=== PATIENT | male | born 1965 | race Caucasian/White ===

== ENCOUNTER 2017-07-23 13:00 | Outpatient (RCR) | payer MEDICAID, SELFPAY ==
--- NOTE | 2017-06-25 14:21 | HP.PTEVAL_ITS ---
Patient's Visit Information TED FONTANEZ is a 52 year old M referred to Physical Therapy by Out of Town Doctor ELIANA BOYD with a diagnosis of Neck Pain. Date of Evaluation: 06/25/17 Physical Therapist: Bruna Chavira - Visit Plan Frequency: 2x /Week Duration: 4 Weeks Plan: Postural correction, distraction/traction, manual and pain managment (US/E -stim) - Subjective Subjective: Patient reports neck pain for a long time- reports signifcant pain from the muscles in the neck and back. Insidious onset- about a couple of years - doesn't feel like its getting worse but not getting better. Pain comes and goes. 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 Best: 0 /10 Eases: heating pad with massage. Pain is along the middle of the cervical spine- and sometimes makes the shoulders ache. No radiating pain past the shoulders. Describes the pain as dull and achy. No N/t in the fingers. No BILLINGSLEY , blurred vision is from his DM, and no dizziness. 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 Sleep: disturbed hard to get comfortable- sleeps in all directions- side mostly- 1 pillow. Has not had x-rays done on his neck but had some on his back. PMHx: DM, HTN, high iron, heart is skipping a beat (going to see a gas torch brazier). Meds: see list. - Objective Posture: FH, RS, Increased kyphosis- severe guarding of the cervical spine. Gait: no deviation of the LE- poor trunk rotation. Palpation: tender along upper traps, cervical paraspinals from occiput to CT junction. ROM: Shoulder/ Elbow: WNL Cervical: flexion: decreased by 50%, extn: decreased by 75%, SB: decreased by 25% left and 50% right Rot: decreased by 75% bilaterally- pain with all cervical motions. Strength: Shoulder: 5/5 throughout, Elbow: 5/5, Director Clinical Applications : equal and strong. Cervical: 3/5. Special Test: Compression: positive, Distraction: decreases s/s. - Goals Goal 1:: Patient will be I with HEP and progression Goal Time Frame: 4-6 Weeks Goal 2:: Patient will demo only a 25% defecit in ROM in the cervical spine Goal Time Frame: 4-6 Weeks Goal 3:: Patient will maintain proper posture t/o tx session to demo increased scap s/s Goal Time Frame: 4-6 Weeks Goal 4:: Patient will report sleeping through the night for 1 week Goal Time Frame: 4-6 Weeks - Rehabilitation Potential Physical Therapy Diagnosis: Patient presents with hypomobility- he has decreased ROM, strength and muscular endurance leading to poor posture and increased pain with ADL's. Rehabilitation Potential: Fair - Anticipated Interventions Patient/Client Instruction: Educate patient on: Benefits of Fitness Program For the Purpose of:: To increase tolerance to activity/condition/position Therapeutic Exercise to Include: Strength training, Endurance training, Body mechanics, Postural training, Passive ROM, Active ROM, Scapular Strength/ Stabilization For the Purpose of:: To improve muscle performance and motor function TENS: Yes Cryotherapy (ice pack, ice massage): Yes Thermo therapy (hot pack): Yes Ultrasound (thermal/non thermal): Yes Intermittent cervical traction: Yes For the Purpose of:: To decrease pain Thank you for the opportunity to evaluate your patient. For Medicare and Medicare HMO plans, please review the plan of care and approve it. It will need to be FAXED BACK to us at [phone] for Medicare purposes. Please let me know if there are questions or concerns regarding this plan of care. Physician Signature: Date:
--- NOTE | 2017-07-23 13:19 | HP.PTDCSUM_ITS ---
HP - PT D/C Summary It has been my pleasure to treat TED FONTANEZ under orders from Out of Town Doctor, for the diagnosis of Neck Pain for a total of 9 visit(s). Discharge Date: Please see the following information for a summary of their discharge status. - Subjective Subjective: His neck his a lot better- he has no pain in his neck. Patient feels that he is 99% better. 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 Sleep is not disturbed. Goes back to the MD in July. - Overall Improvement % Improvement: 99 - Objective Objective/Function: Posture: FH, RS, Increased kyphosis Gait: no deviation of the LE- poor trunk rotation. Palpation: not tender ROM: Shoulder/Elbow: WNL Cervical: WFL- no pain Strength: Shoulder: 5/5 throughout, Elbow: 5/5, Brooch And Bracelet Maker: equal and strong. Cervical: 5/5. Special Test: Compression: positive, Distraction: decreases s/s. - Goals Goal 1:: Patient will be I with HEP and progression Goal Progress: Goal Met Goal 2:: Patient will demo only a 25% defecit in ROM in the cervical spine Goal Progress: Goal Met Goal 3:: Patient will maintain proper posture t/o tx session to demo increased scap s/s Goal Progress: Progressing Goal 4:: Patient will report sleeping through the night for 1 week Goal Progress: Goal Met - Plan Plan: Discharge - D/C Information If there are questions or concerns regarding this patient's physical therapy, please feel free to call me at [phone]. Thank you for the referral of this patient. Sincerely, Bruna Chavira
== END 2017-07-23 19:00 | disposition home or self-care (01) ==
LOC: PT 13:00
PROVIDERS: Family Provider Family Medicine; PCP Family Medicine
DX: M54.2 Cervicalgia (principal); M79.1 Myalgia
CPT/HCPCS: 97012; 97035; 97110; 97140; 97162; 97530

== ENCOUNTER 2017-08-31 11:00 | Outpatient (RCR) | payer MEDICAID, SELFPAY ==
--- NOTE | 2017-08-06 09:44 | HP.PTEVAL ---
Patient's Visit Information TED FONTANEZ is a 52 year old M referred to Physical Therapy by TRACIE DIEGO with a diagnosis of LBP AND LUMBAR DDD. Date of Evaluation: 08/06/17 Physical Therapist: Patty Palencia Visit Plan Frequency: 2-3x /Week Duration: 4-6 Weeks Plan: LUMBAR US AND E-STIM WITH . POSTURE CORRECTION/STRENGTHENING, INSTRUCTION IN APPROPRIATE BODY MECHANICS AND ACTIVITY MODIFICATIONS. DLS STARTING WITH A NEUTRAL SPINE PROGRESSING ROM TOLERATED. MARY LE ROM, STRETCHING AND STRENGTHENING. HEP INSTRUCTION. - Subjective Subjective: Diagnosis: LBP AND LUMBAR DDD. 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 Disability: NO. Present symptoms: LOW BACK PAIN. STATES HE WAS HAVING NECK AND SHOULDER PAIN RECENTLY BUT THAT IS GONE. ONE EPISODE OF PAIN IN THE LEGS ABOUT 6 MONTHS AGO. NO RECENT PAIN, NUMBNESS OR TINGLING IN ARMS OR LEGS. Present since: YEARS. Pain Scale: WORST 7/10, LEAST 1/10. Currently: 2/10. Commenced as a result of: 1984 WAS CARRYING LONG TABLES AND BACK WENT OUT. Symptoms at onset: LOW BACK. Worse: PROLONGED SITTING, PROLONGED STANDING. PROLONGED WALKING. TOO MUCH BENDING. SOMETIMES LIFTING. Better: HEATING PAD. Disturbed sleep: YES. Previous history/Previous treatment: WATER PT IN THE PAST MADE IT WORSE - HE HAD IT HERE. MEDICINE. HEATING PAD. NO INJECTIONS. Coughing/sneezing/straining: NEGATIVE. Gait: INDEP WITHOUT AD. DISTANCE/TIME LIMITED DUE TO PAIN WITH PROLONGED WALKING. Difficulty initiating urinatin: NO. Accidents: NO. Unexplained weight loss: NO. Imaging: Normal vertebral bodies and endplates. There is mild degenerative disc. change at L4-5 and L5-S1. There is bilateral facet hypertrophy at L4-5 and. L5-S1 with bilateral foraminal narrowing at L5-S1. Sacrum and sacroiliac. joints are intact. NO MRI. PMH: ANXIETY/DEPRESSION, MYALGIA, LONGTERM USE OF OPIATE ANALGESIC. NIDDM, HTN, HIGH IRON, SPECIALIST APPOINTMENT PENDING FOR HEART SKIPPING A BEAT WHICH WAS JUST DISCOVERED ABOUT A MONTH AGO. HAS HAD RECENT STRESS TEST. Recent major surgery: RIGHT KNEE - 3 SURGERIES FROM ACCIDENT WITH A COW A COUPLE YEARS AGO. OTHER: PATIENT REPORTS WATER THERAPY MADE HIM WORSE LAST TIME AND HE DOES NOT WANT TO TRY IT AGAIN. - Objective Sitting Posture: POOR. Standing Posture: POOR. RIGHT ILIAC CREST HIGHER THAN LEFT. MARY SCAPULAR WINGING. Lordosis: DECREASED. Lateral shift: NO. Relevant shift: N/A. Active Correction of posture: WORSE. Other Observations: INDEP GAIT INTO PT WITHOUT ASSISTIVE DEVICE WITH INCREASED TRUNK FLEX AND DECREASED TRUNK ROTATION. INDEP SIT TO STAND WITHOUT UE ASSIST. PATIENT IS PLEASANT AND COOPERATIVE TO WORK WITH. Motor deficit: 5/5 MARY LE'S WITH MMT'ING BUT UNABLE TO COMPLETELY GET RIGHT KNEE EXTENDED IN SITTING AND LYING (-15 DEG). Sensory deficit: MARY LE LIGHT TOUCH SENSATION IS INTACT AND SYMMETRICAL. ROM deficit: TIGHT MARY HS'S AND GASTROC SOLEUS COMPLEX'S. Reflexes: 3/3 MARY LE'S. Dural Signs: POSITIVE MARY LE DURAL SIGNS. Lumbar mvmt loss: flex - MOD TO AFSHAN. ext - AFSHAN IN STANDING AND IN LYING. R SG - AFSHAN. L SG - MOD. Core strength: POOR. Palpation: NO ACURE THORACIC OR LUMBAR TENDERNESS BUT VERY TIGHT MARY PARASPINALS. OTHER: DECREASED LOW BACK PAIN SITTING WITH SUPPORT IN LOW BACK. - Goals Goal 1:: DECREASE C/O LBP Goal Time Frame: 4-6 Weeks Goal 2:: IMPROVE BENDING, LIFTING, SITTING, STANDING, WALKING, WORK AND SLEEP FUNCTION Goal Time Frame: 4-6 Weeks Goal 3:: INSTRUCT IN PROPHYLAXIS Goal Time Frame: 4-6 Weeks - Rehabilitation Potential Rehabilitation Potential: Fair - Anticipated Interventions Patient/Client Instruction: Educate patient on: Condition, Plan of Care, Risk Factors, Benefits of Fitness Program For the Purpose of:: To improve self management Therapeutic Exercise to Include: Strength training, Body mechanics, Postural training, Flexibilty training, Passive ROM, Active ROM, Dynamic Lumbar Stabilization, Ke Exercises For the Purpose of:: To decrease pain, To improve muscle performance and motor function, To increase tolerance to activity/condition/position, To improve ability of physical actions for home/community/work/leisure Manual Therapy Techniques to Include: Mobilization, Soft tissue mobilization Comment: TOLERATED AND/OR INDICATED FROM KE APPROACH For the Purpose of:: To decrease pain, To increase ROM TENS: Yes IF ES: Yes Cryotherapy (ice pack, ice massage): Yes Thermo therapy (hot pack): Yes Ultrasound (thermal/non thermal): Yes For the Purpose of:: To decrease pain, To increase ROM Thank you for the opportunity to evaluate your patient. For Medicare and Medicare HMO plans, please review the plan of care and approve it. It will need to be FAXED BACK to us at [phone] for Medicare purposes. Please let me know if there are questions or concerns regarding this plan of care. Physician Signature: Date:
--- NOTE | 2017-09-03 11:00 | DT_ITS ---
This patient was seen during an EMR downtime August 27, 2017 - September 03, 2017. This patient may have a combination of paper and electronic documentation or all paper documentation. All documentation is viewable within the e-chart portion of [employer] for each patient visit.
--- NOTE | 2017-09-22 17:47 | HP.PTDCSUM_ITS ---
HP - PT D/C Summary It has been my pleasure to treat TED FONTANEZ under orders from TRACIE DIEGO, for the diagnosis of LBP AND LUMBAR DDD for a total of 4 visit(s). Discharge Date: Please see the following information for a summary of their discharge status. - Subjective Subjective: REPORTING STIFFNESS TODAY. DENIES PAIN CURRENTLY. OVERALL REPORTS PAIN IS IMPROVING. AFTER 8 HR WORK DAY BACK IS STIFF. - Objective Objective/Function: ADDED TO HEP- SEE BELOW. CONTINUED WITH STRETCHING AND DLS/ POSTURAL EX. PT FEELS THE HEAT REALLY HELPS WITH THE STIFFNESS. LEFT FEELING GOOD. - Goals Goal 1:: DECREASE C/O LBP Goal 2:: IMPROVE BENDING, LIFTING, SITTING, STANDING, WALKING, WORK AND SLEEP FUNCTION Goal 3:: INSTRUCT IN PROPHYLAXIS - Plan Plan: LUMBAR US AND E-STIM WITH MH. POSTURE CORRECTION/STRENGTHENING, INSTRUCTION IN APPROPRIATE BODY MECHANICS AND ACTIVITY MODIFICATIONS. DLS STARTING WITH A NEUTRAL SPINE PROGRESSING ROM TOLERATED. MARY LE ROM, STRETCHING AND STRENGTHENING. HEP INSTRUCTION. - D/C Information If there are questions or concerns regarding this patient's physical therapy, please feel free to call me at [phone]. Thank you for the referral of this patient. Sincerely, Patty Cherry
== END 2017-08-31 19:00 | disposition home or self-care (01) ==
LOC: PT 11:00
PROVIDERS: Family Provider Family Medicine; PCP Family Medicine
DX: M51.36 Other intervertebral disc degeneration, lumbar region (principal); M54.5 Low back pain
CPT/HCPCS: 97014; 97110; 97162; 97530; G0283

== ENCOUNTER → 2017-10-29 12:29 | Outpatient (CLI) | payer MEDICAID, SELFPAY ==
--- NOTE | 2017-10-29 12:39 | MRI_ITS ---
STUDY: MRI LUMBAR SPINE WITHOUT CONTRAST REASON FOR EXAM: Male, 52 years old. LOW BACK PAIN -- pain low back x 30 years. TECHNIQUE: Standardized fat and water weighted pulse sequences were obtained in the sagittal and axial planes. COMPARISON: None FINDINGS: T12-L1: There is mild disc space narrowing and endplate spondylosis. There is no significant disc herniation, spinal canal or foramina stenosis. There is Normal lumbar lordosis. There is no substantial scoliosis. Normal conus medullaris that terminates at the L1 L1-2: There is mild disc space narrowing and endplate spondylosis. There is no significant disc herniation, spinal canal or foramina stenosis. There is L2-3: Normal endplates. Normal disc height, hydration and morphology. Normal bilateral facet joints. Normal central canal and bilateral lateral recesses. Normal bilateral intervertebral neural foramina. L3-4: There is minimal disc space narrowing and endplate spondylosis along with moderate facet arthropathy. There is no significant disc herniation, spinal canal or foramina stenosis.. L4-5: There is mild disc space narrowing and endplate spondylosis. There is a mild disc bulge and minimal facet arthropathy without significant central canal or foraminal stenosis. L5-S1: There is mild disc space narrowing and anterior spondylosis. There is a moderate circumferential osteophyte complex and mild facet arthropathy without significant central canal stenosis. There is mild right and moderate left foraminal stenosis. Normal visualized sacral ala. Normal visualized paraspinous soft tissue structures. MRI/Spine Lumbar (Routine) IMPRESSION: L5/S1: Moderate left foraminal stenosis. Mild multilevel degenerative changes. Electronically Signed: Rosa Hernandez MD at 13:07 EDT Tel , Service support ,
== END ==
PROVIDERS: Family Provider Family Medicine; PCP Family Medicine
DX: M54.5 Low back pain (principal)
CPT/HCPCS: 72148

== ENCOUNTER 2019-03-16 20:52 | Emergency (ER) | payer SELFPAY ==
[2019-03-16 20:53] VITALS: BP 152/103; PULSE 132; RESP 16; TEMP 36.8; O2SAT 98; BMI 27.1
--- NOTE | 2019-03-16 22:14 | EKG12_ITS ---
Test Reason : GEN ILL Blood Pressure : / mmHG Vent. Rate : 085 BPM Atrial Rate : 085 BPM P-R Int : 176 ms QRS Dur : 088 ms QT Int : 366 ms P-R-T Axes : 006 005 -04 degrees QTc Int : 435 ms Sinus rhythm with Premature atrial complexes Minimal voltage criteria for LVH, may be normal variant T wave abnormality, consider inferior ischemia Abnormal ECG Confirmed by GONZALEZ LOVE, RADHA ([id number]), pictures editor WILLARD FAM ([id number]) on 03/20/2019 8:51:14 AM Referred By: JESÚS Confirmed By:RADHA ROTH MD
--- NOTE | 2019-03-16 22:19 | RAD_ITS ---
STUDY: X-RAY CHEST REASON FOR EXAM: Male, 53 years old. PT ARRIVES TO ED WITH A SORE THROAT. HAS BEEN OUT OF HOME MEDS FOR A MONTH. HX OF DIABETES. METER AT HOME READING HIGH. TECHNIQUE: Single frontal view of the chest. COMPARISON: None. FINDINGS: The lungs are clear and expanded. There is no demonstrated pleural abnormality. Normal size heart. Normal mediastinum and chelita. Normal visualized pulmonary arteries. Normal visualized aortic arch and descending thoracic aorta. Normal visualized thoracic spine. Normal visualized ribs, clavicles, and shoulders. There is no demonstrated abnormality of the visualized soft tissue structures of the upper abdomen. RAD/Chest 1 View (Portable) IMPRESSION: Normal x-ray examination of the chest. Electronically Signed: Poncho Sorenson MD at 22:45 EST , Service support ,
[2019-03-16] MEDS: 0.9% Normal Saline 1,000 ML 1000 ML IV ×2 (22:21→23:28)
[2019-03-16 22:28] LABS: Absolute Lymphocyte Count 1.45 X10^3/uL (0.83-4.51); Absolute Neutrophil Count 4.8 X10^3/uL (2.0-7.7); Basophil# 0.06 X10^3/uL; Basophil% 0.8 % (0-1); Eosinophil# 0.12 X10^3/uL; Eosinophils% 1.7 % (0-5); Hematocrit 43.3 % (40-54); Hemoglobin 15.3 g/dL (13.0-16.5); Lymphocyte # 1.45 X10^3/ul (4.0); Lymphocyte % 20.1 % (19-41); Mean Corp Hgb Conc 35.3 g/dL (32-36); Mean Corpuscular Hgb 30.1 pg (27.0-32.0); Mean Corpuscular Volume 85.1 fL (80-94); Mean Platelet Vol. 10.6 fl (6.2-12.0); Monocyte# 0.81 X10^3/uL; Monocyte% 11.2 % (0-10); NRBC Flagged by Analyzer 0 % (0-5); Neutrophil # 4.75 X10^3/uL (2.7-7.7); Neutrophil % 65.9 % (47-70); Platelet Count 340 K/mm3 (150-450); RBC Distribution Width CV 11.5 % (11.6-14.6); RBC Distribution Width SD 35.4 fl (35.1-43.9); Red Blood Count 5.09 M/mm3 (4.6-6.2); White Blood Count 7.2 K/mm3 (4.4-11.0)
[2019-03-16 22:48] LABS: ALB/GLOB Ratio 0.9 RATIO (0.9-2.4); AST(SGOT) 27 U/L (15-37); Alanine Aminotransfer ALT/SGPT 42 U/L (16-61); Albumin, Serum 4.1 g/dL (3.2-5.0); Alkaline Phosphatase 164 U/L (45-117); Anion Gap 9 (5-15); BUN 23 mg/dL (7-18); BUN/Creat Ratio 12.5 RATIO (10-20); Calcium,Total 9.1 mg/dL (8.5-10.1); Chloride 97 mmol/L (98-107); Creatinine, Serum 1.84 mg/dL (0.70-1.30); EST Glomerular Filtration Rate 41 mL/min (>60); Est Glom Filt Rate - Afr Amer 49 mL/min (>60); Estimated Creatinine Clearance 51.87 ml/min; Globulin 4.6 g/dL (2.2-4.2); Glucose 618 mg/dL (74-106); Protein, Total 8.7 g/dL (6.4-8.2); Sodium Level 129 mmol/L (136-145)
[2019-03-16 23:00] VITALS: PULSE 89; RESP 20; O2SAT 98
[2019-03-16] MEDS: 0.9% Normal Saline 1,000 ML 999 ML IV (23:28)
--- NOTE | 2019-03-16 23:32 | ED.VISSUMM ---
- ER Visit Summary Date of Service: 03/16/19 Chief Complaint: High blood sugar History of Present Illness: The patient is a [address] Isabel and is in the process of getting into the [facility]. Reports that he had a change in insurance and because of this he ran out of his medications approximately 1 month ago. He was on multiple medications for his blood pressure as well as diabetes. Patient reports that he has had polyuria, polydipsia, blurred vision. He also reports that he has a slight headache. He denies any fever or chills. No chest pain. Reports he has a little bit of a cough. He has mild shortness of breath. He denies any abdominal pain. He reports he was nauseated vomited 2 days ago. Has not vomited since then. He said 3-4 episodes of diarrhea today. He denies any other complaints. Physical Examination: Vitals: 98.3, 152/103, 132, 16, 90% on room air which is not hypoxic. General: Well-nourished and well-developed. Head: Normocephalic atraumatic. HEENT: Dry mucous membranes. No tonsillar enlargement or exudate. Neck: Supple, no lymphadenopathy. No JVD. Nontender. Cardiovascular: Tachycardic regular rhythm. No murmurs. Respiratory: No respiratory distress. Clear to auscultation bilaterally. Abdominal: Soft, nontender, nondistended, normal bowel sounds. No guarding, rebound, or peritoneal signs. Back: Nontender. Extremities: Nontender, no edema. Skin: Normal color, no rash. Neurologic: Alert and oriented ?3. Cranial nerves II through XII are intact. Normal strength and sensation. Psych: Normal affect. Test Results: EKG is sinus with PACs and nonspecific ST changes. He has T wave inversions in lead III and aVF. There is LVH. His troponin is negative. LFTs show an alk phos 164, total protein of 8.7, globulin 4.6. Chem-7 shows a sodium 129 which is 137 when corrected for his sugar of 618. BUN 23, creatinine is 1.84. Serum ketones are negative. CBC shows monocytes of 11. Emergency Department Course and Treatment: Patient was given 2 L normal saline and metformin p.o. Treatment Plan: I reviewed the patient's medication list. He was given prescriptions for his home medications. All of these are on the $4 list at [facility]. He understands it will cost $28 a month for his medications. He be discharged instructed to follow-up with his primary care physician over the [facility] within the next 1 to 2 weeks for another exam. Return to the emergency department for any worsening symptoms. Disposition: To home in improved and stable condition. Impression: 1. Ntj-ustmshn-dubrpcyjg diabetes mellitus. 2. Hyperglycemia. This note was generated with [employer] dictation software. It may contain incorrect words, spelling, and punctuation that were not noted in review of the chart prior to signing ED Disposition - Plan for ED Patient: Disposition: Home or Assisted Living Instructions: Hyperglycemia (High Blood Sugar) Prescriptions: Pioglitazone [Actos] 15 mg PO DAILY #30 tab Prescription Printed Atorvastatin Calcium 20 mg PO DAILY #30 tab Prescription Printed Glimepiride 4 mg PO BREAKFAST #30 tab Prescription Printed Hydrochlorothiazide 12.5 mg PO DAILY #30 cap Prescription Printed Isosorbide Mononitrate [Isosorbide Mononitrate ER] 30 mg PO DAILY #30 tab.er.24h Prescription Printed Lisinopril 30 mg PO DAILY #30 tab Prescription Printed Metformin HCl 1,000 mg PO BID #60 tab Prescription Printed Referrals: Clovis Isabel MD [Primary Care Provider] - [facility] soon as possible [facility] [NON-STAFF] - As soon as possible
[2019-03-16] MEDS: metFORMIN (XR) 500 MG Tablet 1000 MG PO (23:46)
[2019-03-17 00:52] VITALS: BP 156/96; PULSE 79; RESP 18; O2SAT 98
== END 2019-03-17 01:06 | disposition home or self-care (01) ==
LOC: ED 22:44
PROVIDERS: Emergency Provider Emergency Medicine; Family Provider Family Medicine; PCP Family Medicine
DX: E11.65 Type 2 diabetes mellitus with hyperglycemia (principal); I10 Essential (primary) hypertension; Z79.84 Long term (current) use of oral hypoglycemic drugs; Z79.82 Long term (current) use of aspirin; Z79.899 Other long term (current) drug therapy
CPT/HCPCS: 71045; 80053; 82009; 84484; 85025; 93005; 96360; 96361; 99285; J7030; A4216

== ENCOUNTER 2019-07-02 20:12 | Inpatient (IN) | payer SELFPAY ==
[2019-07-02] VITALS (10 sets, daily range): BP systolic 155–170; BP diastolic 82–96; PULSE 105–127; RESP 15–25; TEMP 37.4–38.3; O2SAT 96–100; BMI 27.9
--- NOTE | 2019-07-02 20:27 | EKG12_ITS ---
Test Reason : CP Blood Pressure : / mmHG Vent. Rate : 121 BPM Atrial Rate : 121 BPM P-R Int : 172 ms QRS Dur : 082 ms QT Int : 306 ms P-R-T Axes : 026 024 -13 degrees QTc Int : 434 ms Sinus tachycardia Otherwise normal ECG Confirmed by ELIDA LOVE, JOEL ([id number]), primer expeditor and drier WILLARD FAM ([id number]) on 07/04/2019 9:37:39 AM Referred By: BAKARI Confirmed By:MAXIM MARRERO MD
--- NOTE | 2019-07-02 20:28 | ED.DCSUM_ITS ---
- ER Visit Summary Date of Service: 07/02/19 Chief Complaint: Chest pain History of Present Illness: The patient is a 54 M who presents with chest pain that began today. Patient states it is gradually gotten worse. Patient states it began while he was at work. Patient describes it as a tightness. Patient states nothing makes it better or worse. Patient does admit to some shortness of breath and cough with this. Patient states he occasionally coughs up a white sputum but most of the time it is a dry cough. Patient admits to subjective fevers. Patient denies any nausea or vomiting. Patient denies any diaphoresis. Patient does admit to some lightheadedness and palpitations. Physical Examination: Vital signs are stable except for a tachycardia of 127. Patient does have a temperature of 100.9 here. Patient is in no acute distress. Oral mucosa is pink and moist. Neck is supple. Trachea is midline. There is no JVD. Heart was regular and tachycardic. Lungs are clear but diminished bilaterally. Abdomen is soft. Bowel sounds are normal. There is no tenderness . Cranial nerves II through XII are intact. There are no focal motor or sensory deficits. Test Results: EKG shows sinus tachycardia with a rate of 121. There are no acute ST or T wave changes. CBC shows a mild leukocytosis of 13.2. Creatinine was 1.56 and glucose was elevated at 398. INR is normal. PTT is normal. Rapid strep was positive. RSV and influenza swabs were negative. Troponin was normal. D-dimer was elevated at 0.72. Lactate was normal at 1.1. Portable chest x-ray was obtained. There is no acute cardiopulmonary process. Because of the elevated d-dimer a CTA of the chest was obtained. There is nonspecific groundglass spiculated lesions in the left perihilar region. This could be infectious, inflammatory, or neoplastic etiologies including early covid 19. This was interpreted by the radiologist and reviewed by myself. Emergency Department Course and Treatment: Patient was ordered Tylenol. Patient declined this initially. Patient was started on Rocephin and Zithromax here. Case was discussed with the hospitalist. She will admit the patient to her service. Patient understands and is agreeable with the plan. All questions were answered. Disposition: Admit to hospital Impression: 1. Pneumonia 2. Sepsis 3. Strep pharyngitis This note was generated with [employer] dictation software. It may contain incorrect words, spelling, and punctuation that were not noted in review of the chart prior to signing ED Disposition - Plan for ED Patient: Disposition: Acute Care Hospital [facility] Diagnosis: Pneumonia, Sepsis, Strep pharyngitis Referrals: NOT,DEFINED [NON-STAFF] -
[2019-07-02 21:00] LABS: Absolute Lymphocyte Count 0.49 X10^3/uL (0.83-4.51); Absolute Neutrophil Count 11.8 X10^3/uL (2.0-7.7); Basophil# 0.05 X10^3/uL; Basophil% 0.4 % (0-1); Eosinophil# 0.03 X10^3/uL; Eosinophils% 0.2 % (0-5); Hematocrit 39.4 % (40-54); Lymphocyte # 0.49 X10^3/ul (4.0); Lymphocyte % 3.7 % (19-41); Mean Corp Hgb Conc 35.5 g/dL (32-36); Mean Corpuscular Hgb 30.5 pg (27.0-32.0); Mean Corpuscular Volume 85.8 fL (80-94); Mean Platelet Vol. 9.6 fl (6.2-12.0); Monocyte# 0.79 X10^3/uL; NRBC Flagged by Analyzer 0 % (0-5); Neutrophil # 11.75 X10^3/uL (2.7-7.7); Neutrophil % 89.1 % (47-70); POSITIVE DIFFERENTIAL YES; Platelet Count 296 K/mm3 (150-450); RBC Distribution Width CV 11.5 % (11.6-14.6); Red Blood Count 4.59 M/mm3 (4.6-6.2); White Blood Count 13.2 K/mm3 (4.4-11.0)
[2019-07-02 21:02] LABS: Differential Indicated SCAN CRITERIA MET
[2019-07-02 21:18] LABS: ALB/GLOB Ratio 0.9 RATIO (0.9-2.4); AST(SGOT) 20 U/L (15-37); Alanine Aminotransfer ALT/SGPT 32 U/L (16-61); Albumin, Serum 3.9 g/dL (3.2-5.0); Alkaline Phosphatase 138 U/L (45-117); Anion Gap 9 (5-15); BUN 17 mg/dL (7-18); BUN/Creat Ratio 10.9 RATIO (10-20); Calcium,Total 9.1 mg/dL (8.5-10.1); Chloride 98 mmol/L (98-107); Creatinine, Serum 1.56 mg/dL (0.70-1.30); EST Glomerular Filtration Rate 49 mL/min (>60); Est Glom Filt Rate - Afr Amer 60 mL/min (>60); Estimated Creatinine Clearance 60.47 ml/min; Globulin 4.3 g/dL (2.2-4.2); Glucose 398 mg/dL (74-106); Potassium 3.8 mmol/L (3.5-5.1); Protein, Total 8.2 g/dL (6.4-8.2); Sodium Level 131 mmol/L (136-145)
[2019-07-02 21:19] LABS: D-Dimer Quantitative (DVT/PE) 0.72 FEU/ug/m (0.27-0.49)
--- NOTE | 2019-07-02 21:21 | ED.RN ---
d-dimer of 0.72 reported to . verbalizes understanding
--- NOTE | 2019-07-02 21:22 | RAD_ITS ---
STUDY: X-RAY CHEST REASON FOR EXAM: Male, 54 years old. sob with fever TECHNIQUE: Single frontal view of the chest. COMPARISON: March 16, 2019 FINDINGS: The lungs are clear and expanded. There is no demonstrated pleural abnormality. Normal size heart. Normal mediastinum and chelita. Normal visualized pulmonary arteries. Normal visualized aortic arch and descending thoracic aorta. Normal visualized thoracic spine. Normal visualized ribs, clavicles, and shoulders. There is no demonstrated abnormality of the visualized soft tissue structures of the upper abdomen. RAD/Chest 1 View (Portable) IMPRESSION: Normal x-ray examination of the chest. Electronically Signed: Poncho Sorenson MD at 21:46 EDT , Service support ,
[2019-07-02 21:28] LABS: Differential Comment SCANNED
--- NOTE | 2019-07-02 21:30 | CT_ITS ---
STUDY: CTA CHEST REASON FOR EXAM: Male, 54 years old. COUGH/ELEV DDIMER/CHEST PRESSURE RADIATION DOSAGE (If Supplied By Facility): CTDIvol = ( 10.91 ) mGy, DLP = ( 564.41 ) mGycm TECHNIQUE: The examination was performed with the intravenous administration of 100ML ISOVUE 300. Post-processing of the angiographic images was performed, with multiplanar reformation and 3D reconstruction. Individualized dose optimization techniques were used for this CT. COMPARISON: Chest x-ray July 02, 2019 FINDINGS: Normal enhancement of the main pulmonary artery and right and left pulmonary arteries. Normal enhancement of the bilateral peripheral pulmonary arteries. There is no demonstrated pulmonary embolism. Normal thoracic aorta and visualized great vessels. There is no demonstrated aortic dissection. Normal heart and pericardium. Calcific coronary artery disease. Normal mediastinum. Normal hilar regions. Normal visualized trachea and bronchi. 6 x 13 mm spiculated lesion left perihilar region image #171. Multiple smaller satellite lesions are noted in this region. Another 12 x 12 mm lesion is noted more superiorly on image #190. Normal pulmonary parenchyma. Normal pleura. Normal chest wall structures. Normal osseous structures. Normal visualized upper abdomen. CT/CTA Chest W/WO Contrast IMPRESSION: Nonspecific groundglass spiculated lesions left perihilar region. Differential considerations include infectious, inflammatory, and neoplastic etiologies including early covid 19. Follow-up recommended. Electronically Signed: Poncho Sorenson MD at 23:00 EDT , Service support ,
--- NOTE | 2019-07-02 21:39 | ED.RN ---
positive nguyễn Parisi reported to dr. gonzales. verbalizes understanding
[2019-07-02 21:52] LABS: Partial Thromboplast Time 24.9 Seconds (24.1-36.2); Prothrombin Time (Protime)PT. 12.8 SECONDS (11.7-14.9)
[2019-07-02] MEDS: 0.9% Normal Saline 1,000 ML 1000 ML IV (21:55)
[2019-07-02 22:36] LABS: Bacteria 0 SEEN /hpf (None Seen); Mucous, Urine 0 SEEN /hpf (<or=2+); White Blood Cells 0 SEEN /hpf (0-5)
[2019-07-02 22:42] LABS: Color, Urine Yellow (Yellow); Glucose, Dipstick 1000 mg/dl (Normal); Ketone-Dipstick 15 mg/dl (Negative); Leukocyte Esterase-Dipstick Negative /ul (Negative); Nitrite-Dipstick Negative (Negative); Occult Blood-Urine 150 /ul (Negative); Protein-Dipstick 30 mg/dl (Negative); Urine Bilirubin Dipstick Negative (Negative); Urine Clarity Clear (Clear); Urine Urobilinogen Normal (Normal)
[2019-07-02 22:54] LABS: Amorphous Sediment 1+ URATE; Red Blood Cells-Urine 10-25 SEEN /hpf (0-5); Squamous Epithelial Cells - UA 0-5 SEEN /hpf (0-5)
[2019-07-02 22:58] LABS: Lactic Acid 1.1 mmol/L (0.4-1.9)
--- NOTE | 2019-07-02 23:00 | ED.RN ---
PATIENT DOES NOT WANT THE TYLENOL AT THIS TIME SINCE HIS TEMPERATURE IS GETTING BETTER AND HE ISN'T THAT UNCOMFORTABLE.
--- NOTE | 2019-07-02 23:44 | PCM.HP.STD ---
Problem List (1) Sepsis Status: Acute Qualifiers: Sepsis type: sepsis due to unspecified organism Sepsis acute organ dysfunction status: unspecified Qualified Code(s): A41.9 - Sepsis, unspecified organism (2) Pneumonia Status: Acute Qualifiers: Pneumonia type: due to unspecified organism Laterality: unspecified laterality Lung location: unspecified part of lung Qualified Code(s): J18.9 - Pneumonia, unspecified organism (3) Suspected 2019 novel coronavirus infection Status: Acute (4) HTN (hypertension) Status: Chronic Qualifiers: Hypertension type: essential hypertension Qualified Code(s): I10 - Essential (primary) hypertension (5) HLD (hyperlipidemia) Status: Chronic Qualifiers: Hyperlipidemia type: unspecified Qualified Code(s): E78.5 - Hyperlipidemia, unspecified (6) Diabetes mellitus, type II Status: Chronic Qualifiers: Diabetes mellitus senior living insulin use: without senior living use Diabetes mellitus complication status: with other specified complication Qualified Code(s): E11.69 - Type 2 diabetes mellitus with other specified complication History of Present Illness Date of Admission: 07/02/19 Chief Complaint: Cough, dyspnea, headache, myalgia. The patient is a 54 y/o M w/ PMHx: CKD stage III, HTN, HLD, Diabetes mellitus type II, Anxiety and Depression who presents to the [facility] ED on 07/02/19 with history of chest discomfort, dyspnea, mildly productive cough not markedly productive sputum, subjective fevers, myalgias as well as frontal ongoing throbbing headache prompting eventual ED presentation. He denies any recent nausea, emesis, abdominal pain or diarrhea. Also denies any specific loss of sense of smell or alteration work-up in the ED included T1 100.9, heart rate initially 127, BP 170/82, respiratory rate 23, 99% on room air, CBC with WBC 13.2, hemoglobin 14, platelet 296 with left shift but also noted lymphopenia, unremarkable PT, INR and PTT, d-dimer 0.72, CMP with sodium 131, BUN/creatinine 17/1.56, glucose 398, lactic acid 1.1, alk phos 138, troponin less than 0.015, urinalysis with specific gravity 1.010, protein 30, glucose 1000, ketone 15, occult blood 150, negative nitrite, negative leukocyte esterase, RBC 10-25, 0 urine WBCs, 0 urine bacteria, blood culture x2 pending per ED, urine culture pending per ED, rapid RSV and influenza negative, positive group A strep on rapid screen, respiratory viral panel pending, rest x-ray unremarkable, CTPA with nonspecific groundglass Spiculated lesions in the left perihilar region. In the ED patient ministered normal saline, Tylenol, Rocephin, azithromycin. Past Medical History Past Medical History (Chronic Problems): Chronic Problems HTN (hypertension) (Chronic) HLD (hyperlipidemia) (Chronic) Diabetes mellitus, type II (Chronic) Allergies acetaminophen [From Vicodin] Adverse Reaction (Verified 07/02/19 20:12) Other hydrocodone [From Vicodin] Adverse Reaction (Verified 07/02/19 20:12) Other Home Medications: Ambulatory Orders Medication Instructions Recorded Aspirin [Aspir 81] 81 mg PO DAILY 03/16/19 Glimepiride 4 mg PO BREAKFAST #30 tab 03/16/19 Hydrochlorothiazide 12.5 mg PO DAILY 03/16/19 Isosorbide Mononitrate [Isosorbide 30 mg PO DAILY 03/16/19 Mononitrate ER] Lisinopril 30 mg PO DAILY #30 tab 03/16/19 Metformin HCl 1,000 mg PO BID #60 tab 03/16/19 Nitroglycerin 0.4 mg SUBLINGUAL PRN PRN 03/16/19 Pioglitazone HCl 15 mg PO DAILY 03/16/19 Pioglitazone [Actos] 15 mg PO DAILY #30 tab 03/16/19 Simvastatin [Flolipid] 20 mg PO DAILY 03/16/19 Surgical History: - - Left knee surgery x3 following trauma. Psychiatric History: Anxiety, Depression Lives: Roommate Smoking Status: Never smoker Tobacco Use: Non-smoker Alcohol: None Drugs: None - *Family History Maternal History Items: - - Patient notes a maternal family history of heart disease, hypertension, diabetes mellitus type 2. Paternal History Items: Heart Disease Review of Systems Constitutional: Reports: Anorexia, Chills, Fever, Malaise, Weakness, Fatigue. Denies: Weight Change HEENT: Reports: Head Aches, Sore Throat. Denies: Sinus Congestion, Sinus Drainage Cardiovascular: Denies: Chest Pain, Palpitations Respiratory: Reports: Cough, Shortness of Breath, Shortness of breath at rest, Shortness of breath upon exertion. Denies: Sputum production, Wheezing Gastrointestinal: Denies: Abdominal Pain, Nausea, Vomiting Genitourinary: Denies: Dysuria Musculoskeletal: Reports: Back Pain, Joint Pain. Denies: Joint Tenderness Skin: Denies: Rash, Wounds Neurological: Denies: Numbness, Tingling, Focal weakness Psychiatric: Reports: Anxiety, Depression. Denies: Homicidal Ideations, Suicidal Ideations Hematologic/ Lymphatic: Denies: Easy Bruising, Easy Bleeding VTE Information - Inpt Only VTE Present on Admission: No VTE Mechan Device Prophylaxis: SCD's VTE Pharm Prophylaxis ordered?: Yes Patient Problems: Active and Suspected Problems Pneumonia (Acute) Sepsis (Acute) Strep pharyngitis (Acute) Suspected 2019 novel coronavirus infection (Acute) Subjective: Patient seated upright in ED bed, fatigued and ill-appearing. Objective: Physical Examination: General: awake, alert, oriented x 3 and cooperative, but upright in the ED bed, fatigued and ill-appearing. Skin: Flushed skin color, turgor, no icterus, cyanosis. HEENT: AT/NC, EOMI, PERRLA, mask in place, no carotid bruits or JVD noted. Lungs: Decreased breath sounds throughout, greater bases, moderate effort, no rales, ronchi or wheezing. Heart: Tachycardic with regular rhythm; no gallop, rub audible. Abdomen: soft, overweight, NTTP, ND, normal BS, no HSM. Extremities: no cyanosis, clubbing, or edema. Neurological: patient awake, alert, oriented x 3; cognitive function appears baseline intact; pupils equally reactive to light and accomodation; cranial nerves II-XII grossly normal, moving all 4 extremities, no focal deficits, strength moderately global decrease secondary to acute presentation. Psychiatric: affect appears fatigued, ill-appearing, no acute evidence of depressive or anxiety feelings. - Physical Exam Vitals/I&O's: Vital Signs Temp Pulse Resp BP Pulse Ox 100.0 F H 106 H 23 H 170/82 H 99 07/02/19 23:05 07/02/19 22:55 07/02/19 22:55 07/02/19 22:55 07/02/19 22:55 Oxygen Delivery Method Room Air Weight: 212 lb 1.355 oz Body Mass Index (BMI) 27.9 Microbiology Past 72 Hours 07/02/19 20:40 Mucosa - Nose Influenza Types A,B Direct FA (MENG) - Final 07/02/19 20:40 Mucosa - Nose Rapid RSV (DFA) - Final 07/02/19 20:42 Mucosa - Throat Group A Streptococcus Rapid Screen - Preliminary Streptococcus Group A Laboratory Results 07/02/19 20:46: WBC 13.2 H, RBC 4.59 L, Hgb 14.0, Hct 39.4 L, MCV 85.8, MCH 30.5, MCHC 35.5, RDW Std Deviation 36.0, RDW Coeff of Gustavo 11.5 L, Plt Count 296, MPV 9.6, Immature Gran % (Auto) 0.600, Neut % (Auto) 89.1 H, Lymph % (Auto) 3.7 L, [place] % (Auto) 6.0, Eos % (Auto) 0.2, Baso % (Auto) 0.4, Absolute Neuts (auto) 11.8 H, Absolute Lymphs (auto) 0.49 L, Nucleated RBC % 0, Differential Comment SCANNED 07/02/19 20:46: D-Dimer Quant (PE/DVT) 0.72 H* 07/02/19 20:46: Sodium 131 L, Potassium 3.8, Chloride 98, Carbon Dioxide 24.0, Anion Gap 9, BUN 17, Creatinine 1.56 H, Estim Creat Clear Calc 60.47, Est GFR (MDRD) Af Amer 60, Est GFR (MDRD) Non-Af 49 L, BUN/Creatinine Ratio 10.9, Glucose 398 H, Calcium 9.1, Total Bilirubin 0.60, AST 20, ALT 32, Alkaline Phosphatase 138 H, Troponin I < 0.015, Total Protein 8.2, Albumin 3.9, Globulin 4.3 H, Albumin/Globulin Ratio 0.9 07/02/19 20:46: PT 12.8, INR 1.0, APTT 24.9 07/02/19 22:25: Lactic Acid 1.1 07/02/19 22:25: Urine Color Yellow, Urine Clarity Clear, Urine pH 5.0, Ur Specific [place] 1.010, Urine Protein 30 H, Urine Glucose (UA) 1000 H, Urine Ketones 15 H, Urine Occult Blood 150 H, Urine Nitrite Negative, Urine Bilirubin Negative, Urine Urobilinogen Normal, Ur Leukocyte Esterase Negative, Urine RBC 10-25 SEEN, Urine WBC 0 SEEN, Ur Squamous Epith Cells 0-5 SEEN, Amorphous Sediment 1+ URATE, Urine Bacteria 0 SEEN, Urine Mucus 0 SEEN Current Medications Ceftriaxone Sodium 2 gm/ (Sodium Chloride) 50 mls @ 100 mls/hr IV X1 ONE Stop: 07/02/19 23:54 Azithromycin 500 mg/ Dextrose 255 mls @ 250 mls/hr IV X1 ONE Stop: 07/03/19 00:26 Assessment/Plan All Active Problems Pneumonia (Acute) Sepsis (Acute) Strep pharyngitis (Acute) Suspected 2019 novel coronavirus infection (Acute) The patient is a 54 y/o M w/ PMHx: CKD stage III, HTN, HLD, Diabetes mellitus type II, Anxiety and Depression who presents to the [facility] ED on 07/02/19 with history of chest discomfort, dyspnea, mildly productive cough not markedly productive sputum, subjective fevers, myalgias as well as frontal ongoing throbbing headache prompting eventual ED presentation. 1. Acute Sepsis secondary to Acute Dyspnea, Cough, Fever with Suspected Acute Viral Syndrome, COVID-19 with ? Colonization versus Acute Streptococcal Pharyngitis: Will admit to the COVID unit, maintain on telemetry given significant tachycardia upon presentation, will maintain on oxygen with wean as tolerated to room air, continue MDI inhaler PRN albuterol, maintain on IV Rocephin and Azithromycin, group A rapid screen positive but could be colonized, HOB, IS parameters w/ pending sputum cultures and urine antigens, will obtain procalcitonin, CRP, CPK, Ferritin, LDH, continue supportive care including q 2 hour turning including prone given no prone bed availability and judicious hydration, closely monitor for worsening status for ARDS and multiorgan failure, pending these labs and pending respiratory viral panel if appropriate would consider COVID-19 testing and if worsening status would consider initiation of hydroxychloroquine with close EKG monitoring for QT prolongation with trending of the liver functions. If patient worsens with need for oxygen >6 L would plan intubation with ICU physician continued care. Bld cx x 2 obtained in the ED. 2. Hypertension: Continue home regimen including hydrochlorothiazide, isosorbide, lisinopril with hold parameters as needed, PRN hydralazine. 3. Hyperlipidemia: Continue home statin regimen. 4. Chronic Kidney Disease Stage III: Admission BUN/Cr 17/1.56, baseline renal function 1.8, repeat BMP in AM. 5. Diabetes mellitus type II: Hold oral home regimen, HgbA1c requested, given BS 400s upon presentation will initiate low-dose twice daily Lantus pending hemoglobin A1c level, ADA diet, accu checks w/ ISS. 6. Anxiety and depression: Not on regimen, encourage continued outpatient follow-up. 7. DVT prophylaxis: SCDs, Lovenox. Inpatient E&M: 21104 Init Hosp L3
[2019-07-03] VITALS (11 sets, daily range): BP systolic 101–165; BP diastolic 63–89; PULSE 60–105; RESP 16–25; TEMP 36.6–38.1; O2SAT 96–98; BMI 26.9; BMI 27.0
[2019-07-03] MEDS: 0.9% Normal Saline 1,000 ML 100 ML IV ×3 (01:17→21:52)
[2019-07-03 03:10] LABS: Hemoglobin A1c 12.2 % (4.2-6.3)
[2019-07-03 03:16] LABS: Ferritin 129 ng/mL (26-388); LDH 202 U/L (87-241); Magnesium 1.9 mg/dL (1.6-2.6)
[2019-07-03] MEDS: Insulin Lispro 100 UNIT/ML INSULN.PEN SC ×4 (06:42→22:06)
[2019-07-03 07:04] LABS: Absolute Lymphocyte Count 0.87 X10^3/uL (0.83-4.51); Absolute Neutrophil Count 9.1 X10^3/uL (2.0-7.7); Basophil# 0.05 X10^3/uL; Basophil% 0.5 % (0-1); Eosinophil# 0.08 X10^3/uL; Eosinophils% 0.7 % (0-5); Hematocrit 38.2 % (40-54); Hemoglobin 13.4 g/dL (13.0-16.5); Lymphocyte # 0.87 X10^3/ul (4.0); Mean Corp Hgb Conc 35.1 g/dL (32-36); Mean Corpuscular Hgb 30.7 pg (27.0-32.0); Mean Corpuscular Volume 87.6 fL (80-94); Mean Platelet Vol. 9.6 fl (6.2-12.0); Monocyte# 0.69 X10^3/uL; Monocyte% 6.3 % (0-10); NRBC Flagged by Analyzer 0 % (0-5); Neutrophil # 9.14 X10^3/uL (2.7-7.7); Platelet Count 297 K/mm3 (150-450); RBC Distribution Width CV 11.7 % (11.6-14.6); RBC Distribution Width SD 37.3 fl (35.1-43.9); Red Blood Count 4.36 M/mm3 (4.6-6.2); White Blood Count 10.9 K/mm3 (4.4-11.0)
[2019-07-03 07:44] LABS: ALB/GLOB Ratio 0.8 RATIO (0.9-2.4); AST(SGOT) 17 U/L (15-37); Alanine Aminotransfer ALT/SGPT 27 U/L (16-61); Albumin, Serum 3.2 g/dL (3.2-5.0); Alkaline Phosphatase 113 U/L (45-117); Anion Gap 9 (5-15); BUN 12 mg/dL (7-18); BUN/Creat Ratio 9.8 RATIO (10-20); Calcium,Total 8.6 mg/dL (8.5-10.1); Chloride 100 mmol/L (98-107); Creatinine, Serum 1.22 mg/dL (0.70-1.30); EST Glomerular Filtration Rate 66 mL/min (>60); Est Glom Filt Rate - Afr Amer 79 mL/min (>60); Estimated Creatinine Clearance 77.32 ml/min; Globulin 3.9 g/dL (2.2-4.2); Glucose 288 mg/dL (74-106); Potassium 3.5 mmol/L (3.5-5.1); Protein, Total 7.1 g/dL (6.4-8.2); Sodium Level 132 mmol/L (136-145)
[2019-07-03 08:46] LABS: Procalcitonin 0.88 ng/mL (0.00-0.09)
--- NOTE | 2019-07-03 09:09 | PN_ITS ---
Patient Problems: Active and Suspected Problems Pneumonia (Acute) Sepsis (Acute) Strep pharyngitis (Acute) Suspected 2019 novel coronavirus infection (Acute) Subjective: Feels better than when he came in. No issues overnight Vitals/I&O's: Vital Signs Temp Pulse Resp BP Pulse Ox 100.1 F H 84 20 H 137/82 H 97 07/03/19 06:30 07/03/19 07:00 07/03/19 06:30 07/03/19 06:30 07/03/19 06:30 Oxygen Delivery Method Room Air Weight: 204 lb 9.423 oz Body Mass Index (BMI) 26.9 Intake and Output for Last 24 Hours 07/01/19 07/02/19 07/03/19 23:59 23:59 23:59 Intake Total 1000 / 1000 546.67 / 546.67 Balance 1000 / 1000 546.67 / 546.67 General: Alert, Oriented x3, Cooperative, No apparent distress HEENT: Atraumatic, PERRLA, EOMI, Normocephalic Oral: Moist Mucosa Neck: Supple, No JVD Lungs: Clear to auscultation, Normal air movement, No rhonchi, No wheeze, No rales, Diminished Cardiovascular: Regular rate, Regular Rhythm, Normal S1, Normal S2, No murmurs Abdomen: Soft, Non Tender, Non-Distended, No Hepato-splenomegaly Extremities: No edema, Capillary Refill Less than 3 Seconds Skin: No rashes, No breakdown Neurological: Neuro grossly intact, Sensory exam intact to light touch and pain Psych/Mental Status: Normal Affect, Appropriate Microbiology Past 72 Hours 07/02/19 20:42 Mucosa - Throat Group A Streptococcus Rapid Screen - Final Streptococcus Group A 07/03/19 04:40 Urine, Clean Catch Streptococcus pneumoniae Antigen (M - Final 07/03/19 04:40 Urine, Clean Catch Legionella Antigen - Final 07/02/19 23:30 Mucosa - Nasopharyngeal Respiratory Panel (PCR) - Final 07/02/19 20:40 Mucosa - Nose Influenza Types A,B Direct FA (MENG) - Final 07/02/19 20:40 Mucosa - Nose Rapid RSV (DFA) - Final Laboratory Results 07/02/19 20:46: WBC 13.2 H, RBC 4.59 L, Hgb 14.0, Hct 39.4 L, MCV 85.8, MCH 30.5, MCHC 35.5, RDW Std Deviation 36.0, RDW Coeff of Gustavo 11.5 L, Plt Count 296, MPV 9.6, Immature Gran % (Auto) 0.600, Neut % (Auto) 89.1 H, Lymph % (Auto) 3.7 L, [place] % (Auto) 6.0, Eos % (Auto) 0.2, Baso % (Auto) 0.4, Absolute Neuts (auto) 11.8 H, Absolute Lymphs (auto) 0.49 L, Nucleated RBC % 0, Differential Comment SCANNED 07/02/19 20:46: D-Dimer Quant (PE/DVT) 0.72 H* 07/02/19 20:46: Sodium 131 L, Potassium 3.8, Chloride 98, Carbon Dioxide 24.0, Anion Gap 9, BUN 17, Creatinine 1.56 H, Estim Creat Clear Calc 60.47, Est GFR (MDRD) Af Amer 60, Est GFR (MDRD) Non-Af 49 L, BUN/Creatinine Ratio 10.9, Glucose 398 H, Calcium 9.1, Total Bilirubin 0.60, AST 20, ALT 32, Alkaline Phosphatase 138 H, Troponin I < 0.015, Total Protein 8.2, Albumin 3.9, Globulin 4.3 H, Albumin/Globulin Ratio 0.9 07/02/19 20:46: PT 12.8, INR 1.0, APTT 24.9 07/02/19 20:46: Magnesium 1.9, Ferritin 129, Lactate Dehydrogenase 202, C-React Prot Ext Range 46.00 H 07/02/19 20:46: Hemoglobin A1c 12.2 H 07/02/19 22:25: Lactic Acid 1.1 07/02/19 22:25: Urine Color Yellow, Urine Clarity Clear, Urine pH 5.0, Ur Specific [place] 1.010, Urine Protein 30 H, Urine Glucose (UA) 1000 H, Urine Ketones 15 H, Urine Occult Blood 150 H, Urine Nitrite Negative, Urine Bilirubin Negative, Urine Urobilinogen Normal, Ur Leukocyte Esterase Negative, Urine RBC 10-25 SEEN, Urine WBC 0 SEEN, Ur Squamous Epith Cells 0-5 SEEN, Amorphous Sediment 1+ URATE, Urine Bacteria 0 SEEN, Urine Mucus 0 SEEN 07/03/19 03:20: COVID-19 (MADELINE) Pending 07/03/19 06:25: WBC 10.9, RBC 4.36 L, Hgb 13.4, Hct 38.2 L, MCV 87.6, MCH 30.7, MCHC 35.1, RDW Std Deviation 37.3, RDW Coeff of Gustavo 11.7, Plt Count 297, MPV 9.6, Immature Gran % (Auto) 0.500, Neut % (Auto) 84.0 H, Lymph % (Auto) 8.0 L, [place] % (Auto) 6.3, Eos % (Auto) 0.7, Baso % (Auto) 0.5, Absolute Neuts (auto) 9.1 H, Absolute Lymphs (auto) 0.87, Nucleated RBC % 0 07/03/19 06:25: Sodium 132 L, Potassium 3.5, Chloride 100, Carbon Dioxide 23.0, Anion Gap 9, BUN 12, Creatinine 1.22, Estim Creat Clear Calc 77.32, Est GFR (MDRD) Af Amer 79, Est GFR (MDRD) Non-Af 66, BUN/Creatinine Ratio 9.8 L, Glucose 288 H, Calcium 8.6, Total Bilirubin 0.60, AST 17, ALT 27, Alkaline Phosphatase 113, Total Protein 7.1, Albumin 3.2, Globulin 3.9, Albumin/Globulin Ratio 0.8 L 07/03/19 06:25: Procalcitonin 0.88 H Current Medications Acetaminophen (Tylenol) 650 mg PO Q6H PRN PRN PRN Reason: Pain Score 1-10/Temp > 100.7 F Al Hydroxide/Mg Hydroxide (Mylanta Ii) 30 ml PO Q6H PRN PRN PRN Reason: Gastric Burning Albuterol Sulfate (Ventolin Aerosols) 2.5 mg INHALATION Q4H PRN PRN Aspirin (Ecotrin) 81 mg PO DAILY [facility] Atorvastatin Calcium (Lipitor) 10 mg PO QHS [facility] Azithromycin (Zithromax) 500 mg PO Q24H [facility] Dextrose (D50w Syringe) 0 gm IV X1 PRN; Protocol PRN Reason: Hypoglycemia Enoxaparin Sodium (Lovenox) 40 mg SC DAILY [facility] Famotidine (Pepcid) 20 mg PO BID [facility] Glucagon () 1 mg IM .X1 PRN PRN Reason: Hypoglycemia Guaifenesin (Robitussin) 20 ml PO Q4H PRN PRN PRN Reason: COUGH Hydralazine HCl (Apresoline Iv) 10 mg IV Q4H PRN PRN PRN Reason: SBP > 160 Hydrochlorothiazide () 12.5 mg PO DAILY [facility] Sodium Chloride () 1,000 mls @ 100 mls/hr IV .Q10H [facility] Last Infusion: 07/03/19 02:19 Dose: 100 mls/hr Documented by: Ceftriaxone Sodium 2 gm/ (Sodium Chloride) 50 mls @ 100 mls/hr IV Q24H [facility] Sodium Chloride () 250 mls @ 15 mls/hr IV .[id number] PRN PRN Reason: Saline Flush Sodium Chloride () 250 mls @ 15 mls/hr IV .[id number] PRN PRN Reason: Additional IVPB Infusion Insulin Glargine (Lantus (Bk)) 10 units SC BID [facility] Last Admin: 07/03/19 01:49 Dose: 10 u Documented by: Insulin Human Lispro (Humalog Kwikpen ([facility])) 0 unit SC [facility]; Protocol Last Admin: 07/03/19 06:42 Dose: 5 units Documented by: Isosorbide Mononitrate (Imdur) 30 mg PO DAILY [facility] Lisinopril (Zestril) 30 mg PO DAILY [facility] Magnesium Hydroxide (Milk Of Magnesia) 30 ml PO DAILY PRN PRN PRN Reason: Constipation Melatonin (Melatonin) 3 mg PO QHS PRN PRN PRN Reason: INSOMNIA Morphine Sulfate () 2 mg IV Q3H PRN PRN PRN Reason: Pain Score 6-10/10 Ondansetron HCl (Zofran) 4 mg IV Q8H PRN PRN PRN Reason: NAUSEA/VOMITING Oxycodone HCl (Oxyir) 5 mg PO Q4H PRN PRN PRN Reason: Pain Score 4-5/10 Prochlorperazine Edisylate (Compazine Iv) 5 mg IV Q4H PRN PRN PRN Reason: Breakthrough Nausea/Vomiting Psyllium Hydrophilic Mucilloid (Metamucil) 1 packet PO DAILY PRN PRN PRN Reason: Constipation Senna/Docusate Sodium (Senokot-S, Lona-Colace) 2 tablet PO BID PRN PRN PRN Reason: Constipation Sodium Chloride () 10 - 40 ml IV UD PRN PRN Reason: SALINE FLUSH Throat Lozenges (Cepacol Sore Throat Lozenge) 1 lozenge MUCOUS MEM Q2H PRN PRN PRN Reason: SORE THROAT STROKE Vital Signs/Narrative: Vital Signs Temp Pulse Resp BP Pulse Ox 07/03/19 07:00 84 07/03/19 06:30 100.1 F H 87 20 H 137/82 H 97 Medical Necessity - Tobacco Use Smoking Status: Never smoker Tobacco Use: Non-smoker Assessment/Plan All Active Problems Pneumonia (Acute) Sepsis (Acute) Strep pharyngitis (Acute) Suspected 2018 novel coronavirus infection (Acute) 1. Sepsis secondary to acute viral syndrome versus acute streptococcal pharyngitis -He does have a sore throat and did test positive for group A strep -He also has lung nodules that are spiculated that could either be inflammatory versus infectious versus neoplastic. He denies any smoking. Will need repeat CT scan as outpatient follow-up to evaluate the spiculated lesions -Continue with azithromycin and Rocephin pending cultures -Coronavirus test is also pending 2. HTN/HLD -Blood pressure stable -We will continue with his home blood pressure medication -Continue with statin 3. DM 2/CKD 3 -A1c is 12.2 he says that he is run out of his medications because are too expensive -Currently on insulin, will make adjustments as necessary -On discharge can get him $4 prescriptions for glimepiride as well as metformin as an outpatient -Creatinine is at baseline 4. Anxiety/depression -Does not take any medications -Encourage outpatient follow-up DVT: Lovenox Inpatient E&M: 15044 Subs Hosp L2
[2019-07-03 10:56] LABS: Bedside Glucose 349 mg/dL (70-110)
[2019-07-03] MEDS: Famotidine 20 MG Tablet PO ×2 (11:11→21:52)
[2019-07-03] MEDS: Aspirin E.C. 81 MG Tablet PO (11:11)
[2019-07-03] MEDS: hydroCHLOROthiazide 12.5mg 12.5 MG PO (11:22)
[2019-07-03] MEDS: Isosorbide Mononitrate 30 MG Tablet PO (11:23)
[2019-07-03] MEDS: Lisinopril 10 MG Tablet 30 MG PO (11:23)
[2019-07-03] MEDS: Enoxaparin 40 MG/0.4 ML Syringe SC (11:23)
[2019-07-03 11:41] LABS: Bedside Glucose 331 mg/dL (70-110)
--- NOTE | 2019-07-03 11:41 | NURSING ---
Pt verbalized consent to speak to sister Malka about care.
--- NOTE | 2019-07-03 11:47 | CASEMGMT ---
Social Work Note CESAR spoke with Dr. Marie who states pt reports pt is not able to afford medications and will also be going home on new insulin. [facility] CESAR looked up pt home medications on [employer] $4 list. All medications with the exception of aspirin and nitroglycerin are on list totaling $43 per month for prescriptions. Glucometer and test strips can also be obtained if needed from [employer] for approximatly $9 each. Pt does not currently have a PCP. Brochure for [facility] provided to pt nurse to give to pt. Information regarding medications provided to OLESYA Turner who plans to speak with pt regarding accessibility of medications. SW will remain available should further needs arise. SONIA Nunez
--- NOTE | 2019-07-03 11:58 | PCA ---
schedlued apt for patient for the free [facility] douglas hilario for next july 09 844. we need to fax his discharge summary and medlist to the clinic when discharged to [phone]
--- NOTE | 2019-07-03 12:00 | CASEMGMT ---
RN CM ASSESSMENT COVID-19 suspected. Test has been sent/results pending. Call placed to pt's room and assessment completed via phone. PCP: No PCP. [facility] aware of [facility] and information to be provided to him by nurse. Specialists: None Preferred Pharmacy: Was going to [facility], but states he ran out of medication and cost of medication has been too high so he has not had prescriptions refilled. Pt made aware that all of his home meds (excluding Nitro) cost @ [facility] is $43. Pt states this is affordable and that he would like to get all of his meds @ [facility] in [place]. Call placed to [facility] and they were made aware. They stated they will call [facility] and have his current prescriptions transferred to them. Insurance: No insurance Prescription Benefit: None Living Will/HPOA: Pt does not currently have LW/HCPOA and declines info at this time. Pt made aware that he can contact as an out-pt and make appt in the future if he decides he would like to talk with someone about this or would like to utilize [facility] social work for advanced directive completion. [employer] card given to pt's RN to give to pt when she goes into his room. Living Arrangements: Lives with 2 nephews and one of the nephews girlfriend. Pt states he has his own bedroom but all 4 of them share a bathroom. Nephews girlfriend does all the grocery shopping, meals, and cleaning. He states, as far as he is aware, none of his roommates have had any respiratory/COVID symptoms. Independent. States was working 37 hrs/week prior to hospitalization. Transportation: Pt states drives self and states no transportation concerns at this time. States one of his nephews will be able to take him home @ discharge. DME: States has a glucometer that is working properly and he has all the needed supplies. Also has a BP machine. Pt states no need for further DME at this time. HHC/SNF: No history of either. No needs identified. Pt wishes to return home and states has no concerns with going home at time of discharge. CM to follow for home oxygen needs and any further discharge planning/needs. Pt voices no further concerns/needs at this time. Advised pt to ask for CM if any further questions/concerns/needs arise. Voices understanding. PLAN: Home. If COVID results positive, capability to quarantine in the home will need to be discussed. Pt to go home on Insulin, which is new for pt. RN, Christina, made aware of need of Insulin/injection teaching. CM to follow re: cost of insulin prescribed at discharge to ensure is affordable for pt. Az BSN RN CM
[2019-07-03 17:16] LABS: Bedside Glucose 307 mg/dL (70-110)
[2019-07-03] MEDS: Azithromycin 250 MG Tablet 500 MG PO (21:52)
[2019-07-03] MEDS: Atorvastatin Calcium 10 MG Tablet PO (21:52)
[2019-07-03 23:21] LABS: Bedside Glucose 328 mg/dL (70-110)
[2019-07-04] MEDS: Insulin Lispro 100 UNIT/ML INSULN.PEN SC ×6 (06:15→21:59)
[2019-07-04 06:17] VITALS: BP 123/83; PULSE 46; RESP 16; TEMP 36.9; O2SAT 96
[2019-07-04 06:30] LABS: Bedside Glucose 240 mg/dL (70-110)
[2019-07-04 07:10] LABS: Absolute Lymphocyte Count 1.27 X10^3/uL (0.83-4.51); Basophil# 0.06 X10^3/uL; Basophil% 0.7 % (0-1); Eosinophil# 0.22 X10^3/uL; Eosinophils% 2.6 % (0-5); Hematocrit 37.1 % (40-54); Hemoglobin 12.7 g/dL (13.0-16.5); Lymphocyte # 1.27 X10^3/ul (4.0); Lymphocyte % 14.9 % (19-41); Mean Corp Hgb Conc 34.2 g/dL (32-36); Mean Corpuscular Hgb 29.7 pg (27.0-32.0); Mean Corpuscular Volume 86.9 fL (80-94); Mean Platelet Vol. 9.4 fl (6.2-12.0); Monocyte# 0.95 X10^3/uL; Monocyte% 11.1 % (0-10); NRBC Flagged by Analyzer 0 % (0-5); Neutrophil # 5.99 X10^3/uL (2.7-7.7); Neutrophil % 70.2 % (47-70); Platelet Count 270 K/mm3 (150-450); RBC Distribution Width CV 11.8 % (11.6-14.6); RBC Distribution Width SD 37.3 fl (35.1-43.9); Red Blood Count 4.27 M/mm3 (4.6-6.2); White Blood Count 8.5 K/mm3 (4.4-11.0)
[2019-07-04 07:35] LABS: Anion Gap 8 (5-15); BUN 13 mg/dL (7-18); BUN/Creat Ratio 11.4 RATIO (10-20); Calcium,Total 8.3 mg/dL (8.5-10.1); Chloride 105 mmol/L (98-107); Creatinine, Serum 1.14 mg/dL (0.70-1.30); EST Glomerular Filtration Rate 71 mL/min (>60); Est Glom Filt Rate - Afr Amer 86 mL/min (>60); Estimated Creatinine Clearance 82.74 ml/min; Glucose 242 mg/dL (74-106); Potassium 3.6 mmol/L (3.5-5.1); Sodium Level 136 mmol/L (136-145)
--- NOTE | 2019-07-04 08:49 | PCM.PN.HOSP ---
Patient Problems: Active and Suspected Problems Pneumonia (Acute) Sepsis (Acute) Strep pharyngitis (Acute) Suspected 2019 novel coronavirus infection (Acute) Subjective: Feeling much better today. Denies any shortness of breath Vitals/I&O's: Vital Signs Temp Pulse Resp BP Pulse Ox 98.5 F 46 L 16 123/83 H 96 07/04/19 06:17 07/04/19 06:17 07/04/19 06:17 07/04/19 06:17 07/04/19 06:17 Oxygen Delivery Method Room Air Weight: 204 lb 9.423 oz Body Mass Index (BMI) 26.9 Intake and Output for Last 24 Hours 07/02/19 07/03/19 07/04/19 23:59 23:59 23:59 Intake Total 1000 / 1000 3566.67 / 3566.67 400 / 400 Output Total 1950 / 1950 800 / 800 Balance 1000 / 1000 1616.67 / 1616.67 -400 / -400 General: Alert, Oriented x3, Cooperative, No apparent distress HEENT: Atraumatic, PERRLA, EOMI, Normocephalic Oral: Moist Mucosa Neck: Supple, No JVD Lungs: Clear to auscultation, Normal air movement, No rhonchi, No wheeze, No rales, Diminished Cardiovascular: Regular rate, Regular Rhythm, Normal S1, Normal S2, No murmurs Abdomen: Soft, Non Tender, Non-Distended, No Hepato-splenomegaly Extremities: No edema, Capillary Refill Less than 3 Seconds Skin: No rashes, No breakdown Neurological: Neuro grossly intact, Sensory exam intact to light touch and pain Psych/Mental Status: Normal Affect, Appropriate Microbiology Past 72 Hours 07/02/19 22:25 Urine, Clean Catch Urine Culture - Final Mixed Gram Positive Organisms 07/02/19 20:42 Mucosa - Throat Group A Streptococcus Rapid Screen - Final Streptococcus Group A 07/03/19 04:40 Urine, Clean Catch Streptococcus pneumoniae Antigen (M - Final 07/03/19 04:40 Urine, Clean Catch Legionella Antigen - Final 07/02/19 23:30 Mucosa - Nasopharyngeal Respiratory Panel (PCR) - Final 07/02/19 20:40 Mucosa - Nose Influenza Types A,B Direct FA (MENG) - Final 07/02/19 20:40 Mucosa - Nose Rapid RSV (DFA) - Final Laboratory Results 07/03/19 03:20: COVID-19 (MADELINE) Pending 07/03/19 06:41: POC Glucose 349 H 07/03/19 11:04: POC Glucose 331 H 07/03/19 16:56: POC Glucose 307 H 07/03/19 22:04: POC Glucose 328 H 07/04/19 06:13: POC Glucose 240 H 07/04/19 06:40: WBC 8.5, RBC 4.27 L, Hgb 12.7 L, Hct 37.1 L, MCV 86.9, MCH 29.7, MCHC 34.2, RDW Std Deviation 37.3, RDW Coeff of Gustavo 11.8, Plt Count 270, MPV 9.4, Immature Gran % (Auto) 0.500, Neut % (Auto) 70.2 H, Lymph % (Auto) 14.9 L, Glascock % (Auto) 11.1 H, Eos % (Auto) 2.6, Baso % (Auto) 0.7, Absolute Neuts (auto) 6.0, Absolute Lymphs (auto) 1.27, Nucleated RBC % 0 07/04/19 06:40: Sodium 136, Potassium 3.6, Chloride 105, Carbon Dioxide 23.0, Anion Gap 8, BUN 13, Creatinine 1.14, Estim Creat Clear Calc 82.74, Est GFR (MDRD) Af Amer 86, Est GFR (MDRD) Non-Af 71, BUN/Creatinine Ratio 11.4, Glucose 242 H, Calcium 8.3 L Current Medications Acetaminophen (Tylenol) 650 mg PO Q6H PRN PRN PRN Reason: Pain Score 1-10/Temp > 100.7 F Al Hydroxide/Mg Hydroxide (Mylanta Ii) 30 ml PO Q6H PRN PRN PRN Reason: Gastric Burning Albuterol Sulfate (Ventolin Aerosols) 2.5 mg INHALATION Q4H PRN PRN PRN Reason: dyspnea, wheezing Aspirin (Ecotrin) 81 mg PO DAILY COUNT INCLUDES THE [facility] Last Admin: 07/03/19 11:11 Dose: 81 mg Documented by: Atorvastatin Calcium (Lipitor) 10 mg PO QHS COUNT INCLUDES THE [facility] Last Admin: 07/03/19 21:52 Dose: 10 mg Documented by: Azithromycin (Zithromax) 500 mg PO Q24H COUNT INCLUDES THE [facility] Last Admin: 07/03/19 21:52 Dose: 500 mg Documented by: Dextrose (D50w Syringe) 0 gm IV X1 PRN; Protocol PRN Reason: Hypoglycemia Enoxaparin Sodium (Lovenox) 40 mg SC DAILY COUNT INCLUDES THE [facility] Last Admin: 07/03/19 11:23 Dose: 40 mg Documented by: Famotidine (Pepcid) 20 mg PO BID COUNT INCLUDES THE [facility] Last Admin: 07/03/19 21:52 Dose: 20 mg Documented by: Glucagon () 1 mg IM .X1 PRN PRN Reason: Hypoglycemia Guaifenesin (Robitussin) 20 ml PO Q4H PRN PRN PRN Reason: COUGH Hydralazine HCl (Apresoline Iv) 10 mg IV Q4H PRN PRN PRN Reason: SBP > 160 Hydrochlorothiazide () 12.5 mg PO DAILY COUNT INCLUDES THE [facility] Last Admin: 07/03/19 11:22 Dose: 12.5 mg Documented by: Sodium Chloride () 1,000 mls @ 100 mls/hr IV .Q10H COUNT INCLUDES THE [facility] Last Infusion: 07/03/19 22:22 Dose: 100 mls/hr Documented by: Ceftriaxone Sodium 2 gm/ (Sodium Chloride) 50 mls @ 100 mls/hr IV Q24H COUNT INCLUDES THE [facility] Last Infusion: 07/03/19 22:22 Dose: Infused Documented by: Sodium Chloride () 250 mls @ 15 mls/hr IV .[id number] PRN PRN Reason: Saline Flush Sodium Chloride () 250 mls @ 15 mls/hr IV .[id number] PRN PRN Reason: Additional IVPB Infusion Insulin Glargine (Lantus (Bk)) 10 units SC BID COUNT INCLUDES THE [facility] Last Admin: 07/03/19 22:06 Dose: 10 u Documented by: Insulin Human Lispro (Humalog Kwikpen (Bk)) 0 unit SC ACHS COUNT INCLUDES THE [facility]; Protocol Last Admin: 07/04/19 06:15 Dose: 3 units Documented by: Isosorbide Mononitrate (Imdur) 30 mg PO DAILY COUNT INCLUDES THE [facility] Last Admin: 07/03/19 11:23 Dose: 30 mg Documented by: Lisinopril (Zestril) 30 mg PO DAILY COUNT INCLUDES THE [facility] Last Admin: 07/03/19 11:23 Dose: 30 mg Documented by: Magnesium Hydroxide (Milk Of Magnesia) 30 ml PO DAILY PRN PRN PRN Reason: Constipation Melatonin (Melatonin) 3 mg PO QHS PRN PRN PRN Reason: INSOMNIA Morphine Sulfate () 2 mg IV Q3H PRN PRN PRN Reason: Pain Score 6-10/10 Ondansetron HCl (Zofran) 4 mg IV Q8H PRN PRN PRN Reason: NAUSEA/VOMITING Oxycodone HCl (Oxyir) 5 mg PO Q4H PRN PRN PRN Reason: Pain Score 4-5/10 Prochlorperazine Edisylate (Compazine Iv) 5 mg IV Q4H PRN PRN PRN Reason: Breakthrough Nausea/Vomiting Psyllium Hydrophilic Mucilloid (Metamucil) 1 packet PO DAILY PRN PRN PRN Reason: Constipation Senna/Docusate Sodium (Senokot-S, Lona-Colace) 2 tablet PO BID PRN PRN PRN Reason: Constipation Sodium Chloride () 10 - 40 ml IV UD PRN PRN Reason: SALINE FLUSH Throat Lozenges (Cepacol Sore Throat Lozenge) 1 lozenge MUCOUS MEM Q2H PRN PRN PRN Reason: SORE THROAT STROKE Vital Signs/Narrative: Vital Signs Temp Pulse Resp BP Pulse Ox 07/04/19 06:17 98.5 F 46 L 16 123/83 H 96 Medical Necessity - Tobacco Use Smoking Status: Never smoker Tobacco Use: Non-smoker Assessment/Plan All Active Problems Pneumonia (Acute) Sepsis (Acute) Strep pharyngitis (Acute) Suspected 2019 novel coronavirus infection (Acute) 1. Sepsis secondary to acute viral syndrome versus acute streptococcal pharyngitis -He does have a sore throat and did test positive for group A strep -He also has lung nodules that are spiculated that could either be inflammatory versus infectious versus neoplastic. He denies any smoking. Will need repeat CT scan as outpatient follow-up to evaluate the spiculated lesions -Continue with azithromycin and Rocephin pending cultures -Coronavirus test is also pending 2. HTN/HLD -Blood pressure stable -We will continue with his home blood pressure medication -Continue with statin 3. DM 2/CKD 3 -A1c is 12.2 he says that he is run out of his medications because are too expensive -Currently on insulin, will make adjustments as necessary -On discharge can get him $4 prescriptions for glimepiride as well as metformin as an outpatient -Creatinine is at baseline 4. Anxiety/depression -Does not take any medications -Encourage outpatient follow-up DVT: Lovenox Inpatient E&M: 94238 Subs Hosp L2
[2019-07-04] MEDS: 0.9% Normal Saline 1,000 ML 100 ML IV ×2 (09:04→18:58)
[2019-07-04] MEDS: Aspirin E.C. 81 MG Tablet PO (09:05)
[2019-07-04] MEDS: Famotidine 20 MG Tablet PO ×2 (09:05→21:58)
[2019-07-04] MEDS: hydroCHLOROthiazide 12.5mg 12.5 MG PO (09:07)
[2019-07-04] MEDS: Isosorbide Mononitrate 30 MG Tablet PO (09:07)
[2019-07-04] MEDS: Enoxaparin 40 MG/0.4 ML Syringe SC (09:07)
[2019-07-04] MEDS: Lisinopril 10 MG Tablet 30 MG PO (09:07)
[2019-07-04 09:10] VITALS: BP 118/77; PULSE 68
[2019-07-04 11:35] LABS: Bedside Glucose 349 mg/dL (70-110)
[2019-07-04 12:20] VITALS: BP 109/65; PULSE 89; RESP 16; TEMP 36.9; O2SAT 97
--- NOTE | 2019-07-04 15:58 | CASEMGMT ---
RN CM Note: Pt may need to have insulin on dc. As pt is self pay, this may be cost prohibitive for long acting insulin. SW updated that pt may need [facility] pharmacy assist for free 30 day supply on dc as he does not have pharmacy coverage. Pt could then f[facility] for continued medication needs. COVID results are pending. Bernice SNYDER RN ACM
[2019-07-04 17:55] LABS: Bedside Glucose 237 mg/dL (70-110)
[2019-07-04 18:20] VITALS: BP 121/71; PULSE 78; RESP 16; TEMP 36.6; O2SAT 97
[2019-07-04 21:56] VITALS: BP 129/79; PULSE 74; RESP 16; TEMP 36.8; O2SAT 99
[2019-07-04] MEDS: Azithromycin 250 MG Tablet 500 MG PO (21:58)
[2019-07-04] MEDS: Atorvastatin Calcium 10 MG Tablet PO (21:58)
[2019-07-05 04:33] VITALS: BP 135/96; PULSE 63; RESP 16; TEMP 36.5; O2SAT 100
[2019-07-05] MEDS: 0.9% Normal Saline 1,000 ML 100 ML IV (04:34)
[2019-07-05 05:45] LABS: Bedside Glucose 290 mg/dL (70-110)
[2019-07-05 06:58] VITALS: O2SAT 97
[2019-07-05] MEDS: Insulin Lispro 100 UNIT/ML INSULN.PEN SC ×4 (08:15→12:32)
[2019-07-05 08:30] LABS: Bedside Glucose 205 mg/dL (70-110)
--- NOTE | 2019-07-05 09:17 | PCM.DC ---
- Discharge Diagnoses Current Active Problems: Current Active and Chronic Problems Pneumonia (Acute) Sepsis (Acute) Strep pharyngitis (Acute) Suspected 2019 novel coronavirus infection (Acute) HTN (hypertension) (Chronic) HLD (hyperlipidemia) (Chronic) Diabetes mellitus, type II (Chronic) You will use the following diet at home:: Calorie/Carbohydrate Controlled (specify 1200, 1400, etc) Your food should be the consistency of: Regular Your liquids should be the consistency of: Regular/Thin Discharge Activity: Return to Normal Activity Call your doctor if you observe: Fever of 101 or Higher, Shortness of breath, Dizziness, Fainting spells, Swelling in the ankles, Chest pain, Increased palpitations (irregular heartbeat) Allergies/Adverse Reactions: Allergies acetaminophen [From Vicodin] Adverse Reaction (Verified 07/02/19 20:12) Other hydrocodone [From Vicodin] Adverse Reaction (Verified 07/02/19 20:12) Other Medications to take at Discharge Aspirin [Aspir 81] 81 mg PO DAILY 03/16/19 Hydrochlorothiazide 12.5 mg PO DAILY 03/16/19 Isosorbide Mononitrate [Isosorbide Mononitrate ER] 30 mg PO DAILY 03/16/19 Lisinopril 30 mg PO DAILY #30 tab 03/16/19 Nitroglycerin 0.4 mg SUBLINGUAL PRN PRN 03/16/19 Simvastatin [Flolipid] 20 mg PO DAILY 03/16/19 Cefdinir [Omnicef [equiv]] 300 mg PO Q12H #10 cap 07/05/19 Insulin Glargine [Lantus SoloStar Pen] 15 units SUBCUT QHS #1 pen 07/05/19 Metformin HCl 1,000 mg PO BID #60 tab 07/05/19 The following prescriptions were given: Insulin Glargine [Lantus SoloStar Pen] 15 units SUBCUT QHS #1 pen Transmission Status: Pending to [facility] Metformin HCl 1,000 mg PO BID #60 tab Transmission Status: Pending to [facility] Cefdinir [Omnicef [equiv]] 300 mg PO Q12H #10 cap Transmission Status: Pending to [facility] Primary Care Physician: NOT,DEFINED [NON-STAFF] - Test Results: Test results from this visit will be discussed in further detail at your follow-up appointment, if applicable. Please Follow Up With: douglas hilario When: Tele-health 1-2 weeks
--- NOTE | 2019-07-05 09:17 | CM.UR ---
Was alerted by MANOJ Morton that vet will need insulin and would need RX assist on discharge. Called down to pharmacy and explained. Gave them all his information. Instructed MANOJ Morton to alert Dr. Marie to enter for retail pharmacy. Patrick Persaud RN, CCM.
--- NOTE | 2019-07-05 09:30 | DS.PCM_ITS ---
Discharge Date and Diagnosis - Problem List Patient Problems: Active and Suspected Problems Pneumonia (Acute) Sepsis (Acute) Strep pharyngitis (Acute) Suspected 2019 novel coronavirus infection (Acute) Date of Admission: 07/02/19 Date of Discharge: 07/05/19 - Primary Discharge Diagnosis Active and Suspected Problems Pneumonia (Acute) Sepsis (Acute) Strep pharyngitis (Acute) Suspected 2019 novel coronavirus infection (Acute) - Secondary Discharge Diagnosis Chronic Problems HTN (hypertension) (Chronic) HLD (hyperlipidemia) (Chronic) Diabetes mellitus, type II (Chronic) Hospital Course and Treatment Imaging Results: CXR: IMPRESSION: Normal x-ray examination of the chest. CTA Chest:IMPRESSION: Nonspecific groundglass spiculated lesions left perihilar region. Differential considerations include infectious, inflammatory, and neoplastic etiologies including early covid 19. Follow-up recommended. Consults: None Operations: None Procedures: None Summary of Care Provided: Per HPI: The patient is a 54 y/o M w/ PMHx: CKD stage III, HTN, HLD, Diabetes mellitus type II, Anxiety and Depression who presents to the [facility] ED on 07/02/19 with history of chest discomfort, dyspnea, mildly productive cough not markedly productive sputum, subjective fevers, myalgias as well as frontal ongoing throbbing headache prompting eventual ED presentation. He denies any recent nausea, emesis, abdominal pain or diarrhea. Also denies any specific loss of sense of smell or alteration work-up in the ED included T1 100.9, heart rate initially 127, BP 170/82, respiratory rate 23, 99% on room air, CBC with WBC 13.2, hemoglobin 14, platelet 296 with left shift but also noted lymphopenia, unremarkable PT, INR and PTT, d-dimer 0.72, CMP with sodium 131, BUN/creatinine 17/1.56, glucose 398, lactic acid 1.1, alk phos 138, troponin less than 0.015, urinalysis with specific gravity 1.010, protein 30, glucose 1000, ketone 15, occult blood 150, negative nitrite, negative leukocyte esterase, RBC 10-25, 0 urine WBCs, 0 urine bacteria, blood culture x2 pending per ED, urine culture pending per ED, rapid RSV and influenza negative, positive group A strep on ra pid screen, respiratory viral panel pending, rest x-ray unremarkable, CTPA with nonspecific groundglass Spiculated lesions in the left perihilar region. In the ED patient ministered normal saline, Tylenol, Rocephin, azithromycin. Hospital Course: 1. Sepsis secondary to acute streptococcal [id number] male presented to the hospital with a mildly productive cough, dyspnea, and a sore throat. There was initially some concern for acute viral syndrome and a COVID test was sent which did ultimately come back negative. He was discharged on 5 more days of Omnicef for his group A strep. He had a CTA of his chest done for an elevated d-dimer which did not show PE but did show 2 spiculated lesions or could have been either inflammatory or infectious or even possibly malignant, he does deny any tobacco use. He will need a follow-up CT scan as an outpatient in a few months to monitor progress of these lesions. I discussed the risks and benefits of discharge today and he did express understanding. He would like to go home and have outpatient follow-up. 2. DM 2-he states that he stopped taking all of his diabetic medications because he is unable to afford it I explained to him that all of the medications that he takes are on the $4 list at [facility] however currently his A1c was 12.2 therefore he was also started on insulin. He will need 15 units at night of Lantus to help control his blood sugar and will continue with his metformin 1000 mg p.o. twice daily. The first month will be free from our pharmacy and then he will need to follow-up with his primary care doctor I explained to him repeatedly about the $4 list and that he should be able to afford the oral medications fairly easily. 3. His other medical diagnoses were evaluated and his home medications were continued where appropriate Patient Problems: Active and Suspected Problems Pneumonia (Acute) Sepsis (Acute) Strep pharyngitis (Acute) Suspected 2019 novel coronavirus infection (Acute) - Physical Exam Vitals/I&O's: Vital Signs Temp Pulse Resp BP Pulse Ox 97.7 F L 63 16 135/96 H 97 07/05/19 04:33 07/05/19 04:33 07/05/19 04:33 07/05/19 04:33 07/05/19 06:58 Oxygen Delivery Method Room Air Weight: 204 lb 9.423 oz Body Mass Index (BMI) 26.9 Intake and Output for Last 24 Hours 07/03/19 07/04/19 07/05/19 23:59 23:59 23:59 Intake Total 3566.67 / 3566.67 3500 / 3850 211 / 0 Output Total 1949 / 1949 2450 / 3050 1700 / 1700 Balance 1616.67 / 1616.67 1050 / 800 410 / 410 General: Alert, Oriented x3, Cooperative, No apparent distress HEENT: Atraumatic, PERRLA, EOMI, Normocephalic Oral: Moist Mucosa Neck: Supple, No JVD Lungs: Clear to auscultation, Normal air movement, No rhonchi, No wheeze, No ra les, Diminished Cardiovascular: Regular rate, Regular Rhythm, Normal S1, Normal S2, No murmurs Abdomen: Soft, Non Tender, Non-Distended, No Hepato-splenomegaly Extremities: No edema, Capillary Refill Less than 3 Seconds Skin: No rashes, No breakdown Neurological: Neuro grossly intact, Sensory exam intact to light touch and pain Psych/Mental Status: Normal Affect, Appropriate Microbiology Past 72 Hours 07/02/19 22:25 Urine, Clean Catch Urine Culture - Final Mixed Gram Positive Organisms 07/02/19 20:42 Mucosa - Throat Group A Streptococcus Rapid Screen - Final Streptococcus Group A 07/03/19 04:40 Urine, Clean Catch Streptococcus pneumoniae Antigen (M - Final 07/03/19 04:40 Urine, Clean Catch Legionella Antigen - Final 07/02/19 23:30 Mucosa - Nasopharyngeal Respiratory Panel (PCR) - Final 07/02/19 20:40 Mucosa - Nose Influenza Types A,B Direct FA (MENG) - Final 07/02/19 20:40 Mucosa - Nose Rapid RSV (DFA) - Final Laboratory Results 07/03/19 03:20: COVID-19 (MADELINE) SEE COMMENT 07/04/19 11:06: POC Glucose 349 H 07/04/19 17:41: POC Glucose 237 H 07/04/19 21:53: POC Glucose 290 H 07/05/19 08:13: POC Glucose 205 H Current Medications Acetaminophen (Tylenol) 650 mg PO Q6H PRN PRN PRN Reason: Pain Score 1-10/Temp > 100.7 F Al Hydroxide/Mg Hydroxide (Mylanta Ii) 30 ml PO Q6H PRN PRN PRN Reason: Gastric Burning Albuterol Sulfate (Ventolin Aerosols) 2.5 mg INHALATION Q4H PRN PRN PRN Reason: dyspnea, wheezing Aspirin (Ecotrin) 81 mg PO DAILY [facility] Last Admin: 07/04/19 09:05 Dose: 81 mg Documented by: Atorvastatin Calcium (Lipitor) 10 mg PO QHS [facility] Last Admin: 07/04/19 21:58 Dose: 10 mg Documented by: Azithromycin (Zithromax) 500 mg PO Q24H [facility] Stop: 07/05/19 22:01 Last Admin: 07/04/19 21:58 Dose: 500 mg Documented by: Dextrose (D50w Syringe) 0 gm IV X1 PRN; Protocol PRN Reason: Hypoglycemia Enoxaparin Sodium (Lovenox) 40 mg SC DAILY [facility] Last Admin: 07/04/19 09:07 Dose: 40 mg Documented by: Famotidine (Pepcid) 20 mg PO BID [facility] Last Admin: 07/04/19 21:58 Dose: 20 mg Documented by: Glucagon () 1 mg IM .X1 PRN PRN Reason: Hypoglycemia Guaifenesin (Robitussin) 20 ml PO Q4H PRN PRN PRN Reason: COUGH Hydralazine HCl (Apresoline Iv) 10 mg IV Q4H PRN PRN PRN Reason: SBP > 160 Hydrochlorothiazide () 12.5 mg PO DAILY [facility] Last Admin: 07/04/19 09:07 Dose: 12.5 mg Documented by: Sodium Chloride () 1,000 mls @ 100 mls/hr IV .Q10H [facility] Last Admin: 07/05/19 04:34 Dose: 100 mls/hr Documented by: Ceftriaxone Sodium 2 gm/ (Sodium Chloride) 50 mls @ 100 mls/hr IV Q24H [facility] Last Infusion: 07/04/19 22:28 Dose: Infused Documented by: Sodium Chloride () 250 mls @ 15 mls/hr IV .[id number] PRN PRN Reason: Saline Flush Sodium Chloride () 250 mls @ 15 mls/hr IV .[id number] PRN PRN Reason: Additional IVPB Infusion Insulin Glargine (Lantus ([facility])) 15 units SC BID [facility] Last Admin: 07/05/19 08:15 Dose: 15 u Documented by: Insulin Human Lispro (Humalog Kwikpen ([facility])) 0 unit SC ACHS [facility]; Protocol Last Admin: 07/05/19 08:15 Dose: 2 units Documented by: Insulin Human Lispro (Humalog Kwikpen ([facility])) 5 unit SC TIDAC [facility] Last Admin: 07/05/19 08:15 Dose: 5 u Documented by: Isosorbide Mononitrate (Imdur) 30 mg PO DAILY [facility] Last Admin: 07/04/19 09:07 Dose: 30 mg Documented by: Lisinopril (Zestril) 30 mg PO DAILY [facility] Last Admin: 07/04/19 09:07 Dose: 30 mg Documented by: Magnesium Hydroxide (Milk Of Magnesia) 30 ml PO DAILY PRN PRN PRN Reason: Constipation Melatonin (Melatonin) 3 mg PO QHS PRN PRN PRN Reason: INSOMNIA Morphine Sulfate () 2 mg IV Q3H PRN PRN PRN Reason: Pain Score 6-10/10 Ondansetron HCl (Zofran) 4 mg IV Q8H PRN PRN PRN Reason: NAUSEA/VOMITING Oxycodone HCl (Oxyir) 5 mg PO Q4H PRN PRN PRN Reason: Pain Score 4-5/10 Prochlorperazine Edisylate (Compazine Iv) 5 mg IV Q4H PRN PRN PRN Reason: Breakthrough Nausea/Vomiting Psyllium Hydrophilic Mucilloid (Metamucil) 1 packet PO DAILY PRN PRN PRN Reason: Constipation Senna/Docusate Sodium (Senokot-S, Lona-Colace) 2 tablet PO BID PRN PRN PRN Reason: Constipation Sodium Chloride () 10 - 40 ml IV UD PRN PRN Reason: SALINE FLUSH Throat Lozenges (Cepacol Sore Throat Lozenge) 1 lozenge MUCOUS MEM Q2H PRN PRN PRN Reason: SORE THROAT Discharge Activity: Return to Normal Activity Call your doctor if you observe: Fever of 101 or Higher, Shortness of breath, Dizziness, Fainting spells, Swelling in the ankles, Chest pain, Increased palpitations (irregular heartbeat) Home Medications: Medications to take at Discharge Aspirin [Aspir 81] 81 mg PO DAILY 03/16/19 Hydrochlorothiazide 12.5 mg PO DAILY 03/16/19 Isosorbide Mononitrate [Isosorbide Mononitrate ER] 30 mg PO DAILY 03/16/19 Lisinopril 30 mg PO DAILY #30 tab 03/16/19 Nitroglycerin 0.4 mg SUBLINGUAL PRN PRN 03/16/19 Simvastatin [Flolipid] 20 mg PO DAILY 03/16/19 Cefdinir [Omnicef [equiv]] 300 mg PO Q12H #10 cap 07/05/19 Insulin Glargine [Lantus SoloStar Pen] 15 units SUBCUT QHS #1 pen 07/05/19 Metformin HCl 1,000 mg PO BID #60 tab 07/05/19 Following Prescrptions Were Given to Patient: Insulin Glargine [Lantus SoloStar Pen] 15 units SUBCUT QHS #1 pen Transmission Status: Pending to [facility] Metformin HCl 1,000 mg PO BID #60 tab Transmission Status: Pending to [facility] Cefdinir [Omnicef [equiv]] 300 mg PO Q12H #10 cap Transmission Status: Pending to [facility] Primary Care Physician: NOT,DEFINED [NON-STAFF] - Please Follow Up With: douglas hilario When: Tele-health 1-2 weeks Disposition: Home Minutes spent on discharge:: 35 Patient Condition:: Stable Medical Necessity - Tobacco Use Smoking Status: Never smoker Tobacco Use: Non-smoker Meaningful Use Info Meaningful Use Diagnoses (Choose all that apply): None applicable Inpatient E&M: 13387 Disch Hosp
[2019-07-05] MEDS: Isosorbide Mononitrate 30 MG Tablet PO (09:31)
[2019-07-05] MEDS: Aspirin E.C. 81 MG Tablet PO (09:31)
[2019-07-05] MEDS: Enoxaparin 40 MG/0.4 ML Syringe SC (09:31)
[2019-07-05] MEDS: Famotidine 20 MG Tablet PO (09:31)
[2019-07-05] MEDS: Lisinopril 10 MG Tablet 30 MG PO (09:31)
[2019-07-05] MEDS: hydroCHLOROthiazide 12.5mg 12.5 MG PO (09:31)
[2019-07-05 09:33] VITALS: BP 122/68; PULSE 80; RESP 18; TEMP 36.6; O2SAT 98
[2019-07-05 12:40] LABS: Bedside Glucose 253 mg/dL (70-110)
--- NOTE | 2019-07-07 14:35 | CASEMGMT ---
MANOJ MONSIVAIS DC PHONE CALL DC DATE: 07.05.2019 DC DISPOSITION: Home DC DIAGNOSIS: Acute Strep Pharyngitis. R/O SARS COVID 2- negative Intro role of CM to patient via phone. Pt states he does not have questions re: medications (new to insulin), f/u or instructions. Pt will need to f/u with Nhung Kali on discharge. No concerns voiced, and no care improvement instructions given. Breezy CHRISTIANSONN RN ACM
== END 2019-07-05 13:30 | disposition home or self-care (01) | DRG 871 ==
LOC: ED 23:59 → MS2 07-03 00:07
PROVIDERS: Admitting Provider Family Medicine; Emergency Provider Emergency Medicine; Visit Provider Family Medicine
DX: A41.9 Sepsis, unspecified organism (principal); J02.0 Streptococcal pharyngitis; J18.9 Pneumonia, unspecified organism; E11.22 Type 2 diabetes mellitus with diabetic chronic kidney disease; I12.9 Hypertensive chronic kidney disease with stage 1 through stage 4 chronic kidney disease, or unspecified chronic kidney disease; N18.3 Chronic kidney disease, stage 3 (moderate); E78.5 Hyperlipidemia, unspecified; F32.9 Major depressive disorder, single episode, unspecified; F41.9 Anxiety disorder, unspecified; Z79.4 Long term (current) use of insulin; Z79.82 Long term (current) use of aspirin; Z79.899 Other long term (current) drug therapy
CPT/HCPCS: 36415; 71045; 71275; 80048; 80053; 81001; 82728; 82962; 83036; 83605; 83615; 83735; 84145; 84484; 85025; 85379; 85610; 85730; 86140; 87040; 87070; 87077; 87086; 87088; 87205; 87449; 87633; 87635; 87804; 87807; 87880; 93005; 99251; 99285; J7030; J7050; G0463; J0696; U0004

== ENCOUNTER → 2019-11-10 08:19 | Outpatient (CLI) | payer SELFPAY ==
[2019-10-27 09:32] VITALS: BMI 26.9
--- NOTE | 2019-11-10 08:20 | CT_ITS ---
STUDY: CT CHEST WITHOUT CONTRAST REASON FOR EXAM: Male, [address], pneumonia follow up. Hx diabetes, hypertension. RADIATION DOSAGE (If Supplied By Facility): CTDIvol = ( 15.20 ) mGy, DLP = ( 596.19 ) mGycm TECHNIQUE: Transaxial imaging was performed without the administration of intravenous contrast material. Multiplanar coronal and sagittal images were reformatted. Individualized dose optimization techniques were used for this CT. COMPARISON: 07/02/2019 FINDINGS: Lung windows show the lungs to be normally expanded. A previously noted left perihilar opacification is no longer identified suggesting was likely an infiltrate or atelectasis. There is a stable 3 mm nodule in the left lower lobe on axial image 66. No organized infiltrate or suspicious groundglass opacifications. Soft tissue windows show normal-appearing thyroid gland. There are scattered subcentimeter and fatty hilum axillary lymph nodes. There are subcentimeter AP AP window lymph nodes. No suspicious perihilar mass or adenopathy. There are calcified coronary vessels. Normal unenhanced pulmonary arteries. Normal aorta arch and descending thoracic aorta. There are multi-level degenerative changes of the thoracic spine. There is no demonstrated abnormality of the visualized upper abdomen. CT/Chest without Contrast IMPRESSION: Previously noted 1.3 cm spiculated opacification in the left perihilar region is no longer identified suggesting was likely inflammatory. There is a stable 3 mm noncalcified nodule in the left lower lobe on axial image 66. Stable scattered subcentimeter axillary and mediastinal lymph nodes Calcified coronary vessels No organized infiltrate or effusion Degenerative bony changes Electronically Signed: Amol Pollock MD at 10:28 EDT , Service support ,
== END ==
LOC: CT 08:20
PROVIDERS: Referring Provider Internal Medicine Critical Care Medicine; Visit Provider Internal Medicine Critical Care Medicine
DX: R93.89 Abnormal findings on diagnostic imaging of other specified body structures (principal)
CPT/HCPCS: 71250

== ENCOUNTER → 2019-11-10 09:00 | Outpatient (CLI) | payer SELFPAY ==
[2019-10-27 09:32] VITALS: BMI 26.9
--- NOTE | 2019-10-27 11:44 | HP_ITS ---
Intake Vital Signs 10/27/19 BMI 26.9 10/27/19 Height 6 ft 10/27/19 Weight: 205 lb 6 oz 10/27/19 BMI 27.8 10/27/19 BP 153/79 H 10/27/19 Blood Pressure Location Rt brachial 10/27/19 Position Sitting 10/27/19 Respiration 18 10/27/19 Pulse 95 10/27/19 Temp 98.7 F 10/27/19 Temp Source Temporal 10/27/19 Pulse Oximetry (%) 97 10/27/19 Oxygen Delivery Method room air Intake Visit Reasons: EGD, CSCOPE Chief Complaint: melena Sports Reporter Required: No Is patient in pain?: No Allergies acetaminophen [From Vicodin] Adverse Reaction (Verified 10/27/19 09:29) Other hydrocodone [From Vicodin] Adverse Reaction (Verified 10/27/19 09:29) Other Medications Aspirin [Aspir 81] 81 mg PO DAILY 03/16/19 [History Confirmed 10/27/19] Hydrochlorothiazide 12.5 mg PO DAILY 03/16/19 [History Confirmed 10/27/19] Isosorbide Mononitrate [Isosorbide Mononitrate ER] 30 mg PO DAILY 03/16/19 [History Confirmed 10/27/19] Lisinopril 30 mg PO DAILY #30 tab 03/16/19 [Rx Confirmed 10/27/19] Nitroglycerin 0.4 mg SUBLINGUAL PRN PRN 03/16/19 [History Confirmed 10/27/19] Simvastatin [Flolipid] 20 mg PO DAILY 03/16/19 [History Confirmed 10/27/19] Metformin HCl 1,000 mg PO BID #60 tab 07/05/19 [Rx Confirmed 10/27/19] glipizide 5 mg tablet 5 mg PO BID 10/27/19 [History Confirmed 10/27/19] insulin glargine 100 unit/mL (3 mL) subcutaneous pen 20 unit SUBCUT QHS ml 10/27/19 [History] [facility] Medical History Pneumonia (Acute) Sepsis (Acute) Strep pharyngitis (Acute) Suspected 2018 novel coronavirus infection (Acute) HTN (hypertension) (Chronic) HLD (hyperlipidemia) (Chronic) Diabetes mellitus, type II (Chronic) Surgical History History of colonoscopy (Acute) H/O knee surgery (Resolved) Family History Mother Heart disease Diabetes Alzheimer disease Father Heart disease Sister Diabetes Heart disease Myocardial infarction Social History (Updated 10/27/19 @ 11:[address] Abraham Beard MD) Smoking Status: Never smoker HPI HPI HPI: TED FONTANEZ, is a 54 M who presents to the office today for HPI HPI Surgical H&P: Yes HPI: TED FONTANEZ, is a 54 M who presents to the office today for Evaluation of rectal bleeding. Patient states about 3 to 4 weeks ago he was starting to develop rectal bleeding that was around the stool as well as in the stool. He states that he has had a colonoscopy at the [facility] but he is unsure of exactly when it was. He is not complaining of any abdominal pain he is not having any anal pain when he has a bowel movement. Patient is also noted to be anemic with a hemoglobin of 12.7. ROS General General: No weight change, appetite, fatigue, colon cancer, breast cancer or weakness HEENT HEENT: No difficulty swallowing, eye injury, eye surgery, swollen glands or hoarseness Endo Endocrine: No thyroid disease, diabetes mellitus, thyroid cancer, Hair loss, heat intolerance or cold intolerance Musc Musculoskeletal: Yes arthritis; no back problems, rheumatoid arthritis, gout or joint pain Cardio Cardiovascular: Yes atrial fibrillation and high blood pressure; no murmur, pacemaker, heart disease, heart attack, heart stent, palpitations, shortness of breat with exertion or chest pain Psych Psychiatric: No depression, anxiety or hearing voices Resp Respiratory: No shortness of breath, No sleep apnea, No cough, No COPD, No asthma, No emphysema, No wheezing Gastro Gastrointestinal: No abdominal pain, No nausea or vomiting, No diarrhea, No constipation, No blood in stool, No acid reflux, No hemorrhoids, No ulcers, No gallbladder problem, No black,tarry stools Nathaniel Hematologic: No blood thinners, No blood disorders, No bleeding, No anemia, No blood clots Neuro Neurologic: No weakness Exam Const General: no acute distress, well developed, well hydrated Orientation: oriented to person, oriented to place, oriented to time [facility] Head: normocephalic, atraumatic Ears: external ears normal Mouth: moist mucous membranes Eyes Sclera: sclerae normal Pupils: normal by confrontation Neck Neck: no lymphadenopathy noted Neck mass: No Thyroid: thyroid normal, symmetrical Chest Chest palpation & inspection: normal inspection of the chest Resp Effort & Inspection: normal respiratory effort Auscultation: clear to auscultation bilaterally Percussion: percussion normal Cardio Rate: regular rate Rhythm: regular rhythm Heart Sounds: no murmurs GI Palpation: soft, no hepatosplenomegaly, no masses, nontender Rectal Exam: other Other: Rectal exam deferred. Extrem General: normal to inspection, no clubbing, cyanosis or edema Assessment & Plan Problems 1. Rectal hemorrhage K62.5 2. Anemia, unspecified type D64.9 Plan I have discussed the above with the patient. I have offered the patient colonoscopy As well as an EGD for evaluation. I have explained the risks/benefits of the procedure and described the procedure. I have discussed the risks with the patient, including but not limited to: infection, bleeding, perforation of the GI tract requiring emergency surgery, inability to complete the procedure, injury to any internal organs, complications of anesthesia, etc. - the patient understands and agrees to proceed. I have answered all the patient's questions to the patient's satisfaction and the patient has no further questions. The patient has been given instructions for the colon cleansing preparation. Coding Level of Care Code Off vis,new,level 3 Diagnoses Rectal hemorrhage K62.5 Anemia, unspecified type D64.9 ??Anemia type: unspecified type COVID (Procedure Consent) Procedure Criteria Procedure Criteria: Yes Elective The surgeon/proceduralist and patient have discussed in detail the risk of exposure to and/or potential harm posed by the COVID-19 virus with having a surgery/procedure at this time versus the risk of? delaying the surgery/procedure. It is not possible to know either the risk of delaying the surgery or procedure or chance of getting an infection with perfect accuracy, but a joint decision was made between the patient and the surgeon/proceduralist ?to proceed at this time with the scheduled surgery/procedure as indicated on the consent form. 10/27/19 1159 <Electronically signed by Abraham robertson MD> Date _ [facility]
== END ==
LOC: PAT 12-10 11:56
PROVIDERS: Anesthesiology; Visit Provider Surgery
DX: Z11.59 Encounter for screening for other viral diseases (principal)
CPT/HCPCS: 87635; 94799; U0003

== ENCOUNTER → 2019-12-15 06:06 | Outpatient (CLI) | payer SELFPAY ==
[2019-11-26 11:18] VITALS: BMI 28.0
--- NOTE | 2019-12-15 06:08 | ECHOD_ITS ---
Reason For Study: CAD Procedure This was a 2D Doppler, Color Flow transthoracic echocardiogram. Exam performed in department. Left Ventricle Normal LV size. Left ventricular systolic function is normal. The estimated ejection fraction is 55 %. Stage 1 diastolic dysfunction. No regional wall motion abnormalities noted. Right Ventricle Normal RV size. Normal systolic function. Atria Normal left atrium. Normal right atrium. Probable patent foramen ovale. Mitral Valve Normal mitral valve. Tricuspid Valve Normal tricuspid valve. Mild tricuspid valve insufficiency. Pulmonary artery systolic pressure is 18 mmHg. Aortic Valve Normal aortic valve. Trisinus/trileaflet aortic valve. Pulmonic Valve Normal pulmonic valve. Great Vessels Normal aortic root. The pulmonary artery is normal size. Normal inferior vena cava. Pericardium/Pleural No pericardial effusion. Medication Performed a rapid injection of agitated mix of 9 cc saline and 1cc air to assess for atrial septal defect. MMode/2D Measurements & Calculations LVIDd: 4.2 cm IVSd: 1.6 cm Ao root diam: 3.9 cm LVIDs: 3.2 cm LVPWd: 1.4 cm RVDd: 3.9 cm FS: 22.4 % LAV(MOD-bp): 48.5 ml EDV(MOD-sp4): 104.1 ml EDV(MOD-sp2): 96.8 ml LAV(MOD-bp) Indexed: 21.8 ml/m2 ESV(MOD-sp4): 48.9 ml EF(MOD-sp2): 45.5 % LAV(MOD-sp2): 45.9 ml EF(MOD-sp4): 53.0 % LAV(MOD-sp4): 50.8 ml SV(MOD-sp4): 55.1 ml SV(MOD-sp2): 44.0 ml LA A4 area: 18.8 cm2 LA dimension(2D): 3.4 cm RA A4 area: 12.7 cm2 Doppler Measurements & Calculations MV E max santos: 41.6 cm/sec Lat Peak E' Santos: 6.4 cm/sec Med Peak E' Santos: 3.2 cm/sec MV A max santos: 75.9 cm/sec E/E' lat: 6.5 E/E' med: 13.1 MV E/A: 0.55 Ao V2 max: 109.9 cm/sec LV V1 max: 89.4 cm/sec PA V2 max: 85.3 cm/sec Ao max P.8 mmHg LV V1 max P.2 mmHg TR max santos: 196.3 cm/sec TR max P.4 mmHg Interpretation Summary Normal LV size. Left ventricular systolic function is normal. The estimated ejection fraction is 55 %. Stage 1 diastolic dysfunction. Pulmonary artery systolic pressure is 18 mmHg. Probable patent foramen ovale. Ordering Physician: Uriel Dailey Referring Physician: Uriel Dailey Performed By: Rebeca Cormier RDCS
--- NOTE | 2019-12-15 08:16 | STRESSREP_ITS ---
Stress Test Report Exercise myocardial perfusion stress test. 54-year-old man with a history of coronary artery risk factors. Stress protocol: Resting EKG demonstrates normal sinus rhythm with a rate of 81 bpm normal intervals are noted resting blood pressure is 122/84 mmHg. The patient exercised according to the regular Herbert protocol for a total duration of 6 minutes the maximum heart rate attained was 157 bpm which was 95% of maximum predicted heart rate the maximum workload was 7 metabolic equivalents. At rest there were no ST or T wave changes noted to suggest ischemia at peak exercise there was approximately 1.[address] depression noted in leads II, III and aVF and 1 mm noted in lead V4 through V6. The above was suggestive of ischemia. The patient was noted to be short of breath but no obvious chest pain was noted. The resting blood pressure was 122/84 with a peak blood pressure 170/82 mmHg. Myocardial perfusion protocol. 14.1 mCi of technetium 99m sestamibi was injected at rest. The patient exercised for 6 minutes and at peak exercise 43.8 mCi of technetium 99m sestamibi was injected stress images were obtained stress and rest images were reconstructed and compared in the short axis vertical long horizontal long axis. Gated images were also obtained per Perfusion SPECT analysis: Review of the images demonstrated normal perfusion in all areas of the myocardium the resting images similar demonstrated normal perfusion in all areas of the myocardium no obvious areas of perfusion abnormality were noted to peace ggest ischemia. The gated ejection fraction was noted to be 49%. Conclusion: Exercise myocardial perfusion stress test with no perfusion abnormalities suggestive of ischemia. EKG changes suggestive of ischemia. Low normal ejection fraction.
== END ==
LOC: CVS 06:08
PROVIDERS: Referring Provider Internal Medicine Cardiovascular Disease; Visit Provider Internal Medicine Cardiovascular Disease
DX: I25.10 Atherosclerotic heart disease of native coronary artery without angina pectoris (principal); I10 Essential (primary) hypertension; R93.89 Abnormal findings on diagnostic imaging of other specified body structures
CPT/HCPCS: 78452; 93017; 93306; A9500; A4216

== ENCOUNTER 2019-12-22 09:48 | Day surgery (SDC) | payer SELFPAY ==
[2019-11-26 11:18] VITALS: BMI 28.0
[2019-12-19 09:15] VITALS: BMI 28.0
[2019-12-22] VITALS (15 sets, daily range): BP systolic 126–177; BP diastolic 74–105; PULSE 63–94; RESP 14–20; TEMP 36.7–36.8; O2SAT 96–99
[2019-12-22 10:08] LABS: Absolute Lymphocyte Count 1.62 X10^3/uL (0.83-4.51); Absolute Neutrophil Count 4.9 X10^3/uL (2.0-7.7); Basophil# 0.05 X10^3/uL; Basophil% 0.7 % (0-1); Eosinophil# 0.36 X10^3/uL; Eosinophils% 4.8 % (0-5); Hematocrit 43.5 % (40-54); Lymphocyte # 1.62 X10^3/ul (4.0); Lymphocyte % 21.6 % (19-41); Mean Corp Hgb Conc 34.5 g/dL (32-36); Mean Corpuscular Hgb 30.5 pg (27.0-32.0); Mean Corpuscular Volume 88.6 fL (80-94); Mean Platelet Vol. 9.2 fl (6.2-12.0); Monocyte# 0.57 X10^3/uL; Monocyte% 7.6 % (0-10); NRBC Flagged by Analyzer 0 % (0-5); Neutrophil # 4.87 X10^3/uL (2.7-7.7); Neutrophil % 64.9 % (47-70); Platelet Count 300 K/mm3 (150-450); RBC Distribution Width CV 11.9 % (11.6-14.6); RBC Distribution Width SD 38.3 fl (35.1-43.9); Red Blood Count 4.91 M/mm3 (4.6-6.2); White Blood Count 7.5 K/mm3 (4.4-11.0)
[2019-12-22 10:22] LABS: Anion Gap 4 (5-15); BUN 15 mg/dL (7-18); BUN/Creat Ratio 13.3 RATIO (10-20); Calcium,Total 9.1 mg/dL (8.5-10.1); Chloride 108 mmol/L (98-107); Creatinine, Serum 1.13 mg/dL (0.70-1.30); EST Glomerular Filtration Rate 71 mL/min (>60); Est Glom Filt Rate - Afr Amer 86 mL/min (>60); Estimated Creatinine Clearance 83.47 ml/min; Glucose 221 mg/dL (74-106); Potassium 3.9 mmol/L (3.5-5.1); Sodium Level 138 mmol/L (136-145)
--- NOTE | 2019-12-22 11:59 | CL.D_ITS ---
Patient Name: TED FONTANEZ Study Date: 12/22/2019 Performing: Uriel Dailey MD Ht: 72.83 inches 185 cm : 1965 Wt: 213.85 lbs 97 kg Age: 54 Gender: male BSA: 2.21 PROCEDURE(S) PERFORMED SY33-GMO/COR/LV CLINICAL PROFILE AND INDICATIONS Indications: Suspected CAD Heart Failure: None Stress/Imaging Date: 12/15/2019Stress Test with SPECT MPI: Positive Intermediate Risk CAD Presentations: No Sxs, no angina. CONCLUSIONS High-grade distal posterior descending artery lesion with a 95% stenosis RECOMMENDATIONS Referred for immediate PCI DESCRIPTION OF PROCEDURE The patient arrived to the procedure lab. The risks and benefits of the procedure as well as a full d escription of our services here and current unavailability of surgical backup were fully explained to the patient and/or their significant other prior to the catheterization. The Timeout was completed, verifying the correct patient and procedure. The patient's procedural site was prepped and draped in the usual fashion. Local anesthetic was given subcutaneously to right radial region with Lidocaine 2% . Using a modified Seldinger technique, arterial access was obtained via the right radial artery, a 6 Fr sheath was inserted. Left Coronary Artery selective angiography was performed in multiple views u sing a 5 Fr. 4.0 [place] catheter. Right Coronary Artery selective angiography was then performed in mu ltiple views using a 5 Fr. 4.0 [place] catheter. Left Ventriculography was performed in BOYD projection using a 5 Fr. Pigtail catheter. LV to AO pullback pressures were then recorded. CORONARY ANGIOGRAPHY DOMINANCE: Right Dominant LEFT HEART ASSESSMENT Normal LV wall motion Normal Left Ventricular systolic function LEFT MAIN: Angiographically normal LEFT ANTERIOR DESCENDING ARTERY: No significant disease noted, The vessel rapidly tapers after the mi d segment. MID LAD: Moderate calcification CIRCUMFLEX ARTERY: Mild luminal irregularities less than 30% RIGHT CORONARY ARTERY: RT PDA: Distal - 95 % Stenosis COMPLICATIONS PROCEDURE MEDICATIONS Versed 1 mg IV Fentanyl 50 mcg IV Oxygen: 2 L/min via nasal cannula Baby Aspirin (81mg) 1 Tabs PO @ 12/22/2019 10:30:22 Heparin 6000 unit(s) IV 12/22/2019 11:57:20 Heparin given IA 12/22/2019 11:57:42 Plavix 75 mg PO 12/22/2019 10:30:28 Verapamil 2.5mg, Ntg 100mcgs, 2000 units of Heparin given IA 12/22/2019 11:57:42 SUMMARY OF HEMODYNAMIC DATA Time AIR REST ECG 10:25:52 AO 128/78 (99) SA 11:36:16 LV 133/5, 19 11:46:09 LV 140/7, 10 11:46:15 LV 131/13, 16 11:46:46 LV 131/14, 28 11:46:53 LVp 138/16, 26 11:47:03 AOp 139/78 (105) 11:47:08 Signed By Uriel Dailey MD On 12/22/2019 11:58:30 Uriel Dailey MD
--- NOTE | 2019-12-22 12:45 | EKG12_ITS ---
Test Reason : POST PCI Blood Pressure : / mmHG Vent. Rate : 073 BPM Atrial Rate : 073 BPM P-R Int : 202 ms QRS Dur : 082 ms QT Int : 382 ms P-R-T Axes : 019 020 015 degrees QTc Int : 420 ms Sinus rhythm with Premature atrial complexes Otherwise normal ECG When compared with ECG of 02-JUL-2019 20:27, Premature atrial complexes are now Present Vent. rate has decreased BY 48 BPM Confirmed by ELIDA LOVE, JOEL ([id number]), social media editor KAILA JI ([id number]) on 12/30/2019 9:20:58 AM Referred By: Uriel Dailey Confirmed By:MAXIM MARRERO MD
[2019-12-22] MEDS: 0.9% Normal Saline 1,000 ML 60 ML IV (13:36)
--- NOTE | 2019-12-22 14:43 | CRPHASE1 ---
Patient Communication Former Patient:: Phase I PHII Cardiac Rehab Discussed with Patient:: Yes Guide to Cardiac Rehab Given to Patient:: Yes Cardiac Rehab Facility Choice List Given to Patient:: Yes Choice Program [facility] CR PHII:: Communication Given to CR Choice Program Other:: Communication Given to CR Refer Phase II Cardiac Rehab:: Yes Sessions:: 36 sessions - 3 days/wk, 12 weeks Choice Letter Given to Patient:: Yes Guide to Cardiac Rehab Given by ICU Staff Prior to Discharge: Yes Risk Factors/Lifestyle Smoking Status: Never smoker Hx Hypertension: Yes Hx Diabetes Mellitus Type 1: No Hx Diabetes Mellitus Type 2: Yes Hx Dyslipidemia: Yes Hx Obesity: No Post-Menopausal: No ETOH: No Caffeine: Yes Substance Abuse: No Family History: Family History (Last Reviewed 11/26/19 @ 11:[address] Uriel Dailey MD) Mother Heart disease Diabetes Alzheimer disease Father Heart disease Sister Diabetes Heart disease Myocardial infarction Cardiac Rehabilitation Info Cardiac Rehabilitation Program Information: Cardiac Rehabilitation is important for patients like you who are recovering from a heart problem. Cardiac rehabilitation programs are recognized as integral to the continued care of the patient with coronary heart disease. The cardiac rehabilitation program is designed to optimize a patient's physical, psychological, and social functioning. Health rn critical care work in cardiac rehabilitation programs and assist you with getting the treatments you need to get stronger and healthier - like exercise, healthy eating habits, and medications. Cardiac rehabilitation has been show to help people with heart problems live longer and have better life enjoyment than people who do not go to cardiac rehabilitation. Please contact the Cardiac Rehabilitation Program at [facility] [place] at in two weeks if you have not heard from them.
--- NOTE | 2019-12-22 14:45 | CRPH1.INSTRU ---
General Education CAD and cardiac anatomy and function:: Patient communicates acknowledgment Explanation of diagnoses and procedures:: Patient communicates acknowledgment Sign/Symptoms of FL:: Patient communicates acknowledgment Antiplatelet therapy: Patient communicates acknowledgment Smoking Patient Nicotine/Smoking Risk Factors Are:: Never smoked Dyslipidemia Patient Dyslipidemia Risk Factors Are:: Total Cholesterol, Triglycerides, HDL, LDL Recommendations Include:: Lipid profile not available, Reviewed NCEP/ATP guidelines, Therapeutic Lifestyle Change dietary guidelines Dyslipidemia Response Code:: Patient communicates acknowledgment Overweight/Obesity Patient Overweight/Obesity Risk Factors Are:: Overweight = 26-29 Recommendations Include:: Weight loss of 5-10%, Reduced calorie diet, Exercise 5-7 times/week Overweight/Obesity:: Patient communicates acknowledgment Hypertension Recommendations Include:: Maintain BP <130/85, BP <130/80 if diabetic, DASH dietary guidelines, Decrease/maintain normal body weight, Moderation of ETOH Hypertension:: Patient communicates acknowledgment Diabetes Patient Diabetes Risk Factors Are:: Elevated blood sugars, Post-op hyperglycemia Recommendations Include:: Maintain fasting blood sugars 70-110 md/dL, Maintain HgbA1c of 6% or less, Monitor blood sugar as prescribed, Diabetic dietary guidelines, Decrease/maintain body weight Diabetes:: Patient communicates acknowledgment Metabolic Syndrome Patient Metabolic Syndrome Risk Factors Are [3 of 5]:: Fasting blood sugar > 100 mg/dL, Waist circumference > 35 [female] or 40 [male], High triglyceride >150, Hypertension, Low HDL <40 [male] or < 50 [female] Recommendations Include:: Patient is diabetic Metabolic Syndrome Response Code:: Patient communicates acknowledgment Sedentary Patient Sedentary Risk Factors Are:: Lack of regular exercise Recommendations Include:: Aerobic exercise 5-7 times/week for 20-30 minutes continuously, Benefits of regular exercise, Discussed home walking program, Monitored Outpatient Cardiac Rehab Sedentary Response Code:: Patient communicates acknowledgment Stress Recommendations Include:: Identification of stressors, and assessment of coping skills, Stress management techniques Stress Response Code:: Patient communicates acknowledgment
[2019-12-22] MEDS: Lisinopril 40 MG Tablet PO (16:11)
--- NOTE | 2019-12-22 16:42 | CL.I_ITS ---
Patient Name: TED FONTANEZ Study Date: 12/22/2019 Performing: Janice Pablo MD Ht: 73 inches 185 cm : 1965 Wt: 214.1 lbs 97 kg Age: 54 Gender: male BSA: 2.21 PROCEDURE(S) PERFORMED [id number] W OR WO PTCA, SINGLE CORONARY ARTERY CLINICAL PROFILE AND CO-MORBIDITIES Indications: Suspected CAD Heart Failure: None Stress/Imaging Date: 12/15/2019 Stress Test with SPECT MPI: Positive Intermediate Risk CAD Presentations: No Sxs, no angina. CONCLUSIONS Successful NADEGE to dRPDA RECOMMENDATIONS DESCRIPTION OF PROCEDURE The patient arrived to the procedure lab. The risks and benefits of the procedure as well as a full d escription of our services here and current unavailability of surgical backup were fully explained to the patient and/or their significant other prior to the catheterization. The Timeout was completed, verifying the correct patient and procedure. The patient's procedural site was prepped and draped in the usual fashion. Local anesthetic was given subcutaneously to right radial region with Lidocaine 2% Using a modified Seldinger technique,arterial access was obtained via the right radial artery, a 6Fr sheath was inserted. Left Coronary Artery selective angiography was performed in multiple views usin g a 5 Fr. 4.0 [place] catheter. Right Coronary Artery selective angiography was then performed in multi ple views using a 5 Fr. 4.0 Union catheter. Left Ventriculography was performed in BOYD projection usi ng a 5 Fr. Pigtail catheter. LV to AO pullback pressures were then recorded.The images were reviewed and options discussed. A decision was then made to proceed with an Intervention, IVUS o r other adjunct procedure. cordis jr 4 Guide catheter was inserted and engaged into the RCA. bmw Guide wire was advanced to the Right PDA. emerge 2.00 x 8 Balloon catheter was advanced across lesion in the posterior descendin g, distal. PTCA balloon inflated at 6 atms for 9 secs. Angiogram performed post balloon dilatation. s ynergy 2.25 x 12 Drug Eluting stent was advanced across the lesion in the posterior descending, dista l. Angiogram performed post stent deployment. The arterial sheath was pulled and a TR Band was appl ied for hemostasis 10 cc's of air in band INTERVENTION INFORMATION LESION SITE: RT PDA (Distal) Lesion Complexity: High/C, chronic total occlusion: No, lesion at bifurcation: No, thrombus present: No, lesion length: 10 mm, culprit lesion: Yes, Previously treated lesion: No, In-stent restenosis: No Pre Stenosis: 95 % Pre intervention KARTHIKEYAN flow: 3 PROCEDURE: Drug Eluting Stent with pre dilatation. Post Stenosis: 0 % Post intervention KARTHIKEYAN flow: 3 Lesion Devices: Cardinal 6 Fr JR4 100cm Guide Catheter [place] .014 BMW Curtiss Straight 190cm Antoine Sci EMERGE MR 2.00x08 BALLOON Antoine Sci Synergy MR NADEGE 2.25x12 COMPLICATIONS No Complications PROCEDURE MEDICATIONS Versed 1 mg IV Fentanyl 50 mcg IV Oxygen: 2 L/min via nasal cannula Baby Aspirin (81mg) 1 Tabs PO @ 12/22/2019 10:30:22 Heparin given IA 12/22/2019 11:36:42 Heparin 6000 unit(s) IV 12/22/2019 11:57:20 Plavix 75 mg PO 12/22/2019 10:30:28 Verapamil 2.5mg, Ntg 100mcgs, 2000 units of Heparin given IA 12/22/2019 11:36:42 SUMMARY OF HEMODYNAMIC DATA Time AIR REST ECG 10:25:52 AO 128/78 (99) SA 11:36:16 LV 133/5, 19 11:46:09 LV 140/7, 10 11:46:15 LV 131/13, 16 11:46:46 LV 131/14, 28 11:46:53 LVp 138/16, 26 11:47:03 AOp 139/78 (105) 11:47:08 Signed By Janice Pablo MD On 12/22/2019 16:41:49 Janice Pablo MD
[2019-12-22 19:01] LABS: Bedside Glucose 317 mg/dL (70-110)
[2019-12-22] MEDS: Atorvastatin Calcium 20 MG Tablet PO (22:51)
[2019-12-22 23:00] LABS: Bedside Glucose 185 mg/dL (70-110)
[2019-12-23 04:22] VITALS: PULSE 78
[2019-12-23 04:30] VITALS: BP 127/74; PULSE 86; RESP 14; TEMP 36.6; O2SAT 96
[2019-12-23 05:54] LABS: Hematocrit 43.9 % (40-54); Mean Corp Hgb Conc 34.2 g/dL (32-36); Mean Corpuscular Hgb 30.2 pg (27.0-32.0); Mean Corpuscular Volume 88.5 fL (80-94); Mean Platelet Vol. 9.4 fl (6.2-12.0); Platelet Count 296 K/mm3 (150-450); RBC Distribution Width CV 11.9 % (11.6-14.6); RBC Distribution Width SD 38.6 fl (35.1-43.9); Red Blood Count 4.96 M/mm3 (4.6-6.2); White Blood Count 8.8 K/mm3 (4.4-11.0)
[2019-12-23 06:18] LABS: ALB/GLOB Ratio 0.9 RATIO (0.9-2.4); AST(SGOT) 21 U/L (15-37); Alanine Aminotransfer ALT/SGPT 35 U/L (16-61); Albumin, Serum 3.4 g/dL (3.2-5.0); Alkaline Phosphatase 85 U/L (45-117); Anion Gap 5 (5-15); BUN 15 mg/dL (7-18); BUN/Creat Ratio 12.6 RATIO (10-20); Calcium,Total 8.7 mg/dL (8.5-10.1); Chloride 104 mmol/L (98-107); Creatinine, Serum 1.19 mg/dL (0.70-1.30); EST Glomerular Filtration Rate 67 mL/min (>60); Est Glom Filt Rate - Afr Amer 81 mL/min (>60); Estimated Creatinine Clearance 79.27 ml/min; Globulin 3.9 g/dL (2.2-4.2); Glucose 204 mg/dL (74-106); Potassium 4.1 mmol/L (3.5-5.1); Protein, Total 7.3 g/dL (6.4-8.2); Sodium Level 135 mmol/L (136-145)
[2019-12-23 07:00] VITALS: PULSE 72
--- NOTE | 2019-12-23 07:00 | PN.CARD_ITS ---
Subjectve: Patient seen and evaluated. Objective: Vital Signs Temp Pulse Resp BP Pulse Ox 97.9 F 86 14 127/74 H 96 12/23/19 04:30 12/23/19 04:30 12/23/19 04:30 12/23/19 04:30 12/23/19 04:30 Oxygen Delivery Method Room Air Weight: 213 lb Body Mass Index (BMI) 28.0 Intake and Output for Last 24 Hours 12/21/19 12/22/19 12/23/19 23:59 23:59 23:59 Intake Total 360 / 480 220 / 220 Balance 360 / 480 220 / 220 General: Awake, Alert, Oriented x 3 HEENT: PERRL, EOMI, Sclera Non Icteric Neck: Supple, Good ROM, No Lymph Node Enlargement Lungs: Clear to auscultation Cardiovascular: Regular Rhythm, Normal S1, Normal S2, No Murmurs, No Rubs, No Gallops Vascular: No Carotid Bruits, Normal Femoral Pulses, Normal Radial Pulses, Normal Dorsalis Pedal Pulse, Normal Posterior Tibial Pulses Abdomen: Bowel Sounds Present, Soft, Non Tender, No HSM, No Organomegaly Extremities: No Cyanosis, No Clubbing, No edema Neurological: No Focal Motor or Sensory Deficit 12/22/19 09:58: WBC 7.5, RBC 4.91, Hgb 15.0, Hct 43.5, MCV 88.6, MCH 30.5, MCHC 34.5, Plt Count 300, MPV 9.2, Immature Gran % (Auto) 0.400, Neut % (Auto) 64.9, Lymph % (Auto) 21.6, Waldo % (Auto) 7.6, Eos % (Auto) 4.8, Baso % (Auto) 0.7, Absolute Neuts (auto) 4.9, Nucleated RBC % 0 12/22/19 09:58: Sodium 138, Potassium 3.9, Chloride 108 H, Carbon Dioxide 26.0, Anion Gap 4 L, BUN 15, Creatinine 1.13, Est GFR (MDRD) Af Amer 86, Est GFR (M DRD) Non-Af 71, BUN/Creatinine Ratio 13.3, Glucose 221 H, Calcium 9.1 12/23/19 05:36: WBC 8.8, RBC 4.96, Hgb 15.0, Hct 43.9, MCV 88.5, MCH 30.2, MCHC 34.2, Plt Count 296, MPV 9.4 12/23/19 05:36: Sodium 135 L, Potassium 4.1, Chloride 104, Carbon Dioxide 26.0, Anion Gap 5, BUN 15, Creatinine 1.19, Est GFR (MDRD) Af Amer 81, Est GFR (MDRD) Non-Af 67, BUN/Creatinine Ratio 12.6, Glucose 204 H, Calcium 8.7, Total Bilirubin 0.50 Rhythm: EKG: ECHO: Stress Test: Cardiac Cath: PCI: CT Surgery: Holter monitor: EPS: PPM: CXR: Chest CT Scan: Medical Necessity - Tobacco Use Smoking Status: Never smoker Assessment/Plan 1. Status post angioplasty and stenting of the distal right coronary artery. Patient appears to be doing well. No complaints this morning. Patient can be discharged for outpatient follow-up.
--- NOTE | 2019-12-23 07:02 | DCINST_ITS ---
Discharge Diet: Low fat/ Low Cholesterol Lifting Restrictions: 10 pounds and also avoid any pushing or pulling for 3 days after your test. Additional Activity Instructions:: You must have someone drive you home. Do not drive until instructed by your doctor. You must have someone stay with you all night after your test. Rest in bed or on the couch until the next morning. Limit the number of times you go up and down stairs the day of your test. Apply pressure to the puncture site if you sneeze or cough. Call your doctor if your incision/area has: Increased Pain/ Swelling, Increased Redness, Foul Smelling Discharge, Swelling at the incision site Call your doctor if you observe: Fever of 101 or Higher Additional Dressing/Incision Instructions:: Keep the dressing (bandage) on until the next morning. You may then shower, but do not take a tub bath for 5 days after your test. It is normal to have some tenderness and discomfort at the puncture site. Sometimes bruising also occurs. However, if pain, numbness, or coldness occurs below the puncture site (in your leg, toes, arms or fingers) call your doctor at once. You may have a small, marble sized knot at the puncture site. This is normal. Do not rub it. It will go away in 4-6 weeks. Bleeding can occur from the area where the puncture was done. Blood may spurt or drip from the site. If blood spurts, apply pressure right away to stop bleeding and call 911. Although rare, bleeding into the tissue (hematoma) can also occur. If this happens, a large, firm area goose egg under the skin will appear. If any of these occur, lie down as flat as you can and have someone apply firm pressure to the cath site with a gauze pad or a clean washcloth for 10-15 minutes. Call 911 or go to the Emergency Department. Allergies/Adverse Reactions: Allergies acetaminophen [From Vicodin] Adverse Reaction (Verified 11/10/19 11:42) Other hydrocodone [From Vicodin] Adverse Reaction (Verified 11/10/19 11:42) Other Medications to take at Discharge Aspirin [Aspir 81] 81 mg PO DAILY 03/16/19 Hydrochlorothiazide 12.5 mg PO DAILY 03/16/19 Isosorbide Mononitrate [Isosorbide Mononitrate ER] 30 mg PO DAILY 03/16/19 Nitroglycerin 0.4 mg SUBLINGUAL PRN PRN 03/16/19 Metformin HCl 1,000 mg PO BID #60 tab 07/05/19 insulin glargine 100 unit/mL (3 mL) subcutaneous pen 20 unit SUBCUT QHS ml 10/27/19 atorvastatin 20 mg tablet 20 mg PO QHS 11/26/19 glimepiride 4 mg tablet 4 mg PO DAILY 11/26/19 lisinopril 40 mg tablet 40 mg PO DAILY #90 tab 11/26/19 pioglitazone 15 mg tablet 15 mg PO DAILY 11/26/19 clopidogrel 75 mg tablet 75 mg PO DAILY #30 tab 12/15/19 Orders to be completed after discharge: Phase II, Outpatient Cardiac Rehab Location: None Selected Primary Care Physician: [facility] Nhung Galan [Primary Care Provider] - Test Results: Test results from this visit will be discussed in further detail at your follow- up appointment, if applicable. When: cardaic rehab-- office will call Proposed Discharge Date: 12/23/19 Cardiac Rehabilitation Info Cardiac Rehabilitation Program Information: Cardiac Rehabilitation is important for patients like you who are recovering from a heart problem. Cardiac rehabilitation programs are recognized as integral to the continued care of the patient with coronary heart disease. The cardiac rehabilitation program is designed to optimize a patient's physical, psychological, and social functioning. Health managed care analyst work in cardiac rehabilitation programs and assist you with getting the treatments you need to get stronger and healthier - like exercise, healthy eating habits, and medicat ions. Cardiac rehabilitation has been show to help people with heart problems live longer and have better life enjoyment than people who do not go to cardiac rehabilitation. Please contact the Cardiac Rehabilitation Program at [facility] at in two weeks if you have not heard from them.
[2019-12-23 07:55] VITALS: O2SAT 96
[2019-12-23 09:15] VITALS: BP 125/76; PULSE 88; RESP 16; TEMP 36.6; O2SAT 93
[2019-12-23] MEDS: Clopidogrel Bisulfate 75 MG Tablet PO (09:15)
[2019-12-23] MEDS: Isosorbide Mononitrate 30 MG Tablet PO (09:15)
[2019-12-23] MEDS: Lisinopril 40 MG Tablet PO (09:15)
[2019-12-23] MEDS: hydroCHLOROthiazide 12.5mg 12.5 MG PO (09:16)
[2019-12-23] MEDS: Pioglitazone Hydrochloride 15 MG Tablet PO (09:16)
[2019-12-23] MEDS: Aspirin E.C. 81 MG Tablet PO (09:16)
[2019-12-23] MEDS: Glimepiride 4 MG Tablet PO (09:16)
[2019-12-23 09:21] LABS: Bedside Glucose 327 mg/dL (70-110)
--- NOTE | 2019-12-23 10:00 | EKG12_ITS ---
Test Reason : AM EKG Blood Pressure : / mmHG Vent. Rate : 071 BPM Atrial Rate : 071 BPM P-R Int : 192 ms QRS Dur : 092 ms QT Int : 404 ms P-R-T Axes : 021 011 017 degrees QTc Int : 439 ms Normal sinus rhythm Normal ECG When compared with ECG of 22-DEC-2019 14:25, MANUAL COMPARISON REQUIRED, DATA IS UNCONFIRMED Confirmed by GONZALEZ LOVE, URIEL ([id number]), video news editor KAILA JI ([id number]) on 01/26/2020 1:48:05 PM Referred By: Uriel Dailey Confirmed By:URIEL DAILEY MD
--- NOTE | 2019-12-23 10:11 | PHA.DC.MR ---
Pharmacy Service has performed discharge medication reconciliation for this patient. No new medications at time of discharge. Medications reviewed are from previously reported home medications. Home Medications Aspirin [Aspir 81] 81 mg PO DAILY 03/16/19 Hydrochlorothiazide 12.5 mg PO DAILY 03/16/19 Isosorbide Mononitrate [Isosorbide Mononitrate ER] 30 mg PO DAILY 03/16/19 Nitroglycerin 0.4 mg SUBLINGUAL PRN PRN 03/16/19 Metformin HCl 1,000 mg PO BID #60 tab 07/05/19 insulin glargine 100 unit/mL (3 mL) subcutaneous pen 20 unit SUBCUT QHS ml 10/27/19 atorvastatin 20 mg tablet 20 mg PO QHS 11/26/19 glimepiride 4 mg tablet 4 mg PO DAILY 11/26/19 lisinopril 40 mg tablet 40 mg PO DAILY #90 tab 11/26/19 pioglitazone 15 mg tablet 15 mg PO DAILY 11/26/19 clopidogrel 75 mg tablet 75 mg PO DAILY #30 tab 12/15/19 The patient's discharge medication list was reviewed for discrepancies and discrepancies were resolved.
== END 2019-12-23 07:05 | disposition home or self-care (01) ==
LOC: CLSP 09:56 → PCU 12-23 10:33
PROVIDERS: Specialist; Referring Provider Internal Medicine Cardiovascular Disease; Visit Provider Internal Medicine Cardiovascular Disease
DX: I25.10 Atherosclerotic heart disease of native coronary artery without angina pectoris (principal); I13.10 Hypertensive heart and chronic kidney disease without heart failure, with stage 1 through stage 4 chronic kidney disease, or unspecified chronic kidney disease; E11.22 Type 2 diabetes mellitus with diabetic chronic kidney disease; N18.3 Chronic kidney disease, stage 3 (moderate); E78.5 Hyperlipidemia, unspecified; D64.9 Anemia, unspecified; F32.9 Major depressive disorder, single episode, unspecified; F41.9 Anxiety disorder, unspecified; Z79.899 Other long term (current) drug therapy; Z79.84 Long term (current) use of oral hypoglycemic drugs; Z79.02 Long term (current) use of antithrombotics/antiplatelets; Z79.82 Long term (current) use of aspirin; Z79.4 Long term (current) use of insulin
CPT/HCPCS: 36415; 80048; 80053; 82962; 85025; 85027; 92928; 93005; 93458; 99152; 99153; J7030; J7040; Q9967; C1725; C1769; C1874; C1887; C1894; C9600

== ENCOUNTER 2019-12-26 17:56 | Emergency (ER) | payer SELFPAY ==
[2019-12-19 09:15] VITALS: BMI 28.0
[2019-12-26 17:58] VITALS: BP 161/96; PULSE 106; RESP 22; TEMP 36.9; O2SAT 95; BMI 30.7
--- NOTE | 2019-12-26 18:03 | ED.DCSUM_ITS ---
History of Present Illness Chief Complaint: Chest Pain Informant: Patient Narrative: 54-year-old male presenting with chest pain. He states that started just a short while ago. He started to get a headache and shortness of breath he felt. Patient states he does had a cardiac cath and stent placed last week. All he knows it was in the posterior aspect of his heart. He is not had chest pain since. No history of DVT/PE. His gave him a nitroglycerin prior to arrival and this did help his chest pain. - Past Medical History (1) History of coronary artery stent placement Status: Chronic Comment: [id number]-[id number] w/ 2.25 x 12 mm Synergy Stent 12/22/2019 (2) Atherosclerotic heart disease of [place] coronary artery with other forms of angina pectoris Status: Chronic (3) Essential (primary) hypertension Status: Chronic (4) HLD (hyperlipidemia) Status: Chronic Past Medical History - Allergies and Home Meds Allergies/Adverse Reactions: Allergies acetaminophen [From Vicodin] Adverse Reaction (Verified 12/26/19 18:04) Other hydrocodone [From Vicodin] Adverse Reaction (Verified 12/26/19 18:04) Other Primary Care Physician: Indigo Pablo MD [STAFF PHYSICIAN] - [facility],Nhung Bass [Primary Care Provider] - Prior records reviewed: Yes Past Medical History: - - Reviewed in clinic thank Surgical History: - - Left knee surgery x3 following trauma. Cardiac accident Smoking Status: Never smoker - Family History Maternal Family History: Family History (Last Reviewed 11/26/19 @ 11:[address] Uriel Dailey MD) Mother Heart disease Diabetes Alzheimer disease Father Heart disease Sister Diabetes Heart disease Myocardial infarction Family History: Reports: - - Patient notes a maternal family history of heart disease, hypertension, diabetes mellitus type 2. Paternal Family History: Family History (Last Reviewed 11/26/19 @ 11:[address] Uriel Dailey MD) Mother Heart disease Diabetes Alzheimer disease Father Heart disease Sister Diabetes Heart disease Myocardial infarction Family History: Reports: Heart Disease Review of Systems General: Denies: Chills, Fever, Sweats Eyes: Denies: Visual changes - bilaterally, Diplopia ENT: Denies: Rhinorrhea, Sore throat Cardiovascular: Reports: Chest pain Respiratory: Reports: Dyspnea Gastrointestinal: Reports: Nausea. Denies: Abdominal pain, Vomiting, Diarrhea Genitourinary: Denies: Dysuria, Hematuria Musculoskeletal: Denies: Myalgias, Arthralgias Skin: Denies: Rash, Abscess Neurological: Reports: Headache. Denies: Parasthesia, Numbness Physical Exam Vital Signs/Narrative: Vital Signs Temp Pulse Resp BP Pulse Ox 12/26/19 17:58 98.4 F 106 H 22 H 161/96 H 95 Inital Vital Signs reviewed: Yes General: Well nourished, No Acute Distress Head: Normocephalic, Atraumatic Eyes: Perrl, EOMI ENT: Moist mucous membranes, No rhinorrhea Cardiovascular: Regular rate, Regular rhythm Respiratory: No distress, CTA bilaterally Abdomen: Soft, Nontender Extremities: Nontender, No edema Skin: Normal color, No rash Neurological: Alert, Oriented x3 Psychological: Normal affect, Normal Mood Diagnostic/Tx/Re-eval - Rhythm Strip Rhythm Strip: Sinus Rhythm Rate: 101 - EKG Initial EKG Interpretation: No Acute Injury Pattern, Sinus Tachycardia Follow-up EKG Interpretation: Sinus Rhythm, - - pac's - Medical Decision Making Patient presents with an episode of chest pain with his chief concern that he just had a cardiac stent placed a week ago. Initially he was slightly tachycardic at 101 but otherwise his vital signs are stable. He states that he feels improved at this time. Initial EKG is sinus tachycardia at 100 bpm but otherwise no ischemic changes. Troponin is negative. D-dimer is negative. Lab work otherwise within normal limits. I spoke with Sonia who did not recall there being other blockages on his cardiac catheterization. He recommends if the delta troponin is negative that he can go home. Delta troponin and delta EKG are performed and there is no significant interval change in the EKG. Troponin is negative. Patient will be discharged home in stable condition. He is given return precautions. Impression: 1. Chest pain ED Disposition - Plan for ED Patient: Disposition: Home or Assisted Living Instructions: ED Chest Pain Atypical Unkn Cause Referrals: [facility],Nhung Bass [Primary Care Provider] - Indigo Pablo MD [STAFF PHYSICIAN] -
--- NOTE | 2019-12-26 18:14 | EKG12_ITS ---
Test Reason : CP Blood Pressure : / mmHG Vent. Rate : 101 BPM Atrial Rate : 101 BPM P-R Int : 190 ms QRS Dur : 092 ms QT Int : 352 ms P-R-T Axes : 021 010 003 degrees QTc Int : 456 ms Sinus tachycardia Otherwise normal ECG Confirmed by ELIDA LOVE, JOEL ([id number]), mapping editor KAILA JI ([id number]) on 12/29/2019 2:50:31 PM Referred By: Uriel Dailey Confirmed By:MAXIM MARRERO MD
[2019-12-26 18:24] LABS: Absolute Lymphocyte Count 1.84 X10^3/uL (0.83-4.51); Absolute Neutrophil Count 6.8 X10^3/uL (2.0-7.7); Basophil# 0.07 X10^3/uL; Basophil% 0.7 % (0-1); Eosinophils% 4.1 % (0-5); Hematocrit 42.6 % (40-54); Hemoglobin 14.5 g/dL (13.0-16.5); Lymphocyte # 1.84 X10^3/ul (4.0); Lymphocyte % 18.7 % (19-41); Mean Corpuscular Hgb 30.5 pg (27.0-32.0); Mean Corpuscular Volume 89.5 fL (80-94); Mean Platelet Vol. 9.4 fl (6.2-12.0); Monocyte# 0.72 X10^3/uL; Monocyte% 7.3 % (0-10); NRBC Flagged by Analyzer 0 % (0-5); Neutrophil # 6.77 X10^3/uL (2.7-7.7); Neutrophil % 68.9 % (47-70); Platelet Count 320 K/mm3 (150-450); RBC Distribution Width CV 11.9 % (11.6-14.6); RBC Distribution Width SD 38.7 fl (35.1-43.9); Red Blood Count 4.76 M/mm3 (4.6-6.2); White Blood Count 9.8 K/mm3 (4.4-11.0)
[2019-12-26 18:27] VITALS: BP 155/92; PULSE 100; RESP 20; O2SAT 96
[2019-12-26] MEDS: Aspirin 81 MG TAB.CHEW 324 MG PO (18:32)
[2019-12-26 18:37] LABS: Anion Gap 7 (5-15); BUN 17 mg/dL (7-18); BUN/Creat Ratio 12.7 RATIO (10-20); Calcium,Total 9.2 mg/dL (8.5-10.1); Chloride 104 mmol/L (98-107); Creatinine, Serum 1.34 mg/dL (0.70-1.30); EST Glomerular Filtration Rate 59 mL/min (>60); Est Glom Filt Rate - Afr Amer 71 mL/min (>60); Estimated Creatinine Clearance 70.39 ml/min; Glucose 222 mg/dL (74-106); Potassium 3.7 mmol/L (3.5-5.1); Sodium Level 138 mmol/L (136-145)
[2019-12-26 18:40] LABS: D-Dimer Quantitative (DVT/PE) 0.36 FEU/ug/m (0.27-0.49)
--- NOTE | 2019-12-26 18:40 | RAD_ITS ---
STUDY: X-RAY CHEST REASON FOR EXAM: Male, 54 years old. chest pain. heart cath on with stent placement TECHNIQUE: Single AP portable view of the chest. COMPARISON: JULY 02, 2019 FINDINGS: The lungs are clear and expanded. There is no demonstrated pleural abnormality. Normal size heart. Left coronary artery stents reidentified. The remaining structures are stable. RAD/Chest 1 View (Portable) IMPRESSION: No acute process Electronically Signed: Janak Coronado MD at 19:28 EDT , Service support ,
[2019-12-26 19:12] VITALS: BP 155/83; PULSE 97; RESP 16; O2SAT 98
[2019-12-26 20:00] VITALS: BP 150/71; PULSE 92; RESP 19; O2SAT 95
--- NOTE | 2019-12-26 20:49 | EKG12_ITS ---
Test Reason : REPEAT CP Blood Pressure : / mmHG Vent. Rate : 090 BPM Atrial Rate : 090 BPM P-R Int : 192 ms QRS Dur : 092 ms QT Int : 354 ms P-R-T Axes : 006 005 -02 degrees QTc Int : 433 ms Sinus rhythm with Premature atrial complexes Minimal voltage criteria for LVH, may be normal variant Borderline ECG Confirmed by ELIDA LOVE, JOEL ([id number]), clinical editor KAILA JI ([id number]) on 12/29/2019 2:50:20 PM Referred By: BROCK Confirmed By:MAXIM MARRERO MD
[2019-12-26 21:13] VITALS: BP 155/71; PULSE 86; RESP 15; O2SAT 95
[2019-12-26 22:45] VITALS: BP 154/78; PULSE 78; RESP 16; O2SAT 98
== END 2019-12-26 22:15 | disposition home or self-care (01) ==
PROVIDERS: Emergency Provider Student in an Organized Health Care Education/Training Program
DX: R07.9 Chest pain, unspecified (principal); R06.02 Shortness of breath; I25.118 Atherosclerotic heart disease of native coronary artery with other forms of angina pectoris; I10 Essential (primary) hypertension; E78.5 Hyperlipidemia, unspecified; R51.9 Headache, unspecified; Z79.02 Long term (current) use of antithrombotics/antiplatelets; Z79.82 Long term (current) use of aspirin; Z79.4 Long term (current) use of insulin; Z79.899 Other long term (current) drug therapy; Z95.5 Presence of coronary angioplasty implant and graft
CPT/HCPCS: 71045; 80048; 84484; 85025; 85379; 93005; 99285; A4216

== ENCOUNTER → 2020-01-20 09:46 | Outpatient (CLI) | payer SELFPAY ==
[2020-01-20 09:00] VITALS: BMI 28.0
[2020-01-20 11:48] LABS: BNP,B-Type NATRIURETIC PEPTIDE 8.1 pg/mL (0-100)
== END ==
PROVIDERS: Visit Provider Physician Assistant Medical
DX: R06.00 Dyspnea, unspecified (principal)
CPT/HCPCS: 36415; 83880

== ENCOUNTER → 2020-02-09 07:50 | Outpatient (CLI) | payer SELFPAY ==
[2020-01-20 09:00] VITALS: BMI 28.0
--- NOTE | 2020-02-10 12:43 | PFT ---
INTRODUCTION: The patient is a 54-year-old male that presents for pulmonary function studies secondary to a diagnosis of dyspnea. Respiratory therapy reports good patient effort. Bronchodilators were used during testing. INTERPRETATION: Forced expiration spirometry demonstrates no evidence of a large airways obstructive ventilatory defect. There was no significant response to aerosolized bronchodilators. Spirograms are of good quality and plateau normally. Body plethysmography was performed and reveals lung volumes to be within normal limits. Diffusing capacity by single breath CO is similarly within normal limits. IMPRESSION: Grossly normal pulmonary function studies.
--- OUTSIDE RECORDS SUMMARY | 2020-03-17 05:39 | XMS RPT_ITS | CCD ---
:1965 External Reference #:[id number] Author Organization [facility] Care Team Providers Name Role Phone REGINALDO Unavailable Unavailable REGINALDO Unavailable Unavailable Ailin De La Garza Unavailable Unavailable Patrick MCNEAL Unavailable Unavailable Ailin DE LA GARZA Unavailable Unavailable Allergies Reported Allergen Reaction(s) Severity Date of Onset Location acetaminophen / HYDROcodone [facility] Translations: [ System Repos itory HYDROCODONE-ACETAMINOPHEN] Results Result Name Value Range Unit Interpretation Flag Date Location cnpn on 2019-08-07 CNPN Telephone (FAMPWS) Normal 08-07-2019 [facility] TED MORENO ([id number]) 1965 [facility] Date Time Provider Department ([id number]) 08/07/19 CLOVIS DE LA GARZA [facility] During your visit today, we recorded the following informati on about you: Be Go RN 08/07/2019 3:54 PM Signed [facility] rep called, verified pt b y name and date of . Rep is faxing release to office for records they are requesting Be Crow Ma 08/07/2019 4:18 PM Signed Med rec release for Received and given to med rec department Left message for ina @ [facility] an advising form received and given to med recs [facility] Spoke to patient who is transferring care pcp removed Georgina Crow Ma Allergies As of Date: 08/07/2019 Noted Allergy Reaction HYDROCODONE-ACETAMINOPHEN 06/08/2014 2 - Rash Date Reviewed: 12/30/2018 Reviewed by: Marianne Melton (Rn) MANOJ Logan - Fully Assessed Reason for Visit: Continuity Of Care [906] Prescriptions as of 08/07/2019 Sig: GLIMEPIRIDE 4 MG TABLET TAKE (1) TABLET BY MOUTH HUI* BLOOD SUGAR DIAGNOSTIC STRIPS Test blood sugar once a day, * HYDROCHLOROTHIAZIDE 12.5 MG T* Take 1 tablet by mouth once d * METFORMIN 1,000 MG TABLET TAKE ONE (1) TABLET BY MOUTH * LISINOPRIL 40 MG TABLET Take 0.5 tablets by mouth onc* METOPROLOL SUCCINATE ER 25 MG* Take 1 tablet by mouth once d * ISOSORBIDE MONONITRATE ER 30 * Take 1 tablet by mouth once d * NITROGLYCERIN 0.4 MG SUBLINGU* Dissolve 1 tablet under the t * PIOGLITAZONE 15 MG TABLET Take 1 tablet by mouth once d* MONTELUKAST 10 MG TABLET Take 1 tablet by mouth daily * SIMVASTATIN 20 MG TABLET TAKE (1) TABLET BY MOUTH AT B* FREESTYLE LANCETS 28 GAUGE USE TO TEST BLOOD SUGAR ONCE * ASPIRIN 81 MG TABLET,DELAYED * Take 1 tablet by mouth once d * TIZANIDINE 4 MG TABLET Take 4 mg by mouth daily at b* ALCOHOL SWABS Use as directed. E11.9 Problem List As Of Date 08/07/2019 Noted Resolved Sprain and strain of unspecified site of knee a*09/23/2012 Tear of medial cartilage or meniscus of knee, c*09/23/2012 Hypertriglyceridemia [E78.1] More... Back pain [M54.9] Knee pain, left [M25.562] Hereditary hemochromatosis (HCC) [E83.110] More... Essential hypertension [I10] 12/24/2014 Prostate cancer screening [Z12.5] 12/24/2014 Well adult exam [Z00.00] 12/24/2014 More... Symptomatic varicose veins [I83.899] 12/24/2014 Hematuria [R31.9] 12/27/2014 More... Albuminuria [R80.9] 12/27/2014 Vascular lesion [I99.9] 04/26/2015 Insomnia [G47.00] 04/26/2015 Chronic low back pain without sciatica [M54.5, *04/12/2016 More... Type 2 diabetes mellitus without complication, *06/15/2016 PVC (premature ventricular contraction) [I49.3] 07/04/2017 Diabetic eye exam (HCC) [Z01.00, E11.9] 07/17/2017 More... Renal insufficiency [N28.9] 10/12/2017 Enlarged thoracic aorta (HCC) [I77.89] 12/12/2017 More... Abnormal stress test [R94.39] 10/18/2018 Encounter Status:Closed by GEORGINA CROW MA on 08/07/19 cnpn on 2019-06-16 CNPN Telephone (HEMAWS) Normal 06-16-2019 [facility] TED MORENO ([id number]) 1965 [facility] Time Provider Department ([id number]) 06/16/19 REYMUNDO WEIR During your visit today, we recorded the following informati on about you: Malka Licea RN, RN 06/16/2019 8:23 AM Signed Please sign Phlebotomy orders for today Thank you Allergies As of Date: 06/16/2019 Noted Allergy Reaction HYDROCODONE-ACETAMINOPHEN 06/08/2014 2 - Rash Date Reviewed: 12/30/2018 Reviewed by: Marianne Melton (Rn) MANOJ Logan - Fully Assessed Reason for Visit: Orders [681] Prescriptions as of 06/16/2019 Sig: GLIMEPIRIDE 4 MG TABLET TAKE (1) TABLET BY MOUTH HUI* BLOOD SUGAR DIAGNOSTIC STRIPS Test blood sugar once a day, * HYDROCHLOROTHIAZIDE 12.5 MG T* Take 1 tablet by mouth once d * METFORMIN 1,000 MG TABLET TAKE ONE (1) TABLET BY MOUTH * LISINOPRIL 40 MG TABLET Take 0.5 tablets by mouth onc* METOPROLOL SUCCINATE ER 25 MG* Take 1 tablet by mouth once d * ISOSORBIDE MONONITRATE ER 30 * Take 1 tablet by mouth once d * NITROGLYCERIN 0.4 MG SUBLINGU* Dissolve 1 tablet under the t * PIOGLITAZONE 15 MG TABLET Take 1 tablet by mouth once d* MONTELUKAST 10 MG TABLET Take 1 tablet by mouth daily * SIMVASTATIN 20 MG TABLET TAKE (1) TABLET BY MOUTH AT B* FREESTYLE LANCETS 28 GAUGE USE TO TEST BLOOD SUGAR ONCE * ASPIRIN 81 MG TABLET,DELAYED * Take 1 tablet by mouth once d * TIZANIDINE 4 MG TABLET Take 4 mg by mouth daily at b* ALCOHOL SWABS Use as directed. E11.9 Problem List As Of Date 06/16/2019 Noted Resolved Sprain and strain of unspecified site of knee a*09/23/2012 Tear of medial cartilage or meniscus of knee, c*09/23/2012 Hypertriglyceridemia [E78.1] More... Back pain [M54.9] Knee pain, left [M25.562] Hereditary hemochromatosis (HCC) [E83.110] More... Essential hypertension [I10] 12/24/2014 Prostate cancer screening [Z12.5] 12/24/2014 Well adult exam [Z00.00] 12/24/2014 More... Symptomatic varicose veins [I83.899] 12/24/2014 Hematuria [R31.9] 12/27/2014 More... Albuminuria [R80.9] 12/27/2014 Vascular lesion [I99.9] 04/26/2015 Insomnia [G47.00] 04/26/2015 Chronic low back pain without sciatica [M54.5, *04/12/2016 More... Type 2 diabetes mellitus without complication, *06/15/2016 PVC (premature ventricular contraction) [I49.3] 07/04/2017 Diabetic eye exam (HCC) [Z01.00, E11.9] 07/17/2017 More... Renal insufficiency [N28.9] 10/12/2017 Enlarged thoracic aorta (HCC) [I77.89] 12/12/2017 More... Abnormal stress test [R94.39] 10/18/2018 Encounter Status:Closed by MALKA LICEA on 06/16/19 obsolete on 2018-12 OBSOLETE Refill (FAMPWS) Normal 12-31-2018 Pasquale veland [facility] TED MORENO ([id number]) 1965 M [facility] Time Provider Department ([id number]) 12/31/18 CLOVIS DE LA GARZA During your visit today, we recorded the following informati on about you: Georgina Crow Ma 12/31/2018 10:34 AM Signed Fax from pharmacy requesting refill. Please E-Scribe Last OV: 04/22/2018with IRAM Lange future appointment canceled 12/09 and no showed 12/16 Pending Prescriptions Disp Refills GLIMEPIRIDE 4 MG TABLET 90 tablet 1 Sig: TAKE (1) TABLET BY MOUTH DAILY WITH BREAKFAST MIRIAN: No Georgina CORMIER PA-C 12/31/2018 11:47 AM Signed Patient needs to get rescheduled. Won't be continuing refill s if he keeps cancelling or no-showing. GOLD Dominguez Ma 12/31/2018 2:19 PM Signed Patient notified an appointment made Georgina Crow Ma Allergies As of Date: 12/31/2018 Noted Allergy Reaction HYDROCODONE-ACETAMINOPHEN 06/08/2014 2 - Rash Date Reviewed: 12/30/2018 Reviewed by: Marianne Melton (Rn) MANOJ Logan - Fully Assessed Reason for Visit: Refill Request [94] Order(s):glimepiride (AMARYL) 4 mg tabletTAKE (1) TABL ET BY MOUTH DAILY WITH BREAKFASTDisp: 90 tabletRfl: 0 Prescriptions as of 12/31/2018 Sig: GLIMEPIRIDE 4 MG TABLET TAKE (1) TABLET BY MOUTH HUI* BLOOD SUGAR DIAGNOSTIC STRIPS Test blood sugar once a day, * HYDROCHLOROTHIAZIDE 12.5 MG T* Take 1 tablet by mouth once d * METFORMIN 1,000 MG TABLET TAKE ONE (1) TABLET BY MOUTH * LISINOPRIL 40 MG TABLET Take 0.5 tablets by mouth onc* METOPROLOL SUCCINATE ER 25 MG* Take 1 tablet by mouth once d * ISOSORBIDE MONONITRATE ER 30 * Take 1 tablet by mouth once d * NITROGLYCERIN 0.4 MG SUBLINGU* Dissolve 1 tablet under the t * PIOGLITAZONE 15 MG TABLET Take 1 tablet by mouth once d* MONTELUKAST 10 MG TABLET Take 1 tablet by mouth daily * SIMVASTATIN 20 MG TABLET TAKE (1) TABLET BY MOUTH AT B* FREESTYLE LANCETS 28 GAUGE USE TO TEST BLOOD SUGAR ONCE * ASPIRIN 81 MG TABLET,DELAYED * Take 1 tablet by mouth once d * TIZANIDINE 4 MG TABLET Take 4 mg by mouth daily at b* ALCOHOL SWABS Use as directed. E11.9 Problem List As Of Date 12/31/2018 Noted Resolved Sprain and strain of unspecified site of knee a*INVALID FOR* Tear of medial cartilage or meniscus of knee, c*INVALID FOR* Hypertriglyceridemia [E78.1] More... Back pain [M54.9] Knee pain, left [M25.562] Hereditary hemochromatosis (HCC) [E83.110] More... Essential hypertension [I10] INVALID FOR* Prostate cancer screening [Z12.5] INVALID FOR* Well adult exam [Z00.00] INVALID FOR* More... Symptomatic varicose veins [I83.899] INVALID FOR* Hematuria [R31.9] INVALID FOR* More... Albuminuria [R80.9] INVALID FOR* Vascular lesion [I99.9] INVALID FOR* Insomnia [G47.00] INVALID FOR* Chronic low back pain without sciatica [M54.5, *INVALID FOR* More... Type 2 diabetes mellitus without complication, *INVALID FOR* PVC (premature ventricular contraction) [I49.3] INVALID FOR* Diabetic eye exam (HCC) [Z01.00, E11.9] INVALID FOR* More... Renal insufficiency [N28.9] INVALID FOR* Enlarged thoracic aorta (HCC) [I77.89] INVALID FOR* More... Abnormal stress test [R94.39] INVALID FOR* Prescriptions ordered this encounter Disp Refills Start End GLIMEPIRIDE 4 MG TABLET 90 t* 0 12/31/2018 Sig: TAKE (1) TABLET BY MOUTH DAILY WITH BREAKFAST Medications Discontinued During This Encounter glimepiride (AMARYL) 4 mg tablet 90 t* 1 07/09/2018 12/31/2018 Sig: TAKE (1) TABLET BY MOUTH DAILY WITH BREAKFAST Disc: Reason for discontinue is not on file. Encounter Status:Closed by GEORGINA CROW MA on 12/31/18 ramo abs gr + cbc on 2018-12-30 Absol Gran Count 5.58 1.45-7.50 k/uL Normal 12-30-2018 [facility] ([id number]) Erythrocyte distribution 12.5 11.5-15.0 % Normal 12-30 [facility] width (RBC) [Ratio] [facility] ([id number]) Hematocrit (Bld) [Volume 42.1 39.0-51.0 % Normal 12-30 [facility] fraction] [facility] ([id number]) Hemoglobin (Bld) 14.8 13.0-17.0 g/dL Normal 12-30-2018 [facility] [Mass/Vol] [facility] ([id number]) MCH (RBC) [Entitic mass] 31.1 26.0-34.0 pg Normal 12-30 [facility] ([id number]) MCHC (RBC) [Mass/Vol] 35.2 30.5-36.0 g/dL Normal 12-31-19 19 [facility] ([id number]) MCV (RBC) [Entitic vol] 88.4 80.0-100.0 fL Normal 12-30 [facility] ([id number]) Platelet mean volume 9.4 9.0-12.7 fL Normal 9 [facility] (Bld) [Entitic vol] [place] ([id number]) Comment: Result Comment: Test perform ed by: [facility] [place], [address] [place] [address]. RBC (Bld) [#/Vol] 4.76 4.20-6.00 m/uL Normal 12-30-2018 [facility] ([id number]) WBC (Bld) [#/Vol] 7.78 3.70-11.00 k/uL Normal 12-30-2018 [facility] ([id number]) [place] Platelet Cnt 280 150-400 k/uL Normal 9 [facility] ([id number]) ferritin on 2018-12 Ferritin [Mass/Vol] 100.0 30.3-565.7 ng/mL Normal 9 [facility] ([id number]) Comment: Performed By: #### FERR #### [facility] [address] [place], [place] [id number] [phone] cnco on 2018-12-09 CNCO Letter Text Normal 12-09-2018 [facility] ([id number]) progress on 2018-11 PROGRESS HNO ID: [id number] Normal 12-02-2018 [facility] Author: Tde Baez, DO [place] ([id number]) Service: ? Author Type: Physician Type: Progress Notes Filed: 12/02/2018 4:26 PM Note Text: [facility] SECTION OF [facility] CARDIOLOGY [facility] OUTPATIENT VISIT DATE December 02, 2018 PRIMARY CARE PHYSICIAN: Clovis De La Garza MD [address] [place] [address] HISTORY OF PRESENT ILLNESS: Mr. Moreno is a 53 year old male. The patient is file due to history of chest discomfort and dyspnea exertion which resulted and [place] admill stress test. He underwent stress echocardiography which did not nicole w ischemia. The patient however did continue to have symptoms of dyspnea and abnormal EKG response. He notes improvement in his symptoms with only dyspnea with more extremes of exertion. Additional history is included hy perlipidemia hypertension, PVCs and a mildly enlarged thoracic aorta. He denies orthopnea, paroxysmal nocturnal dyspnea, palpations, near-sy ncope or syncope. PLAN AND RECOMMENDATIONS: The patient appears stable without apparent symptoms of sugg est angina or cardiac decompensation on his current guideline directed opt imal medical therapy. He may resume continuance of his job [employer] for a living. Heart rate and blood pressure appear stable. Most re cent cholesterol profile was apparently favorable. We discussed t he importance of good blood sugar control. We will follow-up with him in 3 -4 months time for reevaluation. Vitals: BP 138/68 Pulse 98 Ht 182.9 cm (6') Wt 102.8 k g (226 lb 9.6 oz) SpO2 98% BMI 30.73 kg/m? Physical Exam Constitutional: He is oriented to person, place, and time. H e appears well-developed and well-nourished. No distress. HENT: Head: Normocephalic and atraumatic. Right Ear: External ear normal. Left Ear: External ear normal. Nose: Nose normal. Eyes: Pupils are equal, round, and reactive to light. EOM ar e normal. Right eye exhibits no discharge. Left eye exhibits no discha rge. No scleral icterus. Neck: Neck supple. No JVD present. No thyromegaly present. Cardiovascular: Normal rate, regular rhythm and intact dista l pulses. Exam reveals no gallop and no friction rub. No murmur heard. Pulmonary/Chest: Effort normal and breath sounds normal. No respiratory distress. He has no wheezes. He has no rales. Abdominal: Soft. Bowel sounds are normal. Musculoskeletal: Normal range of motion. He exhibits no jessica a. Neurological: He is alert and oriented to person, place, and time. No cranial nerve deficit. Skin: Skin is warm and dry. He is not diaphoretic. No pallor . Psychiatric: He has a normal mood and affect. His behavior i s normal. Judgment and thought content normal. His mood appears not an xious. He does not exhibit a depressed mood. Nursing note and vitals reviewed. Review of Systems Constitutional: Negative for activity change, appetite herrera e, fatigue and unexpected weight change. HENT: Negative for ear pain and trouble swallowing. Eyes: Negative for pain and visual disturbance. Respiratory: Positive for shortness of breath. Negative for chest tightness. Cardiovascular: Positive for chest pain. Negative for palpit ations and leg swelling. Gastrointestinal: Negative for abdominal pain and blood in s tool. Endocrine: Negative for cold intolerance and heat intoleranc e. Genitourinary: Negative for dysuria, hematuria and scrotal s welling. Musculoskeletal: Negative for arthralgias and myalgias. Skin: Negative for pallor and rash. Allergic/Immunologic: Negative for immunocompromised state. Neurological: Negative for dizziness, syncope and light-head edness. Hematological: Negative for adenopathy. Does not bruise/blee d easily. Psychiatric/Behavioral: Negative for sleep disturbance. The patient is not nervous/anxious. PAST MEDICAL HISTORY Diagnosis Date - Back pain - Diabetes mellitus, type 2 (HCC) 2012 - Enlarged thoracic aorta (HCC) 12/12/2017 ECHO: 10/29/2017, Needs repeated 1 yr. - Essential hypertension 12/24/2014 - Hereditary hemochromatosis (HCC) 2014 homozygous [id number] - Hypertension - Hypertriglyceridemia 2012 1437 at diagnosis - Knee pain, left - Loose body in knee 09/23/2012 - Renal insufficiency 10/12/2017 - Snoring - Sprain and strain of unspecified site of knee and leg 2012 - Tear of medial cartilage or meniscus of knee, current 2012 PAST SURGICAL HISTORY Procedure Laterality Date - COLONOSCOP W/ OR W/O [facility] SPEC 06/01/2014 negative but repeat in 2y for poor prep - COLONOSCOP W/ OR W/O [facility] SPEC 08/24/14 Colonoscopy, repeat 10 yrs - CT LIVER BIOPSY 05/25/14 Moderate periportal hepatocellular iron and steatohepatitis - PAST SURGICAL HISTORY OF 2007 right knee arthroscopy - PAST SURGICAL HISTORY OF 2012 left knee arthroscopy Social History Tobacco Use - Smoking status: Never Smoker - Smokeless tobacco: Never Used Substance Use Topics - Alcohol use: No - Drug use: No FAMILY HISTORY Problem Relation Age of Onset - COPD Mother - Diabetes Mother - Coronary Artery Disease Mother [place]/CABG - Breast Cancer Mother - Hypertension Mother - Hyperlipidemia Mother - Seizures Father - Coronary Artery Disease Father [place]/CABG - Glaucoma Father - Hyperlipidemia Father - Stroke Father blood clot in brain - other (Neuropathy) Father - Heart Brother hole in heart - Hypertension Brother - Hyperlipidemia Brother - Diabetes Sister - Hypertension Sister - Hyperlipidemia Sister - Asthma Sister - Colon Cancer Maternal Uncle - Prostate Cancer Other - Ovarian cancer Other ALLERGIES Allergen Reactions - Hydrocodone-Acetami* Rash CURRENT MEDICATIONS: blood sugar diagnostic (FREESTYLE LITE STRIPS) test strip Te st blood sugar once a day, Dx: E11.9 no insulin hydroCHLOROthiazide (HYDRODIURIL, ESIDRIX) 12.5 mg tablet Ta ke 1 tablet by mouth once daily. metFORMIN (GLUCOPHAGE) 1,000 mg tablet TAKE ONE (1) TABLET B Y MOUTH TWICE DAILY WITH MEALS lisinopril (ZESTRIL, PRINIVIL) 40 mg tablet Take 0.5 tablets by mouth once daily. metoprolol succinate ER (TOPROL XL) 25 mg 24 hr tablet Take 1 tablet by mouth once daily. isosorbide mononitrate ER (IMDUR) 30 mg 24 hr tablet Take 1 tablet by mouth once daily. nitroglycerin sublingual (NITROQUICK) 0.4 mg SL tablet Disso lve 1 tablet under the tongue as needed. for chest pain,every 5 min x3 pioglitazone (ACTOS) 15 mg tablet Take 1 tablet by mouth onc e daily. glimepiride (AMARYL) 4 mg tablet TAKE (1) TABLET BY MOUTH DA AMINTA WITH BREAKFAST montelukast (SINGULAIR) 10 mg tablet Take 1 tablet by mouth daily at bedtime. simvastatin (ZOCOR) 20 mg tablet TAKE (1) TABLET BY MOUTH AT BEDTIME FREESTYLE LANCETS 28 gauge mis USE TO TEST BLOOD SUGAR ONCE DAILY aspirin, enteric coated (ECOTRIN LOW STRENGTH) 81 mg EC tabl et Take 1 tablet by mouth once daily. Alcohol Swabs (ALCOHOL PREP SWABS) padm Use as directed. E11 .9 benzonatate (TESSALON PERLES) 100 mg capsule Take 1 capsule by mouth three times daily as needed for Cough. loratadine (CLARITIN) 10 mg tablet Take 1 tablet by mouth on ce daily. For cough/sinus tiZANidine (ZANAFLEX) 4 mg tablet Take 4 mg by mouth daily a t bedtime. as needed for muscle spasm-using this a couple times per week Ted Baez DO, [facility] Clinical and Preventive Cardiology [facility] cn on 2018-12-02 CNADAM Office Visit (CARLA) Normal 12-03-19 [place] [facility] ([id number]) 1965 M [place] Date Time Provider Department ([id number]) 12/02/18 2:00 PM TED BAEZ During your visit today, we recorded the following informati on about you: Pulse Blood pressure Weight Height 98/minute 138/68 102.8 kg 1.829 m Ted Baez DO, DO 12/02/2018 4:26 PM Signed [facility] OUTPATIENT VISIT DATE December 02, 2018 PRIMARY CARE PHYSICIAN: Clovis De La Garza MD [address] [place] [address] HISTORY OF PRESENT ILLNESS: Mr. Moreno is a 53 year old male. The patient is file d ue to history of chest discomfort and dyspnea exertion which resulted and [place] admill stress test. He underwent stress echocardiography which did not show ischemi a. The patient however did continue to have symptoms of dyspnea and abnormal EKG response. He notes improvement in his symptoms with only dyspnea with mor e extremes of exertion. Additional history is included hyperlipidemia hypertension, PVCs and a mildly enlarged thoracic aorta. He denies orthopnea, par oxysmal nocturnal dyspnea, palpations, near-syncope or syncope. PLAN AND RECOMMENDATIONS: The patient appears stable without apparent symptoms of sugg est angina or cardiac decompensation on his current guideline directed opt imal medical therapy. He may resume continuance of his job [employer] for a living. Heart rate and blood pressure appear stable. Most rece nt cholesterol profile was apparently favorable. We discussed the importance of goo d blood sugar control. We will follow-up with him in 3-4 months time for r eevaluation. Vitals: BP 138/68 Pulse 98 Ht 182.9 cm (6') Wt 102.8 k g (226 lb 9.6 oz) SpO2 98% BMI 30.73 kg/m? Physical Exam Constitutional: He is oriented to person, place, and time. H e appears well-developed and well-nourished. No distress. HENT: Head: Normocephalic and atraumatic. Right Ear: External ear normal. Left Ear: External ear normal. Nose: Nose normal. Eyes: Pupils are equal, roun d, and reactive to light. EOM are normal. Right eye exhibits no discharge. Left eye exhibits no discharge. No sc leral icterus. Neck: Neck supple. No JVD present. No thyromegaly present. Cardiovascular: Normal rate, regular rhythm and intact dista l pulses. Exam reveals no gallop and no friction rub. No murmur heard. Pulmonary/Chest: Effort normal and breath sounds normal. No respiratory distress. He has no wheezes. He has no rales. Abdominal: Soft. Bowel sounds are normal. Musculoskeletal: Normal range of motion. He exhibits no jessica a. Neurological: He is alert and oriented to person , place, and time. No cranial nerve deficit. Skin: Skin is warm and dry. He is not diaphoretic. No pallor . Psychiatric: He has a normal mood and af fect. His behavior is normal. Judgment and thought content normal. His mood appears not anxious. He does not exhibit a depressed mood. Nursing note and vitals reviewed. Review of Systems Constitutional: Negative for activity change, appetite herrera e, fatigue and unexpected weight change. HENT: Negative for ear pain and trouble swallowing. Eyes: Negative for pain and visual disturbance. Respiratory: Positive for shortness of breath. Negativ e for chest tightness. Cardiovascular: Positive for chest pain. Negative for palpit ations and leg swelling. Gastrointestinal: Negative for abdominal pain and blood in s tool. Endocrine: Negative for cold intolerance and heat intoleranc e. Genitourinary: Negative for dysuria, hematuria and scrotal s welling. Musculoskeletal: Negative for arthralgias and myalgias. Skin: Negative for pallor and rash. Allergic/Immunologic: Negative for immunocompromised state. Neurological: Negative for dizziness, syncope and light-head edness. Hematological: Negative for adenopathy. Does not bruise/blee d easily. Psychiatric/Behavioral: Negative for sleep disturbance. The patient is not nervous/anxious. PAST MEDICAL HISTORY Diagnosis Date - Back pain - Diabetes mellitus, type 2 (HCC) 2012 - Enlarged thoracic aorta (HCC) 12/12/2017 ECHO: 10/29/2017, Needs repeated 1 yr. - Essential hypertension 12/24/2014 - Hereditary hemochromatosis (HCC) 2013 homozygous C282Y - Hypertension - Hypertriglyceridemia 2012 1437 at diagnosis - Knee pain, left - Loose body in knee 09/23/2012 - Renal insufficiency 10/12/2017 - Snoring - Sprain and strain of unspecified site of knee and leg 2012 - Tear of medial cartilage or meniscus of knee, current 2012 PAST SURGICAL HISTORY Procedure Laterality Date - COLONOSCOP W/ OR W/O [facility] SPEC 06/01/2014 negative but repeat in 2y for poor prep - COLONOSCOP W/ OR W/O [facility] SPEC 08/24/14 Colonoscopy, repeat 10 yrs - CT LIVER BIOPSY 05/25/14 Moderate periportal hepatocellular iron and steatohepatitis - PAST SURGICAL HISTORY OF 2007 right knee arthroscopy - PAST SURGICAL HISTORY OF 2013 left knee arthroscopy Social History Tobacco Use - Smoking status: Never Smoker - Smokeless tobacco: Never Used Substance Use Topics - Alcohol use: No - Drug use: No FAMILY HISTORY Problem Relation Age of Onset - COPD Mother - Diabetes Mother - Coronary Artery Disease Mother [place]/CABG - Breast Cancer Mother - Hypertension Mother - Hyperlipidemia Mother - Seizures Father - Coronary Artery Disease Father [place]/CABG - Glaucoma Father - Hyperlipidemia Father - Stroke Father blood clot in brain - other (Neuropathy) Father - Heart Brother hole in heart - Hypertension Brother - Hyperlipidemia Brother - Diabetes Sister - Hypertension Sister - Hyperlipidemia Sister - Asthma Sister - Colon Cancer Maternal Uncle - Prostate Cancer Other - Ovarian cancer Other ALLERGIES Allergen Reactions - Hydrocodone-Acetami* Rash CURRENT MEDICATIONS: blood sugar diagnostic (FREE STYLE LITE STRIPS) test strip Test blood sugar once a day, Dx: E11.9 no insulin hydroCHLOROthiazide (HYDRODIURIL, ESIDRIX) 12.5 mg tablet Ta ke 1 tablet by mouth once daily. metFORMIN (GLUCOPHAGE) 1,000 mg tablet TAKE ONE (1) TABLET BY MOUTH TWICE DAILY WITH MEALS lisinopril (ZESTRIL, PRINIVIL) 40 mg tablet Take 0.5 tablets by mouth once daily. metoprolol succinate ER (TOPROL XL) 25 mg 24 hr tablet Take 1 tablet by mouth once daily. isosorbide mononitrate ER (IMDUR) 30 mg 24 hr tablet Take 1 tablet by mouth once daily. nitroglycerin sublingual (NITROQUICK) 0. 4 mg SL tablet Dissolve 1 tablet under the tongue as needed. for chest pain,every 5 min x3 pioglitazone (ACTOS) 15 mg tablet Take 1 tablet by mouth onc e daily. glimepiride (AMARYL) 4 mg tablet TAKE (1 ) TABLET BY MOUTH DAILY WITH BREAKFAST montelukast (SINGULAIR) 10 mg tablet Take 1 tabl et by mouth daily at bedtime. simvastatin (ZOCOR) 20 mg tablet TAKE (1) TABLET BY MOUTH AT BEDTIME FREESTYLE LANCETS 28 gauge misc USE TO TEST BLOOD SUGAR ONCE DAILY aspirin, enteric coated (ECO ZOE LOW STRENGTH) 81 mg EC tablet Take 1 tablet by mouth once daily. Alcohol Swabs (ALCOHOL PREP SWABS) padm Use as directed. E11 .9 benzonatate (TESSALON PERLES) 100 mg capsule Take 1 capsule by mouth three times daily as needed for Cough. loratadine (CLARITIN) 10 mg tablet Take 1 tablet by mouth on ce daily. For cough/sinus tiZANidine (ZANAFLEX) 4 mg tablet Take 4 mg by mouth daily a t bedtime. as needed for muscle spasm-using this a couple times per week Ted Baez DO, FACC, FACOI Clinical and Preventive Cardiology [facility] Referring Provider: TED BAEZ [[id number]] Allergies As of Date: 12/02/2018 Noted Allergy Reaction HYDROCODONE-ACETAMINOPHEN 06/08/2014 2 - Rash Date Reviewed: 12/02/2018 Reviewed by: Ted Baez DO - Fully Assessed Reason for Visit: Cardiology Follow Up [1732] Cmt: test result Primary Visit Diagnosis:Abnormal stress test [R94.39] Other Visit Diagnoses:Essential hypertension [I10] Hypertriglyceridemia [E78.1] Enlarged thoracic aorta (HCC) [I77.89] PVC (premature ventricular contraction) [I49.3] Prescriptions as of 12/02/2018 Sig: BLOOD SUGAR DIAGNOSTIC STRIPS Test blood sugar once a day, * HYDROCHLOROTHIAZIDE 12.5 MG T* Take 1 tablet by mouth once d * METFORMIN 1,000 MG TABLET TAKE ONE (1) TABLET BY MOUTH * LISINOPRIL 40 MG TABLET Take 0.5 tablets by mouth onc* METOPROLOL SUCCINATE ER 25 MG* Take 1 tablet by mouth once d * ISOSORBIDE MONONITRATE ER 30 * Take 1 tablet by mouth once d * NITROGLYCERIN 0.4 MG SUBLINGU* Dissolve 1 tablet under the t * PIOGLITAZONE 15 MG TABLET Take 1 tablet by mouth once d* GLIMEPIRIDE 4 MG TABLET TAKE (1) TABLET BY MOUTH HUI* MONTELUKAST 10 MG TABLET Take 1 tablet by mouth daily * SIMVASTATIN 20 MG TABLET TAKE (1) TABLET BY MOUTH AT B* FREESTYLE LANCETS 28 GAUGE USE TO TEST BLOOD SUGAR ONCE * ASPIRIN 81 MG TABLET,DELAYED * Take 1 tablet by mouth once d * ALCOHOL SWABS Use as directed. E11.9 TIZANIDINE 4 MG TABLET Take 4 mg by mouth daily at b* Problem List As Of Date 12/02/2018 Noted Resolved Sprain and strain of unspecified site of knee a*INVALID FOR* Tear of medial cartilage or meniscus of knee, c*INVALID FOR* Hypertriglyceridemia [E78.1] More... Back pain [M54.9] Knee pain, left [M25.562] Hereditary hemochromatosis (HCC) [E83.110] More... Essential hypertension [I10] INVALID FOR* Prostate cancer screening [Z12.5] INVALID FOR* Well adult exam [Z00.00] INVALID FOR* More... Symptomatic varicose veins [I83.899] INVALID FOR* Hematuria [R31.9] INVALID FOR* More... Albuminuria [R80.9] INVALID FOR* Vascular lesion [I99.9] INVALID FOR* Insomnia [G47.00] INVALID FOR* Chronic low back pain without sciatica [M54.5, *INVALID FOR* More... Type 2 diabetes mellitus without complication, *INVALID FOR* PVC (premature ventricular contraction) [I49.3] INVALID FOR* Diabetic eye exam (HCC) [Z01.00, E11.9] INVALID FOR* More... Renal insufficiency [N28.9] INVALID FOR* Enlarged thoracic aorta (HCC) [I77.89] INVALID FOR* More... Abnormal stress test [R94.39] INVALID FOR* Medications Discontinued During This Encounter loratadine (CLARITIN) 10 mg tablet 30 t* 0 04/22/2018 9 Route: ORAL Sig: Take 1 tablet by mouth once daily. For cough/sinus Patient not taking: Reported on 10/18/2018 Disc: Reason for discontinue is not on file. benzonatate (TESSALON PERLES) 100 mg* 30 c* 0 05/14/20182018 Route: ORAL Sig: Take 1 capsule by mouth three times daily as needed for Cough. Patient not taking: Reported on 10/18/2018 Disc: Reason for discontinue is not on file. Disposition: Return in about 4 months (around 04/03/2019), or if symptoms worsen or fail to improve, for Follow-up. Follow-up and Disposition History Recorded Letter Text Encounter Status:Closed by TED BAEZ on 12/02/18 nathanael on 12-02-02 CNPTOUTREA Patient Outreach ([facility]) Normal 0 11-26-2018 [facility] TED MORENO ([id number]) 1965 [facility] Date Time Provider Department ([id number]) 11/26/18 [place] GAR[place] During your visit today, we recorded the following informati on about you: Allergies As of Date: 11/26/2018 Noted Allergy Reaction HYDROCODONE-ACETAMINOPHEN 06/08/2014 2 - Rash Date Reviewed: 11/18/2018 Reviewed by: Sarah (Rn) MANOJ Mena - Fully Assessed Visit Diagnosis:Type 2 diabetes mellitus without complicatio n, without long-term current use of insulin (HCC) [E11.9] Order(s):[facility] [[facility]] Order #: [id number] FUTURE Prescriptions as of 11/26/2018 Sig: BLOOD SUGAR DIAGNOSTIC STRIPS Test blood sugar once a day, * HYDROCHLOROTHIAZIDE 12.5 MG T* Take 1 tablet by mouth once d * METFORMIN 1,000 MG TABLET TAKE ONE (1) TABLET BY MOUTH * LISINOPRIL 40 MG TABLET Take 0.5 tablets by mouth onc* METOPROLOL SUCCINATE ER 25 MG* Take 1 tablet by mouth once d * ISOSORBIDE MONONITRATE ER 30 * Take 1 tablet by mouth once d * NITROGLYCERIN 0.4 MG SUBLINGU* Dissolve 1 tablet under the t * PIOGLITAZONE 15 MG TABLET Take 1 tablet by mouth once d* GLIMEPIRIDE 4 MG TABLET TAKE (1) TABLET BY MOUTH HUI* MONTELUKAST 10 MG TABLET Take 1 tablet by mouth daily * X BENZONATATE 100 MG CAPSULE Take 1 capsule by mouth three* Patient not taking: Reported on 10/18/2018 SIMVASTATIN 20 MG TABLET TAKE (1) TABLET BY MOUTH AT B* X LORATADINE 10 MG TABLET Take 1 tablet by mouth once d* Patient not taking: Reported on 10/18/2018 FREESTYLE LANCETS 28 GAUGE USE TO TEST BLOOD SUGAR ONCE * ASPIRIN 81 MG TABLET,DELAYED * Take 1 tablet by mouth once d * TIZANIDINE 4 MG TABLET Take 4 mg by mouth daily at b* ALCOHOL SWABS Use as directed. E11.9 Problem List As Of Date 11/26/2018 Noted Resolved Sprain and strain of unspecified site of knee a*INVALID FOR* Tear of medial cartilage or meniscus of knee, c*INVALID FOR* Hypertriglyceridemia [E78.1] More... Back pain [M54.9] Knee pain, left [M25.562] Hereditary hemochromatosis (HCC) [E83.110] More... Essential hypertension [I10] INVALID FOR* Prostate cancer screening [Z12.5] INVALID FOR* Well adult exam [Z00.00] INVALID FOR* More... Symptomatic varicose veins [I83.899] INVALID FOR* Hematuria [R31.9] INVALID FOR* More... Albuminuria [R80.9] INVALID FOR* Vascular lesion [I99.9] INVALID FOR* Insomnia [G47.00] INVALID FOR* Chronic low back pain without sciatica [M54.5, *INVALID FOR* More... Type 2 diabetes mellitus without complication, *INVALID FOR* PVC (premature ventricular contraction) [I49.3] INVALID FOR* Diabetic eye exam (HCC) [Z01.00, E11.9] INVALID FOR* More... Renal insufficiency [N28.9] INVALID FOR* Enlarged thoracic aorta (HCC) [I77.89] INVALID FOR* More... Abnormal stress test [R94.39] INVALID FOR* Encounter Status:Closed by EPIC PRODUSER on 12/11/18 stress test exercise on 2018-11-18 STRESS TEST EXERCISE NAME : HUSEYINTED Normal 11-18-2018 [facility] PID : [id number] ([id number]) : 1965 Gender : Male Race : ORD : [id number] Procedure Date : Nov 18 2018 15:05:10 Edit Date : Nov 19 2018 09:58:43 Protocol Name : JARED Time In Exercise Phase : 00:05:30 Max. Systolic BP : 186 mmHg Max Diastolic BP : 74 mmHg Max Heart Rate : 173 BPM Max Predicted Heart Rate : 166 BPM Recovery ECG Response (OLD) : Reason For Termination : Target Heart Rate Achieved Test Reason : Abnormal Treadmill Test Location :[place] Overread By : MD BAEZ GREGORY Edited By : Lindsey Villanueva Referred By : TED BAEZ Acquired by : NORMAN SARMIENTO obsolete on 2019-08 -26 OBSOLETE Refill (FAMPWS) Normal 11-18-2018 [facility] TED MORENO ([id number]) 1965 [facility] Date Time Provider Department ([id number]) 11/18/18 CLOVIS DE [place] GARZA FAMPWS During your visit today, we recorded the following informati on about you: Juany Jose MA 11/18/2018 1:22 PM Signed Patient has been identified by name and date of : Yes Pending Prescriptions Disp Refills BLOOD SUGAR DIAGNOSTIC STRIPS 2 Bottle 3 Sig: Test blood sugar once a day, Dx: E11.9 no insulin MIRIAN: No RX INSTRUCTIONS: Pharmacy initiated this request. No need to notify patient. JULIET: 04/22/2018 NOV: 12/09/2018 Last Refill: 10/09/2017 2 bottles with 3 refills Juany Jose MA Allergies As of Date: 11/18/2018 Noted Allergy Reaction HYDROCODONE-ACETAMINOPHEN 06/08/2014 2 - Rash Date Reviewed: 11/18/2018 Reviewed by: Sarah (Rn) MANOJ Mena - Fully Assessed Reason for Visit: Refill Request [94] Order(s):blood sugar diagnostic (FREESTYLE LITE STRIPS ) test stripTest blood sugar once a day, Dx: E11.9 no insulinDisp: 2 BottleRfl: 3 Prescriptions as of 11/18/2018 Sig: BLOOD SUGAR DIAGNOSTIC STRIPS Test blood sugar once a day, * HYDROCHLOROTHIAZIDE 12.5 MG T* Take 1 tablet by mouth once d * METFORMIN 1,000 MG TABLET TAKE ONE (1) TABLET BY MOUTH * LISINOPRIL 40 MG TABLET Take 0.5 tablets by mouth onc* METOPROLOL SUCCINATE ER 25 MG* Take 1 tablet by mouth once d * ISOSORBIDE MONONITRATE ER 30 * Take 1 tablet by mouth once d * NITROGLYCERIN 0.4 MG SUBLINGU* Dissolve 1 tablet under the t * PIOGLITAZONE 15 MG TABLET Take 1 tablet by mouth once d* GLIMEPIRIDE 4 MG TABLET TAKE (1) TABLET BY MOUTH HUI* MONTELUKAST 10 MG TABLET Take 1 tablet by mouth daily * BENZONATATE 100 MG CAPSULE Take 1 capsule by mouth three* Patient not taking: Reported on 10/18/2018 SIMVASTATIN 20 MG TABLET TAKE (1) TABLET BY MOUTH AT B* LORATADINE 10 MG TABLET Take 1 tablet by mouth once d* Patient not taking: Reported on 10/18/2018 FREESTYLE LANCETS 28 GAUGE USE TO TEST BLOOD SUGAR ONCE * ASPIRIN 81 MG TABLET,DELAYED * Take 1 tablet by mouth once d * TIZANIDINE 4 MG TABLET Take 4 mg by mouth daily at b* ALCOHOL SWABS Use as directed. E11.9 Problem List As Of Date 11/18/2018 Noted Resolved Sprain and strain of unspecified site of knee a*INVALID FOR* Tear of medial cartilage or meniscus of knee, c*INVALID FOR* Hypertriglyceridemia [E78.1] More... Back pain [M54.9] Knee pain, left [M25.562] Hereditary hemochromatosis (HCC) [E83.110] More... Essential hypertension [I10] INVALID FOR* Prostate cancer screening [Z12.5] INVALID FOR* Well adult exam [Z00.00] INVALID FOR* More... Symptomatic varicose veins [I83.899] INVALID FOR* Hematuria [R31.9] INVALID FOR* More... Albuminuria [R80.9] INVALID FOR* Vascular lesion [I99.9] INVALID FOR* Insomnia [G47.00] INVALID FOR* Chronic low back pain without sciatica [M54.5, *INVALID FOR* More... Type 2 diabetes mellitus without complication, *INVALID FOR* PVC (premature ventricular contraction) [I49.3] INVALID FOR* Diabetic eye exam (HCC) [Z01.00, E11.9] INVALID FOR* More... Renal insufficiency [N28.9] INVALID FOR* Enlarged thoracic aorta (HCC) [I77.89] INVALID FOR* More... Abnormal stress test [R94.39] INVALID FOR* Prescriptions ordered this encounter Disp Refills Start End BLOOD SUGAR DIAGNOSTIC STRIPS 2 Ryan* 3 11/18/2018 Sig: Test blood sugar once a day, Dx: E11.9 no insulin Medications Discontinued During This Encounter blood sugar diagnostic (FREESTYLE LI* 2 Ryan* 3 10/09/201711/18 Sig: Test blood sugar once a day, Dx: E11.9 no insulin Disc: Reason for discontinue is not on file. Encounter Status:Closed by DAYSI ARMENDARIZ on 11/18/18 OBSOLETE Refill ([facility]AMP[facility]) Normal 11-18-2018 [facility] TED MORENO ([id number]) 1965 [facility] Date Time Provider Department ([id number]) 11/18/18 CLOV[place] DE [place] GARZA FAMPWS During your visit today, we recorded the following informati on about you: Adelina Soria 11/18/2018 10:04 AM Signed Patient has been identified by name and date of : Yes Pending Prescriptions Disp Refills BLOOD SUGAR DIAGNOSTIC STRIPS 2 Bottle 3 Sig: Test blood sugar once a day, Dx: E11.9 no insulin MIRIAN: No RX INSTRUCTIONS: Patient aware RX will be sent to pharmacy. No need to notify patient. Adelina Jose MA 11/18/2018 1:23 PM Signed Handled in separate TE. Juany Jose MA Allergies As of Date: 11/18/2018 Noted Allergy Reaction HYDROCODONE-ACETAMINOPHEN 06/08/2014 2 - Rash Date Reviewed: 10/18/2018 Reviewed by: Ted Baez DO - Fully Assessed Reason for Visit: Refill Request [94] Prescriptions as of 11/18/2018 Sig: HYDROCHLOROTHIAZIDE 12.5 MG T* Take 1 tablet by mouth once d * METFORMIN 1,000 MG TABLET TAKE ONE (1) TABLET BY MOUTH * LISINOPRIL 40 MG TABLET Take 0.5 tablets by mouth onc* METOPROLOL SUCCINATE ER 25 MG* Take 1 tablet by mouth once d * ISOSORBIDE MONONITRATE ER 30 * Take 1 tablet by mouth once d * NITROGLYCERIN 0.4 MG SUBLINGU* Dissolve 1 tablet under the t * PIOGLITAZONE 15 MG TABLET Take 1 tablet by mouth once d* GLIMEPIRIDE 4 MG TABLET TAKE (1) TABLET BY MOUTH HUI* MONTELUKAST 10 MG TABLET Take 1 tablet by mouth daily * BENZONATATE 100 MG CAPSULE Take 1 capsule by mouth three* Patient not taking: Reported on 10/18/2018 SIMVASTATIN 20 MG TABLET TAKE (1) TABLET BY MOUTH AT B* LORATADINE 10 MG TABLET Take 1 tablet by mouth once d* Patient not taking: Reported on 10/18/2018 FREESTYLE LANCETS 28 GAUGE USE TO TEST BLOOD SUGAR ONCE * ASPIRIN 81 MG TABLET,DELAYED * Take 1 tablet by mouth once d * BLOOD SUGAR DIAGNOSTIC STRIPS Test blood sugar once a day, * TIZANIDINE 4 MG TABLET Take 4 mg by mouth daily at b* ALCOHOL SWABS Use as directed. E11.9 Problem List As Of Date 11/18/2018 Noted Resolved Sprain and strain of unspecified site of knee a*INVALID FOR* Tear of medial cartilage or meniscus of knee, c*INVALID FOR* Hypertriglyceridemia [E78.1] More... Back pain [M54.9] Knee pain, left [M25.562] Hereditary hemochromatosis (HCC) [E83.110] More... Essential hypertension [I10] INVALID FOR* Prostate cancer screening [Z12.5] INVALID FOR* Well adult exam [Z00.00] INVALID FOR* More... Symptomatic varicose veins [I83.899] INVALID FOR* Hematuria [R31.9] INVALID FOR* More... Albuminuria [R80.9] INVALID FOR* Vascular lesion [I99.9] INVALID FOR* Insomnia [G47.00] INVALID FOR* Chronic low back pain without sciatica [M54.5, *INVALID FOR* More... Type 2 diabetes mellitus without complication, *INVALID FOR* PVC (premature ventricular contraction) [I49.3] INVALID FOR* Diabetic eye exam (HCC) [Z01.00, E11.9] INVALID FOR* More... Renal insufficiency [N28.9] INVALID FOR* Enlarged thoracic aorta (HCC) [I77.89] INVALID FOR* More... Abnormal stress test [R94.39] INVALID FOR* Encounter Status:Closed by JUANY JOSE MA on 11/18/18 cnpn on 2018-11-15 CNPN Telephone ([facility]) Normal 11-15-2018 [facility] TED MORENO ([id number]) 1965 M ([id number]) Date Time Provider Department 11/15/18 SARAH MENA (RN) [facility] During your visit today, we recorded the following informati on about you: Sarah Mena RN, RN 11/15/2018 1:41 PM Signed Spoke with patient regarding reminder for stress test on Sun and given instructions Allergies As of Date: 11/15/2018 Noted Allergy Reaction HYDROCODONE-ACETAMINOPHEN 06/08/2014 2 - Rash Date Reviewed: 10/18/2018 Reviewed by: Ted Baez DO - Fully Assessed Reason for Visit: Reminder Call [[id number]] Prescriptions as of 11/15/2018 Sig: HYDROCHLOROTHIAZIDE 12.5 MG T* Take 1 tablet by mouth once d * METFORMIN 1,000 MG TABLET TAKE ONE (1) TABLET BY MOUTH * LISINOPRIL 40 MG TABLET Take 0.5 tablets by mouth onc* METOPROLOL SUCCINATE ER 25 MG* Take 1 tablet by mouth once d * ISOSORBIDE MONONITRATE ER 30 * Take 1 tablet by mouth once d * NITROGLYCERIN 0.4 MG SUBLINGU* Dissolve 1 tablet under the t * PIOGLITAZONE 15 MG TABLET Take 1 tablet by mouth once d* GLIMEPIRIDE 4 MG TABLET TAKE (1) TABLET BY MOUTH HUI* MONTELUKAST 10 MG TABLET Take 1 tablet by mouth daily * BENZONATATE 100 MG CAPSULE Take 1 capsule by mouth three* Patient not taking: Reported on 10/18/2018 SIMVASTATIN 20 MG TABLET TAKE (1) TABLET BY MOUTH AT B* LORATADINE 10 MG TABLET Take 1 tablet by mouth once d* Patient not taking: Reported on 10/18/2018 FREESTYLE LANCETS 28 GAUGE USE TO TEST BLOOD SUGAR ONCE * ASPIRIN 81 MG TABLET,DELAYED * Take 1 tablet by mouth once d * BLOOD SUGAR DIAGNOSTIC STRIPS Test blood sugar once a day, * TIZANIDINE 4 MG TABLET Take 4 mg by mouth daily at b* ALCOHOL SWABS Use as directed. E11.9 Problem List As Of Date 11/15/2018 Noted Resolved Sprain and strain of unspecified site of knee a*INVALID FOR* Tear of medial cartilage or meniscus of knee, c*INVALID FOR* Hypertriglyceridemia [E78.1] More... Back pain [M54.9] Knee pain, left [M25.562] Hereditary hemochromatosis (HCC) [E83.110] More... Essential hypertension [I10] INVALID FOR* Prostate cancer screening [Z12.5] INVALID FOR* Well adult exam [Z00.00] INVALID FOR* More... Symptomatic varicose veins [I83.899] INVALID FOR* Hematuria [R31.9] INVALID FOR* More... Albuminuria [R80.9] INVALID FOR* Vascular lesion [I99.9] INVALID FOR* Insomnia [G47.00] INVALID FOR* Chronic low back pain without sciatica [M54.5, *INVALID FOR* More... Type 2 diabetes mellitus without complication, *INVALID FOR* PVC (premature ventricular contraction) [I49.3] INVALID FOR* Diabetic eye exam (HCC) [Z01.00, E11.9] INVALID FOR* More... Renal insufficiency [N28.9] INVALID FOR* Enlarged thoracic aorta (HCC) [I77.89] INVALID FOR* More... Abnormal stress test [R94.39] INVALID FOR* Encounter Status:Closed by SARAH MENA on 11/15/18 obsolete on 2018-10 OBSOLETE Refill (FAMFadiWS) Normal 11-08-2018 [facility] TED Conteh ([id number]) 1965 [facility] Time Provider Department ([id number]) 11/08/18 HOLLI, CLOVIS A FAMPWS During your visit today, we recorded the following informati on about you: Georgina Modidai Fernández 11/08/2018 3:53 PM Signed fax from pharmacy requesting refill. Please E-Scribe Last OV: 04/22/2018with PA Future OV: 12/09/2018 with PA Pending Prescriptions Disp Refills HYDROCHLOROTHIAZIDE 12.5 MG TABLET 90 tablet 1 Sig: Take 1 tablet by mouth once daily. MIRIAN: No Georgina Uribeeh Fernández Allergies As of Date: 11/08/2018 Noted Allergy Reaction HYDROCODONE-ACETAMINOPHEN 06/08/2014 2 - Rash Date Reviewed: 10/18/2018 Reviewed by: Ted Baez, DO - Fully Assessed Reason for Visit: Refill Request [94] Order(s):hydroCHLOROthiazide (HYDRODIURIL, ESIDRIX) 12.5 mg tabletTake 1 tablet by mouth once daily.Disp: 90 tabletRfl: 1 Prescriptions as of 11/08/2018 Sig: HYDROCHLOROTHIAZIDE 12.5 MG T* Take 1 tablet by mouth once d * METFORMIN 1,000 MG TABLET TAKE ONE (1) TABLET BY MOUTH * LISINOPRIL 40 MG TABLET Take 0.5 tablets by mouth onc* METOPROLOL SUCCINATE ER 25 MG* Take 1 tablet by mouth once d * ISOSORBIDE MONONITRATE ER 30 * Take 1 tablet by mouth once d * NITROGLYCERIN 0.4 MG SUBLINGU* Dissolve 1 tablet under the t * PIOGLITAZONE 15 MG TABLET Take 1 tablet by mouth once d* GLIMEPIRIDE 4 MG TABLET TAKE (1) TABLET BY MOUTH HUI* MONTELUKAST 10 MG TABLET Take 1 tablet by mouth daily * BENZONATATE 100 MG CAPSULE Take 1 capsule by mouth three* Patient not taking: Reported on 10/18/2018 SIMVASTATIN 20 MG TABLET TAKE (1) TABLET BY MOUTH AT B* LORATADINE 10 MG TABLET Take 1 tablet by mouth once d* Patient not taking: Reported on 10/18/2018 FREESTYLE LANCETS 28 GAUGE USE TO TEST BLOOD SUGAR ONCE * ASPIRIN 81 MG TABLET,DELAYED * Take 1 tablet by mouth once d * BLOOD SUGAR DIAGNOSTIC STRIPS Test blood sugar once a day, * TIZANIDINE 4 MG TABLET Take 4 mg by mouth daily at b* ALCOHOL SWABS Use as directed. E11.9 Problem List As Of Date 11/08/2018 Noted Resolved Sprain and strain of unspecified site of knee a*INVALID FOR* Tear of medial cartilage or meniscus of knee, c*INVALID FOR* Hypertriglyceridemia [E78.1] More... Back pain [M54.9] Knee pain, left [M25.562] Hereditary hemochromatosis (HCC) [E83.110] More... Essential hypertension [I10] INVALID FOR* Prostate cancer screening [Z12.5] INVALID FOR* Well adult exam [Z00.00] INVALID FOR* More... Symptomatic varicose veins [I83.899] INVALID FOR* Hematuria [R31.9] INVALID FOR* More... Albuminuria [R80.9] INVALID FOR* Vascular lesion [I99.9] INVALID FOR* Insomnia [G47.00] INVALID FOR* Chronic low back pain without sciatica [M54.5, *INVALID FOR* More... Type 2 diabetes mellitus without complication, *INVALID FOR* PVC (premature ventricular contraction) [I49.3] INVALID FOR* Diabetic eye exam (HCC) [Z01.00, E11.9] INVALID FOR* More... Renal insufficiency [N28.9] INVALID FOR* Enlarged thoracic aorta (HCC) [I77.89] INVALID FOR* More... Abnormal stress test [R94.39] INVALID FOR* Prescriptions ordered this encounter Disp Refills Start End HYDROCHLOROTHIAZIDE 12.5 MG TABLET 90 t* 1 11/08/2018 Route: ORAL Sig: Take 1 tablet by mouth once daily. Medications Discontinued During This Encounter hydroCHLOROthiazide (HYDRODIURIL, ES* 90 t* 0 08/08/201811/08 Route: ORAL Sig: Take 1 tablet by mouth once daily. Disc: Reason for discontinue is not on file. Encounter Status:Closed by DAYSI ARMENDARIZ on 11/08/18 vikyn on 2018-11-08 CNPN Telephone ([facility]) [id number] 1965 M ([id number]) Date Time Provider Department 11/08/18 SARAH MENA (RN) [facility] During your visit today, we recorded the following informati on about you: Sarah Mena RN, RN 11/08/2018 2:43 PM Signed Left message regarding remin jared for stress test on Sunday and given instructions Allergies As of Date: 11/08/2018 Noted Allergy Reaction HYDROCODONE-ACETAMINOPHEN 06/08/2014 2 - Rash Date Reviewed: 10/18/2018 Reviewed by: Ted Baez, DO - Fully Assessed Reason for Visit: Reminder Call [[id number]] Prescriptions as of 11/08/2018 Sig: METFORMIN 1,000 MG TABLET TAKE ONE (1) TABLET BY MOUTH * LISINOPRIL 40 MG TABLET Take 0.5 tablets by mouth onc* METOPROLOL SUCCINATE ER 25 MG* Take 1 tablet by mouth once d * ISOSORBIDE MONONITRATE ER 30 * Take 1 tablet by mouth once d * NITROGLYCERIN 0.4 MG SUBLINGU* Dissolve 1 tablet under the t * HYDROCHLOROTHIAZIDE 12.5 MG T* Take 1 tablet by mouth once d * PIOGLITAZONE 15 MG TABLET Take 1 tablet by mouth once d* GLIMEPIRIDE 4 MG TABLET TAKE (1) TABLET BY MOUTH HUI* MONTELUKAST 10 MG TABLET Take 1 tablet by mouth daily * BENZONATATE 100 MG CAPSULE Take 1 capsule by mouth three* Patient not taking: Reported on 10/18/2018 SIMVASTATIN 20 MG TABLET TAKE (1) TABLET BY MOUTH AT B* LORATADINE 10 MG TABLET Take 1 tablet by mouth once d* Patient not taking: Reported on 10/18/2018 FREESTYLE LANCETS 28 GAUGE USE TO TEST BLOOD SUGAR ONCE * ASPIRIN 81 MG TABLET,DELAYED * Take 1 tablet by mouth once d * BLOOD SUGAR DIAGNOSTIC STRIPS Test blood sugar once a day, * TIZANIDINE 4 MG TABLET Take 4 mg by mouth daily at b* ALCOHOL SWABS Use as directed. E11.9 Problem List As Of Date 11/08/2018 Noted Resolved Sprain and strain of unspecified site of knee a*INVALID FOR* Tear of medial cartilage or meniscus of knee, c*INVALID FOR* Hypertriglyceridemia [E78.1] More... Back pain [M54.9] Knee pain, left [M25.562] Hereditary hemochromatosis (HCC) [E83.110] More... Essential hypertension [I10] INVALID FOR* Prostate cancer screening [Z12.5] INVALID FOR* Well adult exam [Z00.00] INVALID FOR* More... Symptomatic varicose veins [I83.899] INVALID FOR* Hematuria [R31.9] INVALID FOR* More... Albuminuria [R80.9] INVALID FOR* Vascular lesion [I99.9] INVALID FOR* Insomnia [G47.00] INVALID FOR* Chronic low back pain without sciatica [M54.5, *INVALID FOR* More... Type 2 diabetes mellitus without complication, *INVALID FOR* PVC (premature ventricular contraction) [I49.3] INVALID FOR* Diabetic eye exam (HCC) [Z01.00, E11.9] INVALID FOR* More... Renal insufficiency [N28.9] INVALID FOR* Enlarged thoracic aorta (HCC) [I77.89] INVALID FOR* More... Abnormal stress test [R94.39] INVALID FOR* Encounter Status:Closed by SARAH MENA on 11/08/18 obsolete on 2018-10 OBSOLETE Refill (FAMPWS) Normal 11-04-2018 Pasquale díaz [facility] TED MORENO ([id number]) 1965 [facility] Date Time Provider Department ([id number]) 11/04/18 CLOVIS DE LA GARZA FAMPWS During your visit today, we recorded the following informati on about you: Nery Webber Pss 11/04/2018 10:49 AM Signed Patient has been identified by name and date of : Yes Pending Prescriptions Disp Refills METFORMIN 1,000 MG TABLET 180 tablet 3 MIRIAN: No LISINOPRIL 40 MG TABLET 90 tablet 3 Sig: Take 0.5 tablets by mouth once daily. MIRIAN: No RX INSTRUCTIONS: Patient aware RX will be sent to pharmacy. No need to notify patient. Nery Webber Pss Fatimah Cabrera Ma 11/04/2018 11:02 AM Signed Patient has been identified by name and date of : Yes Pending Prescriptions Disp Refills METFORMIN 1,000 MG TABLET 180 tablet 3 MIRIAN: No LISINOPRIL 40 MG TABLET 90 tablet 3 Sig: Take 0.5 tablets by mouth once daily. MIRIAN: No RX INSTRUCTIONS: Patient aware RX will be sent to pharmacy. No need to notify patient. Fatimah Cabrera Ma Last ov: 03/2018 Last refill: 07/2017 Nov: 11/2018 Allergies As of Date: 11/04/2018 Noted Allergy Reaction HYDROCODONE-ACETAMINOPHEN 06/08/2014 2 - Rash Date Reviewed: 10/18/2018 Reviewed by: Ted Baez, - Fully Assessed Reason for Visit: Refill Request [94] Order(s):metFORMIN (GLUCOPHAGE) 1,000 mg tabletTAKE ONE (1 ) TABLET BY MOUTH TWICE DAILY WITH MEALSDisp: 180 tabletRfl: 3 lisinopril (ZESTRIL, PRINIVIL) 40 mg tabletTake 0.5 tablets by mouth once daily.Disp: 90 tabletRfl: 3 Prescriptions as of 11/04/2018 Sig: METFORMIN 1,000 MG TABLET TAKE ONE (1) TABLET BY MOUTH * LISINOPRIL 40 MG TABLET Take 0.5 tablets by mouth onc* METOPROLOL SUCCINATE ER 25 MG* Take 1 tablet by mouth once d * ISOSORBIDE MONONITRATE ER 30 * Take 1 tablet by mouth once d * NITROGLYCERIN 0.4 MG SUBLINGU* Dissolve 1 tablet under the t * HYDROCHLOROTHIAZIDE 12.5 MG T* Take 1 tablet by mouth once d * PIOGLITAZONE 15 MG TABLET Take 1 tablet by mouth once d* GLIMEPIRIDE 4 MG TABLET TAKE (1) TABLET BY MOUTH HUI* MONTELUKAST 10 MG TABLET Take 1 tablet by mouth daily * BENZONATATE 100 MG CAPSULE Take 1 capsule by mouth three* Patient not taking: Reported on 10/18/2018 SIMVASTATIN 20 MG TABLET TAKE (1) TABLET BY MOUTH AT B* LORATADINE 10 MG TABLET Take 1 tablet by mouth once d* Patient not taking: Reported on 10/18/2018 FREESTYLE LANCETS 28 GAUGE USE TO TEST BLOOD SUGAR ONCE * ASPIRIN 81 MG TABLET,DELAYED * Take 1 tablet by mouth once d * BLOOD SUGAR DIAGNOSTIC STRIPS Test blood sugar once a day, * TIZANIDINE 4 MG TABLET Take 4 mg by mouth daily at b* ALCOHOL SWABS Use as directed. E11.9 Problem List As Of Date 11/04/2018 Noted Resolved Sprain and strain of unspecified site of knee a*INVALID FOR* Tear of medial cartilage or meniscus of knee, c*INVALID FOR* Hypertriglyceridemia [E78.1] More... Back pain [M54.9] Knee pain, left [M25.562] Hereditary hemochromatosis (HCC) [E83.110] More... Essential hypertension [I10] INVALID FOR* Prostate cancer screening [Z12.5] INVALID FOR* Well adult exam [Z00.00] INVALID FOR* More... Symptomatic varicose veins [I83.899] INVALID FOR* Hematuria [R31.9] INVALID FOR* More... Albuminuria [R80.9] INVALID FOR* Vascular lesion [I99.9] INVALID FOR* Insomnia [G47.00] INVALID FOR* Chronic low back pain without sciatica [M54.5, *INVALID FOR* More... Type 2 diabetes mellitus without complication, *INVALID FOR* PVC (premature ventricular contraction) [I49.3] INVALID FOR* Diabetic eye exam (HCC) [Z01.00, E11.9] INVALID FOR* More... Renal insufficiency [N28.9] INVALID FOR* Enlarged thoracic aorta (HCC) [I77.89] INVALID FOR* More... Abnormal stress test [R94.39] INVALID FOR* Prescriptions ordered this encounter Disp Refills Start End METFORMIN 1,000 MG TABLET 180 * 3 11/04/2018 Sig: TAKE ONE (1) TABLET BY MOUTH TWICE DAILY WITH MEALS LISINOPRIL 40 MG TABLET 90 t* 3 11/04/2018 Route: ORAL Sig: Take 0.5 tablets by mouth once daily. Medications Discontinued During This Encounter metFORMIN (GLUCOPHAGE) 1,000 mg tabl* 180 * 3 08/06/201711/04 Sig: TAKE ONE (1) TABLET BY MOUTH TWICE DAILY WITH MEALS Disc: Reason for discontinue is not on file. lisinopril (ZESTRIL, PRINIVIL) 40 mg* 90 t* 3 12/31/201711/04 Class: Med Update Route: ORAL Sig: Take 0.5 tablets by mouth once daily. Disc: Reason for discontinue is not on file. Encounter Status:Closed by DAYSI ARMENDARIZ on 11/04/18 davis on 2018-10-29 CNOV Office Visit (CARLA) Normal 10-30-19 [place] TED Conteh ([id number]) 1965 [facility] Date Time Provider Department ([id number]) 10/29/18 TED BAEZ During your visit today, we recorded the following informati on about you: Allergies As of Date: 10/29/2018 Noted Allergy Reaction HYDROCODONE-ACETAMINOPHEN 06/08/2014 2 - Rash Date Reviewed: 10/18/2018 Reviewed by: Ted Baez, - Fully Assessed Primary Visit Diagnosis:Abnormal stress ECG with treadmill [ R94.39] Other Visit Diagnoses:PIMENTEL (dyspnea on exertion) [R06.09] Chest discomfort [R07.89] Order(s):STRESS ECHO TREADMILL [[id number]] Order #: [id number] 2Qty: 1 FUTURE Prescriptions as of 10/29/2018 Sig: METOPROLOL SUCCINATE ER 25 MG* Take 1 tablet by mouth once d * ISOSORBIDE MONONITRATE ER 30 * Take 1 tablet by mouth once d * NITROGLYCERIN 0.4 MG SUBLINGU* Dissolve 1 tablet under the t * HYDROCHLOROTHIAZIDE 12.5 MG T* Take 1 tablet by mouth once d * PIOGLITAZONE 15 MG TABLET Take 1 tablet by mouth once d* GLIMEPIRIDE 4 MG TABLET TAKE (1) TABLET BY MOUTH HUI* MONTELUKAST 10 MG TABLET Take 1 tablet by mouth daily * BENZONATATE 100 MG CAPSULE Take 1 capsule by mouth three* Patient not taking: Reported on 10/18/2018 SIMVASTATIN 20 MG TABLET TAKE (1) TABLET BY MOUTH AT B* LORATADINE 10 MG TABLET Take 1 tablet by mouth once d* Patient not taking: Reported on 10/18/2018 LISINOPRIL 40 MG TABLET Take 0.5 tablets by mouth onc* FREESTYLE LANCETS 28 GAUGE USE TO TEST BLOOD SUGAR ONCE * ASPIRIN 81 MG TABLET,DELAYED * Take 1 tablet by mouth once d * BLOOD SUGAR DIAGNOSTIC STRIPS Test blood sugar once a day, * METFORMIN 1,000 MG TABLET TAKE ONE (1) TABLET BY MOUTH * TIZANIDINE 4 MG TABLET Take 4 mg by mouth daily at b* ALCOHOL SWABS Use as directed. E11.9 Problem List As Of Date 10/29/2018 Noted Resolved Sprain and strain of unspecified site of knee a*INVALID FOR* Tear of medial cartilage or meniscus of knee, c*INVALID FOR* Hypertriglyceridemia [E78.1] More... Back pain [M54.9] Knee pain, left [M25.562] Hereditary hemochromatosis (HCC) [E83.110] More... Essential hypertension [I10] INVALID FOR* Prostate cancer screening [Z12.5] INVALID FOR* Well adult exam [Z00.00] INVALID FOR* More... Symptomatic varicose veins [I83.899] INVALID FOR* Hematuria [R31.9] INVALID FOR* More... Albuminuria [R80.9] INVALID FOR* Vascular lesion [I99.9] INVALID FOR* Insomnia [G47.00] INVALID FOR* Chronic low back pain without sciatica [M54.5, *INVALID FOR* More... Type 2 diabetes mellitus without complication, *INVALID FOR* PVC (premature ventricular contraction) [I49.3] INVALID FOR* Diabetic eye exam (HCC) [Z01.00, E11.9] INVALID FOR* More... Renal insufficiency [N28.9] INVALID FOR* Enlarged thoracic aorta (HCC) [I77.89] INVALID FOR* More... Abnormal stress test [R94.39] INVALID FOR* Encounter Status:Closed by TED BAEZ on 10/31/18 progress on 2018-09 PROGRESS HNO ID: [id number] Normal 10-21-2018 [facility] Author: Clovis De La Garza ([id number]) Service: ? Author Type: Physician Type: Progress Notes Filed: 10/21/2018 7:07 AM Note Text: done progress on 2018-09 PROGRESS HNO ID: [id number] Normal 10-18-2018 [facility] Author: Ted Baez, [place] ([id number]) Service: ? Author Type: Physician Type: Progress Notes Filed: 10/18/2018 12:21 PM Note Text: [facility] SECTION OF REGIONAL CARDIOLOGY [facility] OUTPATIENT VISIT DATE October 18, 2018 PRIMARY CARE PHYSICIAN: Clovis De La Garza MD [address] [place] [address] HISTORY OF PRESENT ILLNESS: Mr. Moreno is a 53 year old male. The patient returns [facility]-up due to suspected coronary artery disease as a result of an abnormal stress test and symptoms suggestive of angina. The patient has chest dis comfort described as a pressure sensation along with dyspnea on exer tion occurring with each other and abating with rest. This is been responsi ve to nitroglycerin to some degree. He has run out of isosorbide m ononitrate. He denies orthopnea, paroxysmal nocturnal dyspnea, palpation s, near-syncope or syncope. He has additional history of hypert ension, hyperlipidemia, diabetes mellitus and a mildly enlarged thor acic aorta. 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 PLAN AND RECOMMENDATIONS: At this time we will resume the patient's Imdur. We discusse d various further testing. The patient is not interested in invasive t esting at this time. He will additionally be better protected from mor bidity with the addition of a beta niecy. This we'll additionally help lower his blood pressure. We have added Toprol XL 25 mg as well to his medical regimen. After discussion we decided to proceed with repeat stress testing with nuclear imaging. We will follow-up with him in a few weeks time upon completion of such to review as well as review res ponse to therapy. Dietary and lifestyle modification was reemphasized to facilitate risk factor reduction. Vitals: BP 178/90 Pulse 91 Ht 182.9 cm (6') Wt 104.3 k g (230 lb) SpO2 97% BMI 31.19 kg/m? Physical Exam Constitutional: He is oriented to person, place, and time. H e appears well-developed and well-nourished. No distress. HENT: Head: Normocephalic and atraumatic. Right Ear: External ear normal. Left Ear: External ear normal. Nose: Nose normal. Eyes: Pupils are equal, round, and reactive to light. EOM ar e normal. Right eye exhibits no discharge. Left eye exhibits no discha rge. No scleral icterus. Neck: Neck supple. No JVD present. No thyromegaly present. Cardiovascular: Normal rate, regular rhythm and intact dista l pulses. Exam reveals no gallop and no friction rub. No murmur heard. Pulmonary/Chest: Effort normal and breath sounds normal. No respiratory distress. He has no wheezes. He has no rales. Abdominal: Soft. Bowel sounds are normal. Musculoskeletal: Normal range of motion. He exhibits no jessica a. Neurological: He is alert and oriented to person, place, and time. No cranial nerve deficit. Skin: Skin is warm and dry. He is not diaphoretic. No pallor . Psychiatric: He has a normal mood and affect. His behavior i s normal. Judgment and thought content normal. His mood appears not an xious. He does not exhibit a depressed mood. Nursing note and vitals reviewed. Review of Systems Constitutional: Negative for activity change, appetite herrera e, fatigue and unexpected weight change. HENT: Negative for ear pain and trouble swallowing. Eyes: Negative for pain and visual disturbance. Respiratory: Positive for shortness of breath. Negative for chest tightness. Cardiovascular: Positive for chest pain. Negative for palpit ations and leg swelling. Gastrointestinal: Negative for abdominal pain and blood in s tool. Endocrine: Negative for cold intolerance and heat intoleranc e. Genitourinary: Negative for dysuria, hematuria and scrotal s welling. Musculoskeletal: Negative for arthralgias and myalgias. Skin: Negative for pallor and rash. Allergic/Immunologic: Negative for immunocompromised state. Neurological: Negative for dizziness, syncope and light-head edness. Hematological: Negative for adenopathy. Does not bruise/blee d easily. Psychiatric/Behavioral: Negative for sleep disturbance. The patient is not nervous/anxious. PAST MEDICAL HISTORY Diagnosis Date - Back pain - Diabetes mellitus, type 2 (HCC) 2012 - Enlarged thoracic aorta (HCC) 12/12/2017 ECHO: 10/29/2017, Needs repeated 1 yr. - Essential hypertension 12/24/2014 - Hereditary hemochromatosis (HCC) 2013 homozygous [id number] - Hypertension - Hypertriglyceridemia 2012 1437 at diagnosis - Knee pain, left - Loose body in knee 09/23/2012 - Renal insufficiency 10/12/2017 - Snoring - Sprain and strain of unspecified site of knee and leg 2012 - Tear of medial cartilage or meniscus of knee, current 2012 PAST SURGICAL HISTORY Procedure Laterality Date - COLONOSCOP W/ OR W/O [facility] SPEC 06/01/2014 negative but repeat in 2y for poor prep - COLONOSCOP W/ OR W/O [facility] SPEC 08/24/14 Colonoscopy, repeat 10 yrs - CT LIVER BIOPSY 05/25/14 Moderate periportal hepatocellular iron and steatohepatitis - PAST SURGICAL HISTORY OF 2007 right knee arthroscopy - PAST SURGICAL HISTORY OF 2012 left knee arthroscopy Social History Tobacco Use - Smoking status: Never Smoker - Smokeless tobacco: Never Used Substance Use Topics - Alcohol use: No - Drug use: No FAMILY HISTORY Problem Relation Age of Onset - COPD Mother - Diabetes Mother - Coronary Artery Disease Mother [place]/CABG - Breast Cancer Mother - Hypertension Mother - Hyperlipidemia Mother - Seizures Father - Coronary Artery Disease Father [place]/CABG - Glaucoma Father - Hyperlipidemia Father - Stroke Father blood clot in brain - other (Neuropathy) Father - Heart Brother hole in heart - Hypertension Brother - Hyperlipidemia Brother - Diabetes Sister - Hypertension Sister - Hyperlipidemia Sister - Asthma Sister - Colon Cancer Maternal Uncle - Prostate Cancer Other - Ovarian cancer Other ALLERGIES Allergen Reactions - Hydrocodone-Acetami* Rash CURRENT MEDICATIONS: nitroglycerin sublingual (NITROQUICK) 0.4 mg SL tablet Disso lve 1 tablet under the tongue as needed. for chest pain,every 5 min x3 hydroCHLOROthiazide (HYDRODIURIL, ESIDRIX) 12.5 mg tablet Ta ke 1 tablet by mouth once daily. pioglitazone (ACTOS) 15 mg tablet Take 1 tablet by mouth onc e daily. glimepiride (AMARYL) 4 mg tablet TAKE (1) TABLET BY MOUTH DA AMINTA WITH BREAKFAST montelukast (SINGULAIR) 10 mg tablet Take 1 tablet by mouth daily at bedtime. simvastatin (ZOCOR) 20 mg tablet TAKE (1) TABLET BY MOUTH AT BEDTIME lisinopril (ZESTRIL, PRINIVIL) 40 mg tablet Take 0.5 tablets by mouth once daily. isosorbide mononitrate ER (IMDUR) 30 mg 24 hr tablet Take 1 tablet by mouth once daily. FREESTYLE LANCETS 28 gauge [facility] USE TO TEST BLOOD SUGAR ONCE DAILY aspirin, enteric coated (ECOTRIN LOW STRENGTH) 81 mg EC tabl et Take 1 tablet by mouth once daily. blood sugar diagnostic (FREESTYLE LITE STRIPS) test strip Te st blood sugar once a day, Dx: E11.9 no insulin metFORMIN (GLUCOPHAGE) 1,000 mg tablet TAKE ONE (1) TABLET B Y MOUTH TWICE DAILY WITH MEALS tiZANidine (ZANAFLEX) 4 mg tablet Take 4 mg by mouth daily a t bedtime. as needed for muscle spasm-using this a couple times per week Alcohol Swabs (ALCOHOL PREP SWABS) padm Use as directed. E11 .9 benzonatate (TESSALON PERLES) 100 mg capsule Take 1 capsule by mouth three times daily as needed for Cough. loratadine (CLARITIN) 10 mg tablet Take 1 tablet by mouth on ce daily. For cough/sinus ECG performed today demonstrates sinus rhythm with early R-w ave progression. Ted Baez DO, [facility] Clinical and Preventive Cardiology [facility] PROGRESS HNO ID: [id number] Normal 10-18-2018 [facility] Author: Asmita Mireles ([id number]) Service: ? 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 Please file labs and advise if wanting anything add itional. They believe he had an eye exam done last month at the [facility]. I will call for verification and update HM. updated - they're faxing eye report. Patient identified by name and . Asmita Linton CMA PROGRESS HNO ID: [id number] Normal 10-18-2018 [facility] Author: Asmita Mireles ([id number]) Service: ? 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 Patient identified by name and . Asmita Linton CMA ecg complete on 201 11-30-25 ECG COMPLETE NAME : TED MORENO Normal 2018 [facility] PID : [id number] Corby pena ([id number]) : 1965 Gender : Male Race : ORD : [id number] Procedure Date : Oct 18 2018 11:20:29 Edit Date : Oct 24 2018 10:15:11 Diagnosis:NORMAL SINUS RHYTHM NORMAL ECG Confirmed by MD BAEZ GREGORY () on 10/24/2018 10:15:07 AM Ventricular Rate : 91 BPM Atrial Rate : 91 BPM P-R Interval : 180 ms QRS Duration : 90 ms Q-T Interval : 364 ms QTC Calculation(Bazett) : 447 ms P Bayside : 35 degrees R Bayside : 31 degrees T Bayside : 2 degrees Test Reason : Location : 158 : [facility] Overread By : MD BAEZ GREGORY Edited By : MD BAEZ GREGORY Referred By : TED BAEZ Acquired by : davis RECINOS on 2018-10-18 DAVIS Office Visit (CARLA) Adrian 10-19-[address] [place] [address] [facility] TED MORENO ([id number]) 1965 [facility] Time Provider Department ([id number]) 10/18/18 11:00 AM TED BAEZ During your visit today, we recorded the following informati on about you: Pulse Blood pressure Weight Height 91/minute 178/90 104.3 kg 1.829 m Ted Baez DO, DO 10/18/2018 12:21 PM Signed [facility] SECTION OF REGIONAL CARDIOLOGY [facility] OUTPATIENT VISIT DATE October 18, 2018 PRIMARY CARE PHYSICIAN: Clovis De La Garza MD [address] [place] [address] HISTORY OF PRESENT ILLNESS: Mr. Moreno is a 53 year old male. The patient returns a follo w-up due to suspected coronary artery disease as a result of an ab normal stress test and symptoms suggestive of angina. The patie nt has chest discomfort described as a pressure sensation along wit h dyspnea on exertion occurring with each other and abating with rest. This is been responsive to nitroglyceri n to some degree. He has run out of isosorbide mononitrate. He denies orthopne a, paroxysmal nocturnal dyspnea, palpations, near-syncope or syncope. He h as additional history of hypertension, hyperlipidemia, diabetes mellitus a nd a mildly enlarged thoracic aorta. He currently works [email or web address] without difficulty. PLAN AND RECOMMENDATIONS: At this time we will resume the patient's Imdur. We discussed various further testing. The patient is not interested in invasive testing at this time. He will additionally be better protected from morbidity with the addition of a beta niecy. This we'll additionally help lower his b lood pressure. We have added Toprol XL 25 mg as well to his medical regimen. After discussion we decided to proceed with repeat stress testing with nuclear imaging. We will follow-up with him in a few weeks time upon completion of such to review as well as review response to therapy. Dietary and lifestyle mo dification was reemphasized to facilitate risk factor reduction. Vitals: BP 178/90 Pulse 91 Ht 182.9 cm (6') Wt 104.3 k g (230 lb) SpO2 97% BMI 31.19 kg/m? Physical Exam Constitutional: He is oriented to person, place, and time. H e appears well-developed and well-nourished. No distress. HENT: Head: Normocephalic and atraumatic. Right Ear: External ear normal. Left Ear: External ear normal. Nose: Nose normal. Eyes: Pupils are equal, roun d, and reactive to light. EOM are normal. Right eye exhibits no discharge. Left eye exhibits no discharge. No sc leral icterus. Neck: Neck supple. No JVD present. No thyromegaly present. Cardiovascular: Normal rate, regular rhythm and intact dista l pulses. Exam reveals no gallop and no friction rub. No murmur heard. Pulmonary/Chest: Effort normal and breath sounds normal. No respiratory distress. He has no wheezes. He has no rales. Abdominal: Soft. Bowel sounds are normal. Musculoskeletal: Normal range of motion. He exhibits no jessica a. Neurological: He is alert and oriented to person , place, and time. No cranial nerve deficit. Skin: Skin is warm and dry. He is not diaphoretic. No pallor . Psychiatric: He has a normal mood and af fect. His behavior is normal. Judgment and thought content normal. His mood appears not anxious. He does not exhibit a depressed mood. Nursing note and vitals reviewed. Review of Systems Constitutional: Negative for activity change, appetite herrera e, fatigue and unexpected weight change. HENT: Negative for ear pain and trouble swallowing. Eyes: Negative for pain and visual disturbance. Respiratory: Positive for shortness of breath. Negativ e for chest tightness. Cardiovascular: Positive for chest pain. Negative for palpit ations and leg swelling. Gastrointestinal: Negative for abdominal pain and blood in s tool. Endocrine: Negative for cold intolerance and heat intoleranc e. Genitourinary: Negative for dysuria, hematuria and scrotal s welling. Musculoskeletal: Negative for arthralgias and myalgias. Skin: Negative for pallor and rash. Allergic/Immunologic: Negative for immunocompromised state. Neurological: Negative for dizziness, syncope and light-head edness. Hematological: Negative for adenopathy. Does not bruise/blee d easily. Psychiatric/Behavioral: Negative for sleep disturbance. The patient is not nervous/anxious. PAST MEDICAL HISTORY Diagnosis Date - Back pain - Diabetes mellitus, type 2 (HCC) 2012 - Enlarged thoracic aorta (HCC) 12/12/2017 ECHO: 10/29/2017, Needs repeated 1 yr. - Essential hypertension 12/24/2014 - Hereditary hemochromatosis (HCC) 2013 homozygous C282Y - Hypertension - Hypertriglyceridemia 2012 1437 at diagnosis - Knee pain, left - Loose body in knee 09/23/2012 - Renal insufficiency 10/12/2017 - Snoring - Sprain and strain of unspecified site of knee and leg 2012 - Tear of medial cartilage or meniscus of knee, current 2012 PAST SURGICAL HISTORY Procedure Laterality Date - COLONOSCOP W/ OR W/O [facility] SPEC 06/01/2014 negative but repeat in 2y for poor prep - COLONOSCOP W/ OR W/O [facility] SPEC 08/24/14 Colonoscopy, repeat 10 yrs - CT LIVER BIOPSY 05/25/14 Moderate periportal hepatocellular iron and steatohepatitis - PAST SURGICAL HISTORY OF 2007 right knee arthroscopy - PAST SURGICAL HISTORY OF 2012 left knee arthroscopy Social History Tobacco Use - Smoking status: Never Smoker - Smokeless tobacco: Never Used Substance Use Topics - Alcohol use: No - Drug use: No FAMILY HISTORY Problem Relation Age of Onset - COPD Mother - Diabetes Mother - Coronary Artery Disease Mother [place]/CABG - Breast Cancer Mother - Hypertension Mother - Hyperlipidemia Mother - Seizures Father - Coronary Artery Disease Father [place]/CABG - Glaucoma Father - Hyperlipidemia Father - Stroke Father blood clot in brain - other (Neuropathy) Father - Heart Brother hole in heart - Hypertension Brother - Hyperlipidemia Brother - Diabetes Sister - Hypertension Sister - Hyperlipidemia Sister - Asthma Sister - Colon Cancer Maternal Uncle - Prostate Cancer Other - Ovarian cancer Other ALLERGIES Allergen Reactions - Hydrocodone-Acetami* Rash CURRENT MEDICATIONS: nitroglycerin sublingual (NITROQUICK) 0. 4 mg SL tablet Dissolve 1 tablet under the tongue as needed. for chest pain,every 5 min x3 hydroCHLOROthiazide (HYDRODIURIL, ESIDRIX) 12.5 mg tablet Ta ke 1 tablet by mouth once daily. pioglitazone (ACTOS) 15 mg tablet Take 1 tablet by mouth onc e daily. glimepiride (AMARYL) 4 mg tablet TAKE (1 ) TABLET BY MOUTH DAILY WITH BREAKFAST montelukast (SINGULAIR) 10 mg tablet Take 1 tabl et by mouth daily at bedtime. simvastatin (ZOCOR) 20 mg tablet TAKE (1) TABLET BY MOUTH AT BEDTIME lisinopril (ZESTRIL, PRINIVIL) 40 mg tablet Take 0.5 tablets by mouth once daily. isosorbide mononitrate ER (IMDUR) 30 mg 24 hr tablet Take 1 tablet by mouth once daily. FREESTYLE LANCETS 28 gauge misc USE TO TEST BLOOD SUGAR ONCE DAILY aspirin, enteric coated (ECO ZOE LOW STRENGTH) 81 mg EC tablet Take 1 tablet by mouth once daily. blood sugar diagnostic (FREE STYLE LITE STRIPS) test strip Test blood sugar once a day, Dx: E11.9 no insulin metFORMIN (GLUCOPHAGE) 1,000 mg tablet TAKE ONE (1) TABLET BY MOUTH TWICE DAILY WITH MEALS tiZANidine (ZANAFLEX) 4 mg tablet Take 4 mg by mouth daily a t bedtime. as needed for muscle spasm-using this a couple times per week Alcohol Swabs (ALCOHOL PREP SWABS) padm Use as directed. E11 .9 benzonatate (TESSALON PERLES) 100 mg capsule Take 1 capsule by mouth three times daily as needed for Cough. loratadine (CLARITIN) 10 mg tablet Take 1 tablet by mouth on ce daily. For cough/sinus ECG performed today demonstrates sinus rhythm with ear ly R-wave progression. Ted Baez DO, [facility], [facility] Clinical and Preventive Cardiology [facility] Referring Provider: OSITO HAIR ([facility]) [[id number]] Allergies As of Date: 10/18/2018 Noted Allergy Reaction HYDROCODONE-ACETAMINOPHEN 06/08/2014 2 - Rash Date Reviewed: 10/18/2018 Reviewed by: Ted Baez DO - Fully Assessed Reason for Visit: Cardiology Follow Up [1732] Cmt: ASHD Primary Visit Diagnosis:Abnormal stress test [R94.39] Other Visit Diagnoses:Precordial pain [R07.2] Shortness of breath [R06.02] Abnormal ECG [R94.31] Essential hypertension [I10] Order(s):ECG COMPLETE [ECG01] Order #: [id number] FUTURE metoprolol succinate ER (TOPROL XL) 25 mg 24 hr tabletTake 1 tablet by mouth once daily.Disp: 30 tabletRfl: 11 EXERCISE STRESS W/NUC IMAGING [[id number]] Order #: [id number] ty: 1 NM CARDIAC PERF STRESS/EXERCISE [[id number]] Order #: [id number] FUTURE isosorbide mononitrate ER (IMDUR) 30 mg 24 hr tabletTake 1 t ablet by mouth once daily.Disp: 30 tabletRfl: 11 Prescriptions as of 10/18/2018 Sig: ISOSORBIDE MONONITRATE ER 30 * Take 1 tablet by mouth once d * NITROGLYCERIN 0.4 MG SUBLINGU* Dissolve 1 tablet under the t * HYDROCHLOROTHIAZIDE 12.5 MG T* Take 1 tablet by mouth once d * PIOGLITAZONE 15 MG TABLET Take 1 tablet by mouth once d* GLIMEPIRIDE 4 MG TABLET TAKE (1) TABLET BY MOUTH HUI* MONTELUKAST 10 MG TABLET Take 1 tablet by mouth daily * SIMVASTATIN 20 MG TABLET TAKE (1) TABLET BY MOUTH AT B* LISINOPRIL 40 MG TABLET Take 0.5 tablets by mouth onc* FREESTYLE LANCETS 28 GAUGE USE TO TEST BLOOD SUGAR ONCE * ASPIRIN 81 MG TABLET,DELAYED * Take 1 tablet by mouth once d * BLOOD SUGAR DIAGNOSTIC STRIPS Test blood sugar once a day, * METFORMIN 1,000 MG TABLET TAKE ONE (1) TABLET BY MOUTH * TIZANIDINE 4 MG TABLET Take 4 mg by mouth daily at b* ALCOHOL SWABS Use as directed. E11.9 METOPROLOL SUCCINATE ER 25 MG* Take 1 tablet by mouth once d * BENZONATATE 100 MG CAPSULE Take 1 capsule by mouth three* Patient not taking: Reported on 10/18/2018 LORATADINE 10 MG TABLET Take 1 tablet by mouth once d* Patient not taking: Reported on 10/18/2018 Problem List As Of Date 10/18/2018 Noted Resolved Sprain and strain of unspecified site of knee a*INVALID FOR* Tear of medial cartilage or meniscus of knee, c*INVALID FOR* Hypertriglyceridemia [E78.1] More... Back pain [M54.9] Knee pain, left [M25.562] Hereditary hemochromatosis (HCC) [E83.110] More... Essential hypertension [I10] INVALID FOR* Prostate cancer screening [Z12.5] INVALID FOR* Well adult exam [Z00.00] INVALID FOR* More... Symptomatic varicose veins [I83.899] INVALID FOR* Hematuria [R31.9] INVALID FOR* More... Albuminuria [R80.9] INVALID FOR* Vascular lesion [I99.9] INVALID FOR* Insomnia [G47.00] INVALID FOR* Chronic low back pain without sciatica [M54.5, *INVALID FOR* More... Type 2 diabetes mellitus without complication, *INVALID FOR* PVC (premature ventricular contraction) [I49.3] INVALID FOR* Diabetic eye exam ([facility]) [Z01.00, E11.9] INVALID FOR* More... Renal insufficiency [N28.9] INVALID FOR* Enlarged thoracic aorta (HCC) [I77.89] INVALID FOR* More... Abnormal stress test [R94.39] INVALID FOR* Prescriptions ordered this encounter Disp Refills Start End METOPROLOL SUCCINATE ER 25 MG TABLET* 30 t* 11 10/18/2018 Route: ORAL Sig: Take 1 tablet by mouth once daily. ISOSORBIDE MONONITRATE ER 30 MG TABL* 30 t* 11 10/18/2018 Route: ORAL Sig: Take 1 tablet by mouth once daily. Medications Discontinued During This Encounter isosorbide mononitrate ER (IMDUR) 30* 30 t* 6 12/31/201710/18 Route: ORAL Sig: Take 1 tablet by mouth once daily. Disc: Reason for discontinue is not on file. Disposition: Return in about 3 months (around 01/18/2019), o r if symptoms worsen or fail to improve, for Follow-up, Review testing. Follow-up and Disposition History Recorded Letter Text Encounter Status:Closed by TED BAEZ on 10/18/18 progress on 2018-09 PROGRESS HNO ID: [id number] Normal 10-16-2018 [facility] Author: Asmita ([employer]ator Tender) Royer Mireles ([id number]) Service: ? Author Type: Operations Management Trainee Type: Progress Notes Filed: 10/21/2018 7:07 AM Note Text: PHMA TEAMLET DOCUMENTATION Provider Action/FYI: Please file labs and advise if wanting anything additional. PSR Action/FYI: - r/s 4 month/physical Health Maintenance Due: BP CONTROLLED (<130/80) due on 1982 DILATED RETINAL EXAM due on 07/16/2018 Teamlet has identified patient by name and date of . Team: Daysi Cabrera ? Last Office Visit:08/26/2018 ? Next Office Visit: Visit date not found ? Last BP/Labs: Blood Pressure: Last 3 Encounter BP Readings: Date: BP: 09/09/2018 147/69 09/09/2018 123/78 06/17/2018 109/66 Lipids: Cholesterol, Total (mg/dL) Date Value 04/19/2017 142 12/24/2014 158 Total Cholesterol, Nonfasting (mg/dL) Date Value 04/22/2018 120 HDL Cholesterol (mg/dL) Date Value 04/19/2017 45 12/24/2014 51 HDL Cholesterol, Nonfasting (mg/dL) Date Value 04/22/2018 49 LDL Cholesterol (mg/dL) Date Value 04/19/2017 81 12/24/2014 94 LDL Cholesterol, Nonfasting (mg/dL) Date Value 04/22/2018 44 Triglyceride (mg/dL) Date Value 04/19/2017 81 12/24/2014 64 Triglycerides, Nonfasting (mg/dL) Date Value 04/22/2018 133 HGB A1C: Lab Results Component Value Date HBA1C 6.7 04/22/2018 HBA1C 7.0 12/12/2017 HBA1C 8.2 10/08/2017 TSH: TSH (uU/mL) Date Value 10/08/2017 1.010 10/11/2012 0.700 ) Care Gap: HTN DM Plan: ? Confirm PCP / Status - unknown ? Type of appointment needed: Follow-up/physical next availa ble with Provider pcp or manufacturing inspector ? Consultation Appointments: n/a Labs, HM and Immunization: Health Maintenance Due: BP CONTROLLED (<130/80) due on 1982 DILATED RETINAL EXAM due on 07/16/2018 Asmita Linton CMA cnptoutreach on 201 12-01-23 CNPTOUTREACH Patient Outreach (FAMPWS) Normal 0 10-16-2018 [place] [facility] TED MORENO ([id number]) 1965 [facility] Date Time Provider Department ([id number]) 10/16/18 ASMITA LINTON ([facility]) FAMPWS During your visit today, we recorded the following informati on about you: Asmita Linton CMA 10/21/2018 7:07 AM Signed PHMA TEAMLET DOCUMENTATION Provider Action/FYI: Please file labs and advise if wanting anything additional. PSR Action/FYI: - r/s 4 month/physical Health Maintenance Due: BP CONTROLLED (<130/80) due on 1982 DILATED RETINAL EXAM due on 07/16/2018 Teamlet has identified patient by name and date of . Team: Daysi Cabrera ? Last Office Visit:08/26/2018 ? Next Office Visit: Visit date not found ? Last BP/Labs: Blood Pressure: Last 3 Encounter BP Readings: Date: BP: 09/09/2018 147/69 09/09/2018 123/78 06/17/2018 109/66 Lipids: Cholesterol, Total (mg/dL) Date Value 04/19/2017 142 12/24/2014 158 Total Cholesterol, Nonfasting (mg/dL) Date Value 04/22/2018 120 HDL Cholesterol (mg/dL) Date Value 04/19/2017 45 12/24/2014 51 HDL Cholesterol, Nonfasting (mg/dL) Date Value 04/22/2018 49 LDL Cholesterol (mg/dL) Date Value 04/19/2017 81 12/24/2014 94 LDL Cholesterol, Nonfasting (mg/dL) Date Value 04/22/2018 44 Triglyceride (mg/dL) Date Value 04/19/2017 81 12/24/2014 64 Triglycerides, Nonfasting (mg/dL) Date Value 04/22/2018 133 HGB A1C: Lab Results Component Value Date HBA1C 6.7 04/22/2018 HBA1C 7.0 12/12/2017 HBA1C 8.2 10/08/2017 TSH: TSH (uU/mL) Date Value 10/08/2017 1.010 10/11/2012 0.700 ) Care Gap: HTN DM Plan: ? Confirm PCP / Status - unknown ? Type of appointment needed: Follow-up/physical next available with Provider pcp or manufacturing inspector ? Consultation Appointments: n/a Labs, HM and Immunization: Health Maintenance Due: BP CONTROLLED (<130/80) due on 1982 DILATED RETINAL EXAM due on 07/16/2018 LAURENCE French CMA 10/21/2018 7:07 AM Signed [facility] PROFESSOR [employer]IN[employer] JUSTICE QUICKNOTE Provider Action/FYI: 1st attempt - I called Fidel velazquez, sister, and left message for her to return call #[phone]. Patient identified by name and . LAURENCE French CMA 10/21/2018 7:07 AM Signed [facility] PROFESSOR [employer] QUICKNOTE Provider Action/FYI: I spoke with Richa, sister, and she scheduled an appointme nt for Cecil on 12/09/18. Please file labs and advise if wanting anything add itional. They believe he had an eye exam done last month at the [facility]. I will call for verification and update HM. HM updated - they're faxing eye report. Patient identified by name and . LAURENCE French MD 10/21/2018 7:07 AM Signed done Allergies As of Date: 10/16/2018 Noted Allergy Reaction HYDROCODONE-ACETAMINOPHEN 06/08/2014 2 - Rash Date Reviewed: 09/09/2018 Reviewed by: Yeny Llanos, RN, RN - Fully Assessed Reason for Visit: [facility]/Care Gap Outreach [[id number]] Primary Visit Diagnosis:Essential hypertension [I10] Other Visit Diagnoses:Type 2 diabetes mellitus without complication, without long-term current use of insulin (HCC) [E11.9] Hypertriglyceridemia [E78.1] Renal insufficiency [N28.9] Prostate cancer screening [Z12.5] Order(s):HGB A1C [BEPFS9X] Order #: [id number] FUTURE LIPID PANEL, NONFASTING [SQLIPNF] Order #: [id number] FUTURE URINALYSIS WITH MICROSCOPIC [SQUAWMIC] Order #: [id number] F UTURE COMP METABOLIC PANEL [SQCMP] Order #: [id number] FUTURE ALBUMIN/CREAT RATIO RND UR [SQUACR] Order #: [id number] FUTU RE PSA/PROSTSPECAG DIAG [SQPSA] Order #: [id number] FUTURE Prescriptions as of 10/16/2018 Sig: NITROGLYCERIN 0.4 MG SUBLINGU* Dissolve 1 tablet under the t * HYDROCHLOROTHIAZIDE 12.5 MG T* Take 1 tablet by mouth once d * PIOGLITAZONE 15 MG TABLET Take 1 tablet by mouth once d* GLIMEPIRIDE 4 MG TABLET TAKE (1) TABLET BY MOUTH HUI* MONTELUKAST 10 MG TABLET Take 1 tablet by mouth daily * BENZONATATE 100 MG CAPSULE Take 1 capsule by mouth three* Patient not taking: Reported on 10/18/2018 SIMVASTATIN 20 MG TABLET TAKE (1) TABLET BY MOUTH AT B* LORATADINE 10 MG TABLET Take 1 tablet by mouth once d* Patient not taking: Reported on 10/18/2018 LISINOPRIL 40 MG TABLET Take 0.5 tablets by mouth onc* X ISOSORBIDE MONONITRATE ER 30 * Take 1 tablet by mouth once d* FREESTYLE LANCETS 28 GAUGE USE TO TEST BLOOD SUGAR ONCE * ASPIRIN 81 MG TABLET,DELAYED * Take 1 tablet by mouth once d * BLOOD SUGAR DIAGNOSTIC STRIPS Test blood sugar once a day, * METFORMIN 1,000 MG TABLET TAKE ONE (1) TABLET BY MOUTH * TIZANIDINE 4 MG TABLET Take 4 mg by mouth daily at b* ALCOHOL SWABS Use as directed. E11.9 Problem List As Of Date 10/16/2018 Noted Resolved Sprain and strain of unspecified site of knee a*INVALID FOR* Tear of medial cartilage or meniscus of knee, c*INVALID FOR* Hypertriglyceridemia [E78.1] More... Back pain [M54.9] Knee pain, left [M25.562] Hereditary hemochromatosis (HCC) [E83.110] More... Essential hypertension [I10] INVALID FOR* Prostate cancer screening [Z12.5] INVALID FOR* Well adult exam [Z00.00] INVALID FOR* More... Symptomatic varicose veins [I83.899] INVALID FOR* Hematuria [R31.9] INVALID FOR* More... Albuminuria [R80.9] INVALID FOR* Vascular lesion [I99.9] INVALID FOR* Insomnia [G47.00] INVALID FOR* Chronic low back pain without sciatica [M54.5, *INVALID FOR* More... Type 2 diabetes mellitus without complication, *INVALID FOR* PVC (premature ventricular contraction) [I49.3] INVALID FOR* Diabetic eye exam (HCC) [Z01.00, E11.9] INVALID FOR* More... Renal insufficiency [N28.9] INVALID FOR* Enlarged thoracic aorta (HCC) [I77.89] INVALID FOR* More... Encounter Status:Closed by ASMITA LINTON CMA on 10/21/18 progress on 2018-08 PROGRESS HNO ID: [id number] Normal 09-09-2018 [place] Author: Reymundo Weir [facility] Service: ? [place] Author Type: Physician ([id number]) Type: Progress Notes Filed: 09/09/2018 9:30 AM Note Text: Diagnosis: 1 Hereditary hemochromatosis. HPI: The patient is a 53 yo male who was noted to have an in crease in hepatocellular enzymes. This led to iron testing that reveal ed significant elevation of serum ferritin and serum iron/saturation. 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 Had liver biopsy demonstrating: FINAL DIAGNOSIS Liver, right lobe, biopsy - Moderate periportal hepatocellul ar iron accumulation consistent with clinical history of hereditary hemochromatosis, with superimposed steatohepatitis. - No fibrosis. See comment. COMMENT ERVIN and special stains are examined. The normal lobular he patic architecture is overall preserved and there is no fibrosis e vident on the trichrome stain. The biopsy demonstrates moderate (2+ of 4+) hepatocyte iron accumulation in a predominantly periportal distribution and also in scattered Kupffer cell nodules. The iron stain is confirmato ry. There is also mild, predominantly macrovesicular steatosis involving approximately 20% of the biopsy. There is focal ballooning hepatocyte dege neration. Leida bodies are not identified. There is are scattered fo ci of lobular inflammation and mild, patchy portal inflammatory cell infil trates. The bile ducts appear normal with no duct damage or duct loss. T he portal vasculature is unremarkable. The PAS after diastase is negat paulino for alpha-1 antitrypsin inclusions. The findings are consistent with the clinical history of hereditary hemochromatosis with features of super imposed steatohepatitis. NAFLD Activity Score (ROSLYN): Steatosis: 1 (5-33%) Lobular inflammation (foci per 20x field): 2 (2-4) Hepatocyte balloonin (few) Total Score: _4/8. Stage: 0 (none) Other features: Leida hyaline: Negative Diagnosed with DM about 8 yrs ago. Has two sisters ages 55 and 40s both diagnosed with DM. Current therapy: 1) Phlebotomy. Presents for ongoing hematolotic management. Interim history: He offers no complaints today. No acute illnesses in the las t year. His appetite is normal. No abdominal pain. No right upper quadra nt pain. No episodes of jaundice. Energy level is normal. 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 He has no symptoms of arthr itis. Most recent chemistry panel was in March of this year. Mild inc rease in serum creatinine but otherwise no significant abnormality. PMH, medications and allergies personally reviewed by me petra pollard. Any changes documented in appropriate section. ROS: Constitutional: Denies episodes of fever and night sweats. Neuro: Denies BILLINGSLEY, vertigo and imbalance. No symptoms of neur opathy. HEENT: No recent change in voice, vision or hearing. Resp: Denies cough, wheeze and hemoptysis. No shortness of b reath at rest. No PIMENTEL. CVS: Denies exertional chest pain, PND, orthopnea and LE car ma. GI: Denies reflux, n/v and change in bowel habits. No sympto ms of stomatitis. : No dysuria or gross hematuria. No symptoms of bladder ou tlet obstruction. Endo: No hot flashes. Musculoskeletal: Denies bone, back and muscular pain. Derm: No rash. Heme: See above.. Psych: Normal mood. PHYSICAL EXAM: Vitals: Blood pressure 147/69, pulse 75, temperature 36.6 ?C (97.9 ?F), temperature source Oral, weight 105 kg (231 lb 8 oz). Well-appearing and in no acute distress. EYES: Sclerae are anicteric bilaterally. NECK: Supple. LYMPHATIC: There is no palpable cervical or supraclavicular adenopathy. RESPIRATORY: Inspiratory breath sounds are of normal intensi ty in all smith. No rales, wheezes or rhonchi. Expiratory phase is no rmal. CARDIOVASCULAR: Rhythm is regular. Normal intensity S1/S2. T here is no gallop or murmur. ABDOMEN: The abdomen is nondistended. There is no organomega ly. No tenderness. Extremities: Free of edema. SKIN: No jaundice or rash. No petechiae. NEUROLOGIC: barrel lathe operator inside II-XII are grossly intact. No focal motor we akness. MUSCULOSKELETAL: No joint swelling or tenderness. ASSESSMENT/PLAN: (E83.110) Hereditary hemochromatosis (HCC) (primary encounte r diagnosis) Assessment: -Tolerating phlebotomy very well with no change in energy le tamika. -Has had decrease in ferritin level but still not at goal fo r under 50. Discussed with him we'll increase phlebotomy to every other month. Plan: -Increase frequency of phlebotomy to every other month. -Annual OV with chemistry panel and AFP. Reymundo Weir DO cnovsp on 2018-08-24 7 CNOVSP Visit (SP) [facility] ([facility]MAWS) [facility] [id number] 1965 M [place] Date Time Provider Department ([id number]) 09/09/18 9:10 AM REYMUNDO WEIR During your visit today, we recorded the following informati on about you: Temperature Pulse Blood pressure Weight 97.9 degrees 75/minute 147/69 105 kg Sarah Edgar CHAZ 09/09/2018 9:22 AM Signed Est patient. Discuss recent labs. Sarah Weir DO 09/09/2018 9:30 AM Signed Diagnosis: 1 Hereditary hemochromatosis. HPI: The patient is a 53 yo male who was noted to have an in crease in hepatocellular enzymes. This led to iron testing that reveal ed significant elevation of serum ferritin and serum iron/saturation. Genetic testing revealed homozygous mutation of C282Y. Had liver biopsy demonstrating: FINAL DIAGNOSIS Liver, right lobe, biopsy - Moderate periportal hepatocellul ar iron accumulation consistent with clinical history of hereditary hemochromatosis, with superimposed steatohepatitis. - No fibrosis. See comment. COMMENT ERVIN and special stains are examined. The normal lobular he patic architecture is overall preserved and there is no fibrosis e vident on the trichrome stain. The biopsy demonstrates moderate (2+ of 4+) hepatocyte iron accumulation in a predominantly periportal distribution and also in scattered Kupffer cell nodules. The iron stain is confirmato ry. There is also mild, predominantly macrovesicular steatosis involving approximately 20% of the biopsy. There is focal ballooning hepatocyte dege neration. Leida bodies are not identified. There is are scattered fo ci of lobular inflammation and mild, patchy portal inflammatory cell infil trates. The bile ducts appear normal with no duct damage or duct loss. T he portal vasculature is unremarkable. The PAS after diastase is neg ative for alpha-1 antitrypsin inclusions. The findings are consistent with the clinical history of hereditary hemochromatosis with features of super imposed steatohepatitis. NAFLD Activity Score (ROSLYN): Steatosis: 1 (5-33%) Lobular inflammation (foci per 20x field): 2 (2-4) Hepatocyte balloonin (few) Total Score: _4/8. Stage: 0 (none) Other features: Leida hyaline: Negative Diagnosed with DM about 8 yrs ago. Has two sisters ages 55 and 40s both diagnosed with DM. Current therapy: 1) Phlebotomy. Presents for ongoing hematolotic management. Interim history: He offers no complaints today. No acute illnesses in the t year. His appetite is normal. No abdominal pain. No right upper quadra nt pain. No episodes of jaundice. Energy level is normal. 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 He has no symptoms of art hritis. Most recent chemistry panel was in March of this year. Mild increase in serum cr eatinine but otherwise no significant abnormality. PMH, medications and allergies personally reviewed by me eh contreras. Any changes documented in appropriate section. ROS: Constitutional: Denies episodes of fever and night sweats. Neuro: Denies BILLINGSLEY, vertigo and imbalance. No symptoms of neur opathy. HEENT: No recent change in voice, vision or hearing. Resp: Denies cough, wheeze and hemoptysis. No sh ortness of breath at rest. No PIMENTEL. CVS: Denies exertional chest pain, PND, orthopnea and LE car ma. GI: Denies reflux, n/v and change in bowel habit s. No symptoms of stomatitis. : No dysuria or gross hematuria. No symptoms o f bladder outlet obstruction. Endo: No hot flashes. Musculoskeletal: Denies bone, back and muscular pain. Derm: No rash. Heme: See above.. Psych: Normal mood. PHYSICAL EXAM: Vitals: Blood pressure 147/69, pulse 75, temperature 36.6 ?C (97.9 ?F), temperature source Oral, weight 105 kg (231 lb 8 oz). Well-appearing and in no acute distress. EYES: Sclerae are anicteric bilaterally. NECK: Supple. LYMPHATIC: There is no palpable cervical or supraclavicular adenopathy. RESPIRATORY: Inspiratory breath sounds are of no rmal intensity in all smith. No rales, wheezes or rhonchi. Expiratory phase is normal. CARDIOVASCULAR: Rhythm is regular. Normal intens ity S1/S2. There is no gallop or murmur. ABDOMEN: The abdomen is nondistended. Th ere is no organomegaly. No tenderness. Extremities: Free of edema. SKIN: No jaundice or rash. No petechiae. NEUROLOGIC: barrel lathe operator inside II-XII are grossly intact. No focal motor we akness. MUSCULOSKELETAL: No joint swelling or tenderness. ASSESSMENT/PLAN: (E83.110) Hereditary hemochromatosis (HCC) (primary encounte r diagnosis) Assessment: -Tolerating phlebotomy very well with no change in energy le tamika. -Has had decrease in ferritin level but still not at goal fo r under 50. Discussed with him we'll increase phlebotomy to every other month. Plan: -Increase frequency of phlebotomy to every other month. -Annual OV with chemistry panel and AFP. Reymundo Weir DO Referring Provider: REYMUNDO WEIR [[id number]] Allergies As of Date: 09/09/2018 Noted Allergy Reaction HYDROCODONE-ACETAMINOPHEN 06/08/2014 2 - Rash Date Reviewed: 09/09/2018 Reviewed by: Sarah Edgar LPN - Fully Assessed Reason for Visit: Established Patient [[id number]] Primary Visit Diagnosis:Hereditary hemochromatosis (HCC) [E8 3.110] Follow-up and Disposition History Recorded Prescriptions as of 09/09/2018 Sig: NITROGLYCERIN 0.4 MG SUBLINGU* Dissolve 1 tablet under the t * HYDROCHLOROTHIAZIDE 12.5 MG T* Take 1 tablet by mouth once d * PIOGLITAZONE 15 MG TABLET Take 1 tablet by mouth once d* GLIMEPIRIDE 4 MG TABLET TAKE (1) TABLET BY MOUTH HUI* MONTELUKAST 10 MG TABLET Take 1 tablet by mouth daily * BENZONATATE 100 MG CAPSULE Take 1 capsule by mouth three* SIMVASTATIN 20 MG TABLET TAKE (1) TABLET BY MOUTH AT B* LORATADINE 10 MG TABLET Take 1 tablet by mouth once d* LISINOPRIL 40 MG TABLET Take 0.5 tablets by mouth onc* ISOSORBIDE MONONITRATE ER 30 * Take 1 tablet by mouth once d * ASPIRIN 81 MG TABLET,DELAYED * Take 1 tablet by mouth once d * METFORMIN 1,000 MG TABLET TAKE ONE (1) TABLET BY MOUTH * TIZANIDINE 4 MG TABLET Take 4 mg by mouth daily at b* FREESTYLE LANCETS 28 GAUGE USE TO TEST BLOOD SUGAR ONCE * BLOOD SUGAR DIAGNOSTIC STRIPS Test blood sugar once a day, * ALCOHOL SWABS Use as directed. E11.9 Problem List As Of Date 09/09/2018 Noted Resolved Sprain and strain of unspecified site of knee a*INVALID FOR* Tear of medial cartilage or meniscus of knee, c*INVALID FOR* Hypertriglyceridemia [E78.1] More... Back pain [M54.9] Knee pain, left [M25.562] Hereditary hemochromatosis (HCC) [E83.110] More... Essential hypertension [I10] INVALID FOR* Prostate cancer screening [Z12.5] INVALID FOR* Well adult exam [Z00.00] INVALID FOR* More... Symptomatic varicose veins [I83.899] INVALID FOR* Hematuria [R31.9] INVALID FOR* More... Albuminuria [R80.9] INVALID FOR* Vascular lesion [I99.9] INVALID FOR* Insomnia [G47.00] INVALID FOR* Chronic low back pain without sciatica [M54.5, *INVALID FOR* More... Type 2 diabetes mellitus without complication, *INVALID FOR* PVC (premature ventricular contraction) [I49.3] INVALID FOR* Diabetic eye exam (HCC) [Z01.00, E11.9] INVALID FOR* More... Renal insufficiency [N28.9] INVALID FOR* Enlarged thoracic aorta (HCC) [I77.89] INVALID FOR* More... Visit Notes: >> Sarah Edgar LPN Mon Sep 09, 2018 9:16 AM Status: Victorina d Est patient. Discuss recent labs. Sarah Edgar LPN Encounter Status:Closed by REYMUNDO WEIR DO on 09/09/18 afp on 2018-09-09 AFP <3.0 <11.0 Normal 09-09-2018 [facility] ([id number]) Comment: Result Comment: AFP levels < 11 ng/ml can be found in a variety of conditions, Hepatocellular Carcinoma and Non-seminomatous testicular cancer among others. Correlation with clinical picture and other test results including hist opathology and radiology, where applicable, is recommended. Result rechecked. Performed By: #### AFP #### [facility] Donal de leon [address] [place], [place] [address] cnco on 2018-08-26 CNCO Letter Text [facility] [place] ([id number]) obsolete on 2018-07 OBSOLETE Refill (PULMWS) Normal 08-13-2018 [facility] veland [facility] TED MORENO ([id number]) 1965 [facility] Date Time Provider Department ([id number]) 08/13/18 [facility] During your visit today, we recorded the following informati on about you: Chrissy Palacios LPN 08/13/2018 10:23 AM Signed Patient phones requesting refills as follows: Pending Prescriptions Disp Refills NITROGLYCERIN 0.4 MG SUBLINGUAL TABLET 1 Bottle of 25 3 Sig: Dissolve 1 tablet under the tongue as needed. for chest pain,every 5 min x3 MIRIAN: No Please review and advise. Chrissy Go RN 08/13/2018 10:55 AM Signed The following approved medic ation requests have been transmitted electronically. Signed Prescriptions Disp Refills nitroglycerin sublingual (NITROQUICK) 0.4 mg SL tablet 1 Bot tle of 25 3 Sig: Dissolve 1 tablet under the tongue as needed. for chest pain,every 5 min x3 MIRIAN: No Authorizing Provider: [facility] RN Allergies As of Date: 08/13/2018 Noted Allergy Reaction HYDROCODONE-ACETAMINOPHEN 06/08/2014 2 - Rash Date Reviewed: 06/17/2018 Reviewed by: Yeny Llanos, MANOJ, RN - Fully Assessed Reason for Visit: Refill Request [94] Order(s):nitroglycerin sublingual (NITROQUICK) 0.4 mg SL tab letDissolve 1 tablet under the tongue as needed. for chest pain,every 5 mi n x3Disp: 1 Bottle of 25Rfl: 3 Prescriptions as of 08/13/2018 Sig: NITROGLYCERIN 0.4 MG SUBLINGU* Dissolve 1 tablet under the t * HYDROCHLOROTHIAZIDE 12.5 MG T* Take 1 tablet by mouth once d * PIOGLITAZONE 15 MG TABLET Take 1 tablet by mouth once d* GLIMEPIRIDE 4 MG TABLET TAKE (1) TABLET BY MOUTH HUI* MONTELUKAST 10 MG TABLET Take 1 tablet by mouth daily * BENZONATATE 100 MG CAPSULE Take 1 capsule by mouth three* SIMVASTATIN 20 MG TABLET TAKE (1) TABLET BY MOUTH AT B* LORATADINE 10 MG TABLET Take 1 tablet by mouth once d* LISINOPRIL 40 MG TABLET Take 0.5 tablets by mouth onc* ISOSORBIDE MONONITRATE ER 30 * Take 1 tablet by mouth once d * FREESTYLE LANCETS 28 GAUGE USE TO TEST BLOOD SUGAR ONCE * ASPIRIN 81 MG TABLET,DELAYED * Take 1 tablet by mouth once d * BLOOD SUGAR DIAGNOSTIC STRIPS Test blood sugar once a day, * METFORMIN 1,000 MG TABLET TAKE ONE (1) TABLET BY MOUTH * TIZANIDINE 4 MG TABLET Take 4 mg by mouth daily at b* ALCOHOL SWABS Use as directed. E11.9 Problem List As Of Date 08/13/2018 Noted Resolved Sprain and strain of unspecified site of knee a*INVALID FOR* Tear of medial cartilage or meniscus of knee, c*INVALID FOR* Hypertriglyceridemia [E78.1] More... Back pain [M54.9] Knee pain, left [M25.562] Hereditary hemochromatosis (HCC) [E83.110] More... Essential hypertension [I10] INVALID FOR* Prostate cancer screening [Z12.5] INVALID FOR* Well adult exam [Z00.00] INVALID FOR* More... Symptomatic varicose veins [I83.899] INVALID FOR* Hematuria [R31.9] INVALID FOR* More... Albuminuria [R80.9] INVALID FOR* Vascular lesion [I99.9] INVALID FOR* Insomnia [G47.00] INVALID FOR* Chronic low back pain without sciatica [M54.5, *INVALID FOR* More... Type 2 diabetes mellitus without complication, *INVALID FOR* PVC (premature ventricular contraction) [I49.3] INVALID FOR* Diabetic eye exam (HCC) [Z01.00, E11.9] INVALID FOR* More... Renal insufficiency [N28.9] INVALID FOR* Enlarged thoracic aorta (HCC) [I77.89] INVALID FOR* More... Prescriptions ordered this encounter Disp Refills Start End NITROGLYCERIN 0.4 MG SUBLINGUAL TABL* 1 Ryan* 3 08/13/2018 Route: SUBLINGUAL Sig: Dissolve 1 tablet under the tongue as neede d. for chest pain,every 5 min x3 Medications Discontinued During This Encounter nitroglycerin sublingual (NITROQUICK* 1 Ryan* 3 10/11/201708/13 Route: SUBLINGUAL Sig: Dissolve 1 tablet under the tongue as needed. for chest pain,every 5 min x3 Disc: Reason for discontinue is not on file. Encounter Status:Closed by BE GO RN on 08/13/18 obsolete on 2018-07 OBSOLETE Refill (FAMPWS) Normal 08-08-[id number] 1965 [facility] Date Time Provider Department ([id number]) 08/08/18 CLOVIS DE LA GARZA FAMPWS During your visit today, we recorded the following informati on about you: Fatimah Cabrera Ma 08/08/2018 1:51 PM Signed Patient has been identified by name and date of : Yes Pending Prescriptions Disp Refills HYDROCHLOROTHIAZIDE 12.5 MG TABLET 90 tablet 3 Sig: Take 1 tablet by mouth once daily. MIRIAN: No RX INSTRUCTIONS: Patient aware RX will be sent to pharmacy. No need to notify patient. Fatimah Cabrera Ma Last ov; 03/2018 Last refill: 07/2017 90 tablets 3 refill Nov: 08/2018 Ina Rosa APRN.[facility] RN 08/08/2018 2:08 PM Signed The following approved medic ation requests have been transmitted electronically. Signed Prescriptions Disp Refills hydroCHLOROthiazide (HYDRODIURIL, ESIDRIX) 12.5 mg tablet 90 tablet 0 Sig: Take 1 tablet by mouth once daily. MIRIAN: No Authorizing Provider: CLOVIS DE LA GARZA Ordering User: INA ROSA APRN.CNP Allergies As of Date: 08/08/2018 Noted Allergy Reaction HYDROCODONE-ACETAMINOPHEN 06/08/2014 2 - Rash Date Reviewed: 06/17/2018 Reviewed by: Yeny Llanos, RN, RN - Fully Assessed Reason for Visit: Refill Request [94] Order(s):hydroCHLOROthiazide (HYDRODIURIL, ESIDRIX) 12.5 mg tabletTake 1 tablet by mouth once daily.Disp: 90 tabletRfl: 0 Prescriptions as of 08/08/2018 Sig: HYDROCHLOROTHIAZIDE 12.5 MG T* Take 1 tablet by mouth once d * GLIMEPIRIDE 4 MG TABLET TAKE (1) TABLET BY MOUTH HUI* MONTELUKAST 10 MG TABLET Take 1 tablet by mouth daily * BENZONATATE 100 MG CAPSULE Take 1 capsule by mouth three* SIMVASTATIN 20 MG TABLET TAKE (1) TABLET BY MOUTH AT B* LORATADINE 10 MG TABLET Take 1 tablet by mouth once d* LISINOPRIL 40 MG TABLET Take 0.5 tablets by mouth onc* ISOSORBIDE MONONITRATE ER 30 * Take 1 tablet by mouth once d * FREESTYLE LANCETS 28 GAUGE USE TO TEST BLOOD SUGAR ONCE * ASPIRIN 81 MG TABLET,DELAYED * Take 1 tablet by mouth once d * NITROGLYCERIN 0.4 MG SUBLINGU* Dissolve 1 tablet under the t * BLOOD SUGAR DIAGNOSTIC STRIPS Test blood sugar once a day, * PIOGLITAZONE 15 MG TABLET TAKE 1 TABLET BY MOUTH ONCE D* METFORMIN 1,000 MG TABLET TAKE ONE (1) TABLET BY MOUTH * TIZANIDINE 4 MG TABLET Take 4 mg by mouth daily at b* ALCOHOL SWABS Use as directed. E11.9 Problem List As Of Date 08/08/2018 Noted Resolved Sprain and strain of unspecified site of knee a*INVALID FOR* Tear of medial cartilage or meniscus of knee, c*INVALID FOR* Hypertriglyceridemia [E78.1] More... Back pain [M54.9] Knee pain, left [M25.562] Hereditary hemochromatosis (HCC) [E83.110] More... Essential hypertension [I10] INVALID FOR* Prostate cancer screening [Z12.5] INVALID FOR* Well adult exam [Z00.00] INVALID FOR* More... Symptomatic varicose veins [I83.899] INVALID FOR* Hematuria [R31.9] INVALID FOR* More... Albuminuria [R80.9] INVALID FOR* Vascular lesion [I99.9] INVALID FOR* Insomnia [G47.00] INVALID FOR* Chronic low back pain without sciatica [M54.5, *INVALID FOR* More... Type 2 diabetes mellitus without complication, *INVALID FOR* PVC (premature ventricular contraction) [I49.3] INVALID FOR* Diabetic eye exam (HCC) [Z01.00, E11.9] INVALID FOR* More... Renal insufficiency [N28.9] INVALID FOR* Enlarged thoracic aorta (HCC) [I77.89] INVALID FOR* More... Prescriptions ordered this encounter Disp Refills Start End HYDROCHLOROTHIAZIDE 12.5 MG TABLET 90 t* 0 08/08/2018 Route: ORAL Sig: Take 1 tablet by mouth once daily. Medications Discontinued During This Encounter hydroCHLOROthiazide (HYDRODIURIL, ES* 90 t* 3 08/06/201708/08 Sig: TAKE 1 TABLET BY MOUTH ONCE DAILY Disc: Reason for discontinue is not on file. Encounter Status:Closed by MARY CABRERA LPN on 08/08/18 OBSOLETE Refill (FAMPWS) Normal 08-08-2018 [facility] TED Conteh ([id number]) 1965 [facility] Date Time Provider Department ([id number]) 08/08/18 CLOVIS DE LA GARZA FAMPNATALIE During your visit today, we recorded the following informati on about you: Fatimah Cabrera Ma 08/08/2018 2:47 PM Signed Patient has been identified by name and date of : Yes Pending Prescriptions Disp Refills PIOGLITAZONE 15 MG TABLET 90 tablet 3 Sig: Take 1 tablet by mouth once daily. MIRIAN: No RX INSTRUCTIONS: Patient aware RX will be sent to pharmacy. No need to notify patient. Fatimah Cabrera Ma Last ov: 03/2018 Last refill: 07/2017 Nov: 08/2018 Clovis De La Garza MD 08/08/2018 4:31 PM Signed The following approved medic ation requests have been transmitted electronically. Signed Prescriptions Disp Refills pioglitazone (ACTOS) 15 mg tablet 90 tablet 1 Sig: Take 1 tablet by mouth once daily. MIRIAN: No Authorizing Provider: CLOVIS DE LA GARZA MD Allergies As of Date: 08/08/2018 Noted Allergy Reaction HYDROCODONE-ACETAMINOPHEN 06/08/2014 2 - Rash Date Reviewed: 06/17/2018 Reviewed by: Yeny Llanos, RN, RN - Fully Assessed Reason for Visit: Refill Request [94] Order(s):pioglitazone (ACTOS) 15 mg tabletTake 1 tablet by [facility] once daily.Disp: 90 tabletRfl: 1 Prescriptions as of 08/08/2018 Sig: HYDROCHLOROTHIAZIDE 12.5 MG T* Take 1 tablet by mouth once d * PIOGLITAZONE 15 MG TABLET Take 1 tablet by mouth once d* GLIMEPIRIDE 4 MG TABLET TAKE (1) TABLET BY MOUTH HUI* MONTELUKAST 10 MG TABLET Take 1 tablet by mouth daily * BENZONATATE 100 MG CAPSULE Take 1 capsule by mouth three* SIMVASTATIN 20 MG TABLET TAKE (1) TABLET BY MOUTH AT B* LORATADINE 10 MG TABLET Take 1 tablet by mouth once d* LISINOPRIL 40 MG TABLET Take 0.5 tablets by mouth onc* ISOSORBIDE MONONITRATE ER 30 * Take 1 tablet by mouth once d * FREESTYLE LANCETS 28 GAUGE USE TO TEST BLOOD SUGAR ONCE * ASPIRIN 81 MG TABLET,DELAYED * Take 1 tablet by mouth once d * NITROGLYCERIN 0.4 MG SUBLINGU* Dissolve 1 tablet under the t * BLOOD SUGAR DIAGNOSTIC STRIPS Test blood sugar once a day, * METFORMIN 1,000 MG TABLET TAKE ONE (1) TABLET BY MOUTH * TIZANIDINE 4 MG TABLET Take 4 mg by mouth daily at b* ALCOHOL SWABS Use as directed. E11.9 Problem List As Of Date 08/08/2018 Noted Resolved Sprain and strain of unspecified site of knee a*INVALID FOR* Tear of medial cartilage or meniscus of knee, c*INVALID FOR* Hypertriglyceridemia [E78.1] More... Back pain [M54.9] Knee pain, left [M25.562] Hereditary hemochromatosis (HCC) [E83.110] More... Essential hypertension [I10] INVALID FOR* Prostate cancer screening [Z12.5] INVALID FOR* Well adult exam [Z00.00] INVALID FOR* More... Symptomatic varicose veins [I83.899] INVALID FOR* Hematuria [R31.9] INVALID FOR* More... Albuminuria [R80.9] INVALID FOR* Vascular lesion [I99.9] INVALID FOR* Insomnia [G47.00] INVALID FOR* Chronic low back pain without sciatica [M54.5, *INVALID FOR* More... Type 2 diabetes mellitus without complication, *INVALID FOR* PVC (premature ventricular contraction) [I49.3] INVALID FOR* Diabetic eye exam (HCC) [Z01.00, E11.9] INVALID FOR* More... Renal insufficiency [N28.9] INVALID FOR* Enlarged thoracic aorta (HCC) [I77.89] INVALID FOR* More... Prescriptions ordered this encounter Disp Refills Start End PIOGLITAZONE 15 MG TABLET 90 t* 1 08/08/2018 Route: ORAL Sig: Take 1 tablet by mouth once daily. Medications Discontinued During This Encounter pioglitazone (ACTOS) 15 mg tablet 90 t* 3 08/06/2017 9 Sig: TAKE 1 TABLET BY MOUTH ONCE DAILY Disc: Reason for discontinue is not on file. Encounter Status:Closed by CLOVIS DE LA GARZA on 08/08/18 patient summary documents on 2017-04-22 Patient Summary Documents Normal 03-27 [facility] ([place]) ([id number]) [place] [facility] note on 2017-04-22 [place] [facility] Note Normal 0 04-22-2017 [facility] ([place]) ([id number]) Encounters Date Type Reason Provider Location 08-27-2017 Ambulatory [facility] Cl[facility] Paris[facility] 04-22-2017 - Emergency department [facility] Patrick Kessler ty:B 04-22-2017 patient visit CLOVIS DE LA GARZA Payers Payer Name Policy Number Location [employer] [id number] [facility] ([id number]) The following information is from the original human readable contentNo Payer Records FoundNo Payer Records FoundNo Payer Records Found Summary Purpose Family History No Family History Records FoundNo Family History Records FoundNo Family History Records FoundNo Family History Records Found Advance Directives No Advanced Directives Records FoundNo Advanced Directives Records FoundNo Advanced Directives Records FoundNo Advanced Directives Records Found Additional Source Comments FOR RECORDS PERTAINING TO PATIENTS WHO ARE OR HAVE BEEN ENROLLED IN A CHEMICAL DEPENDENCY/SUBSTANCE ABUSE PROGRAM, SOME INFORMATION MAY BE OMITTED. This clinical summary was aggregated from multiple sources. Caution should be exercised in using it in the provision of clinical care. This summary normalizes information from multiple sources, and as a consequence, information in this document may materially changethe coding, format and clinical context of patient data. In addition, data may be omittedin some cases. CLINICAL DECISIONS SHOULD BE BASED ON THE PRIMARY CLINICAL RECORDS. [employer] [facility] provides no warranty or guarantee of the accuracy or completeness of information in this document. UNRECOGNIZED CONTENT PROVIDED BELOW FOR UNRECOGNIZED SECTION No Status Records FoundNo Status Records FoundNo Status Records FoundNo Status Records Found UNRECOGNIZED CONTENT PROVIDED BELOW FOR UNRECOGNIZED SECTION INFORMATION SOURCE DATE CREATED AUTHOR AUTHOR'S ORGANIZATIO N 09/13/2017 [facility] DATE CREATED AUTHOR AUTHOR'S ORGANIZATIO N 09/17/2017 [facility] DATE CREATED AUTHOR AUTHOR'S ORGANIZATIO N 11/21/2018 [facility] DATE CREATED AUTHOR AUTHOR'S ORGANIZATIO N 08/08/2019 [facility]
== END ==
LOC: PSN 07:50
PROVIDERS: Referring Provider Internal Medicine Critical Care Medicine; Visit Provider Internal Medicine Critical Care Medicine
DX: R06.00 Dyspnea, unspecified (principal)
CPT/HCPCS: 94060; 94726; 94729

== ENCOUNTER 2020-05-02 04:57 | Inpatient (IN) | payer OTHER, SELFPAY ==
[2020-01-20 09:00] VITALS: BMI 28.0
[2020-05-02] VITALS (15 sets, daily range): BP systolic 103–201; BP diastolic 65–98; PULSE 57–99; RESP 14–23; TEMP 36.3–36.9; O2SAT 95–100; BMI 25.0
--- NOTE | 2020-05-02 05:03 | ED.DCSUM_ITS ---
- ER Visit Summary Date of Service: 05/02/20 Chief Complaint: Nausea, fatigue History of Present Illness: The patient is a 55 M who presents with nausea as well as fatigue. She has been nauseous for the past few days. He has been to the bathroom and had some dry heaves and vomited some mucus. He denies any abdominal pain with this. No diarrhea, constipation. Denies any urinary symptoms. No fevers. He woke up this morning with a bad taste in his mouth. He states it feels dry. She had a decreased appetite secondary to the above symptoms. He has never had any abdominal surgeries before. He denies any burning in his chest. No other chest pains. He states he just feels fatigued. Physical Examination: Vital signs reviewed. HEENT exam unremarkable. Heart is regular rate and rhythm without murmurs. Lungs are clear to auscultation. Abdomen is soft and nontender. Extremities reveal no edema. Skin exam normal. Neurologic exam normal. Test Results: CBC unremarkable. Chemistry shows a sodium of 118, potassium of 5.6, chloride of 86. His blood sodium is 918, BUN of 35 creatinine 2.77. EKG is sinus rhythm with no acute changes. Emergency Department Course and Treatment: Patient was given IV fluids as well as IV Zofran. Once his laboratory studies returned I elected to place him on insulin drip due to his electrolyte abnormalities and hyperglycemia. Patient will be admitted to the ICU for HHS. Treatment Plan: [] Disposition: Admit Impression: HHS, JAROD, hyponatremia This note was generated with [employer] dictation software. It may contain incorrect words, spelling, and punctuation that were not noted in review of the chart prior to signing ED Disposition - Plan for ED Patient: [facility] -
--- NOTE | 2020-05-02 05:03 | EKG12_ITS ---
Test Reason : ABD PAIN Blood Pressure : / mmHG Vent. Rate : 087 BPM Atrial Rate : 087 BPM P-R Int : 194 ms QRS Dur : 080 ms QT Int : 338 ms P-R-T Axes : 023 043 019 degrees QTc Int : 406 ms Normal sinus rhythm Normal ECG Confirmed by GONZALEZ LOVE, RADHA ([id number]), editorial project manager KAILA JI ([id number]) on 05/04/2020 8:21:50 AM Referred By: SARAY Confirmed By:RADHA ROTH MD
[2020-05-02] MEDS: 0.9% Normal Saline 1,000 ML 1000 ML IV (05:10)
[2020-05-02] MEDS: Ondansetron 4 MG/2 ML Vial IV (05:11)
[2020-05-02 05:16] LABS: Absolute Lymphocyte Count 1.03 X10^3/uL (0.83-4.51); Absolute Neutrophil Count 6.6 X10^3/uL (2.0-7.7); Basophil# 0.06 X10^3/uL; Basophil% 0.7 % (0-1); Eosinophil# 0.13 X10^3/uL; Eosinophils% 1.5 % (0-5); Hematocrit 38.7 % (40-54); Hemoglobin 13.4 g/dL (13.0-16.5); Lymphocyte # 1.03 X10^3/ul (4.0); Lymphocyte % 12.1 % (19-41); Mean Corp Hgb Conc 34.6 g/dL (32-36); Mean Corpuscular Hgb 29.6 pg (27.0-32.0); Mean Corpuscular Volume 85.4 fL (80-94); Monocyte# 0.68 X10^3/uL; NRBC Flagged by Analyzer 0 % (0-5); Neutrophil % 77.5 % (47-70); Platelet Count 333 K/mm3 (150-450); RBC Distribution Width CV 11.2 % (11.6-14.6); RBC Distribution Width SD 34.6 fl (35.1-43.9); Red Blood Count 4.53 M/mm3 (4.6-6.2); White Blood Count 8.5 K/mm3 (4.4-11.0)
[2020-05-02 05:52] LABS: AST(SGOT) 13 U/L (15-37); Alanine Aminotransfer ALT/SGPT 29 U/L (16-61); Albumin, Serum 4.1 g/dL (3.2-5.0); Alkaline Phosphatase 185 U/L (45-117); Anion Gap 7 (5-15); BUN 35 mg/dL (7-18); BUN/Creat Ratio 12.6 RATIO (10-20); Bilirubin, Direct 0.11 mg/dL (0.00-0.30); Calcium,Total 9.2 mg/dL (8.5-10.1); Chloride 86 mmol/L (98-107); Creatinine, Serum 2.77 mg/dL (0.70-1.30); EST Glomerular Filtration Rate 25 mL/min (>60); Est Glom Filt Rate - Afr Amer 31 mL/min (>60); Estimated Creatinine Clearance 33.65 ml/min; Globulin 4.5 g/dL (2.2-4.2); Glucose 918 mg/dL (74-106); Lipase 580 U/L (73-393); Potassium 5.6 mmol/L (3.5-5.1); Protein, Total 8.6 g/dL (6.4-8.2); Sodium Level 118 mmol/L (136-145)
[2020-05-02 06:06] LABS: Bedside Glucose > 500 mg/dL (70-110)
[2020-05-02 06:11] LABS: Bacteria 0 SEEN /hpf (None Seen); Mucous, Urine 0 SEEN /hpf (<or=2+); Red Blood Cells-Urine 0 SEEN /hpf (0-5); Squamous Epithelial Cells - UA 0 SEEN /hpf (0-5); White Blood Cells 0 SEEN /hpf (0-5)
[2020-05-02 06:19] LABS: Color, Urine Straw (Yellow); Glucose, Dipstick 1000 mg/dl (Normal); Ketone-Dipstick Negative (Negative); Leukocyte Esterase-Dipstick Negative /ul (Negative); Nitrite-Dipstick Negative (Negative); Occult Blood-Urine 50 /ul (Negative); Protein-Dipstick 15 mg/dl (Negative); Urine Bilirubin Dipstick Negative (Negative); Urine Clarity Clear (Clear); Urine Urobilinogen Normal (Normal)
[2020-05-02] MEDS: 0.9% Normal Saline 1,000 ML 999 ML IV (06:35)
--- NOTE | 2020-05-02 06:36 | HP.PCM_ITS ---
Problem List (1) Hyperosmolar hyperglycemic state (HHS) Status: Acute (2) History of coronary artery stent placement Status: Chronic Comment: LLV-[id number] w/ 2.25 x 12 mm Synergy Stent 12/22/2019 (3) Atherosclerotic heart disease of [place] coronary artery with other forms of angina pectoris Status: Chronic (4) Essential (primary) hypertension Status: Chronic (5) HLD (hyperlipidemia) Status: Chronic Qualifiers: Hyperlipidemia type: unspecified Qualified Code(s): E78.5 - Hyperlipidemia, unspecified (6) Abnormal Screening Computed Tomography (CT) of Chest Status: Chronic (7) Lung nodule Status: Chronic (8) Rectal bleeding Status: Inactive History of Present Illness Date of Admission: 05/02/20 Chief Complaint: Fatigue. The patient is a 55 year old M with a significant history of hypertension diabetes mellitus; CAD status post stent who presents emergency department with a 3 to 4-day history of fatigue. Patient was so fatigued that his colleagues at work thought he was going to pass out. 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 Associated with symptom is dysgeusia; anorexia; and nausea. He has had some vomiting but not profuse. Further, he reports polyuria and polydipsia. He is on home insulin as well as oral hypoglycemic medication. He report at times he forgets to take his medication. Last time he took his insulin was about 4 days ago. However he has taking his other oral hypoglycemic medication within the last 24 hours. At the Emergency department found to have severely elevated creatinine and severe elevated blood glucose. Past Medical History Past Medical History (Chronic Problems): Chronic Problems (Last Reviewed 05/02/20 @ 06:[address] Jimmie Malave MD) History of coronary artery stent placement (Chronic 12/22/19) [id number] w/ 2.25 x 12 mm Synergy Stent 12/22/2019 Atherosclerotic heart disease of [place] coronary artery with other forms of angina pectoris (Chronic) Essential (primary) hypertension (Chronic) HLD (hyperlipidemia) (Chronic) Abnormal Screening Computed Tomography (CT) of Chest (Chronic) Lung nodule (Chronic) Medical History: Medical History (Last Reviewed 05/02/20 @ 06:[address] Jimmie Malave MD) Atherosclerotic heart disease of [place] coronary artery with other forms of angina pectoris (Chronic) I25.118 Essential (primary) hypertension (Chronic) I10 HLD (hyperlipidemia) (Chronic) E78.5 Abnormal Screening Computed Tomography (CT) of Chest (Chronic) R93.89 Lung nodule (Chronic) R91.1 Rectal bleeding (Inactive) K62.5 Anemia, unspecified D64.9 Diabetes mellitus, type II E11.9 Sepsis A41.9 Strep pharyngitis J02.0 Pneumonia (Ruled-out) J18.9 Suspected 2019 novel coronavirus infection R68.89 Allergies acetaminophen [From Vicodin] Adverse Reaction (Verified 05/02/20 05:01) Other hydrocodone [From Vicodin] Adverse Reaction (Verified 05/02/20 05:01) Other Home Medications: Ambulatory Orders Medication Instructions Recorded Aspirin [Aspir 81] 81 mg PO DAILY 03/16/19 Hydrochlorothiazide 12.5 mg PO DAILY 03/16/19 Isosorbide Mononitrate [Isosorbide 30 mg PO DAILY 03/16/19 Mononitrate ER] Nitroglycerin 0.4 mg SUBLINGUAL PRN PRN 03/16/19 Metformin HCl 1,000 mg PO BID #60 tab 07/05/19 insulin glargine 100 unit/mL (3 20 unit SC QHS ml 10/27/19 mL) subcutaneous pen atorvastatin 20 mg tablet 20 mg PO QHS 11/26/19 glimepiride 4 mg tablet 4 mg PO DAILY 11/26/19 lisinopril 40 mg tablet 40 mg PO DAILY #90 tab 11/26/19 carvedilol 3.125 mg tablet 3.125 mg PO BID #60 tab 01/20/20 clopidogrel 75 mg tablet 75 mg PO DAILY #90 tab 03/09/20 Surgical History: Surgical History (Last Reviewed 05/02/20 @ 06:[address] Jimmie Malave MD) History of coronary artery stent placement (Chronic) Onset Date: 12/22/19 Z95.5 QNC-HLH-NPPV w/ 2.25 x 12 mm Synergy Stent 12/22/2019 H/O knee surgery Z98.890 History of colonoscopy Z98.890 Surgical History: - - Left knee surgery x3 following trauma. Cardiac accident Psychiatric History: Anxiety, Depression Smoking Status: Never smoker - *Family History Maternal Family History: Family History (Last Reviewed 05/02/20 @ 06:[address] Jimmie Malave MD) Mother Heart disease Diabetes Alzheimer disease Father Heart disease Sister Diabetes Heart disease Myocardial infarction History Items: - - Patient notes a maternal family history of heart disease, hypertension, diabetes mellitus type 2. Paternal Family History: Family History (Last Reviewed 05/02/20 @ 06:[address] Jimmie Malave MD) Mother Heart disease Diabetes Alzheimer disease Father Heart disease Sister Diabetes Heart disease Myocardial infarction History Items: Heart Disease Review of Systems Constitutional: Reports: Anorexia, Malaise, Weakness, Weight Change - Report weight loss, Fatigue. Denies: Chills, Fever HEENT: Denies: Head Aches, Sinus Congestion, Sinus Drainage Cardiovascular: Denies: Chest Pain, Palpitations Respiratory: Denies: Cough, Shortness of breath at rest, Sputum production Gastrointestinal: Reports: Nausea, Vomiting. Denies: Abdominal Pain Genitourinary: Denies: Dysuria Musculoskeletal: Denies: Joint Pain, Joint Tenderness Skin: Denies: Rash, Wounds Neurological: Denies: Numbness, Tingling, Focal weakness Psychiatric: Denies: Anxiety, Depression, Homicidal Ideations, Suicidal Ideations Endocrine: Reports: Polydipsia, Polyuria Hematologic/ Lymphatic: Denies: Easy Bruising, Easy Bleeding VTE Information - Inpt Only VTE Present on Admission: No VTE Mechan Device Prophylaxis: None VTE Pharm Prophylaxis ordered?: Yes Patient Problems: Active and Suspected Problems (Last Reviewed 05/02/20 @ 06:[address] Jimmie Malave MD) Hyperosmolar hyperglycemic state (HHS) (Acute) - Physical Exam Vitals/I&O's: Vital Signs Temp Pulse Resp BP Pulse Ox 98.0 F 87 20 H 168/91 H 98 05/02/20 06:18 05/02/20 06:18 05/02/20 06:18 05/02/20 06:18 05/02/20 06:18 Oxygen Delivery Method Room Air Weight: 86 kg Body Mass Index (BMI) 25.0 Intake and Output for Last 24 Hours 04/30/20 05/01/20 05/02/20 23:59 23:59 23:59 Intake Total 1000 / 1000 Balance 1000 / 1000 General: Alert, Oriented x3, Cooperative HEENT: Atraumatic, PERRLA, EOMI, Normocephalic Neck: Supple, No JVD, Negative Carotid Bruits Lungs: Clear to auscultation, Normal air movement Cardiovascular: Regular rate, Normal S1, Normal S2, No murmurs Abdomen: Bowel Sounds Present, Soft, Non Tender Extremities: No edema, Capillary Refill Less than 3 Seconds Skin: No rashes, No breakdown Musculoskeletal: No Tenderness to Palpation of Joints or Extremities Neurological: Cranial nerves II-XII grossly intact Psych/Mental Status: Normal Affect, Appropriate Laboratory Results 05/02/20 05:08: WBC 8.5, RBC 4.53 L, Hgb 13.4, Hct 38.7 L, MCV 85.4, MCH 29.6, MCHC 34.6, RDW Std Deviation 34.6 L, RDW Coeff of Gustavo 11.2 L, Plt Count 333, MPV 10.0, Immature Gran % (Auto) 0.200, Neut % (Auto) 77.5 H, Lymph % (Auto) 12.1 L, [place] % (Auto) 8.0, Eos % (Auto) 1.5, Baso % (Auto) 0.7, Absolute Neuts (auto) 6.6, Absolute Lymphs (auto) 1.03, Nucleated RBC % 0 05/02/20 05:08: Sodium 118 L*, Potassium 5.6 H, Chloride 86 L, Carbon Dioxide 25.0, Anion Gap 7, BUN 35 H, Creatinine 2.77 H, Estim Creat Clear Calc 33.65, Est GFR (MDRD) Af Amer 31 L, Est GFR (MDRD) Non-Af 25 L, BUN/Creatinine Ratio 12.6, Glucose 918 H*, Calcium 9.2, Total Bilirubin 0.30, Direct Bilirubin 0.11, AST 13 L, ALT 29, Alkaline Phosphatase 185 H, Total Protein 8.6 H, Albumin 4.1, Globulin 4.5 H, Lipase 580 H 05/02/20 05:08: Acetone Level NEGATIVE 05/02/20 05:08: Troponin I Pending 05/02/20 05:58: POC Glucose > 500 H* 05/02/20 06:05: Urine Color Straw, Urine Clarity Clear, Urine pH 6.0, Ur Specific [place] 1.010, Urine Protein 15 H, Urine Glucose (UA) 1000 H, Urine Ketones Negative, Urine Occult Blood 50 H, Urine Nitrite Negative, Urine Bilirubin Negative, Urine Urobilinogen Normal, Ur Leukocyte Esterase Negative, Urine RBC 0 SEEN, Urine WBC 0 SEEN, Ur Squamous Epith Cells 0 SEEN, Urine Bacteria 0 SEEN, Urine Mucus 0 SEEN Current Medications Dextrose (Dextrose 50%-Water 25 Gm/50 Ml Disp.Syrin) 0 gm IV X1 PRN; Protocol PRN Reason: Hypoglycemia Protocol Insulin Human Lispro 100 unit/ (Sodium Chloride) 100 mls @ 8.6 mls/hr CONT INF .[id number] [facility]; Protocol Last Admin: 05/02/20 06:22 Dose: 0.1 units/kg/hr, 8.6 mls/hr Documented by: Sodium Chloride () 1,000 mls @ 999 mls/hr IV .Q1H1M ONE Stop: 05/02/20 07:34 Last Admin: 05/02/20 06:35 Dose: 999 mls/hr Documented by: Assessment/Plan All Active Problems (Last Reviewed 05/02/20 @ 06:[address] Jimmie Malave MD) Hyperosmolar hyperglycemic state (HHS) (Acute) Dyspnea (Resolved) Pneumonia (Ruled-out) The patient is a 55 year old M with a significant history of hypertension diabetes mellitus; CAD status post stent who presents emergency department with a 3 to 4-day history of fatigue; dysgeusia; anorexia; nausea; vomiting; polyuria; polydipsia; with severe elevated blood glucose; severe elevated creatinine and tall peaked T waves in the setting of hyperkalemia. Hyperosmolar hyperglycemic state There is barrier to care in terms of patient occasionally forgetting his medications with last time taking insulin about 4 days ago. Serum glucose 918 acetone level: Negative Acute bicarbonate of 25. Anion gap of 7. Sodium 118, Corrected sodium 131 Insulin drip started from emergency department; continue Normal saline bolus ordered at emergency department. After bolus is completed continue patient on normal saline to 50 mL/h. Because of potassium of 5.6 will not start any protein supplementation at this time. ICU electrolyte protocol with potassium ordered. BMP every 4 hours ordered N.p.o. for now except meds of sips. Admitted to ICU Hold home oral hypoglycemic regimen and Lantus insulin A1c ordered JAROD Creatinine presentation was 2.77 Review of old record shows a creatinine baseline around 1.18. BUN is 35 days the highest BUN on file so far. BUN over creatinine is 12.6. Likely prerenal entry into intrinsic renal. Like secondary to dehydration from osmotic diuresis. Avoid nephrotoxic's. Hold home lisinopril and hydrochlorothiazide. Hyperkalemia Likely secondary to extracellular shift of potassium. With insulin drip anticipate potassium level will correct. Indeed placed on letter protocol with potassium supplementation if necessary. CAD status post stent Aspirin and Plavix continued Carvedilol continued Statin continued Hypertension Blood pressure is now within goal Isosorbide mononitrate continued Carvedilol continued Hydrochlorothiazide and lisinopril held secondary to JAROD. DVT prophylaxis Subcutaneous Lovenox Inpatient E&M: 06236 Init Hosp L3
[2020-05-02 08:01] LABS: Osmolality, Serum 318 mOsm/KG (275-295)
[2020-05-02 08:04] LABS: Hemoglobin A1c 13.8 % (3.8-5.6)
[2020-05-02 08:06] LABS: Bedside Glucose > 500 mg/dL (70-110)
[2020-05-02] MEDS: 0.9% Normal Saline 1,000 ML 250 ML IV (08:47)
[2020-05-02 08:50] LABS: Bedside Glucose 372 mg/dL (70-110)
[2020-05-02 09:56] LABS: Bedside Glucose 330 mg/dL (70-110)
[2020-05-02] MEDS: 0.9% Saline Lock 10 ML Syringe IV ×2 (10:57→14:04)
[2020-05-02] MEDS: Carvedilol 3.125 MG TABLET PO ×2 (10:58→17:25)
[2020-05-02] MEDS: Aspirin E.C. 81 MG Tablet PO (10:58)
[2020-05-02] MEDS: Isosorbide Mononitrate 30 MG Tablet PO (10:59)
[2020-05-02] MEDS: Clopidogrel Bisulfate 75 MG Tablet PO (10:59)
[2020-05-02] MEDS: Enoxaparin 40 MG/0.4 ML Syringe SC (10:59)
[2020-05-02 11:11] LABS: Bedside Glucose 306 mg/dL (70-110)
[2020-05-02 11:19] LABS: Anion Gap 5 (5-15); BUN 29 mg/dL (7-18); Chloride 102 mmol/L (98-107); Creatinine, Serum 2.07 mg/dL (0.70-1.30); EST Glomerular Filtration Rate 36 mL/min (>60); Est Glom Filt Rate - Afr Amer 43 mL/min (>60); Estimated Creatinine Clearance 45.03 ml/min; Glucose 287 mg/dL (74-106); Potassium 4.1 mmol/L (3.5-5.1); Sodium Level 133 mmol/L (136-145)
--- NOTE | 2020-05-02 12:04 | PCM.HOSP.N ---
Hospitalist Note Patient feeling much better at this time. Blood sugars have steadily improved with insulin drip. Patient does endorse that he occasionally misses his insulin until the nurse that he thinks he remembers take his Metformin but cannot member if he takes his insulin. Physical exam, patient is no acute distress and afebrile. Heart rate regular rate and rhythm plus S1-S2 without murmurs Or rubs. Lungs are clear to auscultation bilaterally. Abdomen is soft nontender nondistended normal bowel sounds with no hepatomegaly. Assessment and plan 1. Hyperosmolar hyperglycemic state: Secondary to noncompliance with diabetes medications. Patient's hemoglobin A1c is 13.8 is the patient is obviously very poorly controlled. Patient blood sugars have improved nicely with insulin drip. We will transition the patient over to scheduled insulin. Since patient takes insulin glargine at night will give the patient a dose of NPH this afternoon. Additionally, placed patient on prandial insulin at 6 units with meals and sliding scale. Patient will be transferred out of the ICU. Patient can start diet. 2. Acute kidney injury: Likely prerenal due to dehydration from above. Improving with IV fluids. We will continue with IV fluids. 3. Hyponatremia: Pseudohyponatremia due to uncontrolled blood sugars. Improving. Procedures: Other Procedure - See Report - Nonbillable rounding as patient was admitted after midnight.
[2020-05-02 12:21] LABS: Bedside Glucose 233 mg/dL (70-110)
[2020-05-02 13:05] LABS: Bedside Glucose 249 mg/dL (70-110)
[2020-05-02 14:01] LABS: Bedside Glucose 226 mg/dL (70-110)
[2020-05-02] MEDS: Insulin NPH Human 100 UNITS/ML PEN 15 UNITS SC (14:04)
[2020-05-02] MEDS: Glucerna Shake 120 ML LIQUID PO ×2 (16:35→21:36)
[2020-05-02 16:36] LABS: Bedside Glucose 322 mg/dL (70-110)
[2020-05-02] MEDS: Insulin Lispro 100 UNIT/ML INSULN.PEN 6 UNIT SC (16:36)
[2020-05-02] MEDS: Insulin Lispro 100 UNIT/ML INSULN.PEN SC (16:36)
[2020-05-02] MEDS: Atorvastatin Calcium 20 MG Tablet PO (21:36)
[2020-05-02 22:11] LABS: Bedside Glucose 334 mg/dL (70-110)
[2020-05-03] VITALS (8 sets, daily range): BP systolic 99–129; BP diastolic 44–84; PULSE 57–82; RESP 16–18; TEMP 36.6–37; O2SAT 96–97
[2020-05-03 06:17] LABS: Anion Gap 5 (5-15); BUN 28 mg/dL (7-18); BUN/Creat Ratio 15.1 RATIO (10-20); Calcium,Total 8.7 mg/dL (8.5-10.1); Chloride 104 mmol/L (98-107); Creatinine, Serum 1.86 mg/dL (0.70-1.30); EST Glomerular Filtration Rate 40 mL/min (>60); Est Glom Filt Rate - Afr Amer 49 mL/min (>60); Estimated Creatinine Clearance 50.12 ml/min; Glucose 268 mg/dL (74-106); Potassium 4.2 mmol/L (3.5-5.1); Sodium Level 135 mmol/L (136-145)
[2020-05-03] MEDS: Insulin Lispro 100 UNIT/ML INSULN.PEN SC ×3 (06:18→16:52)
[2020-05-03 06:35] LABS: Bedside Glucose 274 mg/dL (70-110)
[2020-05-03] MEDS: Insulin Lispro 100 UNIT/ML INSULN.PEN 6 UNIT SC ×3 (07:48→16:51)
[2020-05-03] MEDS: Aspirin E.C. 81 MG Tablet PO (07:48)
[2020-05-03] MEDS: Carvedilol 3.125 MG TABLET PO ×2 (07:48→16:51)
--- NOTE | 2020-05-03 07:51 | PCM.PN.HOSP ---
Patient Problems: Active and Suspected Problems (Last Reviewed 05/02/20 @ 06:[address] Jimmie Malave MD) Hyperosmolar hyperglycemic state (HHS) (Acute) Subjective: Patient today feels improved since initial ED presentation with less nausea, less fatigue, no recent sensation of near syncope. Discussed strongly patient's presentation with significant hyperglycemia and elevated hemoglobin A1c. He notes that his family has been encouraging him to do more of his own self-care including insulin administration and they have been less aggressive with intervention over the last 3 months and honestly he states he has had difficulty remembering to even give himself his insulin. From discussions do suspect he also has poor oral diet choices and intake. Discussed current plan of continued judicious hydration given acute kidney injury although improving with planned aggressive education with possible discharge 05/04/2020 to which patient is amenable. Patient denies fevers, chills, emesis, abdominal pain, chest pain or dyspnea. Objective: Physical Examination: General: awake, alert, oriented x 3 and cooperative, [facility] no apparent distress. Skin: normal color, turgor, no icterus, cyanosis. HEENT: AT/NC, EOMI, PERRLA, improved MMM. Lungs: Diminished breath sounds bases, moderate effort, no rales, ronchi or wheezing. Heart: Regular rate and rhythm; no gallop, rub audible. Abdomen: soft, NTTP, ND, normal BS. Extremities: no cyanosis, clubbing, or edema. Neurological: patient awake, alert, oriented as noted; cognitive function suspect at his baseline but do suspect this is likely decreased at his baseline; pupils equally reactive to light and accomodation; cranial nerves II-XII grossly normal, moving all 4 extremities, no focal deficits, strength improved, mildly globally decreased. Psychiatric: affect appears normal, from discussions do suspect that patient understanding of healthcare and his status is decreased, no acute evidence of depressive or anxiety feelings. Vitals/I&O's: Vital Signs Temp Pulse Resp BP Pulse Ox 97.8 F 71 18 99/64 97 05/03/20 07:42 05/03/20 07:42 05/03/20 07:42 05/03/20 07:42 05/03/20 07:42 Oxygen Delivery Method Room Air Weight: 186 lb 4.65 oz Body Mass Index (BMI) 25.0 Finger Stick Blood Glucose 226 Intake and Output for Last 24 Hours 05/01/20 05/02/20 05/03/20 23:59 23:59 23:59 Intake Total 3025.57 / 3625.57 1000 / 1000 Output Total 500 / 500 Balance 2525.57 / 3125.57 1000 / 1000 Laboratory Results 05/02/20 05:08: Hemoglobin A1c 13.8 H 05/02/20 06:30: Serum Osmolality 318 H 05/02/20 07:40: POC Glucose > 500 H* 05/02/20 08:45: POC Glucose 372 H 05/02/20 09:49: POC Glucose 330 H 05/02/20 10:55: Sodium 133 L, Potassium 4.1, Chloride 102, Carbon Dioxide 26.0, Anion Gap 5, BUN 29 H, Creatinine 2.07 H, Estim Creat Clear Calc 45.03, Est GFR (MDRD) Af Amer 43 L, Est GFR (MDRD) Non-Af 36 L, BUN/Creatinine Ratio 14.0, Glucose 287 H, Calcium 9.0 05/02/20 10:55: POC Glucose 306 H 05/02/20 11:54: POC Glucose 233 H 05/02/20 13:00: POC Glucose 249 H 05/02/20 13:55: POC Glucose 226 H 05/02/20 16:31: POC Glucose 322 H 05/02/20 21:33: POC Glucose 334 H 05/03/20 05:40: Sodium 135 L, Potassium 4.2, Chloride 104, Carbon Dioxide 26.0, Anion Gap 5, BUN 28 H, Creatinine 1.86 H, Estim Creat Clear Calc 50.12, Est GFR (MDRD) Af Amer 49 L, Est GFR (MDRD) Non-Af 40 L, BUN/Creatinine Ratio 15.1, Glucose 268 H, Calcium 8.7 05/03/20 05:40: Phosphorus Pending, Magnesium Pending 05/03/20 06:17: POC Glucose 274 H Current Medications Aspirin (Aspirin E.C. 81 Mg Tablet) [facility] Last Admin: 05/03/20 07:48 Dose: 81 mg Documented by: Atorvastatin Calcium (Atorvastatin Calcium 20 Mg Tablet) 20 mg PO QHS [facility] Last Admin: 05/02/20 21:36 Dose: 20 mg Documented by: Carvedilol (Carvedilol 3.125 Mg Tablet) 3.125 mg PO BIDCM [facility] Last Admin: 05/03/20 07:48 Dose: 3.125 mg Documented by: Clopidogrel Bisulfate (Clopidogrel Bisulfate 75 Mg Tablet) 75 mg PO DAILY [facility] Last Admin: 05/02/20 10:59 Dose: 75 mg Documented by: Dextrose (Dextrose 50%-Water 25 Gm/50 Ml Disp.Syrin) 0 gm IV X1 PRN; Protocol PRN Reason: Hypoglycemia Enoxaparin Sodium (Enoxaparin 40 Mg/0.4 Ml Syringe) 40 mg SC DAILY [facility] Last Admin: 05/02/20 10:59 Dose: 40 mg Documented by: Glucagon (Glucagon 1 Mg/Ml Syringe) 1 mg IM .X1 PRN PRN Reason: Hypoglycemia Sodium Chloride () 250 mls @ 15 mls/hr IV .[id number] PRN PRN Reason: Saline Flush Sodium Chloride () 250 mls @ 15 mls/hr IV .[id number] PRN PRN Reason: Additional IVPB Infusion Insulin Glargine (Insulin Glargine 100 Units/Ml Pen) 30 units SC QHS [facility] Last Admin: 05/02/20 21:36 Dose: 30 u Documented by: Insulin Human Lispro (Insulin Lispro 100 Unit/Ml Insuln.Pen) 0 unit SC TIDAC [facility]; Protocol Last Admin: 05/03/20 06:18 Dose: 2 u Documented by: Insulin Human Lispro (Insulin Lispro 100 Unit/Ml Insuln.Pen) 6 unit SC [facility] Last Admin: 05/03/20 07:48 Dose: 6 units Documented by: Insulin Human Lispro (Insulin Lispro 100 Unit/Ml Insuln.Pen) 6 unit SC [facility] Last Admin: 05/02/20 16:36 Dose: 6 units Documented by: Insulin Human Lispro (Insulin Lispro 100 Unit/Ml Insuln.Pen) 6 unit SC [facility] [facility] Isosorbide Mononitrate (Isosorbide Mononitrate 30 Mg Tablet) 30 mg PO DAILY [facility] Last Admin: 05/02/20 10:59 Dose: 30 mg Documented by: Nutritional Formula (Lactose Free) (Glucerna Shake 120 Ml Liquid) 120 ml PO 4X/DAY [facility] Last Admin: 05/02/20 21:36 Dose: 120 ml Documented by: Ondansetron HCl (Ondansetron 4 Mg/2 Ml Vial) 4 mg IV Q8H PRN PRN PRN Reason: NAUSEA/VOMITING Sodium Chloride (0.9% Saline Lock 10 Ml Syringe) 10 - 40 ml IV UD PRN PRN Reason: SALINE FLUSH Last Admin: 05/02/20 14:04 Dose: 10 ml Documented by: STROKE Vital Signs/Narrative: Vital Signs Temp Pulse Resp BP Pulse Ox 05/03/20 07:42 97.8 F 71 18 99/64 97 Medical Necessity - Tobacco Use Smoking Status: Never smoker Assessment/Plan All Active Problems (Last Reviewed 05/02/20 @ 06:[address] Jimmie Malave MD) Hyperosmolar hyperglycemic state (HHS) (Acute) Dyspnea (Resolved) Pneumonia (Ruled-out) The patient is a 55 y/o M w/ PMHx: HTN, HLD, CAD s/p PCI NADEGE RPDA 11/2019, Chronic anemia, Diabetes mellitus type II who presents to the [facility] ED on 05/02/20 with history of increasing fatigue, malaise, poor oral intake, nausea and near syncopal sensation over the last 3 to 4 days, not improving with admitted significantly elevated blood sugars and failure to give himself his long-acting insulin. 1. Hyperosmolar hyperglycemic state with underlying diabetes mellitus type II: Admission CBC not marked appearing, admission CMP with sodium 118, potassium 5.6, BUN/creatinine 35/2.77, glucose 918, hemoglobin A1c 13.8, serum osmolality 318, acetone negative, negative ketones on urine analysis. Patient administered aggressive hydration in the ED and started on an insulin drip. Patient initially admitted to the ICU on insulin drip with serial BMPs however once patient blood sugars and symptoms clinically improved patient was transitioned to medical surgical status with discontinuation of insulin drip and initiation of home insulin regimen. Nutrition consulted for education and teaching. Given patient appearance of difficulty understanding self-care also requested pharmacy consultation to advise and educate on blood sugar self check as well as insulin administration. Discussed strongly with case management patient involvement in the community care network which will be set up prior to his discharge. Patient renal function improving however still JAROD, plan continuation of IV fluids with likely discharge 05/04/2020. 2. Acute kidney injury: Secondary to acute presentation as noted #1 with HHS. Admission BUN/Cr 35/2.77, prior baseline creatinine noted to be 1.3, 05/03/2020 BUN/creatinine 28/1.86, significantly improving, will continue to juices hydration and plan repeat function testing in the a.m. we will continue to hold nephrotoxic regimen and consider resumption of patient lisinopril, hydrochlorothiazide and oral diabetic regimen if clinically improved level. 3. Hyponatremia secondary to #1: Patient initial sodium 118 secondary to #1, significantly improved following hyperglycemic resolution, 05/03/2020 sodium 135, judiciously hydrating given JAROD, will repeat level in AM. 4. Hypertension: Continue home regimen including Coreg, isosorbide, temporarily holding patient lisinopril and hydrochlorothiazide given JAROD, resume once appropriate, PRN hydralazine. 5. Hyperlipidemia: We will continue patient statin therapy. 6. CAD: Status post PCI NADEGE RPDA 11/2019, continue aspirin, Plavix, statin, Coreg, holding patient lisinopril given JAROD, resume once appropriate. 7. Chronic anemia: Unclear type, admission hemoglobin 13.4, MCV normal, encourage continued outpatient follow-up. 8. DVT prophylaxis: SCDs, Lovenox. Inpatient E&M: 45669 Subs Hosp L2
[2020-05-03 07:55] LABS: Magnesium 2.2 mg/dL (1.6-2.6)
[2020-05-03] MEDS: Clopidogrel Bisulfate 75 MG Tablet PO (09:41)
[2020-05-03] MEDS: Glucerna Shake 120 ML LIQUID PO ×4 (09:41→21:21)
[2020-05-03] MEDS: Enoxaparin 40 MG/0.4 ML Syringe SC (09:41)
[2020-05-03] MEDS: Isosorbide Mononitrate 30 MG Tablet PO (09:41)
--- NOTE | 2020-05-03 09:50 | NURSING ---
talked with rn cardiology from [facility] and gave update
[2020-05-03] MEDS: 0.9% Normal Saline 1,000 ML 100 ML IV (10:34)
[2020-05-03] MEDS: 0.9% Saline Lock 10 ML Syringe IV (10:34)
--- NOTE | 2020-05-03 10:50 | CASEMGMT ---
MANOJ MONSIVAIS Face to Face with patient for initial transition planning/care coordination assessment. MANOJ MONSIVAIS introduced self and role at [facility]. Patient lying in bed, alert and oriented, sister at [facility]. Patient willing to participate in assessment and is able to answer all questions appropriately. Care providers, pharmacy, and demographics verified. Patient wishes to discharge home, denies need for home health at this time. Patient states he has no further needs or concerns at this time. CM to follow for discharge planning needs that may arise. PCP: Nhung Bass Specialists: Asim, blade filer; Kole plastic bubble packer Preferred Pharmacy: [facility] Insurance: none Prescription Benefit: none Living Will/HPOA: yes, sister Malka Elizondo HPOA LNOK: sisters, nephew Living Arrangements: Patient lives with nephew in a house. Patient is independent and able to ambulate stairs. Transportation: self, sisters, nephew DME/HHC: Patient states he has BP cuff, cane, and glucometer at home. Patient states that he forgets to check his blood sugar and take medications. MANOJ MONSIVAIS suggested maybe investing in a pill environmental planner and setting reminders on phone. MANOJ MONSIVAIS inquired if patient would be interested in CCN. Patient and sister both interested in CCN referral. MANOJ MONSIVAIS made CCN referral for diabetes management teaching. MANOJ CM updated patient and sister regarding acceptance with CCN. MANOJ MONSIVAIS also updated patient with over the counter insulin at [facility] to help reduce costs. Disposition Plan: Patient to discharge home with CCN, family support, and follow-up plans in place. Alaina SNYDER, RN, CM
[2020-05-03 11:10] LABS: Bedside Glucose 354 mg/dL (70-110)
--- NOTE | 2020-05-03 11:53 | CASEMGMT ---
Social Work Note Pt is listed as self-pay. PFS has been in contact with pt. Per PFS HE SAID ONCE HIS SISTER COMES BACK TODAY HE WILL CALL IN TO PAY THE $250 ER DEPOSIT, AND GO OVER ASSISTANCE. SW to remain available if financial concerns arise. Alaina Parr LETTUCE TRIMMER, PEDIATRIC ONCOLOGY NURSE
--- NOTE | 2020-05-03 14:18 | CHAPLAIN ---
Type of Pastoral Visit _x__ Initial Visit ___ Follow-up Visit ___ On-call Visit ___ General Patient Visit ___ Spiritual Assessment ___ Family Conference ___ Bereavement ___ Rapid Response ___ Code Blue ___ Other (describe below) Pastoral Care Referral From ___ Patient ___ Family ___ Nurse ___ Physician ___ Bill Of Lading Clerk _x__ Air Brush Operator ___ Other (describe below) Sacrament/Intervention _x__ Active listening ___ Anointing ___ Anglican ___ Bereavement ___ Communion _x__ [place] exploration ___ _x__ Life review _x__ Prayer ___ Reconciliation ___ Sacrament of Sick _x__ Supportive presence ___ Wedding ___ Other (describe below) Pastoral Comments patient is seeking spiritual support; offer of a Bible and pt was eager to receive; pt welcomed presence and prayer
[2020-05-03 18:20] LABS: Bedside Glucose 242 mg/dL (70-110)
[2020-05-03] MEDS: Atorvastatin Calcium 20 MG Tablet PO (21:18)
[2020-05-03 21:36] LABS: Bedside Glucose 290 mg/dL (70-110)
[2020-05-04 02:53] VITALS: BP 90/62; PULSE 75; RESP 16; TEMP 36.5; O2SAT 99
--- NOTE | 2020-05-04 02:58 | PCS.PANDOC ---
PANDEMIC DOCUMENTATION INITIATED: Date: 05/03/20 Time: 1899
[2020-05-04 05:16] VITALS: BP 128/83; PULSE 61; RESP 16; TEMP 36.4; O2SAT 100
[2020-05-04 06:39] LABS: Absolute Lymphocyte Count 1.47 X10^3/uL (0.83-4.51); Absolute Neutrophil Count 4.1 X10^3/uL (2.0-7.7); Basophil# 0.06 X10^3/uL; Basophil% 0.9 % (0-1); Eosinophil# 0.27 X10^3/uL; Eosinophils% 4.2 % (0-5); Hematocrit 35.3 % (40-54); Hemoglobin 12.3 g/dL (13.0-16.5); Lymphocyte # 1.47 X10^3/ul (4.0); Lymphocyte % 22.7 % (19-41); Mean Corp Hgb Conc 34.8 g/dL (32-36); Mean Corpuscular Hgb 30.4 pg (27.0-32.0); Mean Corpuscular Volume 87.2 fL (80-94); Mean Platelet Vol. 9.6 fl (6.2-12.0); Monocyte# 0.54 X10^3/uL; Monocyte% 8.3 % (0-10); NRBC Flagged by Analyzer 0 % (0-5); Neutrophil # 4.12 X10^3/uL (2.7-7.7); Neutrophil % 63.4 % (47-70); Platelet Count 299 K/mm3 (150-450); RBC Distribution Width CV 11.2 % (11.6-14.6); RBC Distribution Width SD 35.8 fl (35.1-43.9); Red Blood Count 4.05 M/mm3 (4.6-6.2); White Blood Count 6.5 K/mm3 (4.4-11.0)
[2020-05-04 07:03] LABS: ALB/GLOB Ratio 0.8 RATIO (0.9-2.4); AST(SGOT) 16 U/L (15-37); Alanine Aminotransfer ALT/SGPT 20 U/L (16-61); Albumin, Serum 3.1 g/dL (3.2-5.0); Alkaline Phosphatase 107 U/L (45-117); Anion Gap 2 (5-15); BUN 23 mg/dL (7-18); BUN/Creat Ratio 13.5 RATIO (10-20); Calcium,Total 8.7 mg/dL (8.5-10.1); Chloride 106 mmol/L (98-107); Creatinine, Serum 1.71 mg/dL (0.70-1.30); EST Glomerular Filtration Rate 44 mL/min (>60); Est Glom Filt Rate - Afr Amer 54 mL/min (>60); Estimated Creatinine Clearance 54.51 ml/min; Globulin 3.7 g/dL (2.2-4.2); Glucose 207 mg/dL (74-106); Potassium 4.4 mmol/L (3.5-5.1); Protein, Total 6.8 g/dL (6.4-8.2); Sodium Level 135 mmol/L (136-145)
[2020-05-04 07:14] VITALS: O2SAT 95
[2020-05-04 08:13] VITALS: BP 127/88; PULSE 64; RESP 16; TEMP 36.3; O2SAT 100
[2020-05-04] MEDS: Insulin Lispro 100 UNIT/ML INSULN.PEN SC ×2 (08:15→11:50)
[2020-05-04] MEDS: Insulin Lispro 100 UNIT/ML INSULN.PEN 6 UNIT SC ×2 (08:16→11:57)
[2020-05-04] MEDS: Aspirin E.C. 81 MG Tablet PO (08:17)
[2020-05-04] MEDS: Carvedilol 3.125 MG TABLET PO (08:17)
[2020-05-04] MEDS: Isosorbide Mononitrate 30 MG Tablet PO (08:18)
[2020-05-04] MEDS: Clopidogrel Bisulfate 75 MG Tablet PO (08:18)
[2020-05-04] MEDS: Enoxaparin 40 MG/0.4 ML Syringe SC (08:18)
[2020-05-04] MEDS: Glucerna Shake 120 ML LIQUID PO (08:23)
[2020-05-04 08:26] LABS: Bedside Glucose 189 mg/dL (70-110)
--- NOTE | 2020-05-04 09:14 | DCINST_ITS ---
- Discharge Diagnoses Current Active Problems: Current Active and Chronic Problems (Last Reviewed 05/02/20 @ 06:[address] Jimmie Malave MD) 1. Hyperosmolar hyperglycemic state with underlying diabetes mellitus type II, Poorly controlled with non-compliance 2. Acute kidney injury, Secondary to acute presentation as noted #1 with HHS 3. Hyponatremia secondary to #1 4. Hypertension 5. Hyperlipidemia 6. CAD, Status post PCI NADEGE RPDA 11/2019 7. Chronic anemia You will use the following diet at home:: Calorie/Carbohydrate Controlled (specify 1200, 1400, etc) - ADA 1800/cardiac diet recommended. Your food should be the consistency of: Regular Your liquids should be the consistency of: Regular/Thin Discharge Activity: - - Encourage routine activity especially aerobic exercise program which may be initiated with your primary care physician. May resume sexual activity in: No Restrictions Weight Bearing Status: Weight bearing as tolerated Call your doctor if you observe: Fever of 101 or Higher, Inability to urinate, Inability to have a bowel movement, Shortness of breath, Dizziness, Fainting spells, Chest pain, Uncontrolled pain, - - Notify your primary care if your blood sugars are noted to be elevated routinely to make medication changes. Instructions: What Is Type 2 Diabetes?, How to Check Your Blood Sugar, Using Injected Insulin, Oral Therapy for Type 2 Diabetes, Types of Insulin, Healthy Meals for Diabetes, Diabetes: Understanding Carbohydrates, Using a Blood Sugar Log Additional Instructions: DURING YOUR ADMISSION: Your home insulin long-acting regimen was increased and a short-acting insulin was added scheduled three times daily with meals and also as needed with a sliding scale. Pharmacy and nursing and reviewed usage of these regimens. Please also discuss usage with your primary care physician if you have ongoing issues or questions. Please keep a log of your blood sugars and bring those with you to your follow-up. Once you are better controlled your checks may be decreased but for now continue as requested. Please continue a strict ADA/cardiac diet with recommended 1800 calories. During the admission you had acute kidney injury associated with your presentation. Please HOLD your metformin, lisinopril, hydrochlorothiazide temporarily for an additional 24-48 hours then may resume with planned repeat metabolic panel to be obtained with your primary care physician and further alterations/adjustments/holds following these results per their discretion. During your admission given your difficulties with self care of your diabetes, we have initiated you in the community [facility] network to assist you in learning better self-care techniques. Allergies/Adverse Reactions: Allergies acetaminophen [From Vicodin] Adverse Reaction (Verified 05/02/20 05:01) Other hydrocodone [From Vicodin] Adverse Reaction (Verified 05/02/20 05:01) Other Medications to take at Discharge Aspirin [Aspir 81] 81 mg PO DAILY 03/16/19 Hydrochlorothiazide 12.5 mg PO DAILY 03/16/19 Isosorbide Mononitrate [Isosorbide Mononitrate ER] 30 mg PO DAILY 03/16/19 Nitroglycerin 0.4 mg SUBLINGUAL PRN PRN 03/16/19 atorvastatin 20 mg tablet 20 mg PO QHS 11/26/19 glimepiride 4 mg tablet 4 mg PO DAILY 11/26/19 lisinopril 40 mg tablet 40 mg PO DAILY #90 tab 11/26/19 carvedilol 3.125 mg tablet 3.125 mg PO BID #60 tab 01/20/20 clopidogrel 75 mg tablet 75 mg PO DAILY #90 tab 03/09/20 Insulin Glargine [Lantus SoloStar Pen] 30 units SC QHS #1 pen 05/04/20 Insulin Lispro [Humalog KwikPen] 6 unit SC TIDCM #1 insuln.pen 05/04/20 Insulin Lispro [Humalog KwikPen] See Protocol SC TIDAC #1 insuln.pen 05/04/20 The following prescriptions were given: Insulin Lispro [Humalog KwikPen] See Protocol SC TIDAC #1 insuln.pen Transmission Status: Pending to [id number] Insulin Lispro [Humalog KwikPen] 6 unit SC TIDCM #1 insuln.pen Transmission Status: Pending to [id number] Insulin Glargine [Lantus SoloStar Pen] 30 units SC QHS #1 pen Transmission Status: Pending to [id number] Primary Care Physician: Nhung Metz [Primary Care Provider] - Please follow up with your Primary Care Physician in: Follow-up within 2-3 days. Test Results: Test results from this visit will be discussed in further detail at your follow- up appointment, if applicable. Proposed Discharge Date: 05/04/20
--- NOTE | 2020-05-04 09:21 | PCM.DC.SUM ---
Discharge Date and Diagnosis - Problem List Patient Problems: Active and Suspected Problems (Last Reviewed 05/02/20 @ 06:[address] Jimmie Malave MD) Hyperosmolar hyperglycemic state (HHS) (Acute) Date of Admission: 05/02/20 Date of Discharge: 05/04/20 - Primary Discharge Diagnosis Acute Problems: Active Problems (Last Reviewed 05/02/20 @ 06:[address] Jimmie Malave MD) 1. Hyperosmolar hyperglycemic state with underlying diabetes mellitus type II, Poorly controlled with non-compliance 2. Acute kidney injury, Secondary to acute presentation as noted #1 with HHS 3. Hyponatremia secondary to #1 4. Hypertension 5. Hyperlipidemia 6. CAD, Status post PCI NADEGE RPDA 11/2019 7. Chronic anemia - Secondary Discharge Diagnosis Chronic Problems: Chronic Problems (Last Reviewed 05/02/20 @ 06:[address] Jimmie Malave MD) History of coronary artery stent placement (Chronic 12/22/19) [id number] w/ 2.25 x 12 mm Synergy Stent 12/22/2019 Atherosclerotic heart disease of [place] coronary artery with other forms of angina pectoris (Chronic) Essential (primary) hypertension (Chronic) HLD (hyperlipidemia) (Chronic) Abnormal Screening Computed Tomography (CT) of Chest (Chronic) Lung nodule (Chronic) Hospital Course and Treatment Dr. Glez ICU Operations: None Procedures: EKG Summary of Care Provided: The patient is a 55 y/o M w/ PMHx: HTN, HLD, CAD s/p PCI NADEGE RPDA 11/2019, Chronic anemia, Diabetes mellitus type II who presented to the [facility] ED on 05/02/20 with history of increasing fatigue, malaise, poor oral intake, nausea and near syncopal sensation over the last 3 to 4 days, not improving with admitted significantly elevated blood sugars and failure to give himself his long-acting insulin. Admission CBC not marked appearing, admission CMP with sodium 118, potassium 5.6, BUN/creatinine 35/2.77, glucose 918, hemoglobin A1c 13.8, serum osmolality 318, acetone negative, negative ketones on urine analysis. Patient administered aggressive hydration in the ED and started on an insulin drip. Patient initially admitted to the ICU on insulin drip with serial BMPs however once patient blood sugars and symptoms clinically improved patient was transitioned to medical surgical status with discontinuation of insulin drip and initiation of home insulin regimen. Nutrition consulted for education and teaching. Pharmacy consulted for education and teaching of his insulin regimen and usage with ISS. Discussed strongly with case management patient involvement in the community care network which was set-up prior to his discharge. Admission BUN/Cr 35/2.77, prior baseline creatinine noted to be 1.3, 05/04/20 BUN/creatinine 23/1.71, significantly improving, encouraged continued temporary hold on nephrotoxic regimen upon discharge with planned PCP BMP at follow-up in 2-3 days with resumption/continuation if continued resolution. Given continued clinical improvement, improved labs, resolve HHS patient discharged to home with aggressive social networking in place and follow-up with his primary care physician. DAY OF DISCHARGE PROGRESS NOTE: Subjective: Patient without acute event overnight per self and nursing report. Patient denies fever, chills, nausea, emesis, abdominal pain, chest pain or dyspnea. Patient agreeable to discharge to home. He understands that if there are any issues when he picks up his rx he is to have the physician called to discuss options. Patient will be discharged with follow-up with primary care physician within 2-3 days and will be followed by the [facility] care network. Discussed at length importance of taking his insulin and medications as rx. Discussed short hold of nephrotoxic regimen with restart and repeat BMP with PCP given JAROD during admission. Objective: T 97.4, heart rate 64, BP 127/88, respiratory rate 16, and a percent room air. Physical Examination: General: awake, alert, oriented x 3 and cooperative, seated upright in the [facility] bed in no apparent distress. Skin: normal color, turgor, no icterus, cyanosis. HEENT: AT/NC, EOMI, PERRLA, MMM. Lungs: Diminished breath sounds bases, moderate effort, no rales, ronchi or wheezing. Heart: Regular rate and rhythm; no gallop, rub audible. Abdomen: soft, NTTP, ND, normal BS. Extremities: no cyanosis, clubbing, or edema. Neurological: patient awake, alert, oriented as noted; cognitive function suspect at his baseline but do suspect this is likely decreased at his baseline; pupils equally reactive to light and accomodation; cranial nerves II-XII grossly normal, moving all 4 extremities, no focal deficits, strength improved, mildly globally decreased. Psychiatric: affect appears normal, no acute evidence of depressive or anxiety feelings. Assessment and Plan: Please see hospital summary above. Patient Problems: Active and Suspected Problems (Last Reviewed 05/02/20 @ 06:[address] Jimmie Malave MD) Hyperosmolar hyperglycemic state (HHS) (Acute) - Physical Exam Vitals/I&O's: Vital Signs Temp Pulse Resp BP Pulse Ox 97.4 F L 64 16 127/88 H 100 05/04/20 08:13 05/04/20 08:13 05/04/20 08:13 05/04/20 08:13 05/04/20 08:13 Oxygen Delivery Method Room Air Weight: 186 lb 4.65 oz Body Mass Index (BMI) 25.0 Finger Stick Blood Glucose 226 Intake and Output for Last 24 Hours 05/02/20 05/03/20 05/04/20 23:59 23:59 23:59 Intake Total 3025.57 / 3625.57 3210 / 3210 500 / 500 Output Total 500 / 500 300 / 300 Balance 2525.57 / 3125.57 2910 / 2910 500 / 500 Laboratory Results 05/03/20 11:00: POC Glucose 354 H 05/03/20 16:10: POC Glucose 242 H 05/03/20 21:16: POC Glucose 290 H 05/04/20 06:10: WBC 6.5, RBC 4.05 L, Hgb 12.3 L, Hct 35.3 L, MCV 87.2, MCH 30.4, MCHC 34.8, RDW Std Deviation 35.8, RDW Coeff of Gustavo 11.2 L, Plt Count 299, MPV 9.6, Immature Gran % (Auto) 0.500, Neut % (Auto) 63.4, Lymph % (Auto) 22.7, [place] % (Auto) 8.3, Eos % (Auto) 4.2, Baso % (Auto) 0.9, Absolute Neuts (auto) 4.1, Absolute Lymphs (auto) 1.47, Nucleated RBC % 0 05/04/20 06:10: Sodium 135 L, Potassium 4.4, Chloride 106, Carbon Dioxide 27.0, Anion Gap 2 L, BUN 23 H, Creatinine 1.71 H, Estim Creat Clear Calc 54.51, Est GFR (MDRD) Af Amer 54 L, Est GFR (MDRD) Non-Af 44 L, BUN/Creatinine Ratio 13.5, Glucose 207 H, Calcium 8.7, Total Bilirubin 0.40, AST 16, ALT 20, Alkaline Phosphatase 107, Total Protein 6.8, Albumin 3.1 L, Globulin 3.7, Albumin/Globulin Ratio 0.8 L 05/04/20 08:12: POC Glucose 189 H Current Medications Aspirin (Aspirin E.C. 81 Mg Tablet) [facility] Last Admin: 05/04/20 08:17 Dose: 81 mg Documented by: Atorvastatin Calcium (Atorvastatin Calcium 20 Mg Tablet) 20 mg PO QHS [facility] Last Admin: 05/03/20 21:18 Dose: 20 mg Documented by: Carvedilol (Carvedilol 3.125 Mg Tablet) 3.[facility] Last Admin: 05/04/20 08:17 Dose: 3.125 mg Documented by: Clopidogrel Bisulfate (Clopidogrel Bisulfate 75 Mg Tablet) 75 mg PO DAILY [facility] Last Admin: 05/04/20 08:18 Dose: 75 mg Documented by: Dextrose (Dextrose 50%-Water 25 Gm/50 Ml Disp.Syrin) 0 gm IV X1 PRN; Protocol PRN Reason: Hypoglycemia Enoxaparin Sodium (Enoxaparin 40 Mg/0.4 Ml Syringe) 40 mg SC DAILY [facility] Last Admin: 05/04/20 08:18 Dose: 40 mg Documented by: Glucagon (Glucagon 1 Mg/Ml Syringe) 1 mg IM .X1 PRN PRN Reason: Hypoglycemia Sodium Chloride () 250 mls @ 15 mls/hr IV .[id number] PRN PRN Reason: Saline Flush Sodium Chloride () 250 mls @ 15 mls/hr IV .[id number] PRN PRN Reason: Additional IVPB Infusion Insulin Glargine (Insulin Glargine 100 Units/Ml Pen) 30 units SC QHS [facility] Last Admin: 05/03/20 21:18 Dose: 30 u Documented by: Insulin Human Lispro (Insulin Lispro 100 Unit/Ml Insuln.Pen) 0 unit SC TIDAC [facility]; Protocol Last Admin: 05/04/20 08:15 Dose: 1 u Documented by: Insulin Human Lispro (Insulin Lispro 100 Unit/Ml Insuln.Pen) 6 unit SC BREAKFAST [facility] Last Admin: 05/04/20 08:16 Dose: 6 units Documented by: Insulin Human Lispro (Insulin Lispro 100 Unit/Ml Insuln.Pen) 6 unit SC DINNER [facility] Last Admin: 05/03/20 16:51 Dose: 6 units Documented by: Insulin Human Lispro (Insulin Lispro 100 Unit/Ml Insuln.Pen) 6 unit SC LUNCH [facility] Last Admin: 05/03/20 12:07 Dose: 6 units Documented by: Isosorbide Mononitrate (Isosorbide Mononitrate 30 Mg Tablet) 30 mg PO DAILY [facility] Last Admin: 05/04/20 08:18 Dose: 30 mg Documented by: Nutritional Formula (Lactose Free) (Glucerna Shake 120 Ml Liquid) 120 ml PO 4X/DAY [facility] Last Admin: 05/04/20 08:23 Dose: 120 ml Documented by: Ondansetron HCl (Ondansetron 4 Mg/2 Ml Vial) 4 mg IV Q8H PRN PRN PRN Reason: NAUSEA/VOMITING Sodium Chloride (0.9% Saline Lock 10 Ml Syringe) 10 - 40 ml IV UD PRN PRN Reason: SALINE FLUSH Last Admin: 05/03/20 10:34 Dose: 10 ml Documented by: Discharge Activity: - - Encourage routine activity especially aerobic exercise program which may be initiated with your primary care physician. May resume sexual activity in: No Restrictions Weight Bearing Status: Weight bearing as tolerated Call your doctor if you observe: Fever of 101 or Higher, Inability to urinate, Inability to have a bowel movement, Shortness of breath, Dizziness, Fainting spells, Chest pain, Uncontrolled pain, - - Notify your primary care if your blood sugars are noted to be elevated routinely to make medication changes. Home Medications: Medications to take at Discharge Aspirin [Aspir 81] 81 mg PO DAILY 03/16/19 Hydrochlorothiazide 12.5 mg PO DAILY 03/16/19 Isosorbide Mononitrate [Isosorbide Mononitrate ER] 30 mg PO DAILY 03/16/19 Nitroglycerin 0.4 mg SUBLINGUAL PRN PRN 03/16/19 atorvastatin 20 mg tablet 20 mg PO QHS 11/26/19 glimepiride 4 mg tablet 4 mg PO DAILY 11/26/19 lisinopril 40 mg tablet 40 mg PO DAILY #90 tab 11/26/19 carvedilol 3.125 mg tablet 3.125 mg PO BID #60 tab 01/20/20 clopidogrel 75 mg tablet 75 mg PO DAILY #90 tab 03/09/20 Insulin Glargine [Lantus SoloStar Pen] 30 units SC QHS #1 pen 05/04/20 Insulin Lispro [Humalog KwikPen] 6 unit SC TIDCM #1 insuln.pen 05/04/20 Insulin Lispro [Humalog KwikPen] See Protocol SC TIDAC #1 insuln.pen 05/04/20 Following Prescriptions Were Given to Patient: Insulin Lispro [Humalog KwikPen] See Protocol SC TIDAC #1 insuln.pen Transmission Status: Pending to [id number] Insulin Lispro [Humalog KwikPen] 6 unit SC TIDCM #1 insuln.pen Transmission Status: Pending to [id number] Insulin Glargine [Lantus SoloStar Pen] 30 units SC QHS #1 pen Transmission Status: Pending to [id number] - Please follow up with your Primary Care Physician in: Follow-up within 2-3 days. Patient Instructions: Using a Blood Sugar Log, What Is Type 2 Diabetes?, How to Check Your Blood Sugar, Using Injected Insulin, Oral Therapy for Type 2 Diabetes, Types of Insulin, Healthy Meals for Diabetes, Diabetes: Understanding Carbohydrates Disposition: Home Minutes spent on discharge:: 35 Patient Condition:: Fair Medical Necessity - Tobacco Use Smoking Status: Never smoker Meaningful Use Info Meaningful Use Diagnoses (Choose all that apply): None applicable Inpatient E&M: [address] [facility]
[2020-05-04 11:45] LABS: Bedside Glucose 372 mg/dL (70-110)
--- NOTE | 2020-05-04 11:55 | PHA.DC.MC ---
Pharmacy Service has performed discharge medication reconciliation and counseling for this patient. The patient was counseled on the following discharge medications and changes in medications for homegoing were reviewed. 1. LANTUS 2. HUMALOG The Reason for Use, instructions for use, and potential side effects were reviewed for all new medications. The patient's questions regarding all of their medications were answered. The patient demonstrated some understanding but would benefit from further education and reinforcement. NOTE: Also discussed with the patient importance of blood glucose monitoring, monitoring of A1c thru PCP follow-up, S/S high and low blood sugar and appropriate management for both. patient also had lunchtime blood glucose taken while counseling, so demonstrated appropriate use of sliding scale with insulin pen while observing patient. Home Medications Aspirin [Aspir 81] 81 mg PO DAILY 03/16/19 Hydrochlorothiazide 12.5 mg PO DAILY 03/16/19 Isosorbide Mononitrate [Isosorbide Mononitrate ER] 30 mg PO DAILY 03/16/19 Nitroglycerin 0.4 mg SUBLINGUAL PRN PRN 03/16/19 atorvastatin 20 mg tablet 20 mg PO QHS 11/26/19 glimepiride 4 mg tablet 4 mg PO DAILY 11/26/19 lisinopril 40 mg tablet 40 mg PO DAILY #90 tab 11/26/19 carvedilol 3.125 mg tablet 3.125 mg PO BID #60 tab 01/20/20 clopidogrel 75 mg tablet 75 mg PO DAILY #90 tab 03/09/20 Insulin Glargine [Lantus SoloStar Pen] 30 units SC QHS #1 pen 05/04/20 Insulin Lispro [Humalog KwikPen] 6 unit SC TIDCM #1 insuln.pen 05/04/20 Insulin Lispro [Humalog KwikPen] See Protocol SC TIDAC #1 insuln.pen 05/04/20
--- NOTE | 2020-05-05 13:35 | CCN.REFER ---
Spoke with patient and patient's sister. Both agree to CCN. Patient has returned to work, and is requesting AM visits. States has not filled any RX that he got at discharge. He also states that he has not checked his blood sugar. T/C to patient's pharmacy to get list of all medications and bush of each. CCN to enroll patient for med management, diabetes education, and VS monitoring.
--- NOTE | 2020-05-05 13:50 | CCN.REFER ---
Patient has hospital follow up w/ Nhung Bass 05/06 @ 4:20. Jessica was made aware that patient has not picked up new RX, and the cost of each med. She states they will give patient 1-2 months of both Lantus and Humalog.
== END 2020-05-04 14:50 | disposition home or self-care (01) | DRG 638 ==
LOC: ED 05:20 → ICU 07:07 → MS3 14:46
PROVIDERS: Admitting Provider Hospitalist; Emergency Provider Emergency Medicine; Visit Provider Family Medicine
DX: E11.00 Type 2 diabetes mellitus with hyperosmolarity without nonketotic hyperglycemic-hyperosmolar coma (NKHHC) (principal); E87.1 Hypo-osmolality and hyponatremia; N17.9 Acute kidney failure, unspecified; E87.5 Hyperkalemia; E86.0 Dehydration; R43.2 Parageusia; Z91.14 Patient's other noncompliance with medication regimen; I25.118 Atherosclerotic heart disease of native coronary artery with other forms of angina pectoris; I10 Essential (primary) hypertension; E78.5 Hyperlipidemia, unspecified; Z79.4 Long term (current) use of insulin; Z79.02 Long term (current) use of antithrombotics/antiplatelets; Z79.82 Long term (current) use of aspirin; Z79.899 Other long term (current) drug therapy; Z95.5 Presence of coronary angioplasty implant and graft
CPT/HCPCS: 36415; 80048; 80053; 80076; 81001; 82009; 82962; 83036; 83690; 83735; 83930; 84100; 84484; 85025; 93005; 97161; 97166; 97802; 99283; J7030; 90686; A4216; J2405

== ENCOUNTER → 2020-06-15 09:02 | Outpatient (CLI) | payer SELFPAY ==
[2020-05-20 11:51] VITALS: BMI 26.5
[2020-06-15 10:42] LABS: Vitamin B12 513 pg/mL (211-911)
[2020-06-15 10:54] LABS: Ferritin 87 ng/mL (26-388); Iron 165 ug/dL (65-175); Iron Binding Capacity,Total 296 ug/dL (250-450)
[2020-06-16 16:50] LABS: PSA, Free 0.36 ng/mL; PSA, Total Ultrasensitive 0.9 ng/mL (0.0-4.0)
== END ==
DX: D64.89 Other specified anemias (principal)
CPT/HCPCS: 36415; 82607; 82728; 82746; 83540; 83550; 84153; 84154

== ENCOUNTER → 2020-06-16 11:44 | Outpatient (CLI) | payer OTHER, SELFPAY ==
[2020-05-20 11:51] VITALS: BMI 26.5
== END ==
LOC: LAB.FUTURE 11:46 → LAB 11:47
PROVIDERS: Referring Provider Nurse Practitioner Adult Health
DX: D64.89 Other specified anemias (principal)
CPT/HCPCS: 82274

== ENCOUNTER 2020-08-04 15:12 | Emergency (ER) | payer OTHER, SELFPAY ==
[2020-07-19 09:55] VITALS: BMI 28.5
[2020-08-04 15:13] VITALS: BP 142/73; PULSE 92; RESP 15; TEMP 36.5; O2SAT 98; BMI 27.6
--- NOTE | 2020-08-04 15:30 | RAD_ITS ---
STUDY: X-RAY - LEFT HUMERUS REASON FOR EXAM: Male, 55 years old. Injury/Pain TECHNIQUE: 2 view(s) of the humerus. COMPARISON: None. FINDINGS: Normal visualized humerus. There is no demonstrated fracture or osseous destructive process. There is no demonstrated soft tissue abnormality. RAD/Humerus min 2 Views IMPRESSION: Normal x-ray examination of the humerus. Electronically Signed: Rubens Medina MD at 15:55 EDT , Service support ,
--- NOTE | 2020-08-04 15:31 | EX.ED.UPPERE ---
HPI History of Present Illness HPI Narrative: Patient presents with injury to his left arm that occurred yesterday. Patient states he was kicked by a cow yesterday. Patient states the pain is worse. Patient states the pain is dull and aching. Patient states the pain is worse with certain movements. Patient denies any paresthesias or weakness. Patient denies any other injuries. Chief Complaint: Upper Extremity Injury Informant: patient Occured/Mechanism Mechanism/Context: Yes blunt trauma and Yes direct blow Comment: Kicked by a cow Onset/Context/Timing Onset: Yesterday Timing: Continuous Quality of Pain: Dull and Aching Location: Left upper arm Worsened by: Certain movements Relieved by: Rest Associated Symptoms Associated Symptoms: Negative for Parasthesia and Weakness [facility] History (Updated 08/04/20 @ 15:[address] Terell Coppola, DO) Abnormal Screening Computed Tomography (CT) of Chest Anemia, unspecified Arthritis Atherosclerotic heart disease of [place] coronary artery with other forms of angina pectoris Essential (primary) hypertension History of pneumonia HLD (hyperlipidemia) Hyperosmolar hyperglycemic state (HHS) Hypertension Lung nodule Pneumonia Rectal bleeding Sepsis Strep pharyngitis Suspected 2019 novel coronavirus infection Type 2 diabetes mellitus without complication Home Medications aspirin 81 mg PO DAILY 03/16/19 [History Last Taken 12/26/19] isosorbide mononitrate 30 mg PO DAILY 03/16/19 [History Last Taken 12/26/19] nitroglycerin 0.4 mg SUBLINGUAL PRN PRN 03/16/19 [History Last Taken 12/26/19] lisinopril 40 mg tablet 40 mg PO DAILY #90 tab 11/26/19 [Rx Last Taken 12/26/19] carvedilol 3.125 mg tablet 3.125 mg PO BID #60 tab 01/20/20 [Rx Last Taken Unknown] clopidogrel 75 mg tablet 75 mg PO DAILY #90 tab 03/09/20 [Rx Last Taken Unknown] insulin lispro See Protocol SC TIDAC #1 insuln.pen 05/04/20 [Rx Last Taken Unknown] needle (disp) 16 G #100 dis.ndl 05/06/20 [Rx Last Taken Unknown] metformin 1,000 mg tablet 1,000 mg PO BID 05/20/20 [History Last Taken Unknown] insulin glargine 48 units SC QHS 05/28/20 [History Last Taken Unknown] dulaglutide 0.75 mg SQ QWEEK 06/14/20 [History Last Taken Unknown] atorvastatin 20 mg tablet 20 mg PO QPM 07/01/20 [History Last Taken Unknown] hydrochlorothiazide 12.5 mg capsule 12.5 mg PO DAILY #90 cap 07/19/20 [Rx Last Taken Unknown] Allergy/AdvReac Type Severity Reaction Status Date / Time hydrocodone [From Vicodin] AdvReac Other Verified 08/04/20 15:13 Family History Mother Heart disease Diabetes Alzheimer disease Hypertension Hyperlipemia Breast cancer Arthritis Father Heart disease Seizures Hypertension Hyperlipemia Sister Diabetes Heart disease Myocardial infarction Kidney disease Asthma Hypertension Uncle Colon cancer Surgical History H/O knee surgery History of colonoscopy History of coronary artery stent placement (12/22/19) Social History Smoking Status: Never smoker alcohol intake: never substance use type: does not use caffeine: Yes Type: coffee Number of servings: 1 what type of physical activity do you participate in: none ROS ROS ED Constitutional Constitutional ED: Denies chills or fever(s) Eyes Eyes: Denies blurry vision or change in vision ENT ENT ED: Denies rhinorrhea or sore throat Cardiovascular Cardiovascular: Denies chest pain or palpitations Respiratory/Chest Respiratory/Chest: Denies cough or dyspnea Gastrointestinal Gastrointestinal: Denies nausea or vomiting Genitourinary Genitourinary ED: Denies dysuria or hematuria Musculoskeletal Musculoskeletal: Denies back pain or neck pain Integumentary Denies abscess or rash Neurologic Neurologic: Denies paresthesias or weakness Allergic/Immunologic Allergic/Immunologic ED: Denies mouth swelling or urticaria EXAM Physical Exam Const Vital Signs: 08/04/20 15:13 Temperature 97.7 F L Temperature Source Temporal Pulse Rate 92 Respiratory Rate 15 Blood Pressure 142/73 H Blood Pressure Mean 96 Pulse Ox 98 Oxygen Delivery Method Room Air Positive well nourished and well developed General Appearance ED: well developed HEENT Reports moist mucous membranes Extremity Extremity Narrative: There is tenderness, edema, and ecchymosis over the left bicep area. There is no bony crepitance or step-off. There is no deformity noted. Range of motion of the left shoulder was somewhat limited in all motion secondary to pain. Sensation was intact to light touch in the radial, median, ulnar, and axillary areas. Strength is 5/5 bilaterally in the radial, median, and ulnar areas. Radial pulses are equal bilaterally. Neuro oriented x3, CN's II-XII intact bilaterally, moves all extremities, no focal motor deficits and no sensory deficits noted Sensorium / Orientation: alert Psych mental status grossly normal MDM MDM MDM Narrative Medical decision making narrative: X-rays of the [left] humerus were obtained. There are 2 views. On my interpretation, there is no acute fracture. There is no dislocation. There is [some mild] soft tissue swelling. Radiologist also interpreted the x-rays and agrees. Patient was advised of his findings. Patient was instructed to take Tylenol and ibuprofen as needed for pain. Patient was instructed use ice to the area. Patient was given some work restrictions. Patient was instructed to follow-up with his primary care physician or Workmen's Comp. physician in 5 to 7 days. Patient understood and was agreeable with the plan. All questions were answered. Discharge Plan Triage Chief Complaint: Upper Extremity Injury ED Provider: Terell Coppola Dx/Rx/DC Orders Clinical Impression: Contusion of arm, left Instructions: ED Contusion, Upper Extremity Prescriptions: No Action lisinopril 40 mg tablet 40 mg PO DAILY Qty: 90 RF: 3 carvedilol [Coreg] 3.125 mg tablet 3.125 mg PO BID Qty: 60 RF: 11 metformin 1,000 mg tablet 1,000 mg PO BID RF: 0 hydrochlorothiazide 12.5 mg capsule 12.5 mg PO DAILY Qty: 90 RF: 1 atorvastatin 20 mg tablet 20 mg PO QPM RF: 0 isosorbide mononitrate 30 MG tablet extended release 24 hr 30 mg PO DAILY RF: 0 aspirin 81 MG tablet,delayed release (DR/EC) 81 mg PO DAILY RF: 0 nitroglycerin 0.4 MG tablet, sublingual 0.4 mg SUBLINGUAL PRN PRN (Reason: Cardiac/Chest Pain) RF: 0 insulin lispro 100 UNIT/ML insulin pen See Protocol unit SC TIDAC Qty: 1 RF: 0 (DME) needle (disp) 16 G 1 EACH needle 1 ea SQ ACHS Qty: 100 RF: 0 insulin glargine 100 UNITS/ML insulin pen 48 units SC QHS RF: 0 dulaglutide 0.75 MG/0.5 ML pen injector 0.75 mg SQ QWEEK RF: 0 clopidogrel [Plavix] 75 mg tablet 75 mg PO DAILY Qty: 90 RF: 3 Stand Alone Forms: Work Status Form Primary Care Provider: Norma Obrien Referrals: [facility] [GROUP OF PHYSICIANS] - 5-7 Days Norma Obrien MD [Primary Care Provider] - 5-7 Days Disposition Disposition: Home, self care
[2020-08-04 16:07] VITALS: RESP 18
== END 2020-08-04 16:07 | disposition home or self-care (01) ==
PROVIDERS: Emergency Provider Emergency Medicine; PCP Internal Medicine
DX: S40.022A Contusion of left upper arm, initial encounter (principal); W55.22XA Struck by cow, initial encounter; Y93.9 Activity, unspecified; Y92.9 Unspecified place or not applicable; Y99.0 Civilian activity done for income or pay; I25.118 Atherosclerotic heart disease of native coronary artery with other forms of angina pectoris; E11.9 Type 2 diabetes mellitus without complications; I10 Essential (primary) hypertension; E78.5 Hyperlipidemia, unspecified; Z79.02 Long term (current) use of antithrombotics/antiplatelets; Z79.82 Long term (current) use of aspirin; Z79.4 Long term (current) use of insulin; Z79.899 Other long term (current) drug therapy
CPT/HCPCS: 73060; 99282

== ENCOUNTER → 2020-08-06 08:42 | Outpatient (CLI) | payer OTHER, SELFPAY ==
[2020-07-19 09:55] VITALS: BMI 28.5
[2020-08-04 15:13] VITALS: BMI 27.6
--- NOTE | 2020-08-06 08:46 | RAD_ITS ---
STUDY: BARIUM ENEMA. REASON FOR EXAM: Male, 55 years old. Hemoccult positive, cannot stop anticoagulation. FLUOROSCOPY TIME (if supplied): ( 52 seconds ) minutes/seconds. 13 images were obtained. TECHNIQUE: A panman film was obtained. Following this, contrast was introduced retrograde through the rectum. The entire colon was opacified. COMPARISON: None. FINDINGS: There is thickening of the haustral pattern in the transverse colon on the panman image. Contrast was introduced retrograde through the rectum. The entire colon was opacified. There are scattered sigmoid diverticula without evidence of diverticulitis. There is diffuse haustral thickening of the transverse colon as well as the right hemicolon suggestive of colitis. There is also evidence of mucosal thickening of the left hemicolon. No obstruction to the antegrade or retrograde flow of contrast. RAD/Barium Enema No Air Cont IMPRESSION: Pancolitis. Electronically Signed: Rubens Medina MD at 11:03 EDT , Service support ,
== END ==
LOC: RAD 08:45
PROVIDERS: PCP Internal Medicine; Referring Provider Internal Medicine; Visit Provider Internal Medicine
DX: R19.5 Other fecal abnormalities (principal)
CPT/HCPCS: 74270

== ENCOUNTER 2020-09-07 08:37 | Day surgery (SDC) | payer OTHER, SELFPAY ==
[2020-08-30 09:01] VITALS: BMI 27.8
[2020-09-07] VITALS (9 sets, daily range): BP systolic 85–110; BP diastolic 59–68; PULSE 70–85; RESP 16–18; TEMP 36.3–36.6; O2SAT 97–100; BMI 27.7
[2020-09-07] MEDS: Lactated Ringers 1,000 ML 100 ML IV (09:17)
[2020-09-07 09:26] LABS: Bedside Glucose 98 mg/dL (70-110)
--- NOTE | 2020-09-07 09:39 | PCM.HP.BLA ---
History and Physical Date of Admission: 09/07/20 Intake Vital Signs 08/30/20 09:01 Height 6 ft 1 in Weight: 211 lb BMI 27.8 BP 109/69 Blood Pressure Location Rt brachial Position Sitting Respiration 18 Pulse 83 Pulse Source Monitor Temp 97.8 F Temp Source Temporal Pulse Oximetry (%) 98 Oxygen Delivery Method room air Intake Visit Reasons: CSCOPE, BLOOD IN STOOL Chief Complaint: positive occult blood/consult colonoscopy Allergies hydrocodone [From Vicodin] Adverse Reaction (Verified 08/30/20 09:32) Other Medications aspirin 81 mg PO DAILY 03/16/19 [History Confirmed 08/30/20] isosorbide mononitrate 30 mg PO DAILY 03/16/19 [History Confirmed 08/30/20] nitroglycerin 0.4 mg SUBLINGUAL PRN PRN 03/16/19 [History Confirmed 08/30/20] lisinopril 40 mg tablet 40 mg PO DAILY #90 tab 11/26/19 [Rx Confirmed 08/30/20] carvedilol 3.125 mg tablet 3.125 mg PO BID #60 tab 01/20/20 [Rx Confirmed 08/30/20] clopidogrel 75 mg tablet 75 mg PO DAILY #90 tab 03/09/20 [Rx Confirmed 08/30/20] insulin lispro See Protocol SC TIDAC #1 insuln.pen 05/04/20 [Rx Confirmed 08/30/20] needle (disp) 16 G #100 dis.ndl 05/06/20 [Rx Confirmed 08/30/20] metformin 1,000 mg tablet 1,000 mg PO BID 05/20/20 [History Confirmed 08/30/20] insulin glargine 48 units SC QHS 05/28/20 [History Confirmed 08/30/20] dulaglutide 0.75 mg SQ QWEEK 06/14/20 [History Confirmed 08/30/20] atorvastatin 20 mg tablet 20 mg PO QPM 07/01/20 [History Confirmed 08/30/20] hydrochlorothiazide 12.5 mg capsule 12.5 mg PO DAILY #90 cap 07/19/20 [Rx Confirmed 08/30/20] [facility] Medical History (Updated 08/30/20 @ 09:[address] Heriberto Aquino MD) Abnormal Screening Computed Tomography (CT) of Chest Anemia, unspecified Arthritis Atherosclerotic heart disease of [place] coronary artery with other forms of angina pectoris Essential (primary) hypertension History of pneumonia HLD (hyperlipidemia) Hyperosmolar hyperglycemic state (HHS) Hypertension Lung nodule Pneumonia Positive occult stool blood test Rectal bleeding Sepsis Strep pharyngitis Suspected 2019 novel coronavirus infection Type 2 diabetes mellitus without complication Surgical History H/O knee surgery History of colonoscopy History of coronary artery stent placement (12/22/19) Family History Mother Heart disease Diabetes Alzheimer disease Hypertension Hyperlipemia Breast cancer Arthritis Father Heart disease Seizures Hypertension Hyperlipemia Sister Diabetes Heart disease Myocardial infarction Kidney disease Asthma Hypertension Uncle Colon cancer Social History Smoking Status: Never smoker alcohol intake: never substance use type: does not use caffeine: Yes Type: coffee Number of servings: 1 what type of physical activity do you participate in: none HPI HPI HPI: TED FONTANEZ, is a 55 M who presents to the office today for positive fecal occult blood test and thickening of the colon on barium enema. The patient does not report any abdominal pain or diarrhea or gross blood in his stool. The patient did have positive fecal occult blood test recently. Patient is not having any nausea or vomiting and does not remember his last colonoscopy. ROS General General: No weight change, appetite, fatigue, colon cancer, breast cancer or weakness HEENT HEENT: No difficulty swallowing Endo Endocrine: No thyroid disease or diabetes mellitus Skin Skin: No rash Musc Musculoskeletal: Yes back problems and arthritis Cardio Cardiovascular: Yes high blood pressure and heart stent; No murmur, pacemaker, heart disease, atrial fibrillation, heart attack, palpitations, shortness of breat with exertion or chest pain Psych Psychiatric: No depression or anxiety Resp Respiratory: No shortness of breath, No sleep apnea, No cough, No COPD, No asthma, No emphysema and No wheezing Gastro Gastrointestinal: No abdominal pain, No nausea or vomiting, No diarrhea, No constipation, Yes blood in stool, No acid reflux, No hemorrhoids, No ulcers, No gallbladder problem and No black,tarry stools Nathaniel Hematologic: Yes blood thinners and No bleeding Neuro Neurologic: Yes system reviewed and no additional complaints, except as documented and No weakness Exam Const General: cooperative Orientation: alert and oriented x3 HENMT Head: normal to inspection Neck Neck: normal visual inspection and full ROM Chest Chest palpation & inspection: normal inspection of the chest Resp Effort & Inspection: normal respiratory effort Auscultation: clear to auscultation bilaterally Cardio Rate: regular rate Rhythm: regular rhythm GI Inspection: non-distended Palpation: soft and nontender Skin General: no rashes or lesions noted Neuro General: patient alert and patient oriented x3 Extrem General: full ROM Psych Appearance: grossly normal Mental Status: mental status grossly normal Assessment and Plan Assessment and Plan (1) Positive occult stool blood test: Status: Acute (2) Pancolitis: Status: Acute Orders: Orders: Colonoscopy Today R19.5, K51.00 EGD Today R19.5, K51.00 Plan - Dr. Heriberto Aquino MD: The patient notes that he is not having any abdominal pain. He had a positive fecal occult blood test and in an effort to keep her from coming off his blood thinners he had a barium enema. The barium enema showed thickening of the entire mucosa of the colon suggesting pancolitis. He is not having any abdominal pain or diarrhea. Patient notes no gross blood in his stool. Recommend EGD and colonoscopy due to the positive fecal occult blood and pancolitis on barium enema. I explained endoscopy in detail to the patient. I explained the risks including but not limited to stroke or heart attack with anesthesia, perforation of the GI tract, bleeding, infection. I explained that any of these could necessitate further emergency surgery. The patient understands and all questions were answered sufficiently. The patient wishes to proceed with procedure. The patient will stop his Plavix 5 days prior to the procedure but continue aspirin for the procedure. Heriberto Aquino MD Pager: [facility] [address] [place] [address], [address] [place] [address] Office: Assessment & Plan Assessment/Plan (1) Pancolitis: (2) Positive occult stool blood test:
--- NOTE | 2020-09-07 09:45 | IMM_PTH ---
PATIENT: TED FONTANEZ LOC: EN U#:[id number] AGE/SX: 55/M ROOM: RE09/07/[address]: Dr. Heriberto Aquino MD : 1965 BED: DIS: 09/07/2020 SPEC #: [id number] RECD: 09/07/20 12:58 STATUS: RICH FRANK #: [id number] MELANI: 09/07/20 09:[address]: Heriberto Aquino DEPT: IMMUNOHISTOCHEMISTRY RECD BY: Blank Rasmussen ENTERED: 09/07/20 12:59 SP TYPE: IMMUNO OTHR DR: Dr. Norma Obrien MD Tissues: A - Stomach, NOS Procedures: H Pylori (initial) PHYSICIAN & INSTITUTION [place] [place] [id number] SPECIMEN INFORMATION: Tissue Source: A ? Antrum biopsy Clinical Info: Positive occult stool blood test, pancolitis Specimen Number: [id number] CPT code: 64157 METHODOLOGY: Deparaffinized sections of prefer/formalin-fixed tissue or PAP/DQ stained slides are incubated with monoclonal/polyclonal antibodies/oligonucleotide probes. Localization is made via biotin free immunoperoxidase method. Appropriate controls are performed and reacted as expected. Results on target cell population are indicated in the following table: RESULTS: ANTIBODY / CLONE RESULT Block A H Pylori (polyclonal) negative These tests were developed and their performance characteristics determined by [facility]. They may not have been cleared or approved by the U.S. Food and Drug Administration. The FDA has determined that such clearance or approval is not necessary. INTERPRETATION: A. Antrum, biopsy: Negative for Helicobacter pylori organisms. AM:john 09/08/2020
--- NOTE | 2020-09-07 09:45 | EGD_PTH ---
PATIENT: TED FONTANEZ LOC: EN U#:[id number] AGE/SX: 55/M ROOM: RE09/07/[address]: Dr. Heriberto Aquino MD : 1965 BED: DIS: 09/07/2020 SPEC #: [id number] RECD: 09/07/20 10:30 STATUS: RICH FRANK #: [id number] MELANI: 09/07/20 09:[address]: Heriberto Aquino DEPT: SURGICAL PATHOLOGY RECD BY: Renetta Nur ENTERED: 09/07/20 11:30 SP TYPE: EGD BIOPSY [facility] DR: Dr. Norma Obrien MD Tissues: A - Gastric mucous membrane B - COLON BIOPSY Procedures: Surgery Specimen Level IV HEADER OPERATION: [place] [place] DIAGNOSIS: Positive occult stool blood test, pancolitis TISSUE SUBMITTED: A ? Antrum biopsy for histo and H. pylori, B ? Random colonic biopsy MICROSCOPIC DIAGNOSIS A. Gastric antrum, biopsy: Chronic gastritis. See comment. B. Colon, random biopsy: Focal acute colitis. See comment. AM:john 09/08/2020 COMMENT A. The results of immunohistochemistry for Helicobacter pylori will be reported separately ([id number]). B. Sections show focal acute colitis with focal crypt abscess formation. Significant glandular distortion is not identified. No transmural inflammation is seen. The features of chronic inflammatory bowel disease are not identified. Clinical correlation is suggested. MICROSCOPIC DESCRIPTION Slides are reviewed. GROSS DESCRIPTION A - Received in fixative is one container labeled with the patient's name and designated antrum biopsy. The specimen consists of two irregular fragments of light dowd soft tissue that in aggregate measure 0.6 x 0.6 x 0.1 cm. The specimen is totally submitted in one cassette. B - Received in fixative is one container labeled with the patient's name and designated random colon biopsy. The specimen consists of multiple irregular fragments of light dowd soft tissue that in aggregate measure 1.5 x 0.8 x 0.1 cm. The specimen is totally submitted in one cassette. / AM:john 09/07/20 TC:2 CPT: 97551 x2
--- NOTE | 2020-09-07 10:19 | OP.CCLET_ITS ---
09/07/2020 Norma Obrien [facility] [address] [place] [address] Re : Colonoscopy procedure for Juan Pablo Moreno Dear Dr. Obrien This procedure was performed on Monday, September 07, 2020. My impressions and recommendations are as follows: Impressions : - The entire examined colon is normal. - Biopsies were taken with a cold forceps for histology in the entire colon. Recommendations : - Discharge patient to home. - Resume previous diet. - Continue present medications. - Resume Plavix (clopidogrel) at prior dose tomorrow. - Await pathology results. - Repeat colonoscopy in 10 years for screening purposes. My findings are described in the full procedure note, which is enclosed. If I can be of further assistance, please feel free to contact me at Doctor phone number(s): , Work: . Sincerely, Heriberto Aquino MD 09/07/2020 10:19:17 AM This report has been signed electronically.
--- NOTE | 2020-09-07 10:19 | OP.COLON_ITS ---
Patient Name: Juan Pablo Moreno Procedure Date: 09/07/2020 10:02 AM Date of : 1965 Age: 55 Procedure: Colonoscopy Indications: Heme positive stool, Abnormal barium enema Providers: Heriberto Aquino MD Referring MD: Norma Obrien Medicines: Monitored Anesthesia Care Patient Profile: This is a 55 year old male. Refer to note in patient chart for documentation of history and physical. Last Colonoscopy: more than 3 years ago. Complications: No immediate complications. Estimated blood loss: Minimal. Procedure: Pre-Anesthesia Assessment: - Prior to the procedure, a History and Physical was performed, and patient medications and allergies were reviewed. The patient's tolerance of previous anesthesia was also reviewed. The risks and benefits of the procedure and the sedation options and risks were discussed with the patient. All questions were answered, and informed consent was obtained. Prior Anticoagulants: The patient has taken Plavix (clopidogrel), last dose was 5 days prior to procedure. After reviewing the risks and benefits, the patient was deemed in satisfactory condition to undergo the procedure. After I obtained informed consent, the scope was passed under direct vision. Throughout the procedure, the patient's blood pressure, pulse, and oxygen saturations were monitored continuously. The pediatric colonoscope was introduced through the anus and advanced to the cecum, identified by appendiceal orifice and ileocecal valve. The colonoscopy was performed without difficulty. The patient tolerated the procedure well. The quality of the bowel preparation was good. Scope In: 10:03:20 AM Scope Withdrawal Time 0 hours 5 minutes 3 seconds Scope Out: 10:16:15 AM Total Procedure Duration Time 0 hours 12 minutes 55 seconds Findings: The entire examined colon appeared normal. Biopsies were taken with a cold forceps in the entire colon for histology. Impression: - The entire examined colon is normal. - Biopsies were taken with a cold forceps for histology in the entire colon. Recommendation: - Discharge patient to home. - Resume previous diet. - Continue present medications. - Resume Plavix (clopidogrel) at prior dose tomorrow. - Await pathology results. - Repeat colonoscopy in 10 years for screening purposes. Procedure Code(s): --- Professional --- 36678, Colonoscopy, flexible; with biopsy, single or multiple Diagnosis Code(s): --- Professional --- R19.5, Other fecal abnormalities R93.3, Abnormal findings on diagnostic imaging of other parts of digestive tract CPT copyright 2017 [employer]. All rights reserved. The codes documented in this report are preliminary and upon precision lens technician review may be revised to meet current compliance requirements. Heriberto Aquino MD 09/07/2020 10:19:17 AM This report has been signed electronically. Number of Addenda: 0 Note Initiated On: 09/07/2020 10:02 AM
--- NOTE | 2020-09-07 10:21 | OP.EGD_ITS ---
Patient Name: Juan Pablo Moreno Procedure Date: 09/07/2020 9:48 AM Date of : 1965 Age: 55 Procedure: Upper GI endoscopy Indications: Heme positive stool Providers: Heriberto Aquino MD Referring MD: Norma Obrien Medicines: Monitored Anesthesia Care Patient Profile: This is a 55 year old male. Refer to note in patient chart for documentation of history and physical. Complications: No immediate complications. Procedure: Pre-Anesthesia Assessment: - Prior to the procedure, a History and Physical was performed, and patient medications and allergies were reviewed. The patient's tolerance of previous anesthesia was also reviewed. The risks and benefits of the procedure and the sedation options and risks were discussed with the patient. All questions were answered, and informed consent was obtained. Prior Anticoagulants: The patient has taken Plavix (clopidogrel), last dose was 5 days prior to procedure. After reviewing the risks and benefits, the patient was deemed in satisfactory condition to undergo the procedure. After obtaining informed consent, the endoscope was passed under direct vision. Throughout the procedure, the patient's blood pressure, pulse, and oxygen saturations were monitored continuously. The gastroscope was introduced through the mouth, and advanced to the second part of duodenum. The upper GI endoscopy was accomplished without difficulty. The patient tolerated the procedure well. Scope In: 9:58:26 AM Scope Out: 10:01:08 AM Total Procedure Duration Time 0 hours 2 minutes 42 seconds Findings: Scattered moderate inflammation with hemorrhage characterized by adherent blood was found in the stomach. Biopsies were taken with a cold forceps for Helicobacter pylori testing. The esophagus was normal. The examined duodenum was normal. Impression: - Gastritis with hemorrhage. Biopsied. - Normal esophagus. - Normal examined duodenum. Recommendation: - Discharge patient to home. - Resume previous diet. - Continue present medications. - Use Prilosec (omeprazole) 40 mg PO daily for 2 months. Procedure Code(s): --- Professional --- 22659, Esophagogastroduodenoscopy, flexible, transoral; with biopsy, single or multiple Diagnosis Code(s): --- Professional --- K29.71, Gastritis, unspecified, with bleeding R19.5, Other fecal abnormalities CPT copyright 2017 [employer]. All rights reserved. The codes documented in this report are preliminary and upon health information coder review may be revised to meet current compliance requirements. Heriberto Aquino MD 09/07/2020 10:21:25 AM This report has been signed electronically. Number of Addenda: 0 Note Initiated On: 09/07/2020 9:48 AM
--- NOTE | 2020-09-07 10:21 | OP.CCLET_ITS ---
09/07/2020 Norma Obrien [facility] [address] [place] [address] Re : Upper GI endoscopy procedure for Juan Pablo Moreno Dear Dr. Obrien This procedure was performed on Monday, September 07, 2020. My impressions and recommendations are as follows: Impressions : - Gastritis with hemorrhage. Biopsied. - Normal esophagus. - Normal examined duodenum. Recommendations : - Discharge patient to home. - Resume previous diet. - Continue present medications. - Use Prilosec (omeprazole) 40 mg PO daily for 2 months. My findings are described in the full procedure note, which is enclosed. If I can be of further assistance, please feel free to contact me at Doctor phone number(s): , Work: . Sincerely, Heriberto Aquino MD 09/07/2020 10:21:25 AM This report has been signed electronically.
== END 2020-09-07 11:15 ==
LOC: EN 08:37 → AC 08:38
PROVIDERS: PCP Internal Medicine; Referring Provider Internal Medicine; Visit Provider Surgery
PROC: 0DJD8ZZ Inspection of Lower Intestinal Tract, Via Natural or Artificial Opening Endoscopic (ICD-10-PCS; CPT 45378; principal; 2020-09-07 09:40)
DX: K29.51 Unspecified chronic gastritis with bleeding (principal); R19.5 Other fecal abnormalities; Z20.822 Contact with and (suspected) exposure to COVID-19; I25.118 Atherosclerotic heart disease of native coronary artery with other forms of angina pectoris; E11.9 Type 2 diabetes mellitus without complications; I10 Essential (primary) hypertension; E78.5 Hyperlipidemia, unspecified; M19.90 Unspecified osteoarthritis, unspecified site; Z79.82 Long term (current) use of aspirin; Z79.02 Long term (current) use of antithrombotics/antiplatelets; Z79.4 Long term (current) use of insulin; Z79.899 Other long term (current) drug therapy; Z87.01 Personal history of pneumonia (recurrent); Z95.5 Presence of coronary angioplasty implant and graft
CPT/HCPCS: 43239; 45380; 82962; 87426; 88305; 88342; C9803; J7120; J2405

== ENCOUNTER → 2020-10-04 08:50 | Outpatient (CLI) | payer OTHER, SELFPAY ==
[2020-09-21 10:48] VITALS: BMI 27.7
[2020-10-04 12:53] LABS: Absolute Lymphocyte Count 1.46 X10^3/uL (0.83-4.51); Absolute Neutrophil Count 5.1 X10^3/uL (2.0-7.7); Basophil# 0.07 X10^3/uL; Basophil% 0.9 % (0-1); Eosinophil# 0.31 X10^3/uL; Hematocrit 40.6 % (40-54); Hemoglobin 13.6 g/dL (13.0-16.5); Lymphocyte # 1.46 X10^3/ul (0.83-4.51); Mean Corp Hgb Conc 33.5 g/dL (32-36); Mean Corpuscular Hgb 31.3 pg (27.0-32.0); Mean Corpuscular Volume 93.3 fL (80-94); Mean Platelet Vol. 9.4 fl (6.2-12.0); Monocyte# 0.74 X10^3/uL; Monocyte% 9.6 % (0-10); NRBC Flagged by Analyzer 0 % (0-5); Neutrophil # 5.09 X10^3/uL (2.7-7.7); Neutrophil % 66.1 % (47-70); Platelet Count 308 K/mm3 (150-450); RBC Distribution Width CV 12.8 % (11.6-14.6); Red Blood Count 4.35 M/mm3 (4.6-6.2); White Blood Count 7.7 K/mm3 (4.4-11.0)
[2020-10-04 13:22] LABS: ALB/GLOB Ratio 1.1 RATIO (0.9-2.4); AST(SGOT) 22 U/L (15-37); Alanine Aminotransfer ALT/SGPT 40 U/L (16-61); Albumin, Serum 4.1 g/dL (3.2-5.0); Alkaline Phosphatase 80 U/L (45-117); Anion Gap 6 (5-15); BUN 40 mg/dL (7-18); Calcium,Total 9.4 mg/dL (8.5-10.1); Chloride 108 mmol/L (98-107); Cholesterol 104 mg/dL (200); Creatinine, Serum 1.67 mg/dL (0.70-1.30); EST Glomerular Filtration Rate 45 mL/min (>60); Est Glom Filt Rate - Afr Amer 55 mL/min (>60); Globulin 3.8 g/dL (2.2-4.2); Glucose 164 mg/dL (74-106); High Density Lipoprotein 52 mg/dL; Magnesium 2.2 mg/dL (1.6-2.6); Potassium 4.8 mmol/L (3.5-5.1); Protein, Total 7.9 g/dL (6.4-8.2); Sodium Level 139 mmol/L (136-145); Thyroid Stim Hormone (TSH) 0.35 uIU/mL (0.358-3.74); Triglycerides 54 mg/dL; Very Low Density Lipoprotein 11 mg/dL (5-40)
[2020-10-04 13:48] LABS: Hemoglobin A1c 6.6 % (3.8-5.6)
[2020-10-04 15:42] LABS: Vitamin D,25 Hydroxy 25.7 ng/mL
== END ==
LOC: BIMLAB 08:51
PROVIDERS: PCP Internal Medicine; Referring Provider Internal Medicine; Visit Provider Internal Medicine
DX: I10 Essential (primary) hypertension (principal); K51.00 Ulcerative (chronic) pancolitis without complications; E55.9 Vitamin D deficiency, unspecified; E78.5 Hyperlipidemia, unspecified; Z95.5 Presence of coronary angioplasty implant and graft
CPT/HCPCS: 36415; 80053; 80061; 82306; 83036; 83735; 84443; 85025

== ENCOUNTER → 2021-02-08 11:20 | Outpatient (CLI) | payer OTHER, SELFPAY ==
[2021-02-08 13:39] LABS: Anion Gap 7 (5-15); BUN 31 mg/dL (7-18); BUN/Creat Ratio 19.4 RATIO (10-20); Calcium,Total 9.3 mg/dL (8.5-10.1); Chloride 106 mmol/L (98-107); EST Glomerular Filtration Rate 48 mL/min (>60); Est Glom Filt Rate - Afr Amer 58 mL/min (>60); Glucose 169 mg/dL (74-106); Magnesium 2.4 mg/dL (1.6-2.6); Potassium 4.5 mmol/L (3.5-5.1); Sodium Level 137 mmol/L (136-145)
== END ==
PROVIDERS: PCP Internal Medicine; Referring Provider Internal Medicine; Visit Provider Internal Medicine
DX: I10 Essential (primary) hypertension (principal)
CPT/HCPCS: 36415; 80048; 83735

== ENCOUNTER → 2021-02-14 13:38 | Outpatient (CLI) | payer OTHER, SELFPAY ==
[2021-02-14 14:50] LABS: Absolute Lymphocyte Count 1.66 X10^3/uL (0.83-4.51); Absolute Neutrophil Count 5.2 X10^3/uL (2.0-7.7); Basophil# 0.12 X10^3/uL; Basophil% 1.4 % (0-1); Eosinophil# 0.63 X10^3/uL; Eosinophils% 7.5 % (0-5); Hematocrit 37.9 % (40-54); Hemoglobin 13.3 g/dL (13.0-16.5); Lymphocyte # 1.66 X10^3/ul (0.83-4.51); Lymphocyte % 19.9 % (19-41); Mean Corp Hgb Conc 35.1 g/dL (32-36); Mean Corpuscular Hgb 32.5 pg (27.0-32.0); Mean Corpuscular Volume 92.7 fL (80-94); Mean Platelet Vol. 9.6 fl (6.2-12.0); Monocyte# 0.72 X10^3/uL; Monocyte% 8.6 % (0-10); NRBC Flagged by Analyzer 0 % (0-5); Neutrophil # 5.21 X10^3/uL (2.7-7.7); Neutrophil % 62.4 % (47-70); Platelet Count 297 K/mm3 (150-450); RBC Distribution Width CV 11.9 % (11.6-14.6); RBC Distribution Width SD 40.5 fl (35.1-43.9); Red Blood Count 4.09 M/mm3 (4.6-6.2); White Blood Count 8.4 K/mm3 (4.4-11.0)
[2021-02-14 15:12] LABS: Anion Gap 5 (5-15); BUN 28 mg/dL (7-18); BUN/Creat Ratio 16.1 RATIO (10-20); Calcium,Total 8.9 mg/dL (8.5-10.1); Chloride 109 mmol/L (98-107); Creatinine, Serum 1.74 mg/dL (0.70-1.30); EST Glomerular Filtration Rate 43 mL/min (>60); Est Glom Filt Rate - Afr Amer 52 mL/min (>60); Glucose 232 mg/dL (74-106); Potassium 4.6 mmol/L (3.5-5.1); Sodium Level 139 mmol/L (136-145)
== END ==
PROVIDERS: PCP Internal Medicine; Referring Provider Nurse Practitioner Gerontology; Visit Provider Nurse Practitioner Gerontology
DX: R06.00 Dyspnea, unspecified (principal)
CPT/HCPCS: 36415; 80048; 83880; 85025

== ENCOUNTER → 2021-03-04 10:17 | Outpatient (CLI) | payer OTHER, SELFPAY ==
--- NOTE | 2021-03-04 10:22 | STEWCON_ITS ---
Reason For Study: PIMENTEL; CAD Stress Results Protocol: Herbert Protocol WITH DEFINITY Maximum Predicted HR: 164 bpm Target HR: 139 bpm % Maximum Predicted HR: 98 % DurationHeart Rate Stage (mm:ss) (bpm) BP Comment Baseline 87 128/76No Chest Pain; 3 ML Diluted Definity Herbert Protocol Stage I 3:00 126 138/70No Chest Pain Herbert Protocol Stage II 3:00 160 150/72No Chest Pain; Mild Dyspnea Recovery 103 130/72No Chest Pain; No Dyspnea Stress Duration: 6:00 mm:ss Maximum Stress HR: 160 bpm METS: 7 Baseline Echocardiogram Findings Stress Echo Wall motion Data Resting WM Intermediate WM Stress WM ECHO/Stress Test Echo W/Contrast Interpretation Summary Exercise stress echo. 55-year-old man with a history of chest pain. Stress protocol: Resting EKG demonstrates sinus rhythm with a rate of 90 bpm normal intervals ar e noted resting blood pressure is 128/76 mmHg. The patient exercised according to regular Herbert ely col for total duration of 6 minutes. The maximum heart rate attained was 164 bpm which was 10 0% of max impact at heart rate the maximum workload was seven metabolic equivalents. At rest there were no ST or T wave changes noted to suggest ischemia and at peak exercise upsloping ST changes wer e noted which did not meet the criteria for ischemia. The test was terminated due to target heart rat e being achieved. There was mild dyspnea noted at peak exercise. The peak blood pressure was 150/ 72 which was a good blood pressure response to exercise. Stress echocardiogram. Resting and stress echocardiographic images were performed with Definity enhanc ement. The resting ejection fraction was approximately 50% with mild global hypokinesis. At peak e xercise there was thickening of all duff and reduction of low ventricular cavity size with peaki ng of ejection fraction of 70%. No wall motion abnormalities were noted. Conclusion: Normal exercise stress echo with no evidence of ischemia at a moderate workload . Ordering Physician: Nishi Smith Referring Physician: Uriel Dailey Performed By: Rebeca Cormier RDCS
== END ==
LOC: CVS 10:20
PROVIDERS: PCP Internal Medicine; Referring Provider Nurse Practitioner Gerontology; Visit Provider Nurse Practitioner Gerontology
DX: R06.00 Dyspnea, unspecified (principal); I25.118 Atherosclerotic heart disease of native coronary artery with other forms of angina pectoris
CPT/HCPCS: 93017; 93350; Q9957; A4216; C8928

== ENCOUNTER 2021-05-17 21:10 | Emergency (ER) | payer OTHER, SELFPAY ==
[2021-05-17 21:11] VITALS: BP 174/101; PULSE 115; RESP 20; TEMP 37.3; O2SAT 100; BMI 29.7
[2021-05-17 21:22] VITALS: BP 156/91; PULSE 106; RESP 16; O2SAT 97
--- NOTE | 2021-05-17 22:00 | EDS_ITS ---
HPI History of Present Illness Chief Complaint: Trauma Detail of Chief Complaint: Patient will trauma, kicked by cow and injury to left arm Informant: patient Onset/Context/Timing Onset: Hours Location: Left periorbital region and left upper extremity Current Severity: Mild Maximum Severity: Moderate Worsened by: Movement Relieved by: Rest Associated Symptoms Associated Symptoms: Positive for Loss of function; Negative for Parasthesias, Weakness, Inability to ambulate and Loss of consciousness Narrative Narrative: Patient is a 56-year-old male who was kicked by a cow. He has ecchymosis around the left orbit. He denies double vision, blurred vision or loss of vision. He denies decreased vision. He denies pain with movement of his eyes. He denies numbness upper gums. He denies epistaxis. He denies difficulty breathing out of his nose. He denies change in voice. He denies neck pain. He denies paresthesia, anesthesia motors right upper extremity or lower extremities. He states he has trouble using his left arm because he may have been shocked. Voltage was 110. He does have a bruise noted palmar surface left hand distal third metacarpal bone. He has full active range of motion without discomfort. He denies any other symptoms. Tetanus Immunization: 5-10 years Prior similar symptoms: No Recent Illness/Hospitalization: No PFSH PFSH Medical History Abnormal Screening Computed Tomography (CT) of Chest Anemia, unspecified Arthritis Atherosclerotic heart disease of [place] coronary artery with other forms of angina pectoris Back pain Dietary restriction Essential (primary) hypertension High cholesterol History of pneumonia History of stress test HLD (hyperlipidemia) Hx of echocardiogram Hyperosmolar hyperglycemic state (HHS) Hypertension Insulin dependent diabetes mellitus Lung nodule Non-smoker Pneumonia Positive occult stool blood test Rectal bleeding Sepsis Strep pharyngitis Suspected 2019 novel coronavirus infection Type 2 diabetes mellitus without complication Wears glasses Home Medications aspirin 81 mg PO DAILY 03/16/19 [History Last Taken 12/26/19] nitroglycerin 0.4 mg SUBLINGUAL PRN PRN 03/16/19 [History Last Taken 12/26/19] insulin lispro See Protocol SC TIDAC #1 insuln.pen 05/04/20 [Rx Last Taken Unknown] needle (disp) 16 G #100 dis.ndl 05/06/20 [Rx Last Taken Unknown] acetaminophen [Tylenol Ex Str Arthritis Pain] 1,000 mg PO BID 09/06/20 [History Last Taken Unknown] carvedilol 3.125 mg tablet 3.125 mg PO BID #180 tab 12/01/20 [Rx Last Taken Unknown] lisinopril 40 mg tablet 40 mg PO DAILY #90 tab 12/01/20 [Rx Last Taken Unknown] isosorbide mononitrate 30 mg tablet,extended release 24 hr 30 mg PO DAILY #90 tab 01/03/21 [Rx Last Taken Unknown] cholecalciferol (vitamin D3) 25 mcg (1,000 unit) capsule 25 mcg PO DAILY 01/18/21 [History Last Taken Unknown] atorvastatin 20 mg tablet 20 mg PO QHS #90 tab 02/09/21 [Rx Last Taken Unknown] dulaglutide 0.75 mg/0.5 mL subcutaneous pen injector 0.75 mg SUBCUT WE #2 ml 02/09/21 [Rx Last Taken Unknown] hydrochlorothiazide 12.5 mg capsule 12.5 mg PO DAILY #90 cap 02/09/21 [Rx Last Taken Unknown] insulin glargine 100 unit/mL (3 mL) subcutaneous pen 48 unit SC QHS #15 ml 02/09/21 [Rx Last Taken Unknown] melatonin 3 mg tablet 5 mg PO QHS tab 02/14/21 [History Last Taken Unknown] clopidogrel 75 mg tablet 75 mg PO DAILY #90 tab 03/28/21 [Rx Last Taken Unknown] metformin 500 mg tablet 500 mg PO BID #180 tab 04/25/21 [Rx Last Taken Unknown] naproxen 500 mg PO BID #14 tab 05/17/21 [Rx Last Taken Unknown] Allergy/AdvReac Type Severity Reaction Status Date / Time hydrocodone [From Vicodin] AdvReac Other Verified 02/14/21 13:35 Family History Mother Heart disease Diabetes Alzheimer disease Hypertension Hyperlipemia Breast cancer Arthritis Father Heart disease Seizures Hypertension Hyperlipemia Sister Diabetes Heart disease Myocardial infarction Kidney disease Asthma Hypertension Uncle Colon cancer Surgical History H/O knee surgery History of cardiac catheterization History of colonoscopy History of coronary artery stent placement (12/22/19) Social History (Updated 05/17/21 @ 22:[address] Darrius Clayton MD) household members: spouse Smoking Status: Never smoker alcohol intake: never substance use type: does not use caffeine: Yes Type: coffee Number of servings: 1 what type of physical activity do you participate in: walking ROS ROS ED Constitutional Constitutional ED: Denies chills, fever(s), subjective, sweats or weight loss Eyes Eyes: Denies blurry vision or change in vision ENT ENT ED: Reports other Details: Denies decreased hearing or ringing in his ears. ; Denies ear pain, rhinorrhea or sore throat Cardiovascular Cardiovascular: Denies chest pain, palpitations, paroxysmal nocturnal dyspnea or racing heartbeat Respiratory/Chest Respiratory/Chest: Denies cough, dyspnea, dyspnea on exertion, paroxysmal nocturnal dyspnea or sputum Gastrointestinal Gastrointestinal: Denies abdominal pain, nausea or vomiting Genitourinary Genitourinary ED: Denies dysuria, hematuria or urinary frequency Musculoskeletal Musculoskeletal: Reports other Details: Left upper arm discomfort and limited use ; Denies arthralgias, back pain, myalgias or neck pain Integumentary Reports other Details: Contusion fall left hand ; Denies abscess, Abrasions or rash Neurologic Neurologic: Reports paresthesias and weakness; Denies headache(s) Endocrine Endocrinology: Denies polydipsia, polyphagia or polyuria Hematologic/Lymphatic Hematologic/Lymphatic: Denies easy bleeding or easy bruising EXAM Physical Exam Const Vital Signs: 05/17/21 21:11 05/17/21 21:22 Temperature 99.1 F Temperature Source Temporal Pulse Rate 115 H 106 H Respiratory Rate 20 H 16 Blood Pressure 174/101 H 156/91 H Blood Pressure Mean 125 112 Pulse Ox 100 97 Oxygen Delivery Method Room Air Room Air Positive well nourished and well developed General Appearance ED: well developed and NAD HEENT Reports TM's clear HEENT Narrative: There is no hyperesthesia infraorbital nerve. There is no evidence of entrapment. There is no step-off with palpation of the infraorbital rim. Pupils equal round reactive. Extract muscle intact. Sclerae anicteric. Conjunctive is pink. There is no subconjunctival hemorrhage. There is no APD. There is no evidence of hyphema. He has no photophobia to direct or consensual light. trauma; Negative for tenderness Nose: septum abnormal Tympanic Membrane ED: Yes TM's clear Eyes PERRL and EOMs intact bilaterally General Eye ED: Yes other Other Details: Read narrative under HEENT. Neck full ROM Neck Narrative: There is no C-spine tenderness. General: Negative for tenderness Chest Wall inspection of chest normal and palpation of chest normal Resp normal respiratory effort and clear to auscultation bilaterally Cardio regular rhythm, S1 normal heart sound, S2 normal heart sound and no murmurs Rate: regular rate GI normal to inspection, nondistended, normoactive bowel sounds, non-tender and non-distended Palpation: soft Back/Spine normal to inspection and no thoracic nor lumbar tenderness General Back: Negative for CVA tenderness Extremity normal to inspection and full ROM Extremity Narrative: Axillary, median, radial and ulnar function intact. Radial pulses palpable and symmetric. Bicep, brachialis tricep reflex are 1-2+. Reflexes are symmetric. There is no pain the patient of the clavicle, AC joint, proximal humerus. There is no pain the patient with lateral medial malleolus, olecranon process or radial head. There is no pain ovation over the distal radius or ulna or carpal bones. There is no pain ovation over the metacarpal bones or phalanges. There is no pain with axial loading. Where the patient has a bruise there is tenderness. There is no tenderness on the dorsal side however. With no pain with axial loading or on dorsal side suspect this is a bruise and not concern for fracture. There is no rotational malalignment. The extensor commonest tendon is intact. The flexor digitorum superficialis and flexor digitorum profundus are intact for the index long ring and little finger left hand. General Extremety ED: Negative for deformity, edema or tenderness General Extremity: Negative for deformity or edema Neuro oriented x3, CN's II-XII intact bilaterally and No no sensory deficits noted [place] Coma Scale: document GCS findings Spontaneous Obeys Commands Oriented 15 Sensorium / Orientation: alert Motor Exam: strength 5/5 throughout Deep Tendon Reflexes: Rt Triceps (C7): 2+, Lt Triceps (C7): 2+, Rt Biceps (C5, C6): 2+, Lt Biceps (C5, C6): 2+, Rt Brachioradialis (C6): 2+ and Lt Brach ioradialis (C6): 2+ Psych mental status grossly normal and thought process normal Skin no rashes or lesions noted and No no wounds Skin Narrative: Minimal periorbital contusion noted. MDM MDM MDM Narrative Medical decision making narrative: C-spine was cleared per [facility] criteria. CT of the head was not obtained per the [place] CT head rule and [place] rule. Patient is on no anticoagulant. X-rays of the orbit were obtained to evaluate for fracture. With regards to his hand he has a bruise. Since he may or may not have been shocked with 110 V for brief duration and no entrance wound noted no further work-up is warranted or indicated. Radiography Diagnostic Testing: Clinical Impression(s) from Imaging Studies Orbit X-Ray 05/17/21 22:00 IMPRESSION: No acute displaced fractures. Electronically Signed: Titi Coello MD at 22:21 EST , 4 view x-ray of the orbit reveals no fracture. There is no fluid in the left maxillary sinus or teardrop sign. Interpreted by tn [id number] Discharge Plan Triage Chief Complaint: Trauma ED Provider: Darrius Clayton Dx/Rx/DC Orders Clinical Impression: Contusion of face, Contusion of hand, left, Electric shock Instructions: ED Hand Contusion, ED Electrical Injury, ED Facial Contusion Prescriptions: New naproxen 500 MG tablet 500 mg PO BID Qty: 14 RF: 0 No Action cholecalciferol (vitamin D3) 25 mcg (1,000 unit) capsule 25 mcg PO DAILY RF: 0 aspirin 81 MG tablet,delayed release (DR/EC) 81 mg PO DAILY RF: 0 nitroglycerin 0.4 MG tablet, sublingual 0.4 mg SUBLINGUAL PRN PRN (Reason: Cardiac/Chest Pain) RF: 0 insulin lispro 100 UNIT/ML insulin pen See Protocol unit SC TIDAC Qty: 1 RF: 0 (DME) needle (disp) 16 G 1 EACH needle 1 ea SQ ACHS Qty: 100 RF: 0 acetaminophen [Tylenol Ex Str Arthritis Pain] 500 mg Tablet 1,000 mg PO BID RF: 0 melatonin 3 mg tablet 5 mg PO QHS RF: 0 lisinopril 40 mg tablet 40 mg PO DAILY Qty: 90 RF: 3 carvedilol [Coreg] 3.125 mg tablet 3.125 mg PO BID Qty: 180 RF: 3 isosorbide mononitrate 30 mg tablet extended release 24 hr 30 mg PO DAILY Qty: 90 RF: 3 atorvastatin 20 mg tablet 20 mg PO QHS Qty: 90 RF: 3 dulaglutide 0.75 mg/0.5 mL pen injector 0.75 mg subcut WE Qty: 2 RF: 11 hydrochlorothiazide 12.5 mg capsule 12.5 mg PO DAILY Qty: 90 RF: 3 insulin glargine 100 unit/mL (3 mL) insulin pen 48 unit SC QHS Qty: 15 RF: 6 clopidogrel [Plavix] 75 mg tablet 75 mg PO DAILY Qty: 90 RF: 3 metformin 500 mg tablet 500 mg PO BID Qty: 180 RF: 1 Primary Care Provider: Norma Obrien Referrals: Norma Obrien MD [Primary Care Provider] - 1 Week if not improving Activity Restrictions/Additional Instructions: 1 ply ice to your face and hand 6-8 times a day 2. You will be sore for the next several days and may hurt in more places and you presently do Disposition Disposition: Home, Self Care
--- NOTE | 2021-05-17 22:00 | RAD_ITS ---
EXAM: XR ORBITS, 4 OR MORE VIEWS CLINICAL INDICATION: Kicked by cow TECHNIQUE: Frontal, lateral and oblique views of the orbits. This report was created using [employer] report generation technology. COMPARISON: None. FINDINGS: BONES/JOINTS: Unremarkable. No acute fracture. SINUSES: Unremarkable. No air-fluid levels. SOFT TISSUES: Unremarkable. No radiopaque foreign body. RAD/Orbits Min 4 Views IMPRESSION: No acute displaced fractures. Electronically Signed: Titi Coello MD at 22:21 EST ,
[2021-05-17] MEDS: Naproxen 250 MG Tablet 500 MG PO (23:51)
[2021-05-18 00:25] VITALS: RESP 16
== END 2021-05-18 00:26 | disposition home or self-care (01) ==
PROVIDERS: Emergency Provider Emergency Medicine; PCP Internal Medicine; Visit Provider Emergency Medicine
DX: S05.12XA Contusion of eyeball and orbital tissues, left eye, initial encounter (principal); E11.9 Type 2 diabetes mellitus without complications; Z79.4 Long term (current) use of insulin; S60.222A Contusion of left hand, initial encounter; T75.4XXA Electrocution, initial encounter; I25.10 Atherosclerotic heart disease of native coronary artery without angina pectoris; I10 Essential (primary) hypertension; E78.5 Hyperlipidemia, unspecified; Z79.82 Long term (current) use of aspirin; Z79.02 Long term (current) use of antithrombotics/antiplatelets; Z79.899 Other long term (current) drug therapy; W55.22XA Struck by cow, initial encounter; Z95.5 Presence of coronary angioplasty implant and graft
CPT/HCPCS: 70200; 99283

== ENCOUNTER 2021-05-23 12:35 | Emergency (ER) | payer OTHER, SELFPAY ==
[2021-05-23 12:36] VITALS: BP 168/90; PULSE 95; RESP 18; TEMP 36.6; O2SAT 95; BMI 29.7
--- NOTE | 2021-05-23 12:59 | EDS_ITS ---
HPI History of Present Illness HPI Narrative: Patient presents with right elbow injury that occurred yesterday. Patient states he tripped and fell. Patient states he landed on his right elbow. Patient denies any head injury or loss of consciousness. Patient denies any paresthesias or weakness. Patient describes his pain as dull. Patient states it is worse with movement. Patient states it is better with ice and rest. Patient denies any other injuries. Patient states that his home health nurse saw it this morning and was concerned over possible fracture because of all the ecchymosis. Chief Complaint: Upper Extremity Injury Informant: patient Occured/Mechanism Mechanism/Context: Yes direct blow and Yes fall Onset/Context/Timing Onset: Yesterday Context: Sudden Onset Timing: Continuous Quality of Pain: Dull Location: Left elbow Worsened by: Movement Relieved by: Ice, rest Associated Symptoms Associated Symptoms: Negative for Parasthesia, Weakness and Loss of Funtion [facility] Medical History Abnormal Screening Computed Tomography (CT) of Chest Anemia, unspecified Arthritis Atherosclerotic heart disease of [place] coronary artery with other forms of angina pectoris Back pain Dietary restriction Essential (primary) hypertension High cholesterol History of pneumonia History of stress test HLD (hyperlipidemia) Hx of echocardiogram Hyperosmolar hyperglycemic state (HHS) Hypertension Insulin dependent diabetes mellitus Lung nodule Non-smoker Pneumonia Positive occult stool blood test Rectal bleeding Sepsis Strep pharyngitis Suspected 2019 novel coronavirus infection Type 2 diabetes mellitus without complication Wears glasses Home Medications aspirin 81 mg PO DAILY 03/16/19 [History Last Taken 12/26/19] nitroglycerin 0.4 mg SUBLINGUAL PRN PRN 03/16/19 [History Last Taken 12/26/19] insulin lispro See Protocol [place] TIDAC #1 insuln.pen 05/04/20 [Rx Last Taken Unknown] needle (disp) 16 G #100 dis.ndl 05/06/20 [Rx Last Taken Unknown] acetaminophen [Tylenol Ex Str Arthritis Pain] 1,000 mg PO BID 09/06/20 [History Last Taken Unknown] carvedilol 3.125 mg tablet 3.125 mg PO BID #180 tab 12/01/20 [Rx Last Taken Unknown] lisinopril 40 mg tablet 40 mg PO DAILY #90 tab 12/01/20 [Rx Last Taken Unknown] isosorbide mononitrate 30 mg tablet,extended release 24 hr 30 mg PO DAILY #90 tab 01/03/21 [Rx Last Taken Unknown] cholecalciferol (vitamin D3) 25 mcg (1,000 unit) capsule 25 mcg PO DAILY 01/18/21 [History Last Taken Unknown] atorvastatin 20 mg tablet 20 mg PO QHS #90 tab 02/09/21 [Rx Last Taken Unknown] dulaglutide 0.75 mg/0.5 mL subcutaneous pen injector 0.75 mg SUBCUT WE #2 ml 02/09/21 [Rx Last Taken Unknown] hydrochlorothiazide 12.5 mg capsule 12.5 mg PO DAILY #90 cap 02/09/21 [Rx Last Taken Unknown] insulin glargine 100 unit/mL (3 mL) subcutaneous pen 48 unit SC QHS #15 ml 02/09/21 [Rx Last Taken Unknown] melatonin 3 mg tablet 5 mg PO QHS tab 02/14/21 [History Last Taken Unknown] clopidogrel 75 mg tablet 75 mg PO DAILY #90 tab 03/28/21 [Rx Last Taken Unknown] metformin 500 mg tablet 500 mg PO BID #180 tab 04/25/21 [Rx Last Taken Unknown] naproxen 500 mg PO BID #14 tab 05/17/21 [Rx Last Taken Unknown] Allergy/AdvReac Type Severity Reaction Status Date / Time hydrocodone [From Vicodin] AdvReac Other Verified 05/23/21 12:36 Family History Mother Heart disease Diabetes Alzheimer disease Hypertension Hyperlipemia Breast cancer Arthritis Father Heart disease Seizures Hypertension Hyperlipemia Sister Diabetes Heart disease Myocardial infarction Kidney disease Asthma Hypertension Uncle Colon cancer Surgical History H/O knee surgery History of cardiac catheterization History of colonoscopy History of coronary artery stent placement (12/22/19) Social History household members: spouse Smoking Status: Never smoker alcohol intake: never substance use type: does not use caffeine: Yes Type: coffee Number of servings: 1 what type of physical activity do you participate in: walking ROS ROS ED Constitutional Constitutional ED: Denies chills or fever(s) Eyes Eyes: Denies blurry vision or change in vision ENT ENT ED: Denies rhinorrhea or sore throat Cardiovascular Cardiovascular: Denies chest pain or palpitations Respiratory/Chest Respiratory/Chest: Denies cough or dyspnea Gastrointestinal Gastrointestinal: Denies nausea or vomiting Genitourinary Genitourinary ED: Denies dysuria or hematuria Musculoskeletal Musculoskeletal: Denies back pain or neck pain Integumentary Denies abscess or rash Neurologic Neurologic: Denies headache(s), paresthesias or weakness Allergic/Immunologic Allergic/Immunologic ED: Denies mouth swelling or urticaria EXAM Physical Exam Const Vital Signs: 05/23/21 12:36 Temperature 97.9 F Temperature Source Temporal Pulse Rate 95 Respiratory Rate 18 Blood Pressure 168/90 H Blood Pressure Mean 116 Pulse Ox 95 Oxygen Delivery Method Room Air Positive well nourished and well developed General Appearance ED: well developed and NAD HEENT normocephalic and atraumatic Neck full ROM and supple Extremity Extremity Narrative: There is tenderness over the olecranon process. There is ecchymosis over the ulnar aspect of the right forearm and posterior aspect of the right upper arm and elbow. There is no obvious deformity. Range of motion was slightly limited in complete extension secondary to pain. Strength is 5/5 in the radial, median, and ulnar areas. Sensation was intact to light touch in the radial, median, and ulnar areas. Radial pulses are equal bilaterally. Neuro oriented x3, CN's II-XII intact bilaterally, moves all extremities, no focal motor deficits and no sensory deficits noted Sensorium / Orientation: alert Psych mental status grossly normal MDM MDM MDM Narrative Medical decision making narrative: X-rays of the right elbow were obtained. There are 3 views. On my interpretation, there is no acute fracture. There is no dislocation. There is no soft tissue swelling. Radiologist also interpreted the x-rays and agrees. Patient was advised of his findings. Patient was instructed to ice and elevate the right elbow. Patient was instructed to take Tylenol as needed for pain. Patient was instructed to follow-up with his prim [place] care physician in 5 to 7 days. Patient understood and was agreeable with the plan. All questions were answered. Discharge Plan Triage Chief Complaint: Upper Extremity Injury ED Provider: Terell Coppola Dx/Rx/DC Orders Clinical Impression: Contusion of right elbow, initial encounter Instructions: ED Contusion, Elbow Prescriptions: No Action cholecalciferol (vitamin D3) 25 mcg (1,000 unit) capsule 25 mcg PO DAILY RF: 0 aspirin 81 MG tablet,delayed release (DR/EC) 81 mg PO DAILY RF: 0 nitroglycerin 0.4 MG tablet, sublingual 0.4 mg SUBLINGUAL PRN PRN (Reason: Cardiac/Chest Pain) RF: 0 insulin lispro 100 UNIT/ML insulin pen See Protocol unit SC TIDAC Qty: 1 RF: 0 (DME) needle (disp) 16 G 1 EACH needle 1 ea SQ ACHS Qty: 100 RF: 0 acetaminophen [Tylenol Ex Str Arthritis Pain] 500 mg Tablet 1,000 mg PO BID RF: 0 melatonin 3 mg tablet 5 mg PO QHS RF: 0 naproxen 500 MG tablet 500 mg PO BID Qty: 14 RF: 0 lisinopril 40 mg tablet 40 mg PO DAILY Qty: 90 RF: 3 carvedilol [Coreg] 3.125 mg tablet 3.125 mg PO BID Qty: 180 RF: 3 isosorbide mononitrate 30 mg tablet extended release 24 hr 30 mg PO DAILY Qty: 90 RF: 3 atorvastatin 20 mg tablet 20 mg PO QHS Qty: 90 RF: 3 dulaglutide 0.75 mg/0.5 mL pen injector 0.75 mg subcut WE Qty: 2 RF: 11 hydrochlorothiazide 12.5 mg capsule 12.5 mg PO DAILY Qty: 90 RF: 3 insulin glargine 100 unit/mL (3 mL) insulin pen 48 unit SC QHS Qty: 15 RF: 6 clopidogrel [Plavix] 75 mg tablet 75 mg PO DAILY Qty: 90 RF: 3 metformin 500 mg tablet 500 mg PO BID Qty: 180 RF: 1 Primary Care Provider: Norma Obrien Referrals: Noram Obrien MD [Primary Care Provider] - 3-5 Days Disposition Disposition: Home, Self Care
--- NOTE | 2021-05-23 13:04 | RAD_ITS ---
History: trauma: Right elbow 3 views: Findings: No acute fracture, subluxation or joint effusion. Prominent olecranon process enthesopathy. Joint space is intact. No soft tissue abnormality. IMPRESSION: No acute abnormality. at 1328 Reported and signed by: Michael Cornelius MD Electronically Signed: Michael Cornelius MD at 13:27 EST , RAD/Elbow min 3 Views
== END 2021-05-23 14:18 | disposition home or self-care (01) ==
PROVIDERS: Emergency Provider Emergency Medicine; PCP Internal Medicine; Visit Provider Emergency Medicine
DX: S50.01XA Contusion of right elbow, initial encounter (principal); E11.9 Type 2 diabetes mellitus without complications; Z79.4 Long term (current) use of insulin; I25.10 Atherosclerotic heart disease of native coronary artery without angina pectoris; W18.40XA Slipping, tripping and stumbling without falling, unspecified, initial encounter; E78.5 Hyperlipidemia, unspecified; E78.00 Pure hypercholesterolemia, unspecified; I10 Essential (primary) hypertension; Y93.9 Activity, unspecified; Y92.9 Unspecified place or not applicable; M19.90 Unspecified osteoarthritis, unspecified site; Z87.01 Personal history of pneumonia (recurrent); Z79.899 Other long term (current) drug therapy; Z79.82 Long term (current) use of aspirin; Z95.5 Presence of coronary angioplasty implant and graft
CPT/HCPCS: 73080; 99282

== ENCOUNTER → 2021-08-15 | Outpatient (CLI) | payer OTHER, SELFPAY ==
--- NOTE | 2021-08-15 13:52 | RAD_ITS ---
STUDY: XR Chest 2 Views 08/15/2021 1:54 PM REASON FOR EXAM: Male, 56 years old. CHEST PAIN Dyspnea on exertion COMPARISON: None TECHNIQUE: XR Chest 2 Views FINDINGS: There is no demonstrated pleural abnormality. Normal heart size. Normal mediastinum. Normal chelita. Prominent appearing increased interstitial lung markings. Normal visualized pulmonary arteries. There is atherosclerotic calcification of the aortic arch with tortuosity. There are diffuse degenerative changes of the visualized thoracic spine. There is degenerative osteoarthritis of the bilateral shoulders. There is no demonstrated abnormality of the visualized soft tissue structures of the upper abdomen. RAD/Chest PA and Lateral IMPRESSION: There are no acute findings. Electronically Signed: Juancho Castillo MD at 20:46 EDT ,
== END | disposition home or self-care (01) ==
LOC: RAD 13:49
PROVIDERS: PCP Internal Medicine; Referring Provider Nurse Practitioner Gerontology; Visit Provider Nurse Practitioner Gerontology
DX: R06.09 Other forms of dyspnea (principal)
CPT/HCPCS: 71046

== ENCOUNTER → 2021-08-16 | Outpatient (CLI) | payer OTHER, SELFPAY ==
[2021-08-16 08:34] LABS: Absolute Lymphocyte Count 1.58 X10^3/uL (0.83-4.51); Absolute Neutrophil Count 5.5 X10^3/uL (2.0-7.7); Basophil# 0.06 X10^3/uL; Basophil% 0.7 % (0-1); Eosinophil# 0.41 X10^3/uL; Eosinophils% 4.9 % (0-5); Hematocrit 41.1 % (40-54); Hemoglobin 14.3 g/dL (13.0-16.5); Lymphocyte # 1.58 X10^3/ul (0.83-4.51); Lymphocyte % 18.9 % (19-41); Mean Corp Hgb Conc 34.8 g/dL (32-36); Mean Corpuscular Hgb 32.5 pg (27.0-32.0); Mean Corpuscular Volume 93.4 fL (80-94); Mean Platelet Vol. 8.8 fl (6.2-12.0); Monocyte% 9.6 % (0-10); NRBC Flagged by Analyzer 0 % (0-5); Neutrophil # 5.49 X10^3/uL (2.7-7.7); Neutrophil % 65.7 % (47-70); Platelet Count 327 K/mm3 (150-450); RBC Distribution Width CV 11.6 % (11.6-14.6); RBC Distribution Width SD 39.8 fl (35.1-43.9); White Blood Count 8.4 K/mm3 (4.4-11.0)
[2021-08-16 09:05] LABS: AST(SGOT) 17 U/L (15-37); Alanine Aminotransfer ALT/SGPT 37 U/L (16-61); Albumin, Serum 4.1 g/dL (3.2-5.0); Alkaline Phosphatase 101 U/L (45-117); Anion Gap 3 (5-15); BUN 31 mg/dL (7-18); BUN/Creat Ratio 17.6 RATIO (10-20); Bilirubin, Direct 0.13 mg/dL (0.00-0.30); Calcium,Total 9.3 mg/dL (8.5-10.1); Chloride 106 mmol/L (98-107); Cholesterol 100 mg/dL (200); Creatinine, Serum 1.76 mg/dL (0.70-1.30); EST Glomerular Filtration Rate 43 mL/min (>60); Est Glom Filt Rate - Afr Amer 52 mL/min (>60); Free T3 2.9 pg/mL (2.18-3.98); Globulin 4.1 g/dL (2.2-4.2); Glucose 185 mg/dL (74-106); High Density Lipoprotein 50 mg/dL; Potassium 4.8 mmol/L (3.5-5.1); Protein, Total 8.2 g/dL (6.4-8.2); Sodium Level 136 mmol/L (136-145); T4 Free Direct 0.93 ng/dL (0.76-1.46); Thyroid Stim Hormone (TSH) 0.44 uIU/mL (0.358-3.74); Triglycerides 61 mg/dL; Very Low Density Lipoprotein 12 mg/dL (5-40)
[2021-08-16 09:29] LABS: BNP,B-Type NATRIURETIC PEPTIDE 6.2 pg/mL (0-100)
== END | disposition home or self-care (01) ==
LOC: LAB 08:19
PROVIDERS: PCP Internal Medicine; Referring Provider Nurse Practitioner Gerontology; Visit Provider Nurse Practitioner Gerontology
DX: R06.00 Dyspnea, unspecified (principal); E78.5 Hyperlipidemia, unspecified
CPT/HCPCS: 36415; 80048; 80061; 80076; 83880; 84439; 84443; 84481; 85025

== ENCOUNTER 2021-08-25 06:42 | Day surgery (SDC) | payer OTHER, SELFPAY ==
--- NOTE | 2021-08-25 09:06 | CL.D_ITS ---
Patient Name: TED FONTANEZ Study Date: 08/25/2021 Performing: Uriel Dailey MD Ht: 72.83 inches 185 cm : 1965 Wt: 227.01 lbs 102.97 kg Age: 56 Gender: male BSA: 2.27 PROCEDURE(S) PERFORMED [id number])LHC/COR/LV CLINICAL PROFILE AND INDICATIONS Indications: Other Heart Failure: None Stress/Imaging Stress Echocardiogram: Yes Result: NegativeStress Echocardiogram: Negative CAD Presentations: Other: sob CONCLUSIONS Moderately severe disease noted in a bifurcating branch of the obtuse marginal vessel. Moderate calc ification noted in the left anterior descending artery with no high-grade stenosis and no high-grade stenosis noted in the right coronary artery. Preserved ejection fraction noted. RECOMMENDATIONS Medical therapy DESCRIPTION OF PROCEDURE The patient arrived to the procedure lab. The risks and benefits of the procedure as well as a full d escription of our services here and current unavailability of surgical backup were fully explained to the patient and/or their significant other prior to the catheterization. The Timeout was completed, verifying the correct patient and procedure. The patient's procedural site was prepped and draped in the usual fashion. Local anesthetic was given subcutaneously to right radial region with Lidocaine 2% . Using a modified Seldinger technique, arterial access was obtained via the right radial artery, a 6 Fr sheath was inserted. Left Coronary Artery selective angiography was performed in multiple views u sing a 5 Fr. 4.0 Cornelius catheter. Right Coronary Artery selective angiography was then performed in mu ltiple views using a 5 Fr. 4.0 Cornelius catheter. Left Ventriculography was performed in BOYD projection using a 5 Fr. Pigtail catheter. LV to AO pullback pressures were then recorded.The arterial sheath was pulled and a TR Band was applied for hemostasis CORONARY ANGIOGRAPHY DOMINANCE: Right Dominant LEFT HEART ASSESSMENT Left Ventricular Ejection Fraction: by LV Gram 60 % Normal LV wall motion Normal Left Ventricular systolic function LEFT MAIN: No significant disease noted LEFT ANTERIOR DESCENDING ARTERY: Moderate calcification, Mild luminal irregularities less than 30% CIRCUMFLEX ARTERY: Mild calcification OM 2: Ostial - 60 % Stenosis RIGHT CORONARY ARTERY: Mild luminal irregularities COMPLICATIONS No Complications PROCEDURE MEDICATIONS Versed 1 mg IV Fentanyl 50 mcg IV Versed 1 mg IV Oxygen: 2 L/min via nasal cannula Baby Aspirin (81mg) 1 Tabs PO @ 08/25/2021 07:16:22 Heparin given IA 08/25/2021 08:34:33 Plavix 75 mg PO 08/25/2021 07:16:13 Verapamil 2.5mg, Ntg 100mcgs, 3000 units of Heparin given IA 08/25/2021 08:34:33 SUMMARY OF HEMODYNAMIC DATA Time AIR REST ECG 07:13:43 ECG 08:11:08 Art 137/62 (80) 08:29:47 AO 84/57 (69) SA 08:40:49 LV 96/5, 11 08:47:05 LV 85/6, 15 08:47:22 LV 88/11, 14 08:47:53 LV 82/8, 10 08:48:02 LVp 81/10, 11 08:48:09 AOp 94/60 (75) 08:48:16 Signed By Uriel Dailey MD On 08/25/2021 09:05:26 Uriel Dailey MD
== END 2021-08-25 11:00 | disposition home or self-care (01) ==
LOC: CLSP 06:43
PROVIDERS: PCP Internal Medicine; Referring Provider Internal Medicine Cardiovascular Disease; Visit Provider Internal Medicine Cardiovascular Disease
DX: I25.10 Atherosclerotic heart disease of native coronary artery without angina pectoris (principal); E11.22 Type 2 diabetes mellitus with diabetic chronic kidney disease; Z79.4 Long term (current) use of insulin; N18.30 Chronic kidney disease, stage 3 unspecified; R06.02 Shortness of breath; I12.9 Hypertensive chronic kidney disease with stage 1 through stage 4 chronic kidney disease, or unspecified chronic kidney disease; E78.5 Hyperlipidemia, unspecified; Z79.82 Long term (current) use of aspirin; Z79.02 Long term (current) use of antithrombotics/antiplatelets; Z79.899 Other long term (current) drug therapy; Z95.5 Presence of coronary angioplasty implant and graft
CPT/HCPCS: 93458; 99152; 99153; J7030; Q9967; C1769; C1894

== ENCOUNTER → 2021-09-15 | Outpatient (CLI) | payer OTHER, SELFPAY ==
--- NOTE | 2021-09-15 13:51 | PFTCOMP_ITS ---
COMPLETE PULMONARY FUNCTION TEST INTERPRETATION Brief HPI: Patient is a 56-year-old male, currently under the care of Nishi Smith, who presents to [facility] for complete pulmonary function tests secondary to diagnosis of dyspnea. Respiratory therapist reports good effort and reproducible results. Interpretation: Forced expiration spirometry shows no large airways obstructive ventilatory defect with an FEV1 of 80% predicted. There is no significant bronchodilator response by strict ATS criteria. Spirograms are of good quality and plateau normally. The respiratory flow volume loop shows a normal pattern. Lung volumes by body plethysmography show a normal total lung capacity at 6.51 L, 88% predicted. All other lung volumes are within normal limits. Diffusion capacity by carbon monoxide is normal at 112% predicted. The airway resistance is slightly elevated. Compared to previous pulmonary function tests from 02/09/2020, there has been no significant change. Impression: These pulmonary function tests are grossly within normal limits and unchanged compared to 2020
== END | disposition home or self-care (01) ==
LOC: PSN 08:36
PROVIDERS: PCP Internal Medicine; Referring Provider Nurse Practitioner Gerontology; Visit Provider Nurse Practitioner Gerontology
DX: R06.00 Dyspnea, unspecified (principal)
CPT/HCPCS: 94060; 94726; 94729

== ENCOUNTER → 2021-12-12 | Outpatient (CLI) | payer OTHER, SELFPAY ==
[2021-12-12 11:38] LABS: Absolute Lymphocyte Count 1.56 X10^3/uL (0.83-4.51); Absolute Neutrophil Count 4.9 X10^3/uL (2.0-7.7); Basophil# 0.07 X10^3/uL; Basophil% 0.9 % (0-1); Eosinophil# 0.52 X10^3/uL; Eosinophils% 6.7 % (0-5); Hemoglobin 13.7 g/dL (13.0-16.5); Lymphocyte # 1.56 X10^3/ul (0.83-4.51); Mean Corp Hgb Conc 34.3 g/dL (32-36); Mean Corpuscular Hgb 32.5 pg (27.0-32.0); Mean Corpuscular Volume 94.8 fL (80-94); Mean Platelet Vol. 9.7 fl (6.2-12.0); Monocyte# 0.74 X10^3/uL; Monocyte% 9.5 % (0-10); NRBC Flagged by Analyzer 0 % (0-5); Neutrophil # 4.88 X10^3/uL (2.7-7.7); Neutrophil % 62.6 % (47-70); Platelet Count 278 K/mm3 (150-450); RBC Distribution Width CV 12.1 % (11.6-14.6); RBC Distribution Width SD 42.4 fl (35.1-43.9); Red Blood Count 4.22 M/mm3 (4.6-6.2); White Blood Count 7.8 K/mm3 (4.4-11.0)
[2021-12-12 12:02] LABS: Hemoglobin A1c 6.7 % (3.8-5.6)
[2021-12-12 13:21] LABS: ALB/GLOB Ratio 1.1 RATIO (0.9-2.4); AST(SGOT) 21 U/L (15-37); Alanine Aminotransfer ALT/SGPT 36 U/L (16-61); Albumin, Serum 4.1 g/dL (3.2-5.0); Alkaline Phosphatase 83 U/L (45-117); Anion Gap 9 (5-15); BUN 34 mg/dL (7-18); BUN/Creat Ratio 20.6 RATIO (10-20); Calcium,Total 9.5 mg/dL (8.5-10.1); Chloride 107 mmol/L (98-107); Cholesterol 112 mg/dL (200); Creatinine, Serum 1.65 mg/dL (0.70-1.30); EST Glomerular Filtration Rate 46 mL/min (>60); Est Glom Filt Rate - Afr Amer 56 mL/min (>60); Globulin 3.9 g/dL (2.2-4.2); Glucose 171 mg/dL (74-106); High Density Lipoprotein 49 mg/dL; PSA,Total - Annual Screen 0.87 ng/mL (0.00-4.00); Potassium 4.7 mmol/L (3.5-5.1); Sodium Level 139 mmol/L (136-145); Thyroid Stim Hormone (TSH) 0.33 uIU/mL (0.358-3.74); Triglycerides 67 mg/dL; Very Low Density Lipoprotein 13 mg/dL (5-40)
== END | disposition home or self-care (01) ==
LOC: LAB 09:37
PROVIDERS: PCP Internal Medicine; Referring Provider Internal Medicine; Visit Provider Internal Medicine
DX: I25.118 Atherosclerotic heart disease of native coronary artery with other forms of angina pectoris (principal); E11.9 Type 2 diabetes mellitus without complications; I10 Essential (primary) hypertension; E78.5 Hyperlipidemia, unspecified; Z12.5 Encounter for screening for malignant neoplasm of prostate
CPT/HCPCS: 36415; 80053; 80061; 83036; 84153; 84443; 85025; G0103

== ENCOUNTER 2022-03-06 15:50 | Emergency (ER) | payer OTHER, SELFPAY ==
[2022-03-06 15:52] VITALS: BP 142/46; PULSE 78; RESP 16; TEMP 36.6; O2SAT 97; BMI 29.1
--- NOTE | 2022-03-06 18:59 | EDS_ITS ---
HPI <IRAM La - Last Filed: 03/06/22 21:33> History of Present Illness Chief Complaint: Cold Sx Narrative Narrative: Presents today with URI-like symptoms that started yesterday. Patient has a PMH of DM and HTN. He states he has had a runny nose, cough, and a sore throat. He has been around his sister who tested positive for influenza A and figured he would come and get evaluated. Patient denies fever, shortness of breath, abdominal pain, nausea, vomiting, and diarrhea. PFSH <IRAM La - Last Filed: 03/06/22 21:33> [facility] Medical History Abnormal Screening Computed Tomography (CT) of Chest Anemia, unspecified Arthritis Atherosclerotic heart disease of [place] coronary artery with other forms of angina pectoris Back pain Dietary restriction Essential (primary) hypertension High cholesterol History of pneumonia History of stress test HLD (hyperlipidemia) Hx of echocardiogram Hyperosmolar hyperglycemic state (HHS) Insulin dependent diabetes mellitus Lung nodule Non-smoker Pneumonia Positive occult stool blood test Rectal bleeding Sepsis Strep pharyngitis Suspected 2019 novel coronavirus infection Type 2 diabetes mellitus without complication Wears glasses Home Medications aspirin 81 mg tablet,delayed release 81 mg PO DAILY heart health 03/16/19 [History Last Taken 08/25/21] insulin lispro 100 unit/mL subcutaneous pen See Protocol subcut TIDAC ##1 05/04/20 [Rx Last Taken Unknown] needle (disp) 16 G 16 gauge x 1 ##100 05/06/20 [Rx Last Taken Unknown] acetaminophen 500 mg tablet 1,000 mg PO BID 09/06/20 [History Last Taken Unknown] cholecalciferol (vitamin D3) 25 mcg (1,000 unit) capsule 25 mcg PO DAILY 01/18/21 [History Last Taken Unknown] clopidogrel 75 mg tablet (Plavix) 75 mg PO DAILY #90 tabs 03/28/21 [Rx Last Taken 08/25/21] diphenhydramine 25 mg-acetaminophen 500 mg tablet (Tylenol PM Extra Strength) 2 tab PO QHS 08/15/21 [History Last Taken Unknown] dulaglutide 1.5 mg/0.5 mL subcutaneous pen injector 1.5 mg subcut WE 08/15/21 [History Last Taken Unknown] insulin glargine-yfgn 100 unit/mL (3 mL) subcutaneous pen 48 unit (0.48 mL) subcut QHS #15 mL 08/15/21 [Rx Last Taken Unknown] melatonin 5 mg tablet 5 mg PO HS 08/15/21 [History Last Taken Unknown] isosorbide mononitrate 60 mg tablet,extended release 24 hr 60 mg PO DAILY This is a dose increase,also pt out of 30 mg. #90 tabs 09/19/21 [Rx Last Taken Unknown] metformin 500 mg tablet 500 mg PO BID #180 tabs 10/10/21 [Rx Last Taken Unknown] lisinopril 40 mg tablet 40 mg PO QHS #90 tabs 11/21/21 [Rx Last Taken Unknown] carvedilol 3.125 mg tablet (Coreg) 3.125 mg PO BID #180 tabs 12/22/21 [Rx Last Taken Unknown] hydrochlorothiazide 12.5 mg capsule 12.5 mg PO DAILY bp #90 caps 01/26/22 [Rx Last Taken Unknown] nitroglycerin 0.4 mg sublingual tablet 0.4 mg sublingual PRN PRN Cardiac/Chest Pain #30 tabs 02/13/22 [Rx Last Taken Unknown] atorvastatin 20 mg tablet 20 mg PO QHS #90 tabs 02/20/22 [Rx Last Taken Unknown] Allergy/AdvReac Type Severity Reaction Status Date / Time hydrocodone [From Vicodin] AdvReac Other Verified 03/06/22 15:52 Family History Mother Heart disease Diabetes Alzheimer disease Hypertension Hyperlipemia Breast cancer Arthritis Father Heart disease Seizures Hypertension Hyperlipemia Sister Diabetes Heart disease Myocardial infarction Kidney disease Asthma Hypertension Uncle Colon cancer Surgical History H/O knee surgery History of colonoscopy History of coronary artery stent placement (12/22/19) History of left heart catheterization (08/25/21) Social History household members: spouse Smoking Status: Never smoker alcohol intake: never substance use type: does not use caffeine: Yes Type: coffee Number of servings: 1 what type of physical activity do you participate in: walking ROS <IRAM La - Last Filed: 03/06/22 21:33> ROS ED Constitutional Constitutional ED: Denies chills, fever(s) or sweats Eyes Eyes: Denies blurry vision or change in vision ENT ENT ED: Reports nasal congestion, rhinorrhea and sore throat Cardiovascular Cardiovascular: Denies chest pain or palpitations Respiratory/Chest Respiratory/Chest: Reports cough; Denies dyspnea or dyspnea on exertion Gastrointestinal Gastrointestinal: Denies abdominal pain, diarrhea, nausea or vomiting Genitourinary Genitourinary ED: Denies dysuria, hematuria or urinary frequency Musculoskeletal Musculoskeletal: Denies myalgias or neck pain Integumentary Denies abscess, Abrasions or rash Neurologic Neurologic: Reports headache(s); Denies paresthesias or weakness Psychiatric Psychiatric: Denies depression or suicidal thoughts Endocrine Endocrinology: Denies polydipsia or polyuria EXAM <IRAM La - Last Filed: 03/06/22 21:33> Physical Exam Const Vital Signs: 03/06/22 15:52 03/06/22 19:51 Temperature 97.8 F Temperature Source Temporal Pulse Rate 78 Respiratory Rate 16 Respiratory Effort Normal Non-Labored Respiratory Pattern Normal Blood Pressure 142/46 H Blood Pressure Mean 78 Pulse Ox 97 Oxygen Delivery Method Room Air Positive well nourished and well developed General Appearance ED: well developed and NAD HEENT Reports TM's clear and moist mucous membranes normocephalic and atraumatic Tympanic Membrane ED: Yes TM's clear Throat: posterior oropharynx normal, tonsils normal and uvula midline Eyes PERRL and EOMs intact bilaterally Neck no lymphadenopathy, supple and no meningeal signs Chest Wall inspection of chest normal Resp normal respiratory effort and clear to auscultation bilaterally Cardio Rate: regular rate Rhythm: regular rhythm GI non-tender, non-distended and no masses Palpation: soft Extremity normal to inspection Neuro oriented x3, CN's II-XII intact bilaterally and no sensory deficits noted Sensorium / Orientation: alert Motor Exam: strength 5/5 throughout Psych mental status grossly normal Skin no rashes or lesions noted, no wounds and skin turgor normal Lesions: no lesions Rashes: no rashes <Dr. Florina Sorensen DO - Last Filed: 03/06/22 23:45> Physical Exam Const Vital Signs: 03/06/22 15:52 03/06/22 19:51 Temperature 97.8 F Temperature Source Temporal Pulse Rate 78 Respiratory Rate 16 Respiratory Effort Normal Non-Labored Respiratory Pattern Normal Blood Pressure 142/46 H Blood Pressure Mean 78 Pulse Ox 97 Oxygen Delivery Method Room Air [facility] <IRAM La - Last Filed: 03/06/22 21:33> [facility] Narrative Medical decision making narrative: Patient tested positive for COVID. Patient's oxygen saturation is 97%. He is afebrile. I have educated him on supportive care measures such as alternating Tylenol and ibuprofen for fever control if one develops and staying well- hydrated. I am comfortable with patient discharging home and patient is comfortable with plan. I have given him return instructions. <Dr. Florina Sorensen, - Last Filed: 03/06/22 23:45> [facility] Treatment and Re-Evaluation Narrative: I have personally performed a face to face assessment of the patient and have reviewed the TREVA Note. I performed a substantive portion of the visit including all aspects of the following. My blackwell findings include: Patient is evaluated for 2 days of URI symptoms. Sister recently had influenza diagnosis. Patient denies having any chest pain or difficulty breathing. This exam is benign. Vital signs are normal. Patient has positive for COVID. Will be treated symptomatically at this time. Given return precautions. He has no hypoxia or respiratory abnormalities on exam I do not think a chest x-ray is indicated especially as he is only had 2 days of symptoms. Discharge Plan Triage Chief Complaint: Cold Sx ED Midlevel Provider: Jennifer Perez ED Provider: Florina Sorensen Dx/Rx/DC Orders Clinical Impression: COVID-19 Instructions: Caring for Someone Who Has COVID-19 Prescriptions: No Action cholecalciferol (vitamin D3) 25 mcg (1,000 unit) capsule 25 mcg PO DAILY dulaglutide 1.5 mg/0.5 mL pen injector 1.5 mg subcut WE diphenhydramine-acetaminophen [Tylenol PM Extra Strength] 25-500 mg tablet 2 tab PO QHS melatonin 5 mg tablet 5 mg PO HS aspirin 81 MG tablet,delayed release (DR/EC) 81 mg PO DAILY Label Comments: stopped for colonoscopy insulin lispro 100 UNIT/ML insulin pen See Protocol SC TIDAC Qty: 1 0RF Protocol: 1. Sliding Scale Insulin Low Dosing Condition: 150-224 mg/dl = 1 unit Condition: 225-299 mg/dl = 2 units Condition: 300-374 mg/dl = 3 units Condition: 375-499 mg/dl = 4 units Condition: Greater than 449 call physician Protocol Text: - Use for Total Daily Dose of Insulin 15-27 units - Thin, elderly, renal patients LOW DOSING ALGORITHM Rx Instructions: Sliding Scale Insulin: 0 units = 150-200, 3 units = 201-250, 6 units = 251- 300, 9 units = 301-350 (DME) needle (disp) 16 G 1 EACH needle 1 ea SQ ACHS Qty: 100 0RF Rx Instructions: Disposal insulin pen needles acetaminophen [Tylenol Ex Str Arthritis Pain] 500 mg Tablet 1,000 mg PO BID clopidogrel [Plavix] 75 mg tablet 75 mg PO DAILY Qty: 90 3RF insulin glargine-yfgn 100 unit/mL (3 mL) insulin pen 48 unit subcut QHS Qty: 15 6RF isosorbide mononitrate 60 mg tablet extended release 24 hr 60 mg PO DAILY Qty: 90 3RF metformin 500 mg tablet 500 mg PO BID Qty: 180 1RF lisinopril 40 mg tablet 40 mg PO QHS Qty: 90 3RF carvedilol [Coreg] 3.125 mg tablet 3.125 mg PO BID Qty: 180 3RF Rx Instructions: must administer with a meal/food hydrochlorothiazide 12.5 mg capsule 12.5 mg PO DAILY Qty: 90 3RF nitroglycerin 0.4 mg tablet, sublingual 0.4 mg SUBLINGUAL PRN PRN (Reason: Cardiac/Chest Pain) Qty: 30 0RF Rx Instructions: May repeat after 5 minutes if pain persist. atorvastatin 20 mg tablet 20 mg PO QHS Qty: 90 3RF Primary Care Provider: Norma Obrien Referrals: Norma Obrien MD [Primary Care Provider] - 5-7 Days Activity Restrictions/Additional Instructions: Alternate ibuprofen and Tylenol for fever control if one develops. Stay well- hydrated. Return if you develop any shortness of breath, difficulty breathing, or worsening of symptoms. Disposition Disposition: Home, Self Care Discharge Date/Time: 03/06/22 19:52
== END 2022-03-06 19:52 | disposition home or self-care (01) ==
PROVIDERS: Emergency Provider Emergency Medicine; PCP Internal Medicine; Visit Provider Emergency Medicine
DX: U07.1 COVID-19 (principal); I25.10 Atherosclerotic heart disease of native coronary artery without angina pectoris; Z95.5 Presence of coronary angioplasty implant and graft
CPT/HCPCS: 87428; 99282

== ENCOUNTER → 2022-06-12 | Outpatient (CLI) | payer OTHER, SELFPAY ==
[2022-06-12 09:48] LABS: Absolute Lymphocyte Count 1.44 X10^3/uL (0.83-4.51); Absolute Neutrophil Count 4.2 X10^3/uL (2.0-7.7); Basophil# 0.08 X10^3/uL; Basophil% 1.2 % (0-1); Eosinophil# 0.38 X10^3/uL; Eosinophils% 5.7 % (0-5); Hematocrit 43.7 % (40-54); Hemoglobin 14.5 g/dL (13.0-16.5); Lymphocyte # 1.44 X10^3/ul (0.83-4.51); Lymphocyte % 21.6 % (19-41); Mean Corp Hgb Conc 33.2 g/dL (32-36); Mean Corpuscular Hgb 31.2 pg (27.0-32.0); Mean Platelet Vol. 9.1 fl (6.2-12.0); Monocyte# 0.59 X10^3/uL; Monocyte% 8.9 % (0-10); NRBC Flagged by Analyzer 0 % (0-5); Neutrophil # 4.15 X10^3/uL (2.7-7.7); Neutrophil % 62.3 % (47-70); Platelet Count 272 K/mm3 (150-450); RBC Distribution Width CV 11.9 % (11.6-14.6); Red Blood Count 4.65 M/mm3 (4.6-6.2); White Blood Count 6.7 K/mm3 (4.4-11.0)
[2022-06-12 10:19] LABS: Hemoglobin A1c 7.4 % (3.8-5.6)
[2022-06-12 10:23] LABS: Vitamin D,25 Hydroxy 38.6 ng/mL
[2022-06-12 10:35] LABS: ALB/GLOB Ratio 1.1 RATIO (0.9-2.4); AST(SGOT) 21 U/L (15-37); Alanine Aminotransfer ALT/SGPT 30 U/L (16-61); Albumin, Serum 4.1 g/dL (3.2-5.0); Alkaline Phosphatase 76 U/L (45-117); Anion Gap 5 (5-15); BUN 35 mg/dL (7-18); BUN/Creat Ratio 20.5 RATIO (10-20); Calcium,Total 9.4 mg/dL (8.5-10.1); Chloride 107 mmol/L (98-107); Cholesterol 97 mg/dL (200); Creatinine, Serum 1.71 mg/dL (0.70-1.30); EST Glomerular Filtration Rate 44 mL/min (>60); Est Glom Filt Rate - Afr Amer 53 mL/min (>60); Free T3 3.4 pg/mL (2.18-3.98); Globulin 3.8 g/dL (2.2-4.2); Glucose 148 mg/dL (74-106); High Density Lipoprotein 54 mg/dL; Potassium 4.9 mmol/L (3.5-5.1); Protein, Total 7.9 g/dL (6.4-8.2); Sodium Level 138 mmol/L (136-145); T4 Free Direct 0.94 ng/dL (0.76-1.46); Thyroid Stim Hormone (TSH) 0.28 uIU/mL (0.358-3.74); Triglycerides 46 mg/dL; Very Low Density Lipoprotein 9 mg/dL (5-40)
== END | disposition home or self-care (01) ==
LOC: LAB 09:01
PROVIDERS: PCP Internal Medicine; Referring Provider Internal Medicine; Visit Provider Internal Medicine
DX: I25.118 Atherosclerotic heart disease of native coronary artery with other forms of angina pectoris (principal); E11.65 Type 2 diabetes mellitus with hyperglycemia; E78.00 Pure hypercholesterolemia, unspecified; M19.90 Unspecified osteoarthritis, unspecified site; I10 Essential (primary) hypertension; Z95.5 Presence of coronary angioplasty implant and graft; Z13.220 Encounter for screening for lipoid disorders; E55.9 Vitamin D deficiency, unspecified
CPT/HCPCS: 36415; 80053; 80061; 82306; 83036; 84439; 84443; 84481; 85025

== ENCOUNTER → 2022-12-18 | Outpatient (CLI) | payer OTHER, SELFPAY ==
[2022-12-18 10:17] LABS: Absolute Lymphocyte Count 1.44 X10^3/uL (0.83-4.51); Absolute Neutrophil Count 4.3 X10^3/uL (2.0-7.7); Basophil# 0.07 X10^3/uL; Eosinophil# 0.45 X10^3/uL; Eosinophils% 6.4 % (0-5); Hematocrit 41.6 % (40-54); Hemoglobin 13.7 g/dL (13.0-16.5); Lymphocyte # 1.44 X10^3/ul (0.83-4.51); Lymphocyte % 20.6 % (19-41); Mean Corp Hgb Conc 32.9 g/dL (32-36); Mean Corpuscular Hgb 31.6 pg (27.0-32.0); Mean Corpuscular Volume 95.9 fL (80-94); Mean Platelet Vol. 9.8 fl (6.2-12.0); Monocyte# 0.67 X10^3/uL; Monocyte% 9.6 % (0-10); NRBC Flagged by Analyzer 0 % (0-5); Neutrophil # 4.33 X10^3/uL (2.7-7.7); Neutrophil % 62.1 % (47-70); Platelet Count 286 K/mm3 (150-450); RBC Distribution Width CV 11.8 % (11.6-14.6); RBC Distribution Width SD 41.1 fl (35.1-43.9); Red Blood Count 4.34 M/mm3 (4.6-6.2)
[2022-12-18 10:57] LABS: Vitamin D,25 Hydroxy 50.1 ng/mL
[2022-12-18 11:29] LABS: ALB/GLOB Ratio 1.1 RATIO (0.9-2.4); AST(SGOT) 14 U/L (15-37); Alanine Aminotransfer ALT/SGPT 30 U/L (16-61); Albumin, Serum 4.2 g/dL (3.2-5.0); Alkaline Phosphatase 97 U/L (45-117); Anion Gap 3 (5-15); BUN 37 mg/dL (7-18); BUN/Creat Ratio 23.1 RATIO (10-20); Calcium,Total 9.4 mg/dL (8.5-10.1); Chloride 111 mmol/L (98-107); Cholesterol 89 mg/dL (200); EST Glomerular Filtration Rate 47 mL/min (>60); Est Glom Filt Rate - Afr Amer 57 mL/min (>60); Free T3 3.3 pg/mL (2.18-3.98); Globulin 3.8 g/dL (2.2-4.2); Glucose 139 mg/dL (74-106); High Density Lipoprotein 51 mg/dL; PSA,Total - Annual Screen 0.82 ng/mL (0.00-4.00); Potassium 4.9 mmol/L (3.5-5.1); Sodium Level 139 mmol/L (136-145); Thyroid Stim Hormone (TSH) 0.24 uIU/mL (0.358-3.74); Triglycerides 48 mg/dL; Very Low Density Lipoprotein 10 mg/dL (5-40)
== END | disposition home or self-care (01) ==
LOC: LAB 09:13
PROVIDERS: PCP Internal Medicine; Referring Provider Internal Medicine; Visit Provider Internal Medicine
DX: E11.22 Type 2 diabetes mellitus with diabetic chronic kidney disease (principal); I25.118 Atherosclerotic heart disease of native coronary artery with other forms of angina pectoris; N18.9 Chronic kidney disease, unspecified; E78.00 Pure hypercholesterolemia, unspecified; I12.9 Hypertensive chronic kidney disease with stage 1 through stage 4 chronic kidney disease, or unspecified chronic kidney disease; Z13.220 Encounter for screening for lipoid disorders; Z12.5 Encounter for screening for malignant neoplasm of prostate
CPT/HCPCS: 36415; 80053; 80061; 82306; 84153; 84439; 84443; 84481; 85025; G0103

== ENCOUNTER 2023-02-16 20:36 | Emergency (ER) | payer OTHER, SELFPAY ==
[2023-02-16 20:38] VITALS: BP 134/76; PULSE 93; RESP 12; TEMP 36.7; O2SAT 97; BMI 27.5
--- NOTE | 2023-02-16 21:00 | RAD_ITS ---
STUDY: X-RAY CHEST REASON FOR EXAM: Male, 57 years old. chest pain. Short of breath. TECHNIQUE: Single AP portable view of the chest. COMPARISON: 08/15/2021 FINDINGS: The lungs are clear and expanded. There is no demonstrated pleural abnormality. Normal size heart. Normal mediastinum and chelita. Normal visualized pulmonary arteries. Normal visualized aortic arch and descending thoracic aorta. Normal visualized thoracic spine. Normal visualized ribs, clavicles, and shoulders. There is no demonstrated abnormality of the visualized soft tissue structures of the upper abdomen. RAD/Chest 1 View (Portable) IMPRESSION: Normal x-ray examination of the chest. Electronically Signed: Vincenzo Farias MD at 21:23 [facility] ,
[2023-02-16 21:05] LABS: Absolute Neutrophil Count 5.5 X10^3/uL (2.0-7.7); Basophil# 0.08 X10^3/uL; Basophil% 0.9 % (0-1); Eosinophil# 0.52 X10^3/uL; Hematocrit 38.1 % (40-54); Hemoglobin 13.2 g/dL (13.0-16.5); Lymphocyte % 20.7 % (19-41); Mean Corp Hgb Conc 34.6 g/dL (32-36); Mean Corpuscular Hgb 32.4 pg (27.0-32.0); Mean Corpuscular Volume 93.4 fL (80-94); Monocyte# 0.81 X10^3/uL; Monocyte% 9.3 % (0-10); NRBC Flagged by Analyzer 0 % (0-5); Neutrophil # 5.46 X10^3/uL (2.7-7.7); Neutrophil % 62.9 % (47-70); Platelet Count 261 K/mm3 (150-450); RBC Distribution Width CV 11.9 % (11.6-14.6); RBC Distribution Width SD 40.9 fl (35.1-43.9); Red Blood Count 4.08 M/mm3 (4.6-6.2); White Blood Count 8.7 K/mm3 (4.4-11.0)
[2023-02-16 21:21] LABS: Anion Gap 1 (5-15); BUN 36 mg/dL (7-18); BUN/Creat Ratio 19.7 RATIO (10-20); Calcium,Total 8.8 mg/dL (8.5-10.1); Chloride 110 mmol/L (98-107); Creatinine, Serum 1.83 mg/dL (0.70-1.30); EST Glomerular Filtration Rate 41 mL/min (>60); Est Glom Filt Rate - Afr Amer 49 mL/min (>60); Estimated Creatinine Clearance 49.73 ml/min; Glucose 99 mg/dL (74-106); Potassium 4.6 mmol/L (3.5-5.1); Sodium Level 138 mmol/L (136-145); Troponin-I HS (w/2H Reflex) 8 pg/mL (3.0-78.0)
[2023-02-16 22:58] LABS: Reflex Troponin-HS? (from REC) Y
[2023-02-16 23:20] LABS: Troponin-I HS 8 pg/mL (3.0-78.0)
[2023-02-16 23:39] VITALS: BP 114/76; PULSE 75; RESP 12; O2SAT 98
--- NOTE | 2023-02-16 23:40 | EDS_ITS ---
HPI History of Present Illness Chief Complaint: Chest Pain Informant: patient and spouse/S.O. Narrative Narrative: Patient is a 57-year-old male with past medical history of hypertension hyperlipidemia diabetes and known CAD with 1 stent placed roughly 3 years ago. 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 He states he did this today and as he was driving home noticed some left anterior chest pain that was more sharp in nature. He states there was no nausea vomiting or diaphoresis associated with this. He does state he felt slightly short of breath. He reports that his time is past the symptoms have spontaneously improved but as he has known cardiac hi story comes in for evaluation [facility] Medical History (Reviewed 02/05/23 @ 09:54 by Nishi Smith BUILDING MAINTENANCE SUPERVISOR, BUILDING MAINTENANCE SUPERVISOR-C) Abnormal Screening Computed Tomography (CT) of Chest Anemia, unspecified Arthritis Atherosclerotic heart disease of [place] coronary artery with other forms of angina pectoris Back pain Bulging of lumbar intervertebral disc Contusion of arm, left COVID-19 Dietary restriction PIMENTEL (dyspnea on exertion) Essential (primary) hypertension High cholesterol History of pneumonia History of stress test HLD (hyperlipidemia) Hx of echocardiogram Hyperosmolar hyperglycemic state (HHS) Insulin dependent diabetes mellitus Leg pain, left Low back pain Low TSH level Lung nodule Non-smoker Pancolitis Pneumonia Positive occult stool blood test Rectal bleeding Segmental and somatic dysfunction of cervical region Segmental and somatic dysfunction of lumbar region Segmental and somatic dysfunction of thoracic region Sepsis Strep pharyngitis Suspected 2019 novel coronavirus infection Type 2 diabetes mellitus without complication Type 2 diabetes mellitus without complications Wears glasses Home Medications aspirin 81 mg tablet,delayed release 81 mg PO DAILY heart health 03/16/19 [History Last Taken 08/25/21] insulin lispro 100 unit/mL subcutaneous pen See Protocol subcut TIDAC ##1 05/04/20 [Rx Last Taken Unknown] needle (disp) 16 G 16 gauge x 1 ##100 05/06/20 [Rx Last Taken Unknown] cholecalciferol (vitamin D3) 25 mcg (1,000 unit) capsule 25 mcg PO DAILY [History Last Taken Unknown] melatonin 5 mg tablet 5 mg PO HS 08/15/21 [History Last Taken Unknown] nitroglycerin 0.4 mg sublingual tablet 0.4 mg sublingual PRN PRN Cardiac/Chest Pain #30 tabs 02/13/22 [Rx Last Taken Unknown] dulaglutide 1.5 mg/0.5 mL subcutaneous pen injector 1.5 mg (0.5 mL) subcut WE #6 mL 05/15/22 [Rx Last Taken Unknown] acetaminophen 500 mg tablet 1,000 mg PO ONCE PRN fever or pain 06/05/22 [History Last Taken Unknown] diphenhydramine 25 mg-acetaminophen 500 mg tablet (Tylenol PM Extra Strength) 1 tab PO QHS PRN ARTHRITIS 06/05/22 [History Last Taken Unknown] isosorbide mononitrate 60 mg tablet,extended release 24 hr 60 mg PO DAILY This is a dose increase,also pt out of 30 mg. #90 tabs 09/19/22 [Rx Last Taken Unknown] lisinopril 40 mg tablet 40 mg PO QHS #90 tabs 11/20/22 [Rx Last Taken Unknown] atorvastatin 20 mg tablet 20 mg PO QHS #90 tabs 12/18/22 [Rx Last Taken Unknown] carvedilol 3.125 mg tablet (Coreg) 3.125 mg PO BID #180 tabs 12/18/22 [Rx Last Taken Unknown] clopidogrel 75 mg tablet (Plavix) 75 mg PO DAILY #90 tabs 12/18/22 [Rx Last Taken Unknown] metformin 500 mg tablet 500 mg PO BID #180 tabs 12/18/22 [Rx Last Taken Unknown] hydrochlorothiazide 12.5 mg capsule 12.5 mg PO DAILY bp #90 caps 01/29/23 [Rx Last Taken Unknown] insulin degludec 100 unit/mL (3 mL) subcutaneous pen (Tresiba FlexTouch U-100 insulin) 48 unit (0.48 mL) subcut DAILY #15 mL 02/02/23 [Rx Last Taken Unknown] insulin glargine 100 unit/mL (3 mL) subcutaneous pen 48 unit subcut QHS 02/16/23 [History Last Taken Unknown] Allergy/AdvReac Type Severity Reaction Status Date / Time hydrocodone [From Vicodin] AdvReac Other Verified 02/05/23 09:54 Family History Mother Heart disease Diabetes Alzheimer disease Hypertension Hyperlipemia Breast cancer Arthritis Father Heart disease Seizures Hypertension Hyperlipemia Sister Diabetes Heart disease Myocardial infarction Kidney disease Asthma Hypertension Uncle Colon cancer Surgical History (Reviewed 02/05/23 @ 09:54 by Nishi Smith BUILDING MAINTENANCE SUPERVISOR, BUILDING MAINTENANCE SUPERVISOR-C) H/O knee surgery History of colonoscopy History of coronary artery stent placement (12/22/19) History of left heart catheterization (08/25/21) Social History household members: spouse Smoking Status: Never smoker alcohol intake: never substance use type: does not use caffeine: Yes Type: coffee Number of servings: 1 what type of physical activity do you participate in: walking ROS ROS ED Constitutional Constitutional ED: Denies chills or fever(s) ENT ENT ED: Denies sore throat Cardiovascular Cardiovascular: Reports chest pain; Denies palpitations or racing heartbeat Respiratory/Chest Respiratory/Chest: Reports dyspnea; Denies cough Gastrointestinal Gastrointestinal: Denies abdominal pain, diarrhea, nausea or vomiting Genitourinary Genitourinary ED: Denies dysuria Musculoskeletal Musculoskeletal: Denies back pain, myalgias or neck pain Integumentary Denies rash Neurologic Neurologic: Denies headache(s) Hematologic/Lymphatic Hematologic/Lymphatic: Reports easy bleeding and easy bruising EXAM Physical Exam Const Vital Signs: 02/16/23 20:38 02/16/23 20:43 02/16/23 20:44 Temperature 98.0 F Temperature Source Temporal Pulse Rate 93 Respiratory Rate 12 Respiratory Effort Normal Short of Breath Respiratory Depth Normal Respiratory Pattern Normal Blood Pressure 134/76 H Blood Pressure Mean 95 Pulse Ox 97 Oxygen Delivery Method Room Air Room Air 02/16/23 20:40 02/16/23 23:39 Temperature Temperature Source Pulse Rate 75 Respiratory Rate 12 Respiratory Effort Respiratory Depth Respiratory Pattern Blood Pressure 114/76 Blood Pressure Mean 88 Pulse Ox 98 Oxygen Delivery Method Room Air Room Air Positive well nourished and well developed General Appearance ED: well developed; Negative for pallor HEENT HEENT Narrative: Normocephalic atraumatic Eyes PERRL and EOMs intact bilaterally General Eye ED: Negative for scleral icterus Neck supple and no JVD Chest Wall Chest Narrative: There is reproducible pain in the left intercostal space rib regions 4-6 that patient states is the same pain he has been experiencing No bony deformity or crepitus noted Resp normal respiratory effort and clear to auscultation bilaterally Cardio regular rate and regular rhythm Rate: other Other Details: Heart is regular rate and rhythm without murmurs rubs or gallop Radial and carotid pulses are equal and symmetric GI normal to inspection, nondistended, normoactive bowel sounds, non-tender, non- distended and no masses GI Narrative: No voluntary guarding or rigidity no pulsatile mass or fluid wave Auscultation: normoactive bowel sounds Palpation: soft Extremity normal to inspection Extremity Narrative: No asymmetric edema no pitting edema negative Homans' sign bilaterally Neuro oriented x3, CN's II-XII intact bilaterally and no sensory deficits noted Sensorium / Orientation: alert Motor Exam: strength 5/5 throughout Psych mental status grossly normal Skin no rashes or lesions noted General Skin Exam: Negative for jaundice or pallor MDM MDM MDM Narrative Medical decision making narrative: Patient presented to the ER with stable vitals and report of chest pain that was not classic cardiac in nature. However he does have known CAD and therefore differential diagnosis is for acute coronary syndrome versus pneumonia versus pneumothorax versus musculoskeletal chest wall pain. Patient blood work was obtained which showed a normal troponin at 8 with a 2-hour delta and staying flat at the same value. EKG was sinus rhythm without dysrhythmia or ischemic changes and chest x-ray revealed no acute lung pathology. Patient also had spontaneous resolution of his symptoms and therefore this time as history and exam indicates this is most likely chest wall pain and not cardiovascular he is otherwise safe for discharge History & Record Review Discussion w/independent historian: Patient Lab Data Attestation: I reviewed the patient's lab results. Labs: Laboratory Results - last 24 hr 02/16/23 02/16/23 20:45 20:50 WBC 8.7 RBC 4.08 L Hgb 13.2 Hct 38.1 L MCV 93.4 MCH 32.4 H MCHC 34.6 RDW Std Deviation 40.9 RDW Coeff of Gustavo 11.9 Plt Count 261 MPV 9.0 Immature Gran % (Auto) 0.200 Neut % (Auto) 62.9 Lymph % (Auto) 20.7 [place] % (Auto) 9.3 Eos % (Auto) 6.0 H Baso % (Auto) 0.9 Absolute Neuts (auto) 5.5 Absolute Lymphs (auto) 1.80 Nucleated RBC % 0 Sodium 138 Potassium 4.6 Chloride 110 H Carbon Dioxide 27.0 Anion Gap 1 L BUN 36 H Creatinine 1.83 H Estim Creat Clear Calc 49.73 Est GFR (MDRD) Af Amer 49 L Est GFR (MDRD) Non-Af 41 L BUN/Creatinine Ratio 19.7 Glucose 99 Calcium 8.8 Troponin I High Sens 8 8 Radiography Diagnostic Testing: Clinical Impression(s) from Imaging Studies Chest X-Ray 02/16/23 21:00 IMPRESSION: Normal x-ray examination of the chest. Electronically Signed: Vincenzo Farias MD at 21:23 EST , Chest x-ray as interpreted by the emergency medicine physician reveals no acute infiltrate pneumothorax pleural effusion or widening of the mediastinum Discharge Plan Triage Chief Complaint: Chest Pain Other Complaint: Shortness of Breath ED Provider: Titi Sullivan Dx/Rx/DC Orders Clinical Impression: Chest wall pain, Type 2 diabetes mellitus without complication, Essential (primary) hypertension, History of coronary artery stent placement, High cholesterol Instructions: ED Chest Pain, Noncardiac, ED Chest Wall Strain Prescriptions: No Action cholecalciferol (vitamin D3) 25 mcg (1,000 unit) capsule 25 mcg PO DAILY melatonin 5 mg tablet 5 mg PO HS diphenhydramine-acetaminophen [Tylenol PM Extra Strength] 25-500 mg tablet 1 tab PO QHS PRN (Reason: ARTHRITIS) aspirin 81 MG tablet,delayed release (DR/EC) 81 mg PO DAILY Patient Comments: stopped for colonoscopy insulin lispro 100 UNIT/ML insulin pen See Protocol SC TIDAC Qty: 1 0RF Protocol: 1. Sliding Scale Insulin Low Dosing Condition: 150-224 mg/dl = 1 unit Condition: 225-299 mg/dl = 2 units Condition: 300-374 mg/dl = 3 units Condition: 375-499 mg/dl = 4 units Condition: Greater than 449 call physician Protocol Text: - Use for Total Daily Dose of Insulin 15-27 units - Thin, elderly, renal patients LOW DOSING ALGORITHM Rx Instructions: Sliding Scale Insulin: 0 units = 150-200, 3 units = 201-250, 6 units = 251- 300, 9 units = 301-350 (DME) needle (disp) 16 G 1 EACH needle 1 ea SQ ACHS Qty: 100 0RF Rx Instructions: Disposal insulin pen needles acetaminophen 500 mg tablet 1,000 mg PO ONCE PRN (Reason: fever or pain) insulin glargine 100 unit/mL (3 mL) insulin pen 48 unit SUBCUT QHS Patient Comments: INJECT 48 UNITS SUBCUTANEOUSLY AT BEDTIME nitroglycerin 0.4 mg tablet, sublingual 0.4 mg SUBLINGUAL PRN PRN (Reason: Cardiac/Chest Pain) Qty: 30 0RF Rx Instructions: May repeat after 5 minutes if pain persist. dulaglutide 1.5 mg/0.5 mL pen injector 1.5 mg subcut WE Qty: 6 3RF isosorbide mononitrate 60 mg tablet extended release 24 hr 60 mg PO DAILY Qty: 90 3RF lisinopril 40 mg tablet 40 mg PO QHS Qty: 90 3RF atorvastatin 20 mg tablet 20 mg PO QHS Qty: 90 3RF carvedilol [Coreg] 3.125 mg tablet 3.125 mg PO BID Qty: 180 3RF Rx Instructions: must administer with a meal/food clopidogrel [Plavix] 75 mg tablet 75 mg PO DAILY Qty: 90 3RF metformin 500 mg tablet 500 mg PO BID Qty: 180 3RF hydrochlorothiazide 12.5 mg capsule 12.5 mg PO DAILY Qty: 90 3RF insulin degludec [Tresiba FlexTouch U-100] 100 unit/mL (3 mL) insulin pen 48 unit subcut DAILY Qty: 15 3RF Primary Care Provider: Norma Obrien Referrals: Norma Obrien MD [Primary Care Provider] - Activity Restrictions/Additional Instructions: Your workup today shows no signs of heart damage and your physical exam the case this is most likely musculoskeletal chest wall pain. Continue with Tylenol or Motrin to help with symptoms and return to the ER should you have any further concerns Disposition Disposition: Home, Self Care Discharge Date/Time: 02/16/23 23:49
== END 2023-02-16 23:49 | disposition home or self-care (01) ==
PROVIDERS: Emergency Provider Emergency Medicine; PCP Internal Medicine; Visit Provider Emergency Medicine
DX: R07.89 Other chest pain (principal); E11.9 Type 2 diabetes mellitus without complications; Z79.4 Long term (current) use of insulin; R06.02 Shortness of breath; I10 Essential (primary) hypertension; E78.00 Pure hypercholesterolemia, unspecified; I25.10 Atherosclerotic heart disease of native coronary artery without angina pectoris; Z79.82 Long term (current) use of aspirin; Z79.02 Long term (current) use of antithrombotics/antiplatelets; Z79.899 Other long term (current) drug therapy; Z95.5 Presence of coronary angioplasty implant and graft
CPT/HCPCS: 71045; 80048; 84484; 85025; 93005; 99285; A4216

== ENCOUNTER → 2023-06-18 | Outpatient (CLI) | payer OTHER, SELFPAY ==
--- NOTE | 2023-06-18 09:35 | RAD_ITS ---
INDICATION: Neck and shoulder pain EXAMINATION/TECHNIQUE: X-RAY - XR Spine Cervical 2 or 3 Views COMPARISON: None. FINDINGS: VERTEBRAE: Preserved vertebral body height. No fracture. No spondylolisthesis. Preservation of the normal cervical lordosis. No significant facet arthropathy. DISCS: Disc spaces are maintained, marginal osteophyte formation is noted throughout the cervical spine. Odontoid process and prevertebral soft tissue planes have normal appearance NECK SOFT TISSUES: No prevertebral soft tissue widening. LUNG APICES: Clear. RAD/Cerv Spine 2 or 3 Views IMPRESSION: 1. No evidence of acute fracture or spondylolisthesis. 2. Marginal osteophyte formation throughout the cervical spine. Electronically Signed: Stephen Patel MD at 23:50 EDT ,
[2023-06-18 10:09] LABS: Absolute Lymphocyte Count 1.48 X10^3/uL (0.83-4.51); Absolute Neutrophil Count 4.7 X10^3/uL (2.0-7.7); Basophil# 0.09 X10^3/uL; Basophil% 1.2 % (0-1); Eosinophil# 0.61 X10^3/uL; Hematocrit 43.2 % (40-54); Hemoglobin 14.5 g/dL (13.0-16.5); Lymphocyte # 1.48 X10^3/ul (0.83-4.51); Lymphocyte % 19.5 % (19-41); Mean Corp Hgb Conc 33.6 g/dL (32-36); Mean Corpuscular Hgb 31.3 pg (27.0-32.0); Mean Corpuscular Volume 93.3 fL (80-94); Mean Platelet Vol. 9.6 fl (6.2-12.0); Monocyte# 0.67 X10^3/uL; Monocyte% 8.8 % (0-10); NRBC Flagged by Analyzer 0 % (0-5); Neutrophil # 4.71 X10^3/uL (2.7-7.7); Neutrophil % 62.2 % (47-70); Platelet Count 289 K/mm3 (150-450); RBC Distribution Width CV 11.8 % (11.6-14.6); RBC Distribution Width SD 40.2 fl (35.1-43.9); Red Blood Count 4.63 M/mm3 (4.6-6.2); White Blood Count 7.6 K/mm3 (4.4-11.0)
[2023-06-18 10:32] LABS: Vitamin D,25 Hydroxy 45.1 ng/mL
[2023-06-18 10:38] LABS: ALB/GLOB Ratio 1.1 RATIO (0.9-2.4); AST(SGOT) 25 U/L (15-37); Alanine Aminotransfer ALT/SGPT 33 U/L (16-61); Alkaline Phosphatase 86 U/L (45-117); Anion Gap 4 (5-15); BUN 28 mg/dL (7-18); BUN/Creat Ratio 20.3 RATIO (10-20); Chloride 108 mmol/L (98-107); Creatinine, Serum 1.38 mg/dL (0.70-1.30); EST Glomerular Filtration Rate 56 mL/min (>60); Est Glom Filt Rate - Afr Amer 68 mL/min (>60); Globulin 3.7 g/dL (2.2-4.2); Glucose 171 mg/dL (74-106); Potassium 4.5 mmol/L (3.5-5.1); Protein, Total 7.7 g/dL (6.4-8.2); Sodium Level 137 mmol/L (136-145); Thyroid Stim Hormone (TSH) 0.51 uIU/mL (0.358-3.74)
[2023-06-18 11:51] LABS: Hemoglobin A1c 6.4 % (3.8-5.6)
== END | disposition home or self-care (01) ==
PROVIDERS: PCP Internal Medicine; Referring Provider Internal Medicine; Visit Provider Internal Medicine
DX: E11.22 Type 2 diabetes mellitus with diabetic chronic kidney disease (principal); N18.9 Chronic kidney disease, unspecified; M54.2 Cervicalgia; I12.9 Hypertensive chronic kidney disease with stage 1 through stage 4 chronic kidney disease, or unspecified chronic kidney disease; I25.118 Atherosclerotic heart disease of native coronary artery with other forms of angina pectoris; E55.9 Vitamin D deficiency, unspecified
CPT/HCPCS: 36415; 72040; 80053; 82306; 83036; 84443; 85025

== ENCOUNTER → 2023-10-04 | Outpatient (CLI) | payer MEDICAID, SELFPAY | END | disposition home or self-care (01) | LOC: LAB 10:19 | PROVIDERS: PCP Internal Medicine; Referring Provider Internal Medicine; Visit Provider Internal Medicine | DX: Z00.00 Encounter for general adult medical examination without abnormal findings (principal) ==

== ENCOUNTER 2023-10-13 15:59 | Inpatient (IN) | payer MEDICAID, SELFPAY ==
[2023-10-13 15:59] VITALS: BP 145/93; PULSE 78; RESP 16; TEMP 36.6; O2SAT 98
--- NOTE | 2023-10-13 16:12 | EDS_ITS ---
HPI History of Present Illness Chief Complaint: Wound Informant: patient Onset/Context/Timing Onset: Days Context: Gradual Onset Narrative Narrative: Patient presents secondary to 2 wounds in the palm of his right foot. Patient is diabetic. 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 He suffered a laceration to the ball of his foot but did not realize until later that evening. It became more painful today. He also noted a laceration or skin breakdown between his first and second toes as well. He denies having fever. He states his blood sugars have been under good control. [facility] Medical History COVID-19 Leg pain, left Low TSH level PIMENTEL (dyspnea on exertion) Bulging of lumbar intervertebral disc Segmental and somatic dysfunction of lumbar region Segmental and somatic dysfunction of thoracic region Segmental and somatic dysfunction of cervical region Low back pain Type 2 diabetes mellitus without complications Wears glasses Insulin dependent diabetes mellitus High cholesterol Back pain Dietary restriction Non-smoker Hx of echocardiogram History of stress test Pancolitis Positive occult stool blood test Contusion of arm, left History of pneumonia Arthritis Type 2 diabetes mellitus without complication Hyperosmolar hyperglycemic state (HHS) Atherosclerotic heart disease of [place] coronary artery with other forms of angina pectoris Anemia, unspecified Lung nodule Rectal bleeding Essential (primary) hypertension Abnormal Screening Computed Tomography (CT) of Chest HLD (hyperlipidemia) Suspected 2019 novel coronavirus infection Strep pharyngitis Sepsis Pneumonia Home Medications ?Medication ?Instructions ?Recorded ?Last Taken ?Type aspirin 81 mg tablet,delayed 81 mg PO DAILY heart health 03/16/19 08/25/21 History release insulin lispro 100 unit/mL See Protocol subcut TIDAC ##1 05/04/20 Unknown Rx subcutaneous pen needle (disp) 16 G 16 gauge x 1 ##100 05/06/20 Unknown Rx cholecalciferol (vitamin D3) 25 25 mcg PO DAILY 01/18/21 Unknown History mcg (1,000 unit) capsule melatonin 5 mg tablet 5 mg PO HS 08/15/21 Unknown History nitroglycerin 0.4 mg sublingual 0.4 mg sublingual PRN PRN 02/13/22 Unknown Rx tablet Cardiac/Chest Pain #30 tabs acetaminophen 500 mg tablet 1,000 mg PO ONCE PRN fever or pain 06/05/22 Unknown History lisinopril 40 mg tablet 40 mg PO QHS #90 tabs 11/20/22 Unknown Rx atorvastatin 20 mg tablet 20 mg PO QHS #90 tabs 12/18/22 Unknown Rx carvedilol 3.125 mg tablet (Coreg) 3.125 mg PO BID #180 tabs 12/18/22 Unknown Rx clopidogrel 75 mg tablet (Plavix) 75 mg PO DAILY #90 tabs 12/18/22 Unknown Rx metformin 500 mg tablet 500 mg PO BID #180 tabs 12/18/22 Unknown Rx hydrochlorothiazide 12.5 mg capsule 12.5 mg PO DAILY bp #90 caps 01/29/23 Unknown Rx insulin glargine 100 unit/mL (3 48 unit subcut QHS 02/16/23 Unknown History mL) subcutaneous pen dulaglutide 1.5 mg/0.5 mL 1.5 mg (0.5 mL) subcut WE #6 mL 06/07/23 Unknown Rx subcutaneous pen injector insulin degludec 100 unit/mL (3 48 unit (0.48 mL) subcut DAILY #15 07/16/23 Unknown Rx mL) subcutaneous pen (Tresiba mL FlexTouch U-100 insulin) semaglutide 0.25 mg or 0.5 mg (2 0.5 mg (0.736 mL) subcut QWEEK #3 09/20/23 Unknown Rx mg/3 mL) subcutaneous pen injector mL (Ozempic) isosorbide mononitrate 60 mg 60 mg PO DAILY This is a dose 09/25/23 Unknown Rx tablet,extended release 24 hr increase,also pt out of 30 mg. #90 tabs Allergy/AdvReac Type Severity Reaction Status Date / Time hydrocodone (From Vicodin) AdvReac Other Verified 06/18/23 08:18 Family History Mother Heart disease Diabetes Alzheimer disease Hypertension Hyperlipemia Breast cancer Arthritis Father Heart disease Seizures Hypertension Hyperlipemia Sister Diabetes Heart disease Myocardial infarction Kidney disease Asthma Hypertension Uncle Colon cancer Surgical History History of left heart catheterization (08/25/21) History of coronary artery stent placement (12/22/19) History of colonoscopy H/O knee surgery Social History household members: spouse Smoking Status: Never smoker alcohol intake: never substance use type: does not use caffeine: Yes Type: coffee Number of servings: 1 what type of physical activity do you participate in: walking ROS ROS ED Constitutional Constitutional ED: Denies chills or fever(s) Eyes Eyes: Denies discharge from eye(s) ENT ENT ED: Denies discharge from eye(s), rhinorrhea or sore throat Cardiovascular Cardiovascular: Denies chest pain or palpitations Respiratory/Chest Respiratory/Chest: Denies cough or dyspnea Gastrointestinal Gastrointestinal: Denies abdominal pain, diarrhea, nausea or vomiting Genitourinary Genitourinary ED: Denies dysuria Musculoskeletal Musculoskeletal: Reports extremity pain; Denies back pain Integumentary Denies Abrasions or rash Neurologic Neurologic: Denies headache(s) or weakness Psychiatric Psychiatric: Denies anxiety or depression Allergic/Immunologic Allergic/Immunologic ED: Denies lip swelling or urticaria EXAM Physical Exam Const Vital Signs: 10/13/23 15:59 Temperature 97.8 F Temperature Source Temporal Pulse Rate 78 Respiratory Rate 16 Blood Pressure 145/93 H Blood Pressure Mean 110 Pulse Ox 98 Positive well nourished and well developed General Appearance ED: well developed HEENT Reports moist mucous membranes Eyes EOMs intact bilaterally Chest Wall inspection of chest normal and palpation of chest normal Resp normal respiratory effort and clear to auscultation bilaterally Cardio regular rate and regular rhythm GI non-tender Palpation: soft Extremity Extremity Narrative: Patient has a triangle shaped scab on the bottom of his right foot measuring 1 x 3 cm. No drainage from the area. He also has skin breakdown with a deep wound to the webspace between the first and second toes. He does have erythema over the distal aspect of the right foot on the dorsal aspect. I do not appreciate lymphangitic streak at this time. Neuro oriented x3 Psych mental status grossly normal MDM MDM MDM Narrative Medical decision making narrative: IV line established. Labwork obtained to evaluate for leukocytosis, anemia, and electrolyte derangement. Right foot x-ray to be obtained to evaluate for any subcu emphysema or bony destruction. Right foot will be soaked and cleansed. Antibiotics will be initiated. History & Record Review Discussion w/independent historian: Patient Lab Data Attestation: I reviewed the patient's lab results. Labs: Laboratory Results - last 24 hr 10/13/23 16:23 WBC 9.6 RBC 3.85 L Hgb 12.3 L Hct 35.1 L MCV 91.2 MCH 31.9 MCHC 35.0 RDW Std Deviation 40.9 RDW Coeff of Gustavo 12.5 Plt Count 237 MPV 9.6 Immature Gran % (Auto) 0.400 Neut % (Auto) 75.3 H Lymph % (Auto) 12.6 L [place] % (Auto) 8.1 Eos % (Auto) 3.0 Baso % (Auto) 0.6 Absolute Neuts (auto) 7.2 Absolute Lymphs (auto) 1.21 Nucleated RBC % 0 Sodium 134 L Potassium 4.7 Chloride 105 Carbon Dioxide 22.0 Anion Gap 7 BUN 46 H Creatinine 2.13 H Estim Creat Clear Calc 47.16 Est GFR (MDRD) Af Amer 41 L Est GFR (MDRD) Non-Af 34 L BUN/Creatinine Ratio 21.6 H Glucose 522 H* Lactic Acid 1.8 Calcium 8.6 Total Bilirubin 0.40 Direct Bilirubin 0.12 AST 15 ALT 27 Alkaline Phosphatase 136 H Total Protein 7.5 Albumin 3.8 Globulin 3.7 Radiography Diagnostic Testing: Clinical Impression(s) from Imaging Studies Foot X-Ray 10/13/23 16:30 IMPRESSION: No fractures, dislocations, or focal destructive lesions of the bones. No specific evidence of osteomyelitis. No soft tissue gas. Electronically Signed: Vincenzo Farias MD at 17:46 EDT , Treatment and Re-Evaluation :: CBC was a white count of 9.6 with 75% neutrophils. Hemoglobin is 12.3. Chemistry studies reveal a BUN of 46 and a creatinine of 2.13. Previous creatinine on June 17 was 1.38. Glucose is elevated at 522. Liver function test significant for an alk phos of 136, otherwise values normal. Right foot x- rays per my interpretation reveal chronic changes with no evidence of focal bony destruction. Patient has received a dose of cefepime and vancomycin for his diabetic foot infection. Patient will also be given 10 units of subcu insulin for his hyperglycemia. Given his diabetic foot infection with erythema onto the volar foot and acute kidney injury with hyperglycemia, I do feel he would benefit from IV antibiotics and close follow-up. I will speak with the hospitalist. Discharge Plan Dx/Rx/DC Orders Clinical Impression: Diabetic foot infection, Hyperglycemia, JAROD (acute kidney injury) Disposition Disposition: Acute Care Hospital [facility]
--- NOTE | 2023-10-13 16:30 | RAD_ITS ---
STUDY: X-RAY - RIGHT FOOT CLINICAL: Male, 58 years old. infection, wound TECHNIQUE: 3 view(s) of the foot. COMPARISON: None. FINDINGS: Prominent calcified spurs are seen in the insertion of the Achilles and the origin of the plantar fascia. Normal visualized subtalar, talonavicular, calcaneocuboid, tarsal and tarsometatarsal articulations. Irregularities seen at the bases of the third fourth and fifth metatarsals possibly from previous injuries. Normal metatarsophalangeal joint of the great toe. Normal tibial and fibular sesamoid bones. Normal interphalangeal joint of the great toe. Normal phalanges of the great toe. Normal second through fifth metatarsophalangeal joints. Normal interphalangeal joints and phalanges of the lesser toes. Possible nonspecific soft tissue swelling of the plantar surface of the forefoot, otherwise unremarkable soft tissues. No soft tissue gas is seen. RAD/Foot min 3 Views IMPRESSION: No fractures, dislocations, or focal destructive lesions of the bones. No specific evidence of osteomyelitis. No soft tissue gas. Electronically Signed: Vincenzo Farias MD at 17:46 EDT ,
[2023-10-13] MEDS: 0.9% Normal Saline (1000mL) 1,000 ML 150 ML IV (16:34)
[2023-10-13] MEDS: Cefepime HCl 2 GM in 0.9% Normal Saline (100mL MB+) 100 ML IV (16:34)
[2023-10-13 16:38] LABS: Absolute Lymphocyte Count 1.21 X10^3/uL (0.83-4.51); Absolute Neutrophil Count 7.2 X10^3/uL (2.0-7.7); Basophil# 0.06 X10^3/uL; Basophil% 0.6 % (0-1); Eosinophil# 0.29 X10^3/uL; Hematocrit 35.1 % (40-54); Hemoglobin 12.3 g/dL (13.0-16.5); Lymphocyte # 1.21 X10^3/ul (0.83-4.51); Lymphocyte % 12.6 % (19-41); Mean Corpuscular Hgb 31.9 pg (27.0-32.0); Mean Corpuscular Volume 91.2 fL (80-94); Mean Platelet Vol. 9.6 fl (6.2-12.0); Monocyte# 0.78 X10^3/uL; Monocyte% 8.1 % (0-10); NRBC Flagged by Analyzer 0 % (0-5); Neutrophil # 7.23 X10^3/uL (2.7-7.7); Neutrophil % 75.3 % (47-70); Platelet Count 237 K/mm3 (150-450); RBC Distribution Width CV 12.5 % (11.6-14.6); RBC Distribution Width SD 40.9 fl (35.1-43.9); Red Blood Count 3.85 M/mm3 (4.6-6.2); White Blood Count 9.6 K/mm3 (4.4-11.0)
[2023-10-13 17:01] LABS: AST(SGOT) 15 U/L (15-37); Alanine Aminotransfer ALT/SGPT 27 U/L (16-61); Albumin, Serum 3.8 g/dL (3.2-5.0); Alkaline Phosphatase 136 U/L (45-117); Anion Gap 7 (5-15); BUN 46 mg/dL (7-18); BUN/Creat Ratio 21.6 RATIO (10-20); Bilirubin, Direct 0.12 mg/dL (0.00-0.30); Calcium,Total 8.6 mg/dL (8.5-10.1); Chloride 105 mmol/L (98-107); Creatinine, Serum 2.13 mg/dL (0.70-1.30); EST Glomerular Filtration Rate 34 mL/min (>60); Est Glom Filt Rate - Afr Amer 41 mL/min (>60); Estimated Creatinine Clearance 47.16 ml/min; Globulin 3.7 g/dL (2.2-4.2); Glucose 522 mg/dL (74-106); Potassium 4.7 mmol/L (3.5-5.1); Protein, Total 7.5 g/dL (6.4-8.2); Sodium Level 134 mmol/L (136-145)
[2023-10-13] MEDS: Vancomycin HCl 1,500 MG in 0.9% Normal Saline (500mL Bag) 500 ML 250 MG IV (17:02)
[2023-10-13 17:12] LABS: Lactic Acid 1.8 mmol/L (0.4-1.9)
[2023-10-13 17:59] VITALS: BP 134/75; PULSE 92; RESP 16; O2SAT 98
[2023-10-13 18:05] VITALS: BP 134/75; PULSE 92; RESP 16; TEMP 36.4; O2SAT 98
--- NOTE | 2023-10-13 18:09 | HP.PCM.HOS_ITS ---
HPI - General General Date of Admission: 10/13/23 Date of Service: 10/13/23 Chief Complaint: R foot wound HPI Narrative TED FONTANEZ, is a 58 M who presented to the emergency department at [facility] on 10/13/2023 with a right foot wound on the plantar aspect of his midfoot that started he reports about 2 days ago. He is diabetic but denies any significant neuropathy. He admits he is unsure of the exact timing of the wound occurring however he reported that today it was significantly painful which is why he presents emergency department. 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 He does not inspect his feet on a regular basis and wears black socks. He denies any systemic symptoms including fever or chills and just reports localized swelling and pain in the foot. He is diabetic and states that his blood sugars are typically very well-controlled with his blood sugar being 137 on the morning of admission however upon presentation his blood sugar was noted to be 522. Vital signs on presentation showed a temperature of 97.5, heart rate 92, respirate 16, blood pressure 134/75 and pulse ox was 98% on room air. CBC was overall unremarkable however he does have a 75.3% neutrophilia. Chemistry panel showed pseudohyponatremia with a serum sodium of 134 and a blood sugar of 522. His BUN was 46 and a serum creatinine of 2.13 which are significantly above his baseline (baseline serum creatinine appears to be between 1.4 and 1.7). Lactic acid was 1.8. Liver function was normal. ESR was 16 and CRP was 20.5. Hemoglobin A1c was pending at the time of admission. Imaging of his foot showed no fractures dislocations or focal destructive lesions of the bones and no specific evidence of osteomyelitis or soft tissue gas but did show some mild soft tissue edema. In the emergency department the patient was given cefepime and vancomycin as well as 10 units of subcu insulin and IV fluids at 150 cc/h. [facility], [facility] Medical History COVID-19 Leg pain, left Low TSH level PIMENTEL (dyspnea on exertion) Bulging of lumbar intervertebral disc Segmental and somatic dysfunction of lumbar region Segmental and somatic dysfunction of thoracic region Segmental and somatic dysfunction of cervical region Low back pain Type 2 diabetes mellitus without complications Wears glasses Insulin dependent diabetes mellitus High cholesterol Back pain Dietary restriction Non-smoker Hx of echocardiogram History of stress test Pancolitis Positive occult stool blood test Contusion of arm, left History of pneumonia Arthritis Type 2 diabetes mellitus without complication Hyperosmolar hyperglycemic state (HHS) Atherosclerotic heart disease of [place] coronary artery with other forms of angina pectoris Anemia, unspecified Lung nodule Rectal bleeding Essential (primary) hypertension Abnormal Screening Computed Tomography (CT) of Chest HLD (hyperlipidemia) Suspected 2019 novel coronavirus infection Strep pharyngitis Sepsis Pneumonia Home Medications ?Medication ?Instructions ?Recorded ?Last Taken ?Type aspirin 81 mg tablet,delayed 81 mg PO DAILY heart health 03/16/19 08/25/21 History release insulin lispro 100 unit/mL See Protocol subcut TIDAC ##1 05/04/20 Unknown Rx subcutaneous pen needle (disp) 16 G 16 gauge x 1 ##100 05/06/20 Unknown Rx cholecalciferol (vitamin D3) 25 25 mcg PO DAILY 01/18/21 Unknown History mcg (1,000 unit) capsule melatonin 5 mg tablet 5 mg PO HS 08/15/21 Unknown History nitroglycerin 0.4 mg sublingual 0.4 mg sublingual PRN PRN 02/13/22 Unknown Rx tablet Cardiac/Chest Pain #30 tabs acetaminophen 500 mg tablet 1,000 mg PO ONCE PRN fever or pain 06/05/22 Unknown History lisinopril 40 mg tablet 40 mg PO QHS #90 tabs 11/20/22 Unknown Rx atorvastatin 20 mg tablet 20 mg PO QHS #90 tabs 12/18/22 Unknown Rx carvedilol 3.125 mg tablet (Coreg) 3.125 mg PO BID #180 tabs 12/18/22 Unknown Rx clopidogrel 75 mg tablet (Plavix) 75 mg PO DAILY #90 tabs 12/18/22 Unknown Rx metformin 500 mg tablet 500 mg PO BID #180 tabs 12/18/22 Unknown Rx hydrochlorothiazide 12.5 mg capsule 12.5 mg PO DAILY bp #90 caps 01/29/23 Unknown Rx insulin glargine 100 unit/mL (3 48 unit subcut QHS 02/16/23 Unknown History mL) subcutaneous pen dulaglutide 1.5 mg/0.5 mL 1.5 mg (0.5 mL) subcut WE #6 mL 06/07/23 Unknown Rx subcutaneous pen injector insulin degludec 100 unit/mL (3 48 unit (0.48 mL) subcut DAILY #15 07/16/23 Unknown Rx mL) subcutaneous pen (Tresiba mL FlexTouch U-100 insulin) semaglutide 0.25 mg or 0.5 mg (2 0.5 mg (0.736 mL) subcut QWEEK #3 09/20/23 Unknown Rx mg/3 mL) subcutaneous pen injector mL (Ozempic) isosorbide mononitrate 60 mg 60 mg PO DAILY This is a dose 09/25/23 Unknown Rx tablet,extended release 24 hr increase,also pt out of 30 mg. #90 tabs Allergy/AdvReac Type Severity Reaction Status Date / Time hydrocodone (From Vicodin) AdvReac Other Verified 06/18/23 08:18 Family History Mother Heart disease Diabetes Alzheimer disease Hypertension Hyperlipemia Breast cancer Arthritis Father Heart disease Seizures Hypertension Hyperlipemia Sister Diabetes Heart disease Myocardial infarction Kidney disease Asthma Hypertension Uncle Colon cancer Surgical History History of left heart catheterization (08/25/21) History of coronary artery stent placement (12/22/19) History of colonoscopy H/O knee surgery Social History household members: spouse Smoking Status: Never smoker alcohol intake: never substance use type: does not use caffeine: Yes Type: coffee Number of servings: 1 what type of physical activity do you participate in: walking ROS Constitutional Constitutional: Denies anorexia, change in weight, chills, fatigue, fever(s), malaise, night sweats, weakness or other Eyes Eyes: Denies blurry vision, change in eye color, change in vision, discharge from eye(s), double vision, erythema, eye pain, loss of vision or other ENT HEENT: Denies abnormal hearing, dysphagia, ear pain, epistaxis, headache(s), hearing loss, nasal congestion, nasal discharge, post nasal drip, sinus pressure, sore throat or other Cardiovascular Cardiovascular: Denies chest pain, claudication, dyspnea on exertion, edema, lightheadedness, orthopnea, palpitations, paroxysmal nocturnal dyspnea, rapid heart rate, syncope or other Respiratory/Chest Respiratory/Chest: Denies cough, dyspnea, excessive phlegm production, hemoptysis, productive cough, shortness of breath at rest, shortness of breath with exertion, wheezing or other Gastrointestinal Gastrointestinal: Denies abdominal pain, coffee ground emesis, constipation, diarrhea, dyspepsia, hematemesis, hematochezia, loose stools, melena, nausea, vomiting or other Genitourinary Genitourinary: Denies burning urination, difficulty urinating, dysuria, hematuria, nocturia, urinary frequency, urinary hesitancy, urinary incontinence, urinary urgency or other Musculoskeletal Musculoskeletal: Reports other Details: Right foot pain most specific on the plantar aspect, swelling of the right foot and erythema of the right foot ; Denies arthralgias, back pain, joint pain, joint stiffness, joint swelling, myalgias or neck pain Neurologic Neurologic: Denies abnormal gait, abnormal speech, confusion, disequilibrium, dizziness, focal weakness, headache(s), numbness, paresthesias, seizure-like activity, seizures, syncope, tingling, tremor(s) or other Psychiatric Psychiatric: Denies anxiety, depression, homicidal ideation, suicidal ideation or other Endocrine Endocrinology: Denies change in body appearance, cold intolerance, excessive sweating, heat intolerance, polydipsia, polyuria or other Hematologic/Lymphatic Hematologic/Lymphatic: Denies anemia, easy bleeding, easy bruising, lymphadenopathy or other Allergic/Immunologic Allergic/Immunologic: Denies rhinitis, hives, eczemia, asthma or other Vital Signs Vital Signs Vital Signs: 10/13/23 15:59 10/13/23 17:59 10/13/23 18:05 Temperature 97.8 F 97.5 F L Temperature Source Temporal Tympanic Pulse Rate 78 92 92 Respiratory Rate 16 16 16 Blood Pressure 145/93 H 134/75 H 134/75 H Blood Pressure Mean 110 94 94 Pulse Ox 98 98 98 Oxygen Delivery Method Room Air Room Air Weight Weight: 103.374 kg Body Mass Index (BMI) 30.0 Physical Exam Const alert, oriented x3, no apparent distress and well nourished; Negative for average body habitus or healthy appearing Constitutional Narrative: Very pleasant, middle-aged, white male, sitting in bed, appears slightly older than stated age, mother at bedside, patient does not appear toxic and appears comfortable at this time General Appearance: cooperative HEENT normocephalic, head/scalp atraumatic, hearing grossly normal bilaterally and moist oral mucous membranes HEENT Narrative: Mallampati is 2, no thrush, patient is edentulous Eyes PERRL, EOMs intact bilaterally and conjunctivae normal Eyes Narrative: No scleral icterus Neck no lymphadenopathy and supple Neck Narrative: Trachea midline, no thyroid enlargement Resp normal respiratory effort, no retractions, no use of accessory muscles and clear to auscultation bilaterally Auscultation: Negative for rales, rhonchi or wheezes Cardio regular rate, regular rhythm, S1 normal heart sound, S2 normal heart sound, no murmurs, no rub, no gallops and no clicks GI normal to inspection, nondistended, normoactive bowel sounds, soft to palpation, non-tender and non-distended Extremity Extremity Narrative: Right foot slightly swollen, no cyanosis or clubbing, pedal pulses and radial pulses are 2+ Skin Skin Narrative: Erythema of plantar surface of right foot and into plantar and dorsal aspects of right toes, triangular wound on the plantar aspect of the midfoot on the right with eschar noted centrally but no significant drainage, depth is unclear Neuro oriented x3, CN's II-XII intact bilaterally, moves all extremities and no focal motor deficits Neuro Narrative: No significant sensory changes in bilateral lower extremities Speech: speech normal Psych affect normal Psych Narrative: Very pleasant, interacts appropriately Results Lab / Micro Data 10/13/23 16:23 10/13/23 16:23 Labs: Laboratory Results - last 24 hr 10/13/23 16:23: WBC 9.6, RBC 3.85 L, Hgb 12.3 L, Hct 35.1 L, MCV 91.2, MCH 31.9, MCHC 35.0, RDW Std Deviation 40.9, RDW Coeff of Gustavo 12.5, Plt Count 237, MPV 9.6, Immature Gran % (Auto) 0.400, Neut % (Auto) 75.3 H, Lymph % (Auto) 12.6 L, [place] % (Auto) 8.1, Eos % (Auto) 3.0, Baso % (Auto) 0.6, Absolute Neuts (auto) 7.2, Absolute Lymphs (auto) 1.21, Nucleated RBC % 0, Sodium 134 L, Potassium 4.7, Chloride 105, Carbon Dioxide 22.0, Anion Gap 7, BUN 46 H, Creatinine 2.13 H , Estim Creat Clear Calc 47.16, Est GFR (MDRD) Af Amer 41 L, Est GFR (MDRD) Non- Af 34 L, BUN/Creatinine Ratio 21.6 H, Glucose 522 H*, Lactic Acid 1.8, Calcium 8.6, Total Bilirubin 0.40, Direct Bilirubin 0.12, AST 15, ALT 27, Alkaline Phosphatase 136 H, Total Protein 7.5, Albumin 3.8, Globulin 3.7 Imaging Radiology Impression Foot X-Ray 10/13/23 16:30 IMPRESSION: No fractures, dislocations, or focal destructive lesions of the bones. No specific evidence of osteomyelitis. No soft tissue gas. Electronically Signed: Vincenzo Farias MD at 17:46 EDT , Assessment & Plan Assessment/Plan (1) JAROD (acute kidney injury): (2) Hyperglycemia: (3) Diabetic foot infection: PLAN: Plan Right foot diabetic foot infection -Cultures pending--> wound and blood -Continue broad-spectrum coverage with vancomycin and Zosyn to cover both staph and Pseudomonas given location of injury and unclear etiology -Elevate foot -Nonweightbearing for now -Podiatry consult -Discussed with Dr. Caballero Hyperglycemia with history of DM-2 -Hold home oral agents for now (metformin) -Most recent hemoglobin A1c in our system was 6.4 from 06/18/2023 -Nonfasting blood sugar in the emergency department was 522--> 10 units subcu given -A1c is pending -Patient states a.m. blood sugar today was 137 -Will continue home basal insulin and bolus insulin along with sliding scale -Cardiac/carb controlled diet -Accu-Cheks as ordered JAROD on CKD stage IIIb -Baseline serum creatinine appears to run between 1.3 and 1.7 -Serum creatinine admission was 2.13 -Aggressive fluids -Hold home lisinopril and hydrochlorothiazide -Repeat BMP in a.m. -Avoid nephrotoxins as able Essential hypertension/hyperlipidemia -Continue home beta-niecy and isosorbide mononitrate -Hold lisinopril and hydrochlorothiazide due to JAROD -As needed hydralazine for systolic greater than 160 is available Obesity -BMI is 30.1 -Recommend weight loss -Complicates treatment, prognosis, outcomes DVT prophylaxis -Subcu heparin 3 times daily CODE STATUS -Full code is verified at the time of admission Charges/Coding Visit Charges Inpatient E&M: 59471 Init Hosp L2
[2023-10-13 18:18] LABS: Erythrocyte Sedimentation Rate 16 mm/hr (0-20)
[2023-10-13] MEDS: Insulin Lispro 100 UNIT/ML INSULN.PEN 10 UNIT SC (18:27)
[2023-10-13 18:32] VITALS: BP 136/85; PULSE 94; RESP 16; TEMP 36.4; O2SAT 98
[2023-10-13 18:38] LABS: Hemoglobin A1c 9.8 % (3.8-5.6)
[2023-10-13 19:02] VITALS: BP 169/82; PULSE 102; RESP 18; TEMP 37.1; O2SAT 100
--- NOTE | 2023-10-13 19:05 | PCM.RX.CS ---
Consult Antibiotic Management Pharmacy has been consulted to manage selected antibiotic: Vancomycin Type of Intervention Type of Consult: New start Suspected Infection Suspected Infection: Other (DIABETIC FOOT INFECTION) Labs Labs: Sodium 134 mmol/L (136-145) L 10/13/23 16:23 Potassium 4.7 mmol/L (3.5-5.1) 10/13/23 16:23 Chloride 105 mmol/L (98-107) 10/13/23 16:23 Carbon Dioxide 22.0 mmol/L (21.0-32.0) 10/13/23 16:23 Anion Gap 7 (5-15) 10/13/23 16:23 BUN 46 mg/dL (7-18) H 10/13/23 16:23 Creatinine 2.13 mg/dL (0.70-1.30) H 10/13/23 16:23 Est GFR (MDRD) Af Amer 41 mL/min (>60) L 10/13/23 16:23 Est GFR (MDRD) Non-Af 34 mL/min (>60) L 10/13/23 16:23 BUN/Creatinine Ratio 21.6 RATIO (10-20) H 10/13/23 16:23 Glucose 522 mg/dL (74-106) H* 10/13/23 16:23 Pharmacy Plan for Drug Dosing Pharmacy Plan for Drug Dosing: NEW START IV VANCOMYCIN Consulting Physician: Steven Indication: Diabetic foot infection/cellulitis Goal Trough: 15-20 mg/dL SrCr: 2.13 mg/dL CrCl: 47 mL/min Comments: Standard dose given in Er, 1500mg @ 1702 Vancomycin Dose: Will start 750mg Q12 and get a level prior to 4th total dose. Will start new regimen 8 hours after ER dose as is was only a standard dose, not a loading dose. Pending Level: 10/15/23 @ 0030 Pharmacy Service will continue to monitor and adjust dosing as required.
[2023-10-13] MEDS: 0.9% Normal Saline (1000mL) 1,000 ML 75 ML IV (19:29)
[2023-10-13 19:45] VITALS: O2SAT 99
--- NOTE | 2023-10-13 20:59 | CON.PCM_ITS ---
Assessment & Plan Assessment/Plan (1) Diabetic foot infection: (2) Cellulitis of foot, right: (3) Insulin dependent diabetes mellitus: (4) Non-pressure chronic ulcer of other part of right foot with necrosis of muscle: PLAN: Plan Evaluation performed, reviewed diagnostic data. Reviewed right foot xrays - no evidence of osteomyelitis, no gas noted. There is no visible abscess clinically, but further evaluation is medically necessary to r/o deep abscess so MRI right foot was ordered. A culture right foot wounds has been ordered, blood cultures pending. Patient is on IV antibiotics Vanc and Zosyn. No weightbearing right foot. Debrided nonviable tissue from right plantar arch ulceration using a 15 blade in selective fashion to patient's tolerance - it appears the wound is down to fascia layer, no deep abscess was noted, area debrided was 3.5cm x 2.5m and down to fascia layer. No significant bleeding occurred. Applied dressing as noted below. Dressing changes - daily dressing changes of betadine soln to ulcer sites right foot, cover with overlying gauze, kerlix and kellen. LEAS were ordered for further evaluation of LE arterial flow - there is no evidence of acute ischemia at this time. No immediate plans for surgical intervention at this time. Podiatry will continue to follow, thank you for consultation. 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 He has been admitted for further workup and management. Blood sugar was noted to be very high. He has no other complaints. [facility] Medical History (Updated 10/13/23 @ 21:[address] Clovis Caballero, GENIE) Diabetes Hypertension COVID-19 Leg pain, left Low TSH level PIMENTEL (dyspnea on exertion) Bulging of lumbar intervertebral disc Segmental and somatic dysfunction of lumbar region Segmental and somatic dysfunction of thoracic region Segmental and somatic dysfunction of cervical region Low back pain Type 2 diabetes mellitus without complications Wears glasses Insulin dependent diabetes mellitus High cholesterol Back pain Dietary restriction Non-smoker Hx of echocardiogram History of stress test Pancolitis Positive occult stool blood test Contusion of arm, left History of pneumonia Arthritis Type 2 diabetes mellitus without complication Hyperosmolar hyperglycemic state (HHS) Atherosclerotic heart disease of [place] coronary artery with other forms of angina pectoris Anemia, unspecified Lung nodule Rectal bleeding Essential (primary) hypertension Abnormal Screening Computed Tomography (CT) of Chest HLD (hyperlipidemia) Suspected 2019 novel coronavirus infection Strep pharyngitis Sepsis Pneumonia Home Medications ?Medication ?Instructions ?Recorded ?Last Taken ?Type aspirin 81 mg tablet,delayed 81 mg PO DAILY heart health 03/16/19 08/25/21 History release insulin lispro 100 unit/mL See Protocol subcut TIDAC ##1 05/04/20 Unknown Rx subcutaneous pen needle (disp) 16 G 16 gauge x 1 ##100 05/06/20 Unknown Rx cholecalciferol (vitamin D3) 25 25 mcg PO DAILY vitamin supplement 01/18/21 Unknown History mcg (1,000 unit) capsule melatonin 5 mg tablet 5 mg PO HS sleep 08/15/21 Unknown History nitroglycerin 0.4 mg sublingual 0.4 mg sublingual PRN PRN 02/13/22 Unknown Rx tablet Cardiac/Chest Pain #30 tabs acetaminophen 500 mg tablet 1,000 mg PO Q6H PRN fever or pain 06/05/22 Unknown History atorvastatin 20 mg tablet 20 mg PO QHS #90 tabs 12/18/22 Unknown Rx carvedilol 3.125 mg tablet (Coreg) 3.125 mg PO BID #180 tabs 12/18/22 Unknown Rx clopidogrel 75 mg tablet (Plavix) 75 mg PO DAILY #90 tabs 12/18/22 Unknown Rx metformin 500 mg tablet 500 mg PO BID #180 tabs 12/18/22 Unknown Rx hydrochlorothiazide 12.5 mg capsule 12.5 mg PO DAILY bp #90 caps 01/29/23 Unknown Rx insulin glargine 100 unit/mL (3 48 unit subcut QHS 02/16/23 Unknown History mL) subcutaneous pen insulin degludec 100 unit/mL (3 48 unit (0.48 mL) subcut DAILY #15 07/16/23 Unknown Rx mL) subcutaneous pen (Tresiba mL FlexTouch U-100 insulin) semaglutide 0.25 mg or 0.5 mg (2 0.5 mg (0.736 mL) subcut QWEEK #3 09/20/23 Unknown Rx mg/3 mL) subcutaneous pen injector mL (Ozempic) isosorbide mononitrate 60 mg 60 mg PO DAILY heart #90 tabs 09/25/23 Unknown Rx tablet,extended release 24 hr lisinopril 40 mg tablet 40 mg PO DAILY BP 10/13/23 Unknown History Allergy/AdvReac Type Severity Reaction Status Date / Time hydrocodone (From Vicodin) AdvReac Other Verified 06/18/23 08:18 Family History Mother Heart disease Diabetes Alzheimer disease Hypertension Hyperlipemia Breast cancer Arthritis Father Heart disease Seizures Hypertension Hyperlipemia Sister Diabetes Heart disease Myocardial infarction Kidney disease Asthma Hypertension Uncle Colon cancer Surgical History History of left heart catheterization (08/25/21) History of coronary artery stent placement (12/22/19) History of colonoscopy H/O knee surgery Social History household members: spouse Smoking Status: Never smoker alcohol intake: never substance use type: does not use caffeine: Yes Type: coffee Number of servings: 1 what type of physical activity do you participate in: walking Physical Exam Const alert, oriented x3 and no apparent distress Constitutional Narrative: Resting in bed. Right foot with 3.5cm x 2.5cm dry ulceration appears to be down to subcutaneous tissue - there is overlying dry eschar, there are ulcerations to the 1st and 2nd ID spaces on the right foot down to subc tissue, there is also combination of dry eschar and maceration, there is noted edema to the foot and some localized cellulitis, there is POP to the ulcer plantar arch and pain extends plantar 2nd and 3rd rays on the right foot, there is no visible abscess, no crepitus, no fluctuance, no maloder, no purulence noted. no open lesions left foot. CFT < 3 seconds to all toes bilateral, pedal pulses intact bilateral with no evidence of acute ischemia bilateral foot. No gross instability to the foot or ankle bilateral. He does have sensation intact to light touch bilateral foot. Lab / Micro Data 10/13/23 16:23 10/13/23 16:23 Labs: Laboratory Results - last 24 hr 10/13/23 16:23: WBC 9.6, RBC 3.85 L, Hgb 12.3 L, Hct 35.1 L, MCV 91.2, MCH 31.9, MCHC 35.0, RDW Std Deviation 40.9, RDW Coeff of Gustavo 12.5, Plt Count 237, MPV 9.6, Immature Gran % (Auto) 0.400, Neut % (Auto) 75.3 H, Lymph % (Auto) 12.6 L, [place] % (Auto) 8.1, Eos % (Auto) 3.0, Baso % (Auto) 0.6, Absolute Neuts (auto) 7.2, Absolute Lymphs (auto) 1.21, Nucleated RBC % 0, ESR 16, Sodium 134 L, Potassium 4.7, Chloride 105, Carbon Dioxide 22.0, Anion Gap 7, BUN 46 H, C reatinine 2.13 H, Estim Creat Clear Calc 47.16, Est GFR (MDRD) Af Amer 41 L, Est GFR (MDRD) Non-Af 34 L, BUN/Creatinine Ratio 21.6 H, Glucose 522 H*, Hemoglobin A1c 9.8 H, Lactic Acid 1.8, Calcium 8.6, Total Bilirubin 0.40, Direct Bilirubin 0.12, AST 15, ALT 27, Alkaline Phosphatase 136 H, C-React Prot Ext Range 20.50 H , Total Protein 7.5, Albumin 3.8, Globulin 3.7 Imaging Radiology Impression Foot X-Ray 10/13/23 16:30 IMPRESSION: No fractures, dislocations, or focal destructive lesions of the bones. No specific evidence of osteomyelitis. No soft tissue gas. Electronically Signed: Vincenzo Farias MD at 17:46 EDT ,
--- NOTE | 2023-10-13 21:31 | ART_ITS ---
Reason For Study: LE FootUlcer Procedure A bilateral lower extremity continuous wave Doppler with analog waveform analysis,segmental pressures,and ankle brachial indexes without exercise. Left Segmental Pressures Left brachial= 123mmHg. Left posterior tibial artery = 217mmHg. Left dorsalis pedis artery = 179mmHg. Left digit = 141 mmHg. The left posterior tibial artery waveforms are triphasic. The left dorsalis pedis waveforms are triphasic. Right Segmental Pressures Right brachial= 128mmHg. Right posterior tibial artery = >254mmHg. Right dorsalis pedis artery = 157mmHg. Right digit = 136 mmHg. The right posterior tibial artery waveforms are triphasic. The right dorsalis pedis waveforms are triphasic. Indices The right ankle brachial index by the posterior tibial artery is N/C. The right ankle brachial index by the dorsalis pedis is 1.23. The right digital-brachial index is 1.06. The left ankle brachial index by the posterior tibial artery is 1.70. The left ankle brachial index by the dorsalis pedis is 1.40. The left digital-brachial index is 1.10. VL/Lower Ext Art Exam w/o Exercis Interpretation Summary Right BISI 1.23, normal. TBI and Doppler/PVR waveforms of the right leg normal a t rest. Left BISI 1.7, artificially elevated. TBI and Doppler/PVR waveforms of the left leg normal at rest. Ordering Physician: Clovis Caballero Referring Physician: Jaci Harris Performed By: Mine Jamison RDCS/RVT
[2023-10-13] MEDS: Carvedilol 3.125 MG TABLET PO (22:40)
[2023-10-13] MEDS: Atorvastatin Calcium 20 MG Tablet PO (22:41)
[2023-10-13] MEDS: Heparin Injection (Vial) 5,000 UNIT/ML VIAL 5000 UNIT SC (22:41)
[2023-10-13] MEDS: Insulin Glargine-YFGN 100 UNIT/ML Pen 48 UNIT SC (22:42)
[2023-10-13] MEDS: MELATONIN 10 MG TABLET 5 MG PO (22:42)
[2023-10-13] MEDS: Piperacil/Tazobactam 3.375 GM in 0.9% Normal Saline (50mL MB+) 50 ML IV (22:42)
[2023-10-13] MEDS: Insulin Lispro 100 UNIT/ML INSULN.PEN SC (22:46)
[2023-10-13 23:24] LABS: Bedside Glucose 166 mg/dL (74-106)
[2023-10-14 00:59] LABS: M R Staph aureus DNA By PCR Negative (Negative); Probe Check PASS; Specimen Processing Control PASS; Staph aureus DNA By PCR POSITIVE (Negative)
[2023-10-14] MEDS: Vancomycin HCl 750 MG in 0.9% Normal Saline (250mL Bag) 250 ML 250 MG IV ×2 (01:26→13:15)
[2023-10-14] MEDS: Heparin Injection (Vial) 5,000 UNIT/ML VIAL 5000 UNIT SC ×3 (04:59→21:44)
[2023-10-14] MEDS: Piperacil/Tazobactam 3.375 GM in 0.9% Normal Saline (50mL MB+) 50 ML IV ×3 (04:59→21:42)
[2023-10-14 05:06] VITALS: BP 124/68; PULSE 78; RESP 16; TEMP 36.7; O2SAT 94
[2023-10-14 05:08] VITALS: BMI 26.5
[2023-10-14 05:23] LABS: Absolute Lymphocyte Count 1.64 X10^3/uL (0.83-4.51); Absolute Neutrophil Count 8.3 X10^3/uL (2.0-7.7); Basophil# 0.06 X10^3/uL; Basophil% 0.5 % (0-1); Eosinophil# 0.45 X10^3/uL; Eosinophils% 3.9 % (0-5); Hematocrit 32.9 % (40-54); Hemoglobin 11.4 g/dL (13.0-16.5); Lymphocyte # 1.64 X10^3/ul (0.83-4.51); Lymphocyte % 14.3 % (19-41); Mean Corp Hgb Conc 34.7 g/dL (32-36); Mean Corpuscular Hgb 31.6 pg (27.0-32.0); Mean Corpuscular Volume 91.1 fL (80-94); Mean Platelet Vol. 9.5 fl (6.2-12.0); Monocyte# 0.97 X10^3/uL; Monocyte% 8.5 % (0-10); NRBC Flagged by Analyzer 0 % (0-5); Neutrophil # 8.31 X10^3/uL (2.7-7.7); Neutrophil % 72.6 % (47-70); Platelet Count 225 K/mm3 (150-450); RBC Distribution Width CV 12.4 % (11.6-14.6); RBC Distribution Width SD 41.2 fl (35.1-43.9); Red Blood Count 3.61 M/mm3 (4.6-6.2); White Blood Count 11.5 K/mm3 (4.4-11.0)
[2023-10-14] MEDS: Insulin Lispro 100 UNIT/ML INSULN.PEN SC ×4 (06:08→21:44)
[2023-10-14] MEDS: 0.9% Normal Saline (1000mL) 1,000 ML 75 ML IV ×2 (06:09→20:09)
[2023-10-14 06:21] LABS: AST(SGOT) 14 U/L (15-37); Alanine Aminotransfer ALT/SGPT 20 U/L (16-61); Albumin, Serum 3.4 g/dL (3.2-5.0); Alkaline Phosphatase 87 U/L (45-117); Anion Gap 6 (5-15); BUN 35 mg/dL (7-18); BUN/Creat Ratio 23.6 RATIO (10-20); Calcium,Total 8.8 mg/dL (8.5-10.1); Chloride 113 mmol/L (98-107); Creatinine, Serum 1.48 mg/dL (0.70-1.30); EST Glomerular Filtration Rate 52 mL/min (>60); Est Glom Filt Rate - Afr Amer 63 mL/min (>60); Estimated Creatinine Clearance 60.73 ml/min; Globulin 3.5 g/dL (2.2-4.2); Glucose 162 mg/dL (74-106); Magnesium 2.1 mg/dL (1.6-2.6); Potassium 4.2 mmol/L (3.5-5.1); Protein, Total 6.9 g/dL (6.4-8.2); Sodium Level 137 mmol/L (136-145)
[2023-10-14 06:47] LABS: Bedside Glucose 153 mg/dL (74-106)
[2023-10-14 06:55] LABS: Phosphorus 2.8 mg/dL (2.5-4.9)
[2023-10-14 07:34] VITALS: O2SAT 98
[2023-10-14] MEDS: Carvedilol 3.125 MG TABLET PO ×2 (08:20→18:21)
[2023-10-14] MEDS: Clopidogrel Bisulfate 75 MG Tablet PO (08:21)
[2023-10-14] MEDS: Isosorbide Mononitrate 60 MG Tablet PO (08:21)
[2023-10-14] MEDS: Aspirin E.C. 81 MG Tablet PO (08:21)
[2023-10-14] MEDS: Cholecalciferol (VIT D3) 25 MCG TABLET (1,000 UNITS) PO (08:21)
--- NOTE | 2023-10-14 09:39 | PCM.PN.HOSP ---
Subjective Subjective Doing well, no issues overnight. Right lower extremity is dressed and wrapped Objective Data Objective Data Vital Signs: Vital Signs Temp Pulse Resp BP Pulse Ox O2 Del Method 98.0 F 78 16 124/68 H 98 Room Air 10/14/23 05:06 10/14/23 05:06 10/14/23 05:06 10/14/23 05:06 10/14/23 07:34 10/14/23 07:34 Oxygen Delivery Method Room Air Weight: 200 lb 2.876 oz Body Mass Index (BMI) 26.5 Intake & Output: Intake and Output for Last 24 Hours 10/13/23 10/14/23 10/15/23 03:59 03:59 03:59 Intake Total 1555 / 1555 1600 / 1600 Output Total 975 / 975 Balance 580 / 580 1600 / 1600 Lab / Micro Data 10/14/23 04:53 10/14/23 04:53 Labs: Laboratory Results - last 24 hr 10/13/23 16:23: WBC 9.6, RBC 3.85 L, Hgb 12.3 L, Hct 35.1 L, MCV 91.2, MCH 31.9, MCHC 35.0, RDW Std Deviation 40.9, RDW Coeff of Gustavo 12.5, Plt Count 237, MPV 9.6, Immature Gran % (Auto) 0.400, Neut % (Auto) 75.3 H, Lymph % (Auto) 12.6 L, [place] % (Auto) 8.1, Eos % (Auto) 3.0, Baso % (Auto) 0.6, Absolute Neuts (auto) 7.2, Absolute Lymphs (auto) 1.21, Nucleated RBC % 0, ESR 16, Sodium 134 L, Potassium 4.7, Chloride 105, Carbon Dioxide 22.0, Anion Gap 7, BUN 46 H, Creatinine 2.13 H, Estim Creat Clear Calc 47.16, Est GFR (MDRD) Af Amer 41 L, Est GFR (MDRD) Non-Af 34 L, BUN/Creatinine Ratio 21.6 H, Glucose 522 H*, Hemoglobin A1c 9.8 H, Lactic Acid 1.8, Calcium 8.6, Total Bilirubin 0.40, Direct Bilirubin 0.12, AST 15, ALT 27, Alkaline Phosphatase 136 H, C-React Prot Ext Range 20.50 H, Total Protein 7.5, Albumin 3.8, Globulin 3.7 10/13/23 22:38: POC Glucose 166 H 10/13/23 23:00: S.aureus Protein A PCR POSITIVE H, MRSA (PCR) Negative 10/14/23 04:53: WBC 11.5 H, RBC 3.61 L, Hgb 11.4 L, Hct 32.9 L, MCV 91.1, MCH 31.6, MCHC 34.7, RDW Std Deviation 41.2, RDW Coeff of Gustavo 12.4, Plt Count 225, MPV 9.5, Immature Gran % (Auto) 0.200, Neut % (Auto) 72.6 H, Lymph % (Auto) 14.3 L, [place] % (Auto) 8.5, Eos % (Auto) 3.9, Baso % (Auto) 0.5, Absolute Neuts (auto) 8.3 H, Absolute Lymphs (auto) 1.64, Nucleated RBC % 0, Sodium 137, Potassium 4.2, Chloride 113 H, Carbon Dioxide 18.0 L, Anion Gap 6, BUN 35 H, Creatinine 1.48 H, Estim Creat Clear Calc 60.73, Est GFR (MDRD) Af Amer 63, Est GFR (MDRD) Non-Af 52 L, BUN/Creatinine Ratio 23.6 H, Glucose 162 H, Calcium 8.8, Phosphorus 2.8, Magnesium 2.1, Total Bilirubin 0.80, AST 14 L, ALT 20, Alkaline Phosphatase 87, Total Protein 6.9, Albumin 3.4, Globulin 3.5, Albumin/Globulin Ratio 1.0 10/14/23 06:07: POC Glucose 153 H Radiography Diagnostic Testing: Radiology Impression Foot X-Ray 10/13/23 16:30 IMPRESSION: No fractures, dislocations, or focal destructive lesions of the bones. No specific evidence of osteomyelitis. No soft tissue gas. Electronically Signed: Vincenzo Farias MD at 17:46 EDT , Physical Exam Narrative General: Alert, Oriented x3, Cooperative, No apparent distress HEENT: Atraumatic, PERRLA, EOMI, Normocephalic Oral: Moist Mucosa Neck: Supple, No JVD Lungs: Diminished, Normal air movement, No rhonchi, No wheeze, No rales Cardiovascular: Regular rate, Regular Rhythm, Normal S1, Normal S2, No murmurs Abdomen: Soft, Non Tender, Non-Distended, No Hepato-splenomegaly Extremities: No edema, Capillary Refill Less than 3 Seconds Skin: Right lower extremity dressing intact Musculoskeletal: No Tenderness to Palpation of Joints or Extremities Neurological: No focal neurological deficits, Motor Exam 5/5 strength throughout, Sensory exam intact to light touch and pain Psych/Mental Status: Normal Affect, Appropriate Assessment & Plan Assessment/Plan (1) JAROD (acute kidney injury): (2) Diabetic foot infection: PLAN: Plan 1. Right foot diabetic foot infection/DM2/JAROD on CKD 3B ? Appreciate podiatry's assistance ? Continue with broad-spectrum antibiotics with vancomycin and Zosyn ? Wound cultures are pending ? Hold his home blood sugar medications ? Sliding scale insulin ? Accu-Cheks ACHS ? Monitor make adjustments as necessary ? Renal function is back to baseline, will continue to monitor 2. Essential HTN/HLD ? Continue with his home blood pressure medications ? Blood pressure stable ? Will monitor make adjustments as necessary ? Can likely restart his lisinopril and hydrochlorothiazide tomorrow if his renal function continues to improve and/or stay stable ? Continue with Lipitor as well as aspirin DVT: Heparin Charges/Coding Visit Charges Inpatient E&M: 01912 Subs Hosp L2
[2023-10-14 11:00] VITALS: PULSE 88
[2023-10-14 11:06] VITALS: BP 120/73; PULSE 75; RESP 18; TEMP 37.2; O2SAT 94
[2023-10-14 11:37] LABS: Bedside Glucose 235 mg/dL (74-106)
[2023-10-14 14:33] VITALS: BP 133/70; PULSE 77; RESP 18; TEMP 36.7; O2SAT 94
[2023-10-14 16:39] LABS: Bedside Glucose 310 mg/dL (74-106)
--- NOTE | 2023-10-14 19:23 | PCM.PROGNOTE ---
Subjective Subjective Patient was seen today for follow up on right foot. He relates there is less pain and foot is feeling much better. He is resting in bed, no complaints of f/c/n/v, calf pain or any new complaints. Objective Data Objective Data Vital Signs: Vital Signs Temp Pulse Resp BP Pulse Ox O2 Del Method 98.0 F 77 18 133/70 H 94 Room Air 10/14/23 14:33 10/14/23 14:33 10/14/23 14:33 10/14/23 14:33 10/14/23 14:33 10/14/23 14:33 Oxygen Delivery Method Room Air Weight: 90.8 kg Body Mass Index (BMI) 26.5 Intake & Output: Intake and Output for Last 24 Hours 10/12/23 10/13/23 10/14/23 23:59 23:59 23:59 Intake Total 1040 / 1040 3635 / 3635 Output Total 975 / 975 1100 / 1100 Balance 65 / 65 2535 / 2535 Lab / Micro Data 10/14/23 04:53 10/14/23 04:53 Labs: Laboratory Results - last 24 hr 10/13/23 22:38: POC Glucose 166 H 10/13/23 23:00: S.aureus Protein A PCR POSITIVE H, MRSA (PCR) Negative 10/14/23 04:53: WBC 11.5 H, RBC 3.61 L, Hgb 11.4 L, Hct 32.9 L, MCV 91.1, MCH 31.6, MCHC 34.7, RDW Std Deviation 41.2, RDW Coeff of Gustavo 12.4, Plt Count 225, MPV 9.5, Immature Gran % (Auto) 0.200, Neut % (Auto) 72.6 H, Lymph % (Auto) 14.3 L, [place] % (Auto) 8.5, Eos % (Auto) 3.9, Baso % (Auto) 0.5, Absolute Neuts (auto) 8.3 H, Absolute Lymphs (auto) 1.64, Nucleated RBC % 0, Sodium 137, Potassium 4.2, Chloride 113 H, Carbon Dioxide 18.0 L, Anion Gap 6, BUN 35 H, Creatinine 1.48 H, Estim Creat Clear Calc 60.73, Est GFR (MDRD) Af Amer 63, Est GFR (MDRD) Non-Af 52 L, BUN/Creatinine Ratio 23.6 H, Glucose 162 H, Calcium 8.8, Phosphorus 2.8, Magnesium 2.1, Total Bilirubin 0.80, AST 14 L, ALT 20, Alkaline Phosphatase 87, Total Protein 6.9, Albumin 3.4, Globulin 3.5, Albumin/Globulin Ratio 1.0 10/14/23 06:07: POC Glucose 153 H 10/14/23 11:17: POC Glucose 235 H 10/14/23 16:19: POC Glucose 310 H Micro: Microbiology 10/13/23 23:00 Wound - Right Foot Gram Stain - Final 10/14/23 05:10 Wound - Right Foot Gram Stain - Final Physical Exam Const alert, oriented x3 and no apparent distress Constitutional Narrative: Resting in bed. Right foot with 3.5cm x 2.5cm with fibrogranular tissue down to fascia layer, there are ulcerations to the 1st and 2nd ID spaces on the right foot down to subc tissue, ulcers are all improved and healing, resolved maceration, edema and localized cellulitis much improved, significantly less POP to the ulcer plantar arch and to plantar 2nd and 3rd rays on the right foot, there is no visible abscess, no crepitus, no fluctuance, no maloder, no purulence noted. CFT < 3 seconds to all toes right foot and pedal pulses intact with no evidence of acute ischemia. Assessment & Plan Assessment/Plan (1) Diabetic foot infection: (2) Cellulitis of foot, right: (3) Insulin dependent diabetes mellitus: (4) Non-pressure chronic ulcer of other part of right foot with necrosis of muscle: PLAN: Plan Evaluation performed, reviewed diagnostic data. Reviewed right foot xrays - no evidence of osteomyelitis, no gas noted. There is no visible abscess clinically, but further evaluation is medically necessary to r/o deep abscess so MRI right foot was ordered and pending. Clinically foot is much improved today. A culture right foot wounds has been ordered, blood cultures pending - results pending. Patient is on IV antibiotics Vanc and Zosyn. No weightbearing right foot. Dressing changes - daily dressing changes of betadine soln to ulcer sites right foot, cover with overlying gauze, kerlix and kellen. LEAS were ordered for further evaluation of LE arterial flow - there is no evidence of acute ischemia at this time. No immediate plans for surgical intervention at this time. Podiatry will continue to follow.
[2023-10-14 20:05] VITALS: BP 136/74; PULSE 81; RESP 16; TEMP 36.6; O2SAT 98
[2023-10-14] MEDS: Atorvastatin Calcium 20 MG Tablet PO (21:42)
[2023-10-14] MEDS: Insulin Glargine-YFGN 100 UNIT/ML Pen 48 UNIT SC (21:43)
[2023-10-14] MEDS: MELATONIN 10 MG TABLET 5 MG PO (21:43)
[2023-10-14 22:40] LABS: Bedside Glucose 250 mg/dL (74-106)
[2023-10-15 00:59] LABS: Vancomycin, Trough Level 11.8 ug/mL (5.0-15.0)
--- NOTE | 2023-10-15 01:07 | PCM.RX.CS ---
Consult Antibiotic Management Pharmacy has been consulted to manage selected antibiotic: Vancomycin Type of Intervention Type of Consult: Follow-up Suspected Infection Suspected Infection: Skin/Soft tissue Labs Labs: Sodium 137 mmol/L (136-145) 10/14/23 04:53 Potassium 4.2 mmol/L (3.5-5.1) 10/14/23 04:53 Chloride 113 mmol/L (98-107) H 10/14/23 04:53 Carbon Dioxide 18.0 mmol/L (21.0-32.0) L 10/14/23 04:53 Anion Gap 6 (5-15) 10/14/23 04:53 BUN 35 mg/dL (7-18) H 10/14/23 04:53 Creatinine 1.48 mg/dL (0.70-1.30) H 10/14/23 04:53 Est GFR (MDRD) Af Amer 63 mL/min (>60) 10/14/23 04:53 Est GFR (MDRD) Non-Af 52 mL/min (>60) L 10/14/23 04:53 BUN/Creatinine Ratio 23.6 RATIO (10-20) H 10/14/23 04:53 Glucose 162 mg/dL (74-106) H 10/14/23 04:53 Vancomycin Trough 11.8 ug/mL (5.0-15.0) 10/15/23 00:22 Microbiology Microbiology: Microbiology 10/13/23 23:00 Wound - Right Foot Gram Stain - Final 10/14/23 05:10 Wound - Right Foot Gram Stain - Final Dosing Weight Weight used for dosin.8 kg Estimated Creatinine Clearance Estimated Creatinine Clearance: 61 Goal Trough Goal Trough: 15-20 mcg/mL Pharmacy Plan for Drug Dosing Pharmacy Plan for Drug Dosing: Vancomycin trough level of 11.8, drawn 11hrs post-dose, was below the target range of 15-20. Due in part to improved renal function (SCr from 2.13 to 1.48). Will increase vanco dose to 1000mg q12h, and will draw another trough prior to fourth dose of new regimen. Pharmacy Service will continue to monitor and adjust dosing as required. Follow-Up Labs Follow-Up Labs: Trough: Vancomycin Date/Time Labs Ordered Labs to be done on [date and time ordered]: 10/16/23 @1230
[2023-10-15] MEDS: Vancomycin IV 1,000 MG/200 ML BAG 200 MG IV ×2 (01:09→13:05)
[2023-10-15] MEDS: Piperacil/Tazobactam 3.375 GM in 0.9% Normal Saline (50mL MB+) 50 ML IV ×3 (05:06→21:41)
[2023-10-15] MEDS: Heparin Injection (Vial) 5,000 UNIT/ML VIAL 5000 UNIT SC ×3 (05:08→21:42)
[2023-10-15 05:12] VITALS: BP 122/72; PULSE 71; RESP 15; TEMP 36.6; O2SAT 95
[2023-10-15 05:32] LABS: Absolute Lymphocyte Count 1.52 X10^3/uL (0.83-4.51); Absolute Neutrophil Count 4.4 X10^3/uL (2.0-7.7); Basophil# 0.06 X10^3/uL; Basophil% 0.9 % (0-1); Eosinophil# 0.49 X10^3/uL; Hematocrit 33.2 % (40-54); Hemoglobin 11.5 g/dL (13.0-16.5); Lymphocyte # 1.52 X10^3/ul (0.83-4.51); Lymphocyte % 21.6 % (19-41); Mean Corp Hgb Conc 34.6 g/dL (32-36); Mean Corpuscular Hgb 31.3 pg (27.0-32.0); Mean Corpuscular Volume 90.2 fL (80-94); Mean Platelet Vol. 9.4 fl (6.2-12.0); Monocyte% 8.5 % (0-10); NRBC Flagged by Analyzer 0 % (0-5); Neutrophil # 4.35 X10^3/uL (2.7-7.7); Neutrophil % 61.9 % (47-70); Platelet Count 227 K/mm3 (150-450); RBC Distribution Width CV 12.1 % (11.6-14.6); RBC Distribution Width SD 39.8 fl (35.1-43.9); Red Blood Count 3.68 M/mm3 (4.6-6.2)
[2023-10-15 06:00] VITALS: BMI 26.4
[2023-10-15 06:15] LABS: Anion Gap 7 (5-15); BUN 27 mg/dL (7-18); Calcium,Total 9.2 mg/dL (8.5-10.1); Chloride 111 mmol/L (98-107); Creatinine, Serum 1.35 mg/dL (0.70-1.30); EST Glomerular Filtration Rate 57 mL/min (>60); Est Glom Filt Rate - Afr Amer 70 mL/min (>60); Estimated Creatinine Clearance 66.58 ml/min; Glucose 166 mg/dL (74-106); Potassium 4.1 mmol/L (3.5-5.1); Sodium Level 138 mmol/L (136-145)
[2023-10-15 06:30] LABS: Bedside Glucose 125 mg/dL (74-106)
--- NOTE | 2023-10-15 07:42 | PCM.PROGNOTE ---
Subjective Subjective Patient was seen this morning, he is resting comfortably in bed, no new complaints, or complaints of f/c/n/v/calf pain. He relates right foot is feeling better. Objective Data Objective Data Vital Signs: Vital Signs Temp Pulse Resp BP Pulse Ox O2 Del Method 97.9 F 71 15 122/72 H 95 Room Air 10/15/23 05:12 10/15/23 05:12 10/15/23 05:12 10/15/23 05:12 10/15/23 05:12 10/15/23 05:12 Oxygen Delivery Method Room Air Weight: 90.537 kg Body Mass Index (BMI) 26.4 Intake & Output: Intake and Output for Last 24 Hours 10/13/23 10/14/23 10/15/23 23:59 23:59 23:59 Intake Total 1040 / 1040 5035 / 5035 250 / 250 Output Total 975 / 975 1600 / 1600 700 / 700 Balance 65 / 65 3435 / 3435 -450 / -450 Lab / Micro Data 10/15/23 04:20 10/15/23 04:20 Labs: Laboratory Results - last 24 hr 10/14/23 11:17: POC Glucose 235 H 10/14/23 16:19: POC Glucose 310 H 10/14/23 21:41: POC Glucose 250 H 10/15/23 00:22: Vancomycin Trough 11.8 10/15/23 04:20: WBC 7.0, RBC 3.68 L, Hgb 11.5 L, Hct 33.2 L, MCV 90.2, MCH 31.3, MCHC 34.6, RDW Std Deviation 39.8, RDW Coeff of Gustavo 12.1, Plt Count 227, MPV 9.4, Immature Gran % (Auto) 0.100, Neut % (Auto) 61.9, Lymph % (Auto) 21.6, [place] % (Auto) 8.5, Eos % (Auto) 7.0 H, Baso % (Auto) 0.9, Absolute Neuts (auto) 4.4, Absolute Lymphs (auto) 1.52, Nucleated RBC % 0, Sodium 138, Potassium 4.1, Chloride 111 H, Carbon Dioxide 20.0 L, Anion Gap 7, BUN 27 H, Creatinine 1.35 H, Estim Creat Clear Calc 66.58, Est GFR (MDRD) Af Amer 70, Est GFR (MDRD) Non-Af 57 L, BUN/Creatinine Ratio 20.0, Glucose 166 H, Calcium 9.2 10/15/23 05:57: POC Glucose 125 H Micro: Microbiology 10/13/23 23:00 Wound - Right Foot Gram Stain - Final 10/14/23 05:10 Wound - Right Foot Gram Stain - Final Physical Exam Const alert, oriented x3 and no apparent distress Constitutional Narrative: Resting in bed. Right foot with 3.5cm x 2.5cm with fibrogranular tissue down to fascia layer, there are ulcerations to the 1st and 2nd ID spaces on the right foot down to subc tissue, ulcers continue to show improvement and are healing, edema and localized cellulitis continue to improve, very minimal to no pain to the ulcer plantar arch and to plantar 2nd and 3rd rays on the right foot, there is no visible abscess, no crepitus, no fluctuance, no maloder, no purulence noted. CFT < 3 seconds to all toes right foot and pedal pulses intact with no evidence of acute ischemia. Assessment & Plan Assessment/Plan (1) Diabetic foot infection: (2) Cellulitis of foot, right: (3) Insulin dependent diabetes mellitus: (4) Non-pressure chronic ulcer of other part of right foot with necrosis of muscle: PLAN: Plan Evaluation performed, reviewed diagnostic data. Reviewed right foot xrays - no evidence of osteomyelitis, no gas noted. There is no visible abscess clinically, but further evaluation is medically necessary to r/o deep abscess so MRI right foot was ordered and pending. Clinically right foot continues to improve. MRI has been ordered - this is medically necessary to r/o deep infection. A culture right foot wounds has been ordered, blood cultures pending - results pending. Patient is on IV antibiotics Vanc and Zosyn. No weightbearing right foot. Dressing changes - daily dressing changes of betadine soln to ulcer sites right foot, cover with overlying gauze, kerlix and kellen. LEAS were ordered for further evaluation of LE arterial flow - there is no evidence of acute ischemia at this time. No immediate plans for surgical intervention at this time. Podiatry will continue to follow.
[2023-10-15 08:22] VITALS: O2SAT 97
[2023-10-15] MEDS: Aspirin E.C. 81 MG Tablet PO (08:25)
[2023-10-15] MEDS: Isosorbide Mononitrate 60 MG Tablet PO (08:25)
[2023-10-15] MEDS: Cholecalciferol (VIT D3) 25 MCG TABLET (1,000 UNITS) PO (08:25)
[2023-10-15] MEDS: Carvedilol 3.125 MG TABLET PO ×2 (08:25→16:19)
[2023-10-15] MEDS: Clopidogrel Bisulfate 75 MG Tablet PO (08:26)
--- NOTE | 2023-10-15 09:00 | MRI_ITS ---
STUDY: MRI RIGHT MIDFOOT REASON FOR EXAM: Male, 58 years old. Abscess, painful wound diabetic x 5 days, compare to foot xray. TECHNIQUE: Standardized fat and water weighted pulse sequences were obtained in all 3 orthogonal planes. COMPARISON: Right foot radiographs dated 10/13/2023. FINDINGS: Normal talonavicular articulation. Normal calcaneocuboid articulation. Normal navicular-cuneiform articulations. Normal intercuneiform articulations. Normal first tarsometatarsal articulation. Normal Lisfranc ligament. Normal second and third tarsometatarsal articulations. Normal cuboid fourth and cuboid fifth tarsometatarsal articulation. Normal first through fifth metatarsi. There is no demonstrated fracture of the metatarsal bones. Normal tibialis anterior tendon. Normal extensor hallucis longus tendon. Normal extensor digitorum longus tendons. Normal peroneus longus tendon and distal insertion. Normal peroneus brevis tendon and distal insertion. Normal intrinsic muscles of the mid and forefoot region. Normal extensor digitorum brevis muscle. There is moderate subcutaneous soft tissue edema along the dorsum of the forefoot. There is mild subcutaneous soft tissue edema along the plantar aspect of the forefoot. There is no demonstrated soft tissue mass, fluid collection or drainable abscess. MRI/Lower Ext/No Jt/w/o IMPRESSION: Moderate subcutaneous soft tissue edema along the dorsum of the forefoot. Mild subcutaneous soft tissue edema along the plantar aspect of the forefoot. No demonstrated soft tissue mass, fluid collection or drainable abscess. Electronically Signed: Herbert Harris MD at 10:15 EDT ,
--- NOTE | 2023-10-15 09:42 | WOUNDNOTE ---
wound photo:right foot
--- NOTE | 2023-10-15 09:43 | WOUNDNOTE ---
skin photo:right foot
[2023-10-15 11:12] VITALS: BP 140/87; PULSE 75; RESP 18; TEMP 36.9; O2SAT 97
--- NOTE | 2023-10-15 11:40 | CASEMGMT ---
Addendum entered by Lorie De La Fuente 10/15/23 12:57: MANOJ MONSIVAIS called Coby from [facility] for referral, waiting to hear back on acceptance. Original Note: MANOJ MONSIVAIS Assessment: Face to Face with pt for initial transition planning/care coordination assessment. MANOJ MONSIVAIS introduced self and role at [facility], pt voices understanding and consents to assessment. Pt is A&O x4 and answers all questions appropriately at this time. Pt lying in bed in no distress, sister sitting at beside. Pt agreeable to discussing DC planning with sister present. Care providers, pharmacy, and demographics verified/updated. Admitting Dx: R foot diabetic wound. PCP: [facility] Specialists: Asim, vision care associate. Preferred Pharmacy: [facility] Insurance: [employer] Prescription Benefit: yes LNOK: Sisters Living Arrangements: Pt lives with Nephew, sister lives across the street, in a trailer with a ramp to enter. ADLs: Pt states I with ADLs and IADLs. Transportation: Pt drives self and denies concerns with transportation. Sister drives pt when needed. DME: glucometer and supplies, cane, shower chair, grab bars. HHC/SNF: Denies Hx of SNF. Previously used [facility] HHC. Pt states will need a walker to go home with, provided a list of local DME providers, pt chose [facility]. Discussed ID consult and possibility of going home with IV antibiotics. Pt sister able to assist. Pt chose [facility] as IV infusion choice and [facility] HHC agency. Denies wanting a list of local C providers. Pt states no further concerns/needs. CM to follow. Advised pt to ask CM if any further question/concerns/needs arise, voices understanding. Pt Goal: Home with DME Plan: Home with DME, will follow for IV antibiotics. Manoj ARANDA CM
[2023-10-15] MEDS: Insulin Lispro 100 UNIT/ML INSULN.PEN SC ×3 (11:55→21:43)
[2023-10-15 12:15] LABS: Bedside Glucose 167 mg/dL (74-106)
--- NOTE | 2023-10-15 14:51 | CASEMGMT ---
RN CM into pt room, pt states was not doing dressing changes prior to hospitalization. Discussed HHC for wound dressing, pt denies HHC and states sister can help with dressing changes.
--- NOTE | 2023-10-15 15:01 | PN.HOSP_ITS ---
Reason for Visit Reason for Visit: Diagnoses Type 2 diabetes mellitus with other skin complications (10/13/23) Cellulitis of right lower limb (10/13/23) Local infection of the skin and subcutaneous tissue, unspecified (10/13/23) Non-pressure chronic ulcer of other part of right foot with necrosis of muscle (10/13/23) Acute kidney failure, unspecified (10/13/23) Hyperglycemia, unspecified (10/13/23) Objective Data Objective Data Vital Signs: Vital Signs Temp Pulse Resp BP Pulse Ox O2 Del Method 98.5 F 75 18 140/87 H 97 Room Air 10/15/23 11:12 10/15/23 11:12 10/15/23 11:12 10/15/23 11:12 10/15/23 11:12 10/15/23 11:12 Oxygen Delivery Method Room Air Weight: 199 lb 9.6 oz Body Mass Index (BMI) 26.4 Intake & Output: Intake and Output for Last 24 Hours 10/13/23 10/14/23 10/15/23 23:59 23:59 23:59 Intake Total 1040 / 1040 5035 / 5035 1850.00 / 1850.00 Output Total 975 / 975 1600 / 1600 1650 / 1650 Balance 65 / 65 3435 / 3435 200 / 200.00 Lab / Micro Data 10/15/23 04:20 10/15/23 04:20 Labs: Laboratory Results - last 24 hr 10/14/23 16:19: POC Glucose 310 H 10/14/23 21:41: POC Glucose 250 H 10/15/23 00:22: Vancomycin Trough 11.8 10/15/23 04:20: WBC 7.0, RBC 3.68 L, Hgb 11.5 L, Hct 33.2 L, MCV 90.2, MCH 31.3, MCHC 34.6, RDW Std Deviation 39.8, RDW Coeff of Gustavo 12.1, Plt Count 227, MPV 9.4, Immature Gran % (Auto) 0.100, Neut % (Auto) 61.9, Lymph % (Auto) 21.6, [place] % (Auto) 8.5, Eos % (Auto) 7.0 H, Baso % (Auto) 0.9, Absolute Neuts (auto) 4.4, Absolute Lymphs (auto) 1.52, Nucleated RBC % 0, Sodium 138, Potassium 4.1, C hloride 111 H, Carbon Dioxide 20.0 L, Anion Gap 7, BUN 27 H, Creatinine 1.35 H, Estim Creat Clear Calc 66.58, Est GFR (MDRD) Af Amer 70, Est GFR (MDRD) Non-Af 57 L, BUN/Creatinine Ratio 20.0, Glucose 166 H, Calcium 9.2 10/15/23 05:57: POC Glucose 125 H 10/15/23 11:53: POC Glucose 167 H Micro: Microbiology 10/13/23 23:00 Wound - Right Foot Gram Stain - Final 10/13/23 23:00 Wound - Right Foot Wound Culture - Preliminary Mixed Gram Positive Organisms 10/14/23 05:10 Wound - Right Foot Gram Stain - Final Radiography Diagnostic Testing: Radiology Impression Lower Extremity MRI 10/15/23 09:00 IMPRESSION: Moderate subcutaneous soft tissue edema along the dorsum of the forefoot. Mild subcutaneous soft tissue edema along the plantar aspect of the forefoot. No demonstrated soft tissue mass, fluid collection or drainable abscess. Physical Exam Narrative Seen and examined. Patient is stated he had 2, 1 toe ulcer and another on the plantar on the right foot. No fever. Physical exam General: Alert, Oriented x3, Cooperative HEENT: Atraumatic, PERRLA, EOMI, Normocephalic Oral: No Gingival or Mucosal Lesions/ Ulcerations Neck: Supple, No JVD, Negative Carotid Bruits Chest wall/Lungs: Air entry diminished in bilateral lung bases. No crepitation/rhonchi Cardiovascular: Regular rate, Regular Rhythm, Normal S1, Normal S2, No M/G/R Abdomen: Bowel Sounds Present, Soft, Non Tender, Non-Distended : No dysuria. No renal angle tenderness. No suprapubic tenderness. Extremities: No edema, Capillary Refill Less than 3 Seconds Skin: Plantar ulcer on toe ulcer. Has pedal edema on right foot. Lance wrap bandage. Musculoskeletal: No Tenderness to Palpation of Joints or Extremities Neurological: Cranial nerves II-XII grossly intact, DTR 2+/4. No acute focal neurological deficit. Psych/Mental Status: Normal Affect, Appropriate. Assessment & Plan Assessment/Plan (1) JAROD (acute kidney injury): (2) Diabetic foot infection: PLAN: Plan 58-year-old gentleman was admitted with 2 wounds 1 on plantar aspect of right foot and another on between first and second toe. 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 It was painful. No fever. 1. Right foot diabetic foot infection with superficial ulcers: Patient had MRI foot which did not show evidence of osteomyelitis but soft tissue edema in plantar and dorsal aspects. No collection or abscess. Prelim Gram stain of wound culture shows no organisms. On IV antibiotics, vancomycin and Zosyn. Patient was evaluated by medical office administrator. No weightbearing on right foot. Lower extremity arterial extremity did not show evidence of acute ischemia. 2. Diabetes mellitus type 2: Hold oral antidiabetic medications. Accu-Chek before meals and at bedtime with Humalog sliding scale coverage. 3. JAROD on CKD 3B: BUNs/creatinine 27/1.35. Admitting BUNs/creatinine 46/2.13. JAROD resolved. 4. Essential HTN and dyslipidemia: ? Continue home blood pressure medications. BP controlled and normotensive. Monitor BP and adjust accordingly. Lisinopril 10 mg daily to start from tomorrow. Hold HCTZ ? Continue with Lipitor as well as aspirin DVT: Heparin Microbiology Past 72 Hours 10/13/23 23:00 Wound - Right Foot Gram Stain - Final 10/13/23 23:00 Wound - Right Foot Wound Culture - Preliminary Mixed Gram Positive Organisms 10/14/23 05:10 Wound - Right Foot Gram Stain - Final Laboratory Results 10/14/23 16:19: POC Glucose 310 H 10/14/23 21:41: POC Glucose 250 H 10/15/23 00:22: Vancomycin Trough 11.8 10/15/23 04:20: WBC 7.0, RBC 3.68 L, Hgb 11.5 L, Hct 33.2 L, MCV 90.2, MCH 31.3, MCHC 34.6, RDW Std Deviation 39.8, RDW Coeff of Gustavo 12.1, Plt Count 227, MPV 9.4, Immature Gran % (Auto) 0.100, Neut % (Auto) 61.9, Lymph % (Auto) 21.6, [place] % (Auto) 8.5, Eos % (Auto) 7.0 H, Baso % (Auto) 0.9, Absolute Neuts (auto) 4.4, Absolute Lymphs (auto) 1.52, Nucleated RBC % 0, Sodium 138, Potassium 4.1, C hloride 111 H, Carbon Dioxide 20.0 L, Anion Gap 7, BUN 27 H, Creatinine 1.35 H, Estim Creat Clear Calc 66.58, Est GFR (MDRD) Af Amer 70, Est GFR (MDRD) Non-Af 57 L, BUN/Creatinine Ratio 20.0, Glucose 166 H, Calcium 9.2 10/15/23 05:57: POC Glucose 125 H 10/15/23 11:53: POC Glucose 167 H Charges/Coding Visit Charges Inpatient E&M: 69882 Subs Hosp L2
[2023-10-15 16:38] LABS: Bedside Glucose 235 mg/dL (74-106)
[2023-10-15 16:39] VITALS: BP 122/82; PULSE 82; RESP 16; TEMP 36.7; O2SAT 96
[2023-10-15] MEDS: 0.9% Normal Saline (250mL Bag) 250 ML 15 ML IV (19:57)
[2023-10-15 21:31] VITALS: BP 147/88; PULSE 63; RESP 16; TEMP 36.6; O2SAT 100
[2023-10-15] MEDS: Atorvastatin Calcium 20 MG Tablet PO (21:42)
[2023-10-15] MEDS: Insulin Glargine-YFGN 100 UNIT/ML Pen 48 UNIT SC (21:43)
[2023-10-15] MEDS: MELATONIN 10 MG TABLET 5 MG PO (21:44)
[2023-10-15] MEDS: 0.9% Normal Saline (1000mL) 1,000 ML 75 ML IV (21:48)
[2023-10-15 22:42] LABS: Bedside Glucose 192 mg/dL (74-106)
[2023-10-16] MEDS: Vancomycin IV 1,000 MG/200 ML BAG 200 MG IV ×2 (01:44→14:06)
[2023-10-16 02:23] VITALS: BP 109/60; PULSE 71; RESP 16; TEMP 36.1; O2SAT 97
[2023-10-16] MEDS: Piperacil/Tazobactam 3.375 GM in 0.9% Normal Saline (50mL MB+) 50 ML IV (05:58)
[2023-10-16] MEDS: Heparin Injection (Vial) 5,000 UNIT/ML VIAL 5000 UNIT SC ×2 (05:59→14:09)
[2023-10-16 06:00] VITALS: BMI 26.3
[2023-10-16 06:26] LABS: Bedside Glucose 146 mg/dL (74-106)
[2023-10-16 07:38] VITALS: O2SAT 97
[2023-10-16 07:42] LABS: Anion Gap 3 (5-15); BUN 22 mg/dL (7-18); BUN/Creat Ratio 15.6 RATIO (10-20); Calcium,Total 9.1 mg/dL (8.5-10.1); Chloride 108 mmol/L (98-107); Creatinine, Serum 1.41 mg/dL (0.70-1.30); EST Glomerular Filtration Rate 55 mL/min (>60); Est Glom Filt Rate - Afr Amer 66 mL/min (>60); Estimated Creatinine Clearance 63.75 ml/min; Glucose 116 mg/dL (74-106); Potassium 4.3 mmol/L (3.5-5.1); Sodium Level 137 mmol/L (136-145)
[2023-10-16 08:25] VITALS: BP 129/88; PULSE 76; RESP 18; TEMP 37.1; O2SAT 98
[2023-10-16] MEDS: Cholecalciferol (VIT D3) 25 MCG TABLET (1,000 UNITS) PO (09:06)
[2023-10-16] MEDS: Aspirin E.C. 81 MG Tablet PO (09:07)
[2023-10-16] MEDS: Carvedilol 3.125 MG TABLET PO (09:07)
[2023-10-16] MEDS: Clopidogrel Bisulfate 75 MG Tablet PO (09:07)
[2023-10-16] MEDS: Isosorbide Mononitrate 60 MG Tablet PO (09:08)
[2023-10-16] MEDS: Lisinopril 10 MG Tablet PO (09:09)
[2023-10-16 10:19] VITALS: RESP 18
--- NOTE | 2023-10-16 10:41 | PCM.CONS.GEN ---
Assessment & Plan Assessment/Plan (1) Diabetic foot infection: PLAN: Wound cx pending. MRI showed no abscess or osteo. Will narrow abx to vanc/unasyn. Tentative plan for home will be one week po doxy 100mg bid and augmentin 875mg bid, plan may change depending on further cx data. Will follow, thank you HPI Consult Data Date of Consult: 10/16/23 HPI Narrative Reason for Consultation: wound infection HPI Narrative: TED FONTANEZ, is a 58 M with IDDM, presented 10/12 with 2 days progressive R foot pain, redness, swelling after stepping on something. No fever or chills. Pain was moderate. Came to ED, admitted on vanc/zosyn, seen by podiatry, MRI done, feeling better. Full ROS performed and neg except as noted above. [facility] Medical History Diabetes Hypertension COVID-19 Leg pain, left Low TSH level PIMENTEL (dyspnea on exertion) Bulging of lumbar intervertebral disc Segmental and somatic dysfunction of lumbar region Segmental and somatic dysfunction of thoracic region Segmental and somatic dysfunction of cervical region Low back pain Type 2 diabetes mellitus without complications Wears glasses Insulin dependent diabetes mellitus High cholesterol Back pain Dietary restriction Non-smoker Hx of echocardiogram History of stress test Pancolitis Positive occult stool blood test Contusion of arm, left History of pneumonia Arthritis Type 2 diabetes mellitus without complication Hyperosmolar hyperglycemic state (HHS) 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 Anemia, unspecified Lung nodule Rectal bleeding Essential (primary) hypertension Abnormal Screening Computed Tomography (CT) of Chest HLD (hyperlipidemia) Suspected 2018 novel coronavirus infection Strep pharyngitis Sepsis Pneumonia Home Medications ?Medication ?Instructions ?Recorded ?Last Taken ?Type aspirin 81 mg tablet,delayed 81 mg PO DAILY heart health 03/16/19 08/25/21 History release insulin lispro 100 unit/mL See Protocol subcut TIDAC ##1 05/04/20 Unknown Rx subcutaneous pen needle (disp) 16 G 16 gauge x 1 ##100 05/06/20 Unknown Rx cholecalciferol (vitamin D3) 25 25 mcg PO DAILY vitamin supplement 01/18/21 Unknown History mcg (1,000 unit) capsule melatonin 5 mg tablet 5 mg PO HS sleep 08/15/21 Unknown History nitroglycerin 0.4 mg sublingual 0.4 mg sublingual PRN PRN 02/13/22 Unknown Rx tablet Cardiac/Chest Pain #30 tabs acetaminophen 500 mg tablet 1,000 mg PO Q6H PRN fever or pain 06/05/22 Unknown History atorvastatin 20 mg tablet 20 mg PO QHS #90 tabs 12/18/22 Unknown Rx carvedilol 3.125 mg tablet (Coreg) 3.125 mg PO BID #180 tabs 12/18/22 Unknown Rx clopidogrel 75 mg tablet (Plavix) 75 mg PO DAILY #90 tabs 12/18/22 Unknown Rx metformin 500 mg tablet 500 mg PO BID #180 tabs 12/18/22 Unknown Rx hydrochlorothiazide 12.5 mg capsule 12.5 mg PO DAILY bp #90 caps 01/29/23 Unknown Rx insulin glargine 100 unit/mL (3 48 unit subcut QHS 02/16/23 Unknown History mL) subcutaneous pen insulin degludec 100 unit/mL (3 48 unit (0.48 mL) subcut DAILY #15 07/16/23 Unknown Rx mL) subcutaneous pen (Tresiba mL FlexTouch U-100 insulin) semaglutide 0.25 mg or 0.5 mg (2 0.5 mg (0.736 mL) subcut QWEEK #3 09/20/23 Unknown Rx mg/3 mL) subcutaneous pen injector mL (Ozempic) isosorbide mononitrate 60 mg 60 mg PO DAILY heart #90 tabs 09/25/23 Unknown Rx tablet,extended release 24 hr lisinopril 40 mg tablet 40 mg PO DAILY BP 10/13/23 Unknown History Allergy/AdvReac Type Severity Reaction Status Date / Time hydrocodone (From Vicodin) AdvReac Other Verified 06/18/23 08:18 Family History Mother Heart disease Diabetes Alzheimer disease Hypertension Hyperlipemia Breast cancer Arthritis Father Heart disease Seizures Hypertension Hyperlipemia Sister Diabetes Heart disease Myocardial infarction Kidney disease Asthma Hypertension Uncle Colon cancer Surgical History History of left heart catheterization (08/25/21) History of coronary artery stent placement (12/22/19) History of colonoscopy H/O knee surgery Social History household members: spouse Smoking Status: Never smoker alcohol intake: never substance use type: does not use caffeine: Yes Type: coffee Number of servings: 1 what type of physical activity do you participate in: walking Physical Exam Const alert, oriented x3 and no apparent distress General Appearance: cooperative HEENT normocephalic and head/scalp atraumatic Eyes PERRL and EOMs intact bilaterally Neck supple and No nodes Resp normal air movement and clear to auscultation bilaterally Cardio regular rate and regular rhythm GI soft to palpation, non-tender and non-distended Extremity General Extremity: Negative for edema Skin Skin Narrative: reviewed R foot wound photo Neuro CN's II-XII intact bilaterally Lab / Micro Data Attestation: I reviewed the patient's lab results. 10/15/23 04:20 10/16/23 06:50 Labs: Laboratory Results - last 24 hr 10/15/23 11:53: POC Glucose 167 H 10/15/23 16:18: POC Glucose 235 H 10/15/23 21:40: POC Glucose 192 H 10/16/23 06:01: POC Glucose 146 H 10/16/23 06:50: Sodium 137, Potassium 4.3, Chloride 108 H, Carbon Dioxide 26.0, Anion Gap 3 L, BUN 22 H, Creatinine 1.41 H, Estim Creat Clear Calc 63.75, Est GFR (MDRD) Af Amer 66, Est GFR (MDRD) Non-Af 55 L, BUN/Creatinine Ratio 15.6, Glucose 116 H, Calcium 9.1 Micro: Microbiology 10/14/23 05:10 Wound - Right Foot Gram Stain - Final 10/14/23 05:10 Wound - Right Foot Wound Culture - Preliminary No growth-Final to follow 10/14/23 05:10 Wound - Right Foot Anaerobic Culture - Preliminary No growth in 48 hours. 10/13/23 23:00 Wound - Right Foot Gram Stain - Final 10/13/23 23:00 Wound - Right Foot Wound Culture - Preliminary Mixed Gram Positive Organisms Imaging Radiology Impression Extremity Arterial Study 10/13/23 21:31 Interpretation Summary Right BISI 1.23, normal. TBI and Doppler/PVR waveforms of the right leg normal at rest. Left BISI 1.7, artificially elevated. TBI and Doppler/PVR waveforms of the left leg normal at rest. Ordering Physician: Clovis Caballero Referring Physician: Jaci Harris Performed By: Mine Jamison RDCS/ROLY
[2023-10-16 11:30] LABS: Bedside Glucose 145 mg/dL (74-106)
[2023-10-16] MEDS: Vancomycin Trough/Random Due 1 LAB MC (12:15)
--- NOTE | 2023-10-16 12:37 | DCINST_ITS ---
Discharge Instructions Diet Discharge Diet: Low fat / Low cholesterol, 1800 Calorie Control Diet and 2000 mg Sodium Diet Activity Discharge Activity: Return to Normal Activity Weight Bearing Status: No weight bearing (On right foot) Dressing / Incision Call your doctor if you observe: Fever of 101 or Higher, Coldness, Increased Pain, Numbness or Tingling, Change in Color, Inability to urinate, Inability to have a bowel movement, Shortness of breath, Dizziness, Fainting spells, Swelling in the ankles, Chest pain, Prolonged hiccupping, Increased palpitations (irregular heartbeat) and Calf discomfort Follow Up Care When: IN 2 WEEKS Test Results: Test results from this visit will be discussed in further detail at your follow- up appointment, if applicable. Discharge Plan Admission Admit Date/Time: 10/13/23 17:56 Primary Reason for Your Visit: Right foot superficial ulcer with infection Attending Provider: Sunil Porter Primary Care Provider: Norma Obrien Consulting Providers: Clovis Caballero; Jaci Harris; Scottie Marie; Mina Hutchinson Discharge Orders/Prescriptions Prescriptions: New amoxicillin-pot clavulanate 875-125 mg tablet 1 tab PO BID 7 Days Qty: 14 0RF doxycycline monohydrate 100 mg capsule 100 mg PO BID 7 Days Qty: 14 0RF lisinopril 10 mg Tablet 10 mg PO DAILY 30 Days Qty: 30 1RF Rx Instructions: Hold for SBP less than 120 mmHg Continued cholecalciferol (vitamin D3) 25 mcg (1,000 unit) capsule 25 mcg PO DAILY melatonin 5 mg tablet 5 mg PO HS aspirin 81 MG tablet,delayed release (DR/EC) 81 mg PO DAILY insulin lispro 100 UNIT/ML insulin pen See Protocol SC TIDAC Qty: 1 0RF Protocol: 1. Sliding Scale Insulin Low Dosing Condition: 150-224 mg/dl = 1 unit Condition: 225-299 mg/dl = 2 units Condition: 300-374 mg/dl = 3 units Condition: 375-499 mg/dl = 4 units Condition: Greater than 449 call physician Protocol Text: - Use for Total Daily Dose of Insulin 15-27 units - Thin, elderly, renal patients LOW DOSING ALGORITHM Rx Instructions: Sliding Scale Insulin: 0 units = 150-200, 3 units = 201-250, 6 units = 251- 300, 9 units = 301-350 (DME) needle (disp) 16 G 1 EACH needle 1 ea SQ ACHS Qty: 100 0RF Rx Instructions: Disposal insulin pen needles insulin glargine 100 unit/mL (3 mL) insulin pen 48 unit SUBCUT QHS Patient Comments: INJECT 48 UNITS SUBCUTANEOUSLY AT BEDTIME nitroglycerin 0.4 mg tablet, sublingual 0.4 mg SUBLINGUAL PRN PRN (Reason: Cardiac/Chest Pain) Qty: 30 0RF Rx Instructions: May repeat after 5 minutes if pain persist. atorvastatin 20 mg tablet 20 mg PO QHS Qty: 90 3RF carvedilol [Coreg] 3.125 mg tablet 3.125 mg PO BID Qty: 180 3RF Rx Instructions: must administer with a meal/food clopidogrel [Plavix] 75 mg tablet 75 mg PO DAILY Qty: 90 3RF metformin 500 mg tablet 500 mg PO BID Qty: 180 3RF hydrochlorothiazide 12.5 mg capsule 12.5 mg PO DAILY Qty: 90 3RF Ozempic 0.25 mg or 0.5 mg (2 mg/3 mL) pen injector 0.5 mg subcut QWEEK Qty: 3 5RF Patient Comments: Takes on Sunday isosorbide mononitrate 60 mg tablet extended release 24 hr 60 mg PO DAILY Qty: 90 3RF Changed acetaminophen 500 mg tablet 1,000 mg PO Q8H PRN PRN (Reason: fever or pain) 7 Days Qty: 0 0RF Discontinued lisinopril 40 mg tablet 40 mg PO DAILY insulin degludec [Tresiba FlexTouch U-100] 100 unit/mL (3 mL) insulin pen 48 unit subcut DAILY Qty: 15 3RF Referrals / Follow Up: Clovis Caballero DPM [Med Staff - Active Staff] - Within 1 Week Norma Obrien MD [Primary Care Provider] - Mina Hutchinson MD [Med Staff - Active Staff] - Within 1 Month Disposition Disposition (needs filled in before D/C Order can be placed): Home Health Service
--- NOTE | 2023-10-16 12:42 | CASEMGMT ---
Addendum entered by Abbie Siegel 10/16/23 12:59: MANOJ CM into pt room, pt sister present Bonita, pt states if he does not need to go home with IV's then he does not want HHC. Pt states sister will perform dressing changes. Bonita confirms this and states that she used to be a RN LVN and the nurse educated her this morning. Pt is aware that his walker will be delivered to the room. Pt again states he does not want any SN or therapy in the home. He states he can maintain his non wt bearing status at home. TC to Coby at [facility], referral cancelled. Original Note: Referral for FWW sent to [facility] via [facility] at this time. Pt to dc today on PO atb. Coby at [facility] aware.
--- NOTE | 2023-10-16 12:46 | DS.PCM_ITS ---
Providers Date of Admission: 10/13/23 Date of Discharge: 10/16/23 Primary Care Physician: Dr. Norma Obrien MD Consultations 10/13/23 18:39 Consult: Podiatry Routine Consulting Provider: Clovis Caballero Reason for Consult: Diabetic Foot Wound EMERGENT Consult: No Notified: Yes Date Notified: 10/13/23 Time Notified: 18:00 Method of Notification: Text 10/15/23 08:04 Consult: Onc/Wound/dog and cat food cook Routine Comment: Reason for Consult:: right foot 10/15/23 13:46 Consult: Infectious Disease Routine Consulting Provider: Mina Hutchinson Reason for Consult: Right diabetic foot ulcer,no Osteomyeltis EMERGENT Consult: No MD Notified: Yes Date Notified: 10/15/23 Time Notified: 13:46 Method of Notification: Verbal Reason For Visit: R FOOT DIABETIC FOOT WOUND Diagnosis Discharge Diagnosis (1) Diabetic foot infection: Status: Acute Code(s): E11.628 - Type 2 diabetes mellitus with other skin complications; L08.9 - Local infection of the skin and subcutaneous tissue, unspecified Plan 58-year-old gentleman was admitted with 2 wounds 1 on plantar aspect of right foot and another on between first and second toe. 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 It was painful. No fever. 1. Right foot diabetic foot infection with superficial ulcers: Patient had MRI foot which did not show evidence of osteomyelitis but soft tissue edema in plantar and dorsal aspects. No collection or abscess. Prelim Gram stain of wound culture shows no organisms. On IV antibiotics, vancomycin and Zosyn. Patient was evaluated by fleet sales manager. No weightbearing on right foot. Lower extremity arterial extremity did not show evidence of acute ischemia. 10/15: Preliminary wound culture shows no growth in 48 hours. Final culture to follow. Patient discharged on 1 more week of doxycycline 100 mg twice daily and Augmentin 875 mg twice daily. Follow-up fleet sales manager Dr. Clovis Caballero in 1 week. ID in 1 month. 2. Diabetes mellitus type 2: Hold oral antidiabetic medications. Accu-Chek before meals and at bedtime with Humalog sliding scale coverage. 3. JAROD on CKD 3B: BUNs/creatinine 27/1.35. Admitting BUNs/creatinine 46/2.13. JAROD resolved. 4. Essential HTN and dyslipidemia: ? Continue home blood pressure medications. BP controlled and normotensive. Monitor BP and adjust accordingly. Lisinopril 10 mg daily to start from tomorrow. Hold HCTZ ? Continue with Lipitor as well as aspirin 10/15: Blood pressure in the morning was 109/60, and 129/88. Prescription given for lisinopril 10 mg daily. Continue holding HCTZ at least for 1 week and follow with PCP. DVT: Heparin Discharge medication reconciliation done. Discharge follow-up instructions completed. Discharge process discussed with the patient and all questions were answered to patient's satisfaction. Follow with PCP in 1 to 2 weeks Total time spent, exact 35 minutes on discharge meds reconciliation, examination, coordination of care with nurses and ancillary staff, review of imaging and blood test and discussion with the patient on follow-up instructions. Microbiology Past 72 Hours 10/14/23 05:10 Wound - Right Foot Gram Stain - Final 10/14/23 05:10 Wound - Right Foot Wound Culture - Preliminary No growth-Final to follow 10/14/23 05:10 Wound - Right Foot Anaerobic Culture - Preliminary No growth in 48 hours. 10/13/23 23:00 Wound - Right Foot Gram Stain - Final 10/13/23 23:00 Wound - Right Foot Wound Culture - Preliminary Mixed Gram Positive Organisms Laboratory Results 10/15/23 16:18: POC Glucose 235 H 10/15/23 21:40: POC Glucose 192 H 10/16/23 06:01: POC Glucose 146 H 10/16/23 06:50: Sodium 137, Potassium 4.3, Chloride 108 H, Carbon Dioxide 26.0, Anion Gap 3 L, BUN 22 H, Creatinine 1.41 H, Estim Creat Clear Calc 63.75, Est GFR (MDRD) Af Amer 66, Est GFR (MDRD) Non-Af 55 L, BUN/Creatinine Ratio 15.6, G lucose 116 H, Calcium 9.1 10/16/23 11:12: POC Glucose 145 H 10/16/23 12:18: Vancomycin Trough Pending Medications at Discharge Home Medications aspirin 81 mg tablet,delayed release 81 mg PO DAILY [facility] [place] 03/16/19 insulin lispro 100 unit/mL subcutaneous pen See Protocol subcut TIDAC ##1 05/04/20 needle (disp) 16 G 16 gauge x 1 ##100 02/11/21 cholecalciferol (vitamin D3) 25 mcg (1,000 unit) capsule 25 mcg PO DAILY vitamin supplement 01/18/21 melatonin 5 mg tablet 5 mg PO HS sleep 08/15/21 nitroglycerin 0.4 mg sublingual tablet 0.4 mg sublingual PRN PRN Cardiac/Chest Pain #30 tabs 02/13/22 atorvastatin 20 mg tablet 20 mg PO QHS #90 tabs 12/18/22 carvedilol 3.125 mg tablet (Coreg) 3.125 mg PO BID #180 tabs 12/18/22 clopidogrel 75 mg tablet (Plavix) 75 mg PO DAILY #90 tabs 12/18/22 metformin 500 mg tablet 500 mg PO BID #180 tabs 12/18/22 hydrochlorothiazide 12.5 mg capsule 12.5 mg PO DAILY bp #90 caps 01/29/23 insulin glargine 100 unit/mL (3 mL) subcutaneous pen 48 unit subcut QHS 02/16/23 semaglutide 0.25 mg or 0.5 mg (2 mg/3 mL) subcutaneous pen injector (Ozempic) 0.5 mg (0.736 mL) subcut QWEEK #3 mL 09/20/23 isosorbide mononitrate 60 mg tablet,extended release 24 hr 60 mg PO DAILY heart #90 tabs 09/25/23 acetaminophen 500 mg tablet 1,000 mg (2 x 500 mg) PO Q8H PRN PRN fever or pain 1 week #0 tabs 10/16/23 amoxicillin 875 mg-potassium clavulanate 125 mg tablet 1 tab PO BID 1 week #14 tabs 10/16/23 doxycycline monohydrate 100 mg capsule 100 mg PO BID 1 week #14 caps 10/16/23 lisinopril 10 mg tablet 10 mg PO DAILY 30 days #30 tabs 10/16/23 Physical Exam Narrative Seen and examined. Patient is stated he had 2, 1 toe ulcer and another on the plantar on the right foot. No fever. Swelling is improved. Physical exam General: Alert, Oriented x3, Cooperative HEENT: Atraumatic, PERRLA, EOMI, Normocephalic Oral: No Gingival or Mucosal Lesions/ Ulcerations Neck: Supple, No JVD, Negative Carotid Bruits Chest wall/Lungs: Air entry diminished in bilateral lung bases. No crepitation/rhonchi Cardiovascular: Regular rate, Regular Rhythm, Normal S1, Normal S2, No M/G/R Abdomen: Bowel Sounds Present, Soft, Non Tender, Non-Distended : No dysuria. No renal angle tenderness. No suprapubic tenderness. Extremities: No edema, Capillary Refill Less than 3 Seconds Skin: Plantar ulcer on toe ulcer. Mild pedal edema on right foot. Lance wrap bandage. Musculoskeletal: No Tenderness to Palpation of Joints or Extremities Neurological: Cranial nerves II-XII grossly intact, DTR 2+/4. No acute focal neurological deficit. Psych/Mental Status: Normal Affect, Appropriate. Weight / BMI Weight Weight: 198 lb 13.711 oz Body Mass Index (BMI) 26.3 ABG / Lab / Microbiology Data 10/15/23 04:20 10/16/23 06:50 Laboratory: Laboratory Results - last 24 hr 10/15/23 16:18: POC Glucose 235 H 10/15/23 21:40: POC Glucose 192 H 10/16/23 06:01: POC Glucose 146 H 10/16/23 06:50: Sodium 137, Potassium 4.3, Chloride 108 H, Carbon Dioxide 26.0, Anion Gap 3 L, BUN 22 H, Creatinine 1.41 H, Estim Creat Clear Calc 63.75, Est GFR (MDRD) Af Amer 66, Est GFR (MDRD) Non-Af 55 L, BUN/Creatinine Ratio 15.6, G lucose 116 H, Calcium 9.1 10/16/23 11:12: POC Glucose 145 H Microbiology: Microbiology 10/14/23 05:10 Wound - Right Foot Gram Stain - Final 10/14/23 05:10 Wound - Right Foot Wound Culture - Preliminary No growth-Final to follow 10/14/23 05:10 Wound - Right Foot Anaerobic Culture - Preliminary No growth in 48 hours. 10/13/23 23:00 Wound - Right Foot Gram Stain - Final 10/13/23 23:00 Wound - Right Foot Wound Culture - Preliminary Mixed Gram Positive Organisms Radiography Diagnostic Testing: Radiology Impression Extremity Arterial Study 10/13/23 21:31 Interpretation Summary Right BISI 1.23, normal. TBI and Doppler/PVR waveforms of the right leg normal at rest. Left BISI 1.7, artificially elevated. TBI and Doppler/PVR waveforms of the left leg normal at rest. Ordering Physician: Clovis Caballero Referring Physician: Jaci Harris Performed By: Mine Jamison RDCS/RVT D/C Instructions Discharge Diet: Low fat / Low cholesterol, 1800 Calorie Control Diet and 2000 mg Sodium Diet Weight Bearing Status: No weight bearing (On right foot) Call your doctor if you observe: Fever of 101 or Higher, Coldness, Increased Pain, Numbness or Tingling, Change in Color, Inability to urinate, Inability to have a bowel movement, Shortness of breath, Dizziness, Fainting spells, Swelling in the ankles, Chest pain, Prolonged hiccupping, Increased palpitations (irregular heartbeat) and Calf discomfort When: IN 2 WEEKS Meaningful Use Info Meaningful Use Meaningful Use Diagnoses (Choose all that apply): None applicable Ischemic Stroke Statin Dosing Therapy Reference: STATIN DOSE THERAPY REFERENCE: * Patients > 75 years receive moderate or high dose statin therapy. * Patients 75 years or YOUNGER should receive HIGH intensity statin dose unless contraindicated. You will be required to document reason for non-treatment if statin daily dose does not meet guidelines. HIGH DOSE STATIN THERAPY DAILY Atorvastatin > than or = to 40 mg Rosuvastatin > than or = to 20 mg Amlodipine + Atorvastatin > than or = to 2.5/40 mg Ezetimibe + Simvastatin 10/80 mg Simvastatin 80mg Discharge Plan Admission Admit Date/Time: 10/13/23 17:56 Primary Reason for Your Visit: Right foot superficial ulcer with infection Attending Provider: Sunil Porter Primary Care Provider: Norma Obrien Consulting Providers: Clovis Caballero; Jaci Harris; Scottie Marie; Mina Hutchinson Discharge Orders/Prescriptions Prescriptions: New amoxicillin-pot clavulanate 875-125 mg tablet 1 tab PO BID 7 Days Qty: 14 0RF doxycycline monohydrate 100 mg capsule 100 mg PO BID 7 Days Qty: 14 0RF lisinopril 10 mg Tablet 10 mg PO DAILY 30 Days Qty: 30 1RF Rx Instructions: Hold for SBP less than 120 mmHg Continued cholecalciferol (vitamin D3) 25 mcg (1,000 unit) capsule 25 mcg PO DAILY melatonin 5 mg tablet 5 mg PO HS aspirin 81 MG tablet,delayed release (DR/EC) 81 mg PO DAILY insulin lispro 100 UNIT/ML insulin pen See Protocol SC TIDAC Qty: 1 0RF Protocol: 1. Sliding Scale Insulin Low Dosing Condition: 150-224 mg/dl = 1 unit Condition: 225-299 mg/dl = 2 units Condition: 300-374 mg/dl = 3 units Condition: 375-499 mg/dl = 4 units Condition: Greater than 449 call physician Protocol Text: - Use for Total Daily Dose of Insulin 15-27 units - Thin, elderly, renal patients LOW DOSING ALGORITHM Rx Instructions: Sliding Scale Insulin: 0 units = 150-200, 3 units = 201-250, 6 units = 251- 300, 9 units = 301-350 (DME) needle (disp) 16 G 1 EACH needle 1 ea SQ ACHS Qty: 100 0RF Rx Instructions: Disposal insulin pen needles insulin glargine 100 unit/mL (3 mL) insulin pen 48 unit SUBCUT QHS Patient Comments: INJECT 48 UNITS SUBCUTANEOUSLY AT BEDTIME nitroglycerin 0.4 mg tablet, sublingual 0.4 mg SUBLINGUAL PRN PRN (Reason: Cardiac/Chest Pain) Qty: 30 0RF Rx Instructions: May repeat after 5 minutes if pain persist. atorvastatin 20 mg tablet 20 mg PO QHS Qty: 90 3RF carvedilol [Coreg] 3.125 mg tablet 3.125 mg PO BID Qty: 180 3RF Rx Instructions: must administer with a meal/food clopidogrel [Plavix] 75 mg tablet 75 mg PO DAILY Qty: 90 3RF metformin 500 mg tablet 500 mg PO BID Qty: 180 3RF Ozempic 0.25 mg or 0.5 mg (2 mg/3 mL) pen injector 0.5 mg subcut QWEEK Qty: 3 5RF Patient Comments: Takes on Sunday isosorbide mononitrate 60 mg tablet extended release 24 hr 60 mg PO DAILY Qty: 90 3RF Changed acetaminophen 500 mg tablet 1,000 mg PO Q8H PRN PRN (Reason: fever or pain) 7 Days Qty: 0 0RF Held hydrochlorothiazide 12.5 mg capsule 12.5 mg PO DAILY Qty: 90 3RF Hold Instructions: Hold for 1 week and follow-up PCP. Discontinued lisinopril 40 mg tablet 40 mg PO DAILY insulin degludec [Tresiba FlexTouch U-100] 100 unit/mL (3 mL) insulin pen 48 unit subcut DAILY Qty: 15 3RF Referrals / Follow Up: Clovis Caballero DPM [Med Staff - Active Staff] - Within 1 Week Norma Obrien MD [Primary Care Provider] - Mina Hutchinson MD [Med Staff - Active Staff] - Within 1 Month Disposition Disposition (needs filled in before D/C Order can be placed): Home Health Service Charges/Coding Visit Charges Inpatient E&M: 27717 Disch Hosp >30min
--- NOTE | 2023-10-16 13:54 | PN_ITS ---
Subjective Subjective Patient was seen today for follow up on right foot, he is going to be discharged home today. He relates he is doing well, he is sitting up in chair with foot elevated and watching tv. Objective Data Objective Data Vital Signs: Vital Signs Temp Pulse Resp BP Pulse Ox O2 Del Method 98.7 F 76 18 129/88 H 98 Room Air 10/16/23 08:25 10/16/23 08:25 10/16/23 10:19 10/16/23 08:25 10/16/23 08:25 10/16/23 10:19 Oxygen Delivery Method Room Air Weight: 90.2 kg Body Mass Index (BMI) 26.3 Intake & Output: Intake and Output for Last 24 Hours 10/14/23 10/15/23 10/16/23 23:59 23:59 23:59 Intake Total 5035 / 5035 2200.00 / 2200.00 1435.25 / 1435.25 Output Total 1600 / 1600 2550 / 2550 1800 / 1800 Balance 3435 / 3435 -350 / -350.00 -364.75 / -364.75 Lab / Micro Data 10/15/23 04:20 10/16/23 06:50 Labs: Laboratory Results - last 24 hr 10/15/23 16:18: POC Glucose 235 H 10/15/23 21:40: POC Glucose 192 H 10/16/23 06:01: POC Glucose 146 H 10/16/23 06:50: Sodium 137, Potassium 4.3, Chloride 108 H, Carbon Dioxide 26.0, Anion Gap 3 L, BUN 22 H, Creatinine 1.41 H, Estim Creat Clear Calc 63.75, Est GFR (MDRD) Af Amer 66, Est GFR (MDRD) Non-Af 55 L, BUN/Creatinine Ratio 15.6, G lucose 116 H, Calcium 9.1 10/16/23 11:12: POC Glucose 145 H 10/16/23 12:18: Vancomycin Trough 15.0 Micro: Microbiology 10/13/23 23:00 Wound - Right Foot Gram Stain - Final 10/13/23 23:00 Wound - Right Foot Wound Culture - Preliminary Staphylococcus species GPC Poss Enterococcus sp 10/14/23 05:10 Wound - Right Foot Gram Stain - Final 10/14/23 05:10 Wound - Right Foot Wound Culture - Preliminary No growth-Final to follow 10/14/23 05:10 Wound - Right Foot Anaerobic Culture - Preliminary No growth in 48 hours. Radiography Diagnostic Testing: Radiology Impression Extremity Arterial Study 10/13/23 21:31 Interpretation Summary Right BISI 1.23, normal. TBI and Doppler/PVR waveforms of the right leg normal at rest. Left BISI 1.7, artificially elevated. TBI and Doppler/PVR waveforms of the left leg normal at rest. Ordering Physician: Clovis Caballero Referring Physician: Jaci Harris Performed By: Mine Jamison RDCS/RVT Physical Exam Const alert, oriented x3 and no apparent distress Constitutional Narrative: Dressing right foot is clean, dry and intact - was changed this morning by wound nurse. Assessment & Plan Assessment/Plan (1) Diabetic foot infection: (2) Cellulitis of foot, right: (3) Insulin dependent diabetes mellitus: (4) Non-pressure chronic ulcer of other part of right foot with necrosis of muscle: PLAN: Plan Evaluation performed, reviewed diagnostic data. Reviewed right foot xrays - no evidence of osteomyelitis, no gas noted. There is no visible abscess clinically, and MRI was obtained and reviewed - no evidence of deep infection. Cultures reviewed - Dr. Hutchinson on consult - patient is going to be discharged home with oral antibiotics - doxy and augmentin No weightbearing right foot Dressing changes - daily dressing changes of betadine soln to ulcer sites right foot, cover with overlying gauze, kerlix and kellen LEAS were ordered for further evaluation of LE arterial flow - there is no evidence of acute ischemia at this time - good arterial flow to feet Patient to follow up with me in 1 week in office, sooner if needed
--- NOTE | 2023-10-16 13:58 | PHA.DC.MC.R ---
Pharmacy [facility] Pharmacy Service has performed discharge medication reconciliation and counseling for this patient. The patient's discharge medication list was reviewed for discrepancies and discrepancies were resolved. The patient was counseled on the following discharge medications and changes in medications for homegoing were reviewed. The Reason for Use, instructions for use, and potential side effects were reviewed for all new medications. The patient's questions regarding all of their medications were answered. 1. Amoxicillin-clavulanate 875-125 mg PO BID x 7 days 2. Doxycycline 100 mg PO BID x 7 days 3. Lisinopril 10 mg PO daily The patient was able to verbally demonstrate an understanding of their discharge medications. The patient was counselled on new medications by pharmacy technician program director Dayday. Medications at Discharge Home Medications aspirin 81 mg tablet,delayed release 81 mg PO DAILY heart health 03/16/19 insulin lispro 100 unit/mL subcutaneous pen See Protocol subcut TIDAC ##1 05/04/20 needle (disp) 16 G 16 gauge x 1 ##100 05/06/20 cholecalciferol (vitamin D3) 25 mcg (1,000 unit) capsule 25 mcg PO DAILY vitamin supplement 01/18/21 melatonin 5 mg tablet 5 mg PO HS sleep 08/15/21 nitroglycerin 0.4 mg sublingual tablet 0.4 mg sublingual PRN PRN Cardiac/Chest Pain #30 tabs 02/13/22 atorvastatin 20 mg tablet 20 mg PO QHS #90 tabs 12/18/22 carvedilol 3.125 mg tablet (Coreg) 3.125 mg PO BID #180 tabs 12/18/22 clopidogrel 75 mg tablet (Plavix) 75 mg PO DAILY #90 tabs 12/18/22 metformin 500 mg tablet 500 mg PO BID #180 tabs 12/18/22 hydrochlorothiazide 12.5 mg capsule 12.5 mg PO DAILY bp #90 caps 01/29/23 insulin glargine 100 unit/mL (3 mL) subcutaneous pen 48 unit subcut QHS 02/16/23 semaglutide 0.25 mg or 0.5 mg (2 mg/3 mL) subcutaneous pen injector (Ozempic) 0.5 mg (0.736 mL) subcut QWEEK #3 mL 09/20/23 isosorbide mononitrate 60 mg tablet,extended release 24 hr 60 mg PO DAILY heart #90 tabs 09/25/23 acetaminophen 500 mg tablet 1,000 mg (2 x 500 mg) PO Q8H PRN PRN fever or pain 1 week #0 tabs 10/16/23 amoxicillin 875 mg-potassium clavulanate 125 mg tablet 1 tab PO BID 1 week #14 tabs 10/16/23 doxycycline monohydrate 100 mg capsule 100 mg PO BID 1 week #14 caps 10/16/23 lisinopril 10 mg tablet 10 mg PO DAILY 30 days #30 tabs 10/16/23
[2023-10-16] MEDS: 0.9% Normal Saline (1000mL) 1,000 ML 75 ML IV (14:08)
[2023-10-16] MEDS: Ampicillin/Sulbactam 3 GM in 0.9% Normal Saline (100mL MB+) 100 ML IV (15:09)
[2023-10-16] MEDS: Insulin Lispro 100 UNIT/ML INSULN.PEN SC (16:55)
[2023-10-16 17:05] VITALS: BP 126/78; PULSE 82; RESP 18; TEMP 37; O2SAT 98
[2023-10-16 19:07] LABS: Bedside Glucose 204 mg/dL (74-106)
== END 2023-10-16 17:40 | disposition home or self-care (01) | DRG 623 ==
LOC: ED 17:47 → MS3 18:11
PROVIDERS: Family Medicine; Internal Medicine; Admitting Provider Internal Medicine; Emergency Provider Emergency Medicine; PCP Internal Medicine; Visit Provider Internal Medicine
DX: E11.621 Type 2 diabetes mellitus with foot ulcer (principal); L03.115 Cellulitis of right lower limb; N17.9 Acute kidney failure, unspecified; E11.22 Type 2 diabetes mellitus with diabetic chronic kidney disease; N18.32 Chronic kidney disease, stage 3b; E11.65 Type 2 diabetes mellitus with hyperglycemia; L97.513 Non-pressure chronic ulcer of other part of right foot with necrosis of muscle; Z79.4 Long term (current) use of insulin; E11.628 Type 2 diabetes mellitus with other skin complications; I12.9 Hypertensive chronic kidney disease with stage 1 through stage 4 chronic kidney disease, or unspecified chronic kidney disease; E78.00 Pure hypercholesterolemia, unspecified; E66.9 Obesity, unspecified; Z68.30 Body mass index [BMI] 30.0-30.9, adult; Z95.5 Presence of coronary angioplasty implant and graft; Z79.02 Long term (current) use of antithrombotics/antiplatelets; Z79.82 Long term (current) use of aspirin; Z79.84 Long term (current) use of oral hypoglycemic drugs; Z79.85 Long-term (current) use of injectable non-insulin antidiabetic drugs; Z79.891 Long term (current) use of opiate analgesic; Z79.899 Other long term (current) drug therapy; Z86.16 Personal history of COVID-19
CPT/HCPCS: 36415; 73630; 73718; 80048; 80053; 80076; 80202; 82962; 83036; 83605; 83735; 84100; 85025; 85652; 86140; 87040; 87070; 87075; 87077; 87186; 87205; 87640; 93923; 94668; 97162; 97166; 97530; 97535; 97802; 99252; 99285; J7030; J7040; J7050; A4216; G0463; J0295

== ENCOUNTER → 2023-12-21 | Outpatient (CLI) | payer MEDICAID, SELFPAY ==
[2023-12-21 10:28] LABS: Absolute Neutrophil Count 5.2 X10^3/uL (2.0-7.7); Basophil% 1.2 % (0-1); Eosinophil# 0.53 X10^3/uL; Eosinophils% 6.6 % (0-5); Hematocrit 41.6 % (40-54); Hemoglobin 14.6 g/dL (13.0-16.5); Lymphocyte % 18.7 % (19-41); Mean Corp Hgb Conc 35.1 g/dL (32-36); Mean Corpuscular Hgb 31.4 pg (27.0-32.0); Mean Corpuscular Volume 89.5 fL (80-94); Monocyte# 0.65 X10^3/uL; Monocyte% 8.1 % (0-10); NRBC Flagged by Analyzer 0 % (0-5); Neutrophil # 5.22 X10^3/uL (2.7-7.7); Platelet Count 280 K/mm3 (150-450); RBC Distribution Width CV 11.6 % (11.6-14.6); RBC Distribution Width SD 37.1 fl (35.1-43.9); Red Blood Count 4.65 M/mm3 (4.6-6.2)
[2023-12-21 10:49] LABS: Vitamin D,25 Hydroxy 42.4 ng/mL
[2023-12-21 10:57] LABS: AST(SGOT) 11 U/L (15-37); Alanine Aminotransfer ALT/SGPT 29 U/L (16-61); Alkaline Phosphatase 110 U/L (45-117); Anion Gap 7 (5-15); BUN 33 mg/dL (7-18); BUN/Creat Ratio 18.3 RATIO (10-20); Calcium,Total 9.8 mg/dL (8.5-10.1); Chloride 102 mmol/L (98-107); Cholesterol 106 mg/dL (200); EST Glomerular Filtration Rate 41 mL/min (>60); Est Glom Filt Rate - Afr Amer 50 mL/min (>60); Glucose 314 mg/dL (74-106); High Density Lipoprotein 49 mg/dL; Potassium 4.2 mmol/L (3.5-5.1); Sodium Level 134 mmol/L (136-145); Thyroid Stim Hormone (TSH) 0.538 uIU/mL (0.358-3.740); Triglycerides 74 mg/dL; Very Low Density Lipoprotein 15 mg/dL (5-40)
== END | disposition home or self-care (01) ==
LOC: LAB 09:24
PROVIDERS: PCP Internal Medicine; Referring Provider Internal Medicine; Visit Provider Internal Medicine
DX: Z13.220 Encounter for screening for lipoid disorders (principal); E11.628 Type 2 diabetes mellitus with other skin complications; L03.115 Cellulitis of right lower limb; I25.118 Atherosclerotic heart disease of native coronary artery with other forms of angina pectoris; N17.9 Acute kidney failure, unspecified; R73.9 Hyperglycemia, unspecified; Z95.5 Presence of coronary angioplasty implant and graft; E55.9 Vitamin D deficiency, unspecified
CPT/HCPCS: 36415; 80053; 80061; 82306; 83036; 84443; 85025

== ENCOUNTER → 2024-02-07 | Outpatient (CLI) | payer MEDICAID, SELFPAY ==
[2024-02-07 10:30] LABS: Hemoglobin A1c 10.2 % (3.8-5.6)
[2024-02-07 10:32] LABS: ALB/GLOB Ratio 1.2 RATIO (0.9-2.4); AST(SGOT) 25 U/L (15-37); Alanine Aminotransfer ALT/SGPT 29 U/L (16-61); Albumin, Serum 4.1 g/dL (3.2-5.0); Alkaline Phosphatase 89 U/L (45-117); Anion Gap 4 (5-15); BUN 25 mg/dL (7-18); BUN/Creat Ratio 15.7 RATIO (10-20); Calcium,Total 9.1 mg/dL (8.5-10.1); Chloride 107 mmol/L (98-107); Creatinine, Serum 1.59 mg/dL (0.70-1.30); EST Glomerular Filtration Rate 48 mL/min (>60); Est Glom Filt Rate - Afr Amer 57 mL/min (>60); Globulin 3.4 g/dL (2.2-4.2); Glucose 173 mg/dL (74-106); Magnesium 2.1 mg/dL (1.6-2.6); Potassium 4.5 mmol/L (3.5-5.1); Protein, Total 7.5 g/dL (6.4-8.2); Sodium Level 137 mmol/L (136-145)
== END | disposition home or self-care (01) ==
LOC: LAB 09:24
PROVIDERS: PCP Internal Medicine; Referring Provider Internal Medicine; Visit Provider Internal Medicine
DX: I10 Essential (primary) hypertension (principal); E11.9 Type 2 diabetes mellitus without complications; N17.9 Acute kidney failure, unspecified
CPT/HCPCS: 36415; 80053; 83036; 83735

== ENCOUNTER → 2024-04-21 | Outpatient (CLI) | payer MEDICAID, SELFPAY ==
[2024-04-21 10:49] LABS: Absolute Lymphocyte Count 1.37 X10^3/uL (0.83-4.51); Absolute Neutrophil Count 4.1 X10^3/uL (2.0-7.7); Basophil# 0.09 X10^3/uL; Basophil% 1.3 % (0-1); Eosinophil# 0.49 X10^3/uL; Eosinophils% 7.3 % (0-5); Hematocrit 40.5 % (40-54); Lymphocyte # 1.37 X10^3/ul (0.83-4.51); Lymphocyte % 20.3 % (19-41); Mean Corp Hgb Conc 34.6 g/dL (32-36); Mean Corpuscular Hgb 32.3 pg (27.0-32.0); Mean Corpuscular Volume 93.3 fL (80-94); Mean Platelet Vol. 9.4 fl (6.2-12.0); Monocyte# 0.71 X10^3/uL; Monocyte% 10.5 % (0-10); NRBC Flagged by Analyzer 0 % (0-5); Neutrophil # 4.05 X10^3/uL (2.7-7.7); Neutrophil % 60.2 % (47-70); Platelet Count 289 K/mm3 (150-450); RBC Distribution Width CV 11.9 % (11.6-14.6); RBC Distribution Width SD 41.1 fl (35.1-43.9); Red Blood Count 4.34 M/mm3 (4.6-6.2); White Blood Count 6.7 K/mm3 (4.4-11.0)
[2024-04-21 11:06] LABS: Hemoglobin A1c 7.7 % (3.8-5.6)
[2024-04-21 11:27] LABS: ALB/GLOB Ratio 1.1 RATIO (0.9-2.4); AST(SGOT) 15 U/L (15-37); Alanine Aminotransfer ALT/SGPT 30 U/L (16-61); Albumin, Serum 3.9 g/dL (3.2-5.0); Alkaline Phosphatase 83 U/L (45-117); Anion Gap 5 (5-15); BUN 27 mg/dL (7-18); BUN/Creat Ratio 17.5 RATIO (10-20); Calcium,Total 8.8 mg/dL (8.5-10.1); Chloride 108 mmol/L (98-107); Creatinine, Serum 1.54 mg/dL (0.70-1.30); EST Glomerular Filtration Rate 49 mL/min (>60); Est Glom Filt Rate - Afr Amer 60 mL/min (>60); Globulin 3.6 g/dL (2.2-4.2); Glucose 125 mg/dL (74-106); PSA,Total - Annual Screen 0.78 ng/mL (0.00-4.00); Potassium 4.5 mmol/L (3.5-5.1); Protein, Total 7.5 g/dL (6.4-8.2); Sodium Level 138 mmol/L (136-145); Thyroid Stim Hormone (TSH) 0.505 uIU/mL (0.358-3.740)
== END | disposition home or self-care (01) ==
LOC: LAB 09:25
PROVIDERS: PCP Internal Medicine; Referring Provider Internal Medicine; Visit Provider Internal Medicine
DX: E11.22 Type 2 diabetes mellitus with diabetic chronic kidney disease (principal); E11.65 Type 2 diabetes mellitus with hyperglycemia; N18.9 Chronic kidney disease, unspecified; E78.5 Hyperlipidemia, unspecified; Z12.5 Encounter for screening for malignant neoplasm of prostate
CPT/HCPCS: 36415; 80053; 83036; 84153; 84443; 85025; G0103

== ENCOUNTER 2024-06-25 17:38 | Emergency (ER) | payer MEDICAID, SELFPAY ==
[2024-06-25] VITALS (7 sets, daily range): BP systolic 118–186; BP diastolic 75–85; PULSE 78–112; RESP 13–25; TEMP 36.1–36.6; O2SAT 94–99; BMI 27.9
--- NOTE | 2024-06-25 17:49 | EDS_ITS ---
HPI History of Present Illness Chief Complaint: Chest Pain Detail of Chief Complaint: Chest pain Informant: patient Narrative Narrative: Patient presents to the emergency room with complaint of chest pain that started 35 minutes ago. Patient states that he was milking a cow when the pain started. He describes it as a sharp initially in the center of his chest but then radiating to the right side of his chest. Patient denies nausea or vomiting. He took a nitro initially the pain was a 6 out of 10 was not sure that it really helped and still has some mild discomfort now rates a 2 out of 10. Patient is concerned because he has heart history and has 2 stents last of which was about 8 or 9 years ago. Patient denies recent travel or surgery. No prior history of PE or DVT. Patient does take aspirin and Plavix. [facility] Medical History (Reviewed 05/05/24 @ 09:40 by Pablo Jamison ELEMENT WINDING MACHINE TENDER, ELEMENT WINDING MACHINE TENDER-C) Non-pressure chronic ulcer of other part of right foot with necrosis of muscle Diabetes Hypertension COVID-19 Leg pain, left Low TSH level PIMENTEL (dyspnea on exertion) Bulging of lumbar intervertebral disc Segmental and somatic dysfunction of lumbar region Segmental and somatic dysfunction of thoracic region Segmental and somatic dysfunction of cervical region Low back pain Type 2 diabetes mellitus without complications Wears glasses Insulin dependent diabetes mellitus High cholesterol Back pain Dietary restriction Non-smoker Hx of echocardiogram History of stress test Pancolitis Positive occult stool blood test Contusion of arm, left History of pneumonia Arthritis Type 2 diabetes mellitus without complication Hyperosmolar hyperglycemic state (HHS) Atherosclerotic heart disease of [place] coronary artery with other forms of angina pectoris Anemia, unspecified Lung nodule Rectal bleeding Essential (primary) hypertension Abnormal Screening Computed Tomography (CT) of Chest HLD (hyperlipidemia) Suspected 2018 novel coronavirus infection Strep pharyngitis Sepsis Pneumonia Home Medications ?Medication ?Instructions ?Recorded ?Last Taken ?Type aspirin 81 mg tablet,delayed 81 mg PO DAILY heart heal th 03/16/19 08/25/21 History release cholecalciferol (vitamin D3) 25 25 mcg PO DAILY vitami n supplement 01/18/21 Unknown History mcg (1,000 unit) capsule melatonin 5 mg tablet 5 mg PO HS sleep 08/15/21 Un known History nitroglycerin 0.4 mg sublingual 0.4 mg sublingual PRN PRN 02/13/22 Unknown Rx tablet Cardiac/Chest Pain #30 tabs isosorbide mononitrate 60 mg 60 mg PO DAILY heart #90 tabs 09/25/23 Unknown Rx tablet,extended release 24 hr blood sugar diagnostic (FreeStyle #100 ea 11/07/23 Unk nown Rx Lite Strips) needle (disp) 16 G 16 gauge x 1 ##100 11/07/23 Unknow n Rx lisinopril 10 mg tablet 10 mg PO DAILY 30 days #90 t abs 12/07/23 Unknown Rx clopidogrel 75 mg tablet (Plavix) 75 mg PO DAILY #90 t abs 12/24/23 Unknown Rx insulin glargine 100 unit/mL (3 48 unit (0.48 mL) subc ut QHS #15 mL 12/24/23 Unknown Rx mL) subcutaneous pen carvedilol 3.125 mg tablet (Coreg) 3.125 mg PO BID #18 0 tabs 01/07/24 Unknown Rx atorvastatin 20 mg tablet 20 mg PO QHS #90 tabs Unknown Rx metformin 500 mg tablet 500 mg PO BID #180 tabs 12/24 10/16 Unknown Rx hydrochlorothiazide 12.5 mg capsule 12.5 mg PO DAILY b p #90 caps 02/08/24 Unknown Rx acetaminophen 500 mg capsule 500 mg PO QHS PRN 5 Unknown History semaglutide 0.25 mg or 0.5 mg (2 0.5 mg (0.736 mL) sub cut QWEEK #3 04/21/24 Unknown Rx mg/3 mL) subcutaneous pen injector mL (Ozempic) diphenhydramine 25 1 tab PO QHS PRN sleep #90 t abs 05/05/24 Unknown Rx mg-acetaminophen 500 mg tablet (Tylenol PM Extra Strength) Allergy/AdvReac Type Severity Reaction Status Date / Time hydrocodone (From Vicodin) AdvReac Other Verified 06/25/24 17:38 Family History (Reviewed 05/05/24 @ 09:40 by Pablo Jamison ELEMENT WINDING MACHINE TENDER, ELEMENT WINDING MACHINE TENDER-C) Mother Heart disease Diabetes Alzheimer disease Hypertension Hyperlipemia Breast cancer Arthritis Father Heart disease Seizures Hypertension Hyperlipemia Sister Diabetes Heart disease Myocardial infarction Kidney disease Asthma Hypertension Uncle Colon cancer Surgical History History of left heart catheterization (08/25/21) History of coronary artery stent placement (12/22/19) History of colonoscopy H/O knee surgery Social History (Reviewed 05/05/24 @ 09:40 by Pablo Jamison ELEMENT WINDING MACHINE TENDER, ELEMENT WINDING MACHINE TENDER-C) household members: spouse Smoking Status: Never smoker alcohol intake: never substance use type: does not use caffeine: Yes Type: coffee Number of servings: 1 what type of physical activity do you participate in: walking ROS ROS ED Review of Systems ROS Unobtainable: other Constitutional Constitutional ED: Reports lethargy; Denies chills, fever(s), sweats or weight loss Eyes Eyes: Denies blurry vision, change in vision or diplopia ENT ENT ED: Denies rhinorrhea or sore throat Cardiovascular Cardiovascular: Reports chest pain; Denies orthopnea or racing heartbeat Respiratory/Chest Respiratory/Chest: Denies dyspnea, dyspnea on exertion, orthopnea or sputum Gastrointestinal Gastrointestinal: Denies abdominal pain, diarrhea, nausea or vomiting Genitourinary Genitourinary ED: Denies dysuria, hematuria or urinary frequency Musculoskeletal Musculoskeletal: Denies arthralgias, back pain, myalgias or neck pain Integumentary Denies abscess, Abrasions or rash Neurologic Neurologic: Denies headache(s) or weakness Psychiatric Psychiatric: Denies anxiety, depression or suicidal thoughts Endocrine Endocrinology: Denies polydipsia, polyphagia or polyuria Hematologic/Lymphatic Hematologic/Lymphatic: Denies easy bleeding, easy bruising or lymphadenopathy Allergic/Immunologic Allergic/Immunologic ED: Denies mouth swelling, tongue swelling or urticaria EXAM Physical Exam Const Vital Signs: 06/25/24 17:38 06/25/24 17:49 06/25/24 18:12 Temperature 97.9 F Temperature Source Temporal Pulse Rate 112 H Respiratory Rate 25 H Respiratory Effort Normal Blood Pressure 186/75 H Blood Pressure Mean 112 Pulse Ox 98 96 Oxygen Delivery Method Room Air Room Air 06/25/24 18:38 06/25/24 19:00 06/25/24 20:00 Temperature Temperature Source Pulse Rate 92 90 78 Respiratory Rate 16 21 H 17 Respiratory Effort Blood Pressure 122/77 H 118/79 141/81 H Blood Pressure Mean 92 92 101 Pulse Ox 96 94 98 Oxygen Delivery Method Room Air 06/25/24 21:00 Temperature Temperature Source Pulse Rate 84 Respiratory Rate 13 Respiratory Effort Blood Pressure 130/78 H Blood Pressure Mean 95 Pulse Ox 97 Oxygen Delivery Method Room Air Positive well nourished and well developed General Appearance ED: well developed and NAD HEENT Reports TM's clear and moist mucous membranes normocephalic and atraumatic; Negative for trauma or tenderness Tympanic Membrane ED: Yes TM's clear Eyes PERRL and EOMs intact bilaterally General Eye ED: Negative for pale conjunctiva or scleral icterus Neck no lymphadenopathy, supple and no JVD General: Negative for tenderness Chest Wall inspection of chest normal and palpation of chest normal Chest: Negative for tenderness Resp normal respiratory effort and clear to auscultation bilaterally Effort and Inspection: Negative for respiratory distress or pain with movement Auscultation: Negative for rhonchi, wheezes or diminished lung sounds Cardio regular rate, regular rhythm, S1 normal heart sound, S2 normal heart sound and no murmurs Peripheral Pulses: pulses 2+ throughout GI normal to inspection, nondistended, normoactive bowel sounds, soft to palpation, non-tender, non-distended and no masses Back/Spine no CVA tenderness and no thoracic nor lumbar tenderness Extremity normal to inspection General Extremety ED: Negative for edema General Extremity: Negative for edema Neuro oriented x3, CN's II-XII intact bilaterally, no sensory deficits noted and gait normal Sensorium / Orientation: awake, alert, oriented to person, oriented to place and oriented to time Motor Exam: strength 5/5 throughout and strength abnormal Psych mental status grossly normal Skin no rashes or lesions noted and no wounds Heart Score History: Slightly/Non-Suspicious ECG: Normal Age: >45 - <65 years Risk Factors: >/= 3 Risk Factors or History of CAD Troponin: </= Normal Limit Score: 3 MDM MDM MDM Narrative Medical decision making narrative: Patient presents with sharp stabbing pain while milking cow in the chest that radiate to the right side. The nitro did not help much but eventually the pain started to ease. Currently rates it a 2 out of 10. He has known heart history with prior stenting. Left heart cath in 2021 showed no significant stenoses that needed to be addressed. He had an ostial lesion that was 60% stenosed. CBC with differential white count 9.2 hemoglobin 13.5 and platelet count 273. Chemistries unremarkable. First troponin was normal at 21. Delta 2-hour troponin was normal at 19. Patient's pain resolved and he is been pain-free during his stay in the emergency department. This point suspicion for acute coronary syndrome is low. His heart score is a 3 based on his prior cardiac disease and stenting. I feel he can be safely discharged to home. Advised to follow-up with his primary care physician and cardiology within next 5 to 7 days. Advised to return if worsening pain, increasing shortness of breath, or condition worsening way. Lab Data Attestation: I reviewed the patient's lab results. Labs: Laboratory Results - last 24 hr 06/25/24 06/25/24 18:07 20:13 WBC 9.2 RBC 4.24 L Hgb 13.5 Hct 37.8 L MCV 89.2 MCH 31.8 MCHC 35.7 RDW Std Deviation 36.8 RDW Coeff of Gustavo 11.5 L Plt Count 273 MPV 9.3 Immature Gran % (Auto) 0.300 Neut % (Auto) 70.2 H Lymph % (Auto) 14.9 L [place] % (Auto) 9.6 Eos % (Auto) 4.2 Baso % (Auto) 0.8 Absolute Neuts (auto) 6.4 Absolute Lymphs (auto) 1.37 Nucleated RBC % 0 D-Dimer Quant (PE/DVT) 0.28 Sodium 134 Potassium 4.7 Chloride 102 Carbon Dioxide 20.9 L Anion Gap 12 BUN 30 H Creatinine 1.53 H Estim Creat Clear Calc 62.70 Est GFR (MDRD) Non-Af 52 L BUN/Creatinine Ratio 19.4 Glucose 304 H Calcium 9.1 Troponin T High Sens 21 Troponin T Hi Sens 2 Hr 19 Radiography Diagnostic Testing: Clinical Impression(s) from Imaging Studies Chest X-Ray 06/25/24 18:10 IMPRESSION: Negative Chest. Reading Location: [facility] Discharge Plan Triage Chief Complaint: Chest Pain ED Provider: Giulia Coats Dx/Rx/DC Orders Clinical Impression: Chest pain Instructions: ED Chest Pain, Uncertain Cause Prescriptions: No Action cholecalciferol (vitamin D3) 25 mcg (1,000 unit) capsule 25 mcg PO DAILY melatonin 5 mg tablet 5 mg PO HS diphenhydramine-acetaminophen [Tylenol PM Extra Strength] 25-500 mg tablet 1 tab PO QHS PRN (Reason: sleep) Qty: 90 3RF acetaminophen 500 mg capsule 500 mg PO QHS PRN aspirin 81 MG tablet,delayed release (DR/EC) 81 mg PO DAILY nitroglycerin 0.4 mg tablet, sublingual 0.4 mg SUBLINGUAL PRN PRN (Reason: Cardiac/Chest Pain) Qty: 30 0RF Rx Instructions: May repeat after 5 minutes if pain persist. isosorbide mononitrate 60 mg tablet extended release 24 hr 60 mg PO DAILY Qty: 90 3RF (DME) needle (disp) 16 G 16 gauge x 1 needle 1 ea SQ ACHS Qty: 100 5RF Rx Instructions: Disposal insulin pen needles (DME) FreeStyle Lite Strips Strip See Rx Instructions .Route Qty: 100 5RF Rx Instructions: 2 times daily lisinopril 10 mg tablet 10 mg PO DAILY 30 Days Qty: 90 1RF Rx Instructions: Hold for SBP less than 120 mmHg clopidogrel [Plavix] 75 mg tablet 75 mg PO DAILY Qty: 90 3RF insulin glargine 100 unit/mL (3 mL) insulin pen 48 unit SUBCUT QHS Qty: 15 5RF carvedilol [Coreg] 3.125 mg tablet 3.125 mg PO BID Qty: 180 3RF Rx Instructions: must administer with a meal/food atorvastatin 20 mg tablet 20 mg PO QHS Qty: 90 3RF metformin 500 mg tablet 500 mg PO BID Qty: 180 3RF hydrochlorothiazide 12.5 mg capsule 12.5 mg PO DAILY Qty: 90 3RF Ozempic 0.25 mg or 0.5 mg (2 mg/3 mL) pen injector 0.5 mg subcut QWEEK Qty: 3 5RF Patient Comments: Takes on Sunday Primary Care Provider: Norma Obrien Referrals: Norma Obrien MD [Primary Care Provider] - 3-5 Days Activity Restrictions/Additional Instructions: Follow-up with your cold food packer if persistent symptoms. Return if worsening pain, shortness of breath or pain with activity, or condition should worsen anyway Print Language: Congolese Disposition Disposition: Home, Self Care
--- NOTE | 2024-06-25 17:49 | EKG12_ITS ---
Test Reason : CP Blood Pressure : */* mmHG Vent. Rate : 100 BPM Atrial Rate : 100 BPM P-R Int : 198 ms QRS Dur : 86 ms QT Int : 332 ms P-R-T Axes : 23 17 1 degrees QTcB Int : 428 ms Normal sinus rhythm Normal ECG Confirmed by GONZALEZ LOVE, RADHA ([id number]), plate worker ANTOINETTE HICKMAN ([id number]) on 06/27/2024 9:23:54 AM Referred By: KESHIA Confirmed By: RADHA ROTH MD
[2024-06-25] MEDS: Aspirin 81 MG TAB.CHEW 324 MG PO (18:00)
--- NOTE | 2024-06-25 18:10 | RAD_ITS ---
PROCEDURE: CHEST 1 VIEW (PORTABLE) 06/25/2024 REASON FOR EXAM: 59-year-old male, CHEST PAIN TECHNIQUE: Frontal view of the chest. COMPARISON: Chest radiograph 02/16/2023. FINDINGS: Hardware: None. Heart: Cardiac and mediastinal contours are stable. Lungs: No focal consolidation, pleural effusion or pneumothorax. Bones: Degenerative changes are identified within the thoracic spine. RAD/Chest 1 View (Portable) IMPRESSION: Negative Chest. Reading Location: [id number]
--- NOTE | 2024-06-25 18:13 | ED.RN ---
PT HAS CARDIAC HX FROM [facility] 9 YEARS AGO, STENT PLACED AND SOME STENOSIS OF ARTERIES. PT C/O CHEST PAIN AND TOOK RX NITRO FROM HOME BEFORE ARRIVING TO THE ED TODAY
[2024-06-25 18:14] LABS: Absolute Lymphocyte Count 1.37 X10^3/uL (0.83-4.51); Absolute Neutrophil Count 6.4 X10^3/uL (2.0-7.7); Basophil# 0.07 X10^3/uL; Basophil% 0.8 % (0-1); Eosinophil# 0.39 X10^3/uL; Eosinophils% 4.2 % (0-5); Hematocrit 37.8 % (40-54); Hemoglobin 13.5 g/dL (13.0-16.5); Lymphocyte # 1.37 X10^3/ul (0.83-4.51); Lymphocyte % 14.9 % (19-41); Mean Corp Hgb Conc 35.7 g/dL (32-36); Mean Corpuscular Hgb 31.8 pg (27.0-32.0); Mean Corpuscular Volume 89.2 fL (80-94); Mean Platelet Vol. 9.3 fl (6.2-12.0); Monocyte# 0.88 X10^3/uL; Monocyte% 9.6 % (0-10); NRBC Flagged by Analyzer 0 % (0-5); Neutrophil # 6.44 X10^3/uL (2.7-7.7); Neutrophil % 70.2 % (47-70); Platelet Count 273 K/mm3 (150-450); RBC Distribution Width CV 11.5 % (11.6-14.6); RBC Distribution Width SD 36.8 fl (35.1-43.9); Red Blood Count 4.24 M/mm3 (4.6-6.2); White Blood Count 9.2 K/mm3 (4.4-11.0)
[2024-06-25 18:28] LABS: D-Dimer Quantitative (DVT/PE) 0.28 FEU/ug/m (0.27-0.49)
[2024-06-25 18:45] LABS: Anion Gap 12 (5-15); BUN 30 mg/dL (4-19); BUN/Creat Ratio 19.4 RATIO (10-20); Calcium,Total 9.1 mg/dL (7.6-11.0); Carbon Dioxide 20.9 mmol/L (21.0-32.0); Chloride 102 mmol/L (98-108); Creatinine, Serum 1.53 mg/dL (0.70-1.20); EST Glomerular Filtration Rate 52 (>60); Glucose 304 mg/dL (70-99); Potassium 4.7 mmol/L (3.3-5.1); Sodium Level 134 mmol/L (133-145); Troponin T High Sensitivity 21 ng/L (<=22)
[2024-06-25 20:40] LABS: Troponin T High Sens 2 HR 19 ng/L (<=22)
== END 2024-06-25 21:44 | disposition home or self-care (01) ==
PROVIDERS: Emergency Provider Emergency Medicine; PCP Internal Medicine; Visit Provider Emergency Medicine
DX: R07.9 Chest pain, unspecified (principal); Z79.4 Long term (current) use of insulin; E11.9 Type 2 diabetes mellitus without complications; I25.10 Atherosclerotic heart disease of native coronary artery without angina pectoris; E78.00 Pure hypercholesterolemia, unspecified; I10 Essential (primary) hypertension; Z79.82 Long term (current) use of aspirin; Z79.02 Long term (current) use of antithrombotics/antiplatelets; Z79.84 Long term (current) use of oral hypoglycemic drugs; Z79.85 Long-term (current) use of injectable non-insulin antidiabetic drugs; Z79.899 Other long term (current) drug therapy; Z95.5 Presence of coronary angioplasty implant and graft
CPT/HCPCS: 71045; 80048; 84484; 85025; 85379; 93005; 99284; A4216

== ENCOUNTER → 2024-07-29 | Outpatient (CLI) | payer MEDICAID, SELFPAY ==
--- NOTE | 2024-07-29 13:53 | STRESSREP ---
Stress Test Report Date: 07/29/2024 Procedure: Exercise tolerance test/imaging study Indications: Coronary artery disease Consent: Per the patient Procedure: The patient exercised on a Herbert protocol for 6 minutes achieving a peak heart rate of 151 bpm (94% predicted maximal heart rate) with a peak blood pressure 176/62 mmHg and a peak MET capacity of 7.0 METs. The baseline ECG demonstrated sinus rhythm. The peak exercise ECG demonstrated [address] depressions in inferior leads. There were no cardiac dysrhythmias pretest, during exercise, or recovery. The functional capacity was considered average. There was no complaint of chest discomfort during exercise or recovery. The examination was discontinued secondary to target heart rate being achieved. The patient was injected with 13.9 mCi of technetium 99m Cardiolite and subsequently rest SPECT Cardiolite nuclear imaging was obtained in the horizontal long, vertical long, and short axis views. Post-exercise, the patient was injected with 42.1 mCi of technetium 99m Cardiolite and subsequently stress SPECT Cardiolite nuclear imaging was obtained in the horizontal long, vertical long, and short axis views. A gated Cardiolite study at peak stress was obtained. Rest and stress SPECT Cardiolite nuclear imaging status post realignment, normalization, and attenuation correction, demonstrates the appearance of relative uniform tracer uptake and myocardial perfusion appearing within normal limits. There is end systolic thickening and brightening. The gated Cardiolite study demonstrates mild inferior hypokinesis. The reported LVEF is 53%. Impression: 1. Technically adequate (percent predicted maximal heart rate greater than 85%) exercise tolerance test 2. Peak exercise ECG with [address] depressions however no ischemia noted on nuclear images 3. There were no cardiac dysrhythmias pretest, during exercise, or recovery 4. Rest and stress SPECT Cardiolite nuclear imaging demonstrate relative uniform tracer uptake and myocardial perfusion appearing within normal limits. 5. The gated Cardiolite study reports an LVEF of 53%. Mild inferior hypokinesis. This note was generated with [employer] software. It may contain incorrect words, spelling, and punctuation that were not noted in checking the note before signing.
== END | disposition home or self-care (01) ==
LOC: CVS 06:46
PROVIDERS: PCP Internal Medicine; Referring Provider Internal Medicine; Visit Provider Internal Medicine
DX: R07.89 Other chest pain (principal); I25.118 Atherosclerotic heart disease of native coronary artery with other forms of angina pectoris; I12.9 Hypertensive chronic kidney disease with stage 1 through stage 4 chronic kidney disease, or unspecified chronic kidney disease; E78.00 Pure hypercholesterolemia, unspecified; N18.9 Chronic kidney disease, unspecified
CPT/HCPCS: 78452; 93017; A9500; A4216

== ENCOUNTER → 2024-11-10 | Outpatient (CLI) | payer SELFPAY ==
[2024-11-10 09:25] LABS: Hematocrit 37.9 % (40-54); Hemoglobin 13.4 g/dL (13.0-16.5); Immature Granulocytes Count 0.020 X10^3/uL (0.0-0.0); Mean Corp Hgb Conc 35.4 g/dL (32-36); Mean Corpuscular Volume 90.0 fL (80-94); Mean Platelet Vol. 9.6 fl (6.2-12.0); NRBC Flagged by Analyzer 0 % (0-5); Platelet Count 249 K/mm3 (150-450); RBC Distribution Width CV 11.9 % (11.6-14.6); RBC Distribution Width SD 38.8 fl (35.1-43.9); Red Blood Count 4.21 M/mm3 (4.6-6.2); White Blood Count 6.2 K/mm3 (4.4-11.0)
[2024-11-10 10:39] LABS: AST(SGOT) 23 U/L (<=37); Alanine Aminotransfer ALT/SGPT 29 U/L (<=46); Albumin, Serum 4.4 g/dL (3.4-4.8); Alkaline Phosphatase 111 U/L (40-129); Anion Gap 12 (5-15); BUN 29 mg/dL (4-19); BUN/Creat Ratio 19.5 RATIO (10-20); Calcium,Total 9.4 mg/dL (7.6-11.0); Carbon Dioxide 22.2 mmol/L (21.0-32.0); Chloride 103 mmol/L (98-108); Cholesterol 109 mg/dL (<=200); Globulin 2.9 g/dL (2.2-4.2); Glucose 233 mg/dL (70-99); Low Density Lipoprotein Calc. 50 mg/dL; Potassium 4.3 mmol/L (3.3-5.1); Triglycerides 57 mg/dL; Very Low Density Lipoprotein 11 mg/dL (5-40); Vitamin B12 500 pg/mL (180-914); Vitamin D,25 Hydroxy 34.2 ng/mL (30-100); cholesterol:hdl ratio screen 2.30
== END | disposition home or self-care (01) ==
PROVIDERS: PCP Internal Medicine; Referring Provider Internal Medicine; Visit Provider Internal Medicine
DX: E11.22 Type 2 diabetes mellitus with diabetic chronic kidney disease (principal); I12.9 Hypertensive chronic kidney disease with stage 1 through stage 4 chronic kidney disease, or unspecified chronic kidney disease; N18.9 Chronic kidney disease, unspecified; E78.00 Pure hypercholesterolemia, unspecified; Z13.220 Encounter for screening for lipoid disorders; I25.118 Atherosclerotic heart disease of native coronary artery with other forms of angina pectoris; E55.9 Vitamin D deficiency, unspecified; E53.8 Deficiency of other specified B group vitamins
CPT/HCPCS: 36415; 80053; 80061; 82306; 82607; 83036; 84443; 85025

== ENCOUNTER → 2025-02-18 | Outpatient (CLI) | payer SELFPAY ==
[2025-02-18 11:27] LABS: AST(SGOT) 30 U/L (<=37); Alanine Aminotransfer ALT/SGPT 28 U/L (<=46); Albumin, Serum 4.2 g/dL (3.4-4.8); Alkaline Phosphatase 90 U/L (40-129); Anion Gap 12 (5-15); BUN 40 mg/dL (4-19); BUN/Creat Ratio 25.7 RATIO (10-20); Calcium,Total 9.7 mg/dL (7.6-11.0); Carbon Dioxide 24.0 mmol/L (21.0-32.0); Chloride 101 mmol/L (98-108); Globulin 2.8 g/dL (2.2-4.2); Glucose 168 mg/dL (70-99); Potassium 4.3 mmol/L (3.3-5.1)
== END | disposition home or self-care (01) ==
LOC: LAB 09:09
PROVIDERS: PCP Internal Medicine; Referring Provider Internal Medicine; Visit Provider Internal Medicine
DX: I10 Essential (primary) hypertension (principal); R73.9 Hyperglycemia, unspecified
CPT/HCPCS: 36415; 80053; 83036